=== PATIENT | male | born 1945 | race Caucasian/White ===

== ENCOUNTER → 2021-02-07 08:26 | Outpatient (CLI) | payer MEDICARE, OTHER, SELFPAY ==
--- NOTE | 2021-02-07 09:05 | RAD_ITS ---
STUDY: X-RAY - RIGHT HAND REASON FOR EXAM: Male, 75 years old. OSTEOARTHRITIS, STIFFNESS TECHNIQUE: 3 view(s) of the hand. COMPARISON: None. FINDINGS: Normal radiocarpal articulation. Normal distal radioulnar joint. Normal visualized carpal bones. Normal carpal articulations Normal carpometacarpal articulation of the thumb. Normal second through fifth carpometacarpal joints. Normal metacarpi. Normal metacarpophalangeal joint of the thumb. Normal interphalangeal joint of the thumb. Normal proximal and distal phalanges of the thumb. Normal metacarpophalangeal joints of the second through fifth fingers. Normal proximal and distal interphalangeal joints of the second through fifth fingers. Normal phalanges of the second through fifth fingers. The soft tissue structures are unremarkable. RAD/Hand Min 3 Views IMPRESSION: Normal x-ray examination of the hand. Electronically Signed: Jerardo Colón MD at 15:36 EST Tel , Service support ,
--- NOTE | 2021-02-07 09:10 | RAD_ITS ---
STUDY: X-RAY - LEFT HAND REASON FOR EXAM: Male, 75 years old. OSTEOARTHRITIS, STIFFNESS TECHNIQUE: 3 view(s) of the hand. COMPARISON: None. FINDINGS: Normal radiocarpal articulation. Normal distal radioulnar joint. Old ununited fracture of the tip of the ulnar styloid. Normal visualized carpal bones. Normal carpal articulations Normal carpometacarpal articulation of the thumb. Normal second through fifth carpometacarpal joints. Normal metacarpi. Normal metacarpophalangeal joint of the thumb. Normal interphalangeal joint of the thumb. Normal proximal and distal phalanges of the thumb. Normal metacarpophalangeal joints of the second through fifth fingers. There is diffuse articular joint space narrowing of the proximal and distal interphalangeal joints of the second through fifth fingers, but without erosive changes or periarticular soft tissue swelling. Normal phalanges of the second through fifth fingers. The soft tissue structures are unremarkable. RAD/Hand Min 3 Views IMPRESSION: No acute fracture or dislocation. Within normal limits for age. Electronically Signed: Leo Nraanjo MD at 23:23 EST , Service support ,
[2021-02-07 10:00] LABS: Erythrocyte Sedimentation Rate 8 mm/hr (0-20)
[2021-02-07 10:02] LABS: Absolute Lymphocyte Count 1.59 X10^3/uL (0.83-4.51); Absolute Neutrophil Count 2.7 X10^3/uL (2.0-7.7); Basophil# 0.03 X10^3/uL; Basophil% 0.6 % (0-1); Eosinophil# 0.05 X10^3/uL; Eosinophils% 1.1 % (0-5); Hematocrit 41.3 % (40-54); Hemoglobin 13.8 g/dL (13.0-16.5); Lymphocyte # 1.59 X10^3/ul (4.0); Lymphocyte % 33.5 % (19-41); Mean Corp Hgb Conc 33.4 g/dL (32-36); Mean Corpuscular Hgb 30.7 pg (27.0-32.0); Mean Corpuscular Volume 91.8 fL (80-94); Mean Platelet Vol. 9.4 fl (6.2-12.0); Monocyte# 0.38 X10^3/uL; NRBC Flagged by Analyzer 0 % (0-5); Neutrophil # 2.69 X10^3/uL (2.7-7.7); Neutrophil % 56.6 % (47-70); Platelet Count 227 K/mm3 (150-450); RBC Distribution Width CV 13.2 % (11.6-14.6); RBC Distribution Width SD 45.1 fl (35.1-43.9); White Blood Count 4.8 K/mm3 (4.4-11.0)
[2021-02-07 10:03] LABS: AST(SGOT) 17 U/L (15-37); Alanine Aminotransfer ALT/SGPT 12 U/L (16-61); Albumin, Serum 3.5 g/dL (3.2-5.0); Alkaline Phosphatase 73 U/L (45-117); Anion Gap 4 (5-15); BUN 17 mg/dL (7-18); BUN/Creat Ratio 19.5 RATIO (10-20); CRP < 2.90 mg/L (0.0-3.0); Calcium,Total 8.6 mg/dL (8.5-10.1); Chloride 108 mmol/L (98-107); Creatinine, Serum 0.87 mg/dL (0.70-1.30); EST Glomerular Filtration Rate 90 mL/min (>60); Est Glom Filt Rate - Afr Amer 109 mL/min (>60); Globulin 3.5 g/dL (2.2-4.2); Glucose 90 mg/dL (74-106); Rheumatoid Factor < 10.0 IU/mL (<15); Sodium Level 141 mmol/L (136-145)
[2021-02-07 10:34] LABS: Hepatitis B Surface Antibody Non-Reactive; Hepatitis B Surface Antigen Non-Reactive (Nonreactive); Hepatitis C Antibody Non-Reactive (Nonreactive)
[2021-02-08 15:10] LABS: ANTINUCLEAR ANTIBODIES DIRECT Negative (Negative)
[2021-02-09 10:05] LABS: CCP IgG Antibodies 16 units (0-19)
== END ==
PROVIDERS: PCP Family Medicine; Referring Provider Internal Medicine Rheumatology; Visit Provider Internal Medicine Rheumatology
DX: M19.041 Primary osteoarthritis, right hand (principal); I10 Essential (primary) hypertension; E78.5 Hyperlipidemia, unspecified; K21.9 Gastro-esophageal reflux disease without esophagitis; N40.0 Benign prostatic hyperplasia without lower urinary tract symptoms; G43.909 Migraine, unspecified, not intractable, without status migrainosus
CPT/HCPCS: 36415; 73130; 80053; 85025; 85652; 86038; 86140; 86200; 86431; 86706; 86803; 87340

== ENCOUNTER 2021-07-15 20:42 | Emergency (ER) | payer MEDICARE, OTHER, SELFPAY ==
[2021-07-15 20:44] VITALS: BP 188/102; PULSE 91; RESP 14; TEMP 35.7; O2SAT 97; BMI 30.7
[2021-07-15 21:08] VITALS: BP 139/86; PULSE 77; RESP 15; O2SAT 97
--- NOTE | 2021-07-15 22:19 | RAD_ITS ---
INDICATION: pain EXAMINATION/TECHNIQUE: X-RAY - RIGHT XR Knee Complete 4 Views or More 4 VIEWS COMPARISON: None. FINDINGS: SOFT TISSUES: There is a small knee joint effusion. Multiple osseous fragments surrounding the knee joint most likely extra-articular. Linear calcifications posterior knee region suggesting peripheral vascular disease. BONES/JOINTS: Total knee arthroplasty hardware shows normal alignment. No perihardware loosening or displacement.. No fracture. No focal osseous lesion.. RAD/Knee 4 or More Views IMPRESSION: Small knee joint effusion. Total knee arthroplasty without evidence of complication. Multiple osseous fragments project around the extra-articular joint space. Peripheral atherosclerosis. Electronically Signed: Larry Paredes DO at 22:41 EDT Tel , Service support ,
--- NOTE | 2021-07-15 22:39 | EX.ED.DYSGE1 ---
HPI History of Present Illness Chief Complaint: Lower Extremity Injury Informant: patient Onset/Context/Timing Onset: Today Context: Gradual Onset Timing: Waxes and wanes Current Severity: Mild Maximum Severity: Severe Narrative Narrative: Patient present secondary to right knee pain. Patient states he got this morning and felt fine, went got the paper. Short time later when he tried to bend his knee he had severe pain across the anterior medial knee. He states once his knee gets into either a straight or bent position he has no pain but any movement of the knee causes pain. He denies known injury. He has had bilateral knee replacements. PFSH PFS Medical History High cholesterol Non-smoker Home Medications prednisone 40 mg PO DAILY #8 tab 07/15/21 [Rx Last Taken Unknown] Allergy/AdvReac Type Severity Reaction Status Date / Time No Known Allergies Allergy Verified 07/15/21 20:44 Surgical History History of bilateral knee replacement History of hernia repair History of tonsillectomy and adenoidectomy Social History Smoking Status: Never smoker ROS ROS ED Constitutional Constitutional ED: Denies chills or fever(s) Eyes Eyes: Denies change in vision ENT ENT ED: Denies sore throat Cardiovascular Cardiovascular: Denies chest pain Respiratory/Chest Respiratory/Chest: Denies cough or dyspnea Gastrointestinal Gastrointestinal: Denies abdominal pain, diarrhea, nausea or vomiting Genitourinary Genitourinary ED: Denies dysuria Musculoskeletal Musculoskeletal: Reports arthralgias; Denies back pain Integumentary Denies rash Neurologic Neurologic: Denies headache(s), paresthesias or weakness Allergic/Immunologic Allergic/Immunologic ED: Denies urticaria EXAM Physical Exam Const Vital Signs: 07/15/21 20:44 07/15/21 21:08 Temperature 96.2 F L Temperature Source Temporal Pulse Rate 91 77 Respiratory Rate 14 15 Blood Pressure 188/102 H 139/86 H Blood Pressure Mean 130 103 Pulse Ox 97 97 Oxygen Delivery Method Room Air Room Air Positive well nourished and well developed General Appearance ED: well developed HEENT Reports normocephalic and head/scalp atraumatic Eyes PERRL and EOMs intact bilaterally Neck supple Chest Wall inspection of chest normal and palpation of chest normal Resp normal respiratory effort and clear to auscultation bilaterally Cardio regular rate and regular rhythm GI normal to inspection, nondistended, normoactive bowel sounds Palpation: soft Extremity normal to inspection Extremity Narrative: Mild edema noted to the right knee. No erythema or warmth. Mild tenderness along the medial joint line. No joint instability. No calf tenderness. Strong distal pulses. Neuro oriented x3 Sensorium / Orientation: alert Psych mental status grossly normal Skin no rashes or lesions noted MDM MDM MDM Narrative Medical decision making narrative: Right knee x-rays are obtained. Patient declines anything for pain. Radiography Diagnostic Testing: Radiology Impression Knee X-Ray 07/15/21 22:19 IMPRESSION: Small knee joint effusion. Total knee arthroplasty without evidence of complication. Multiple osseous fragments project around the extra-articular joint space. Peripheral atherosclerosis. Electronically Signed: Larry Paredes DO at 22:41 EDT Tel , Service support , Treatment and Re-Evaluation Comments:: Right knee x-ray per my interpretation reveals hardware to be intact. Chronic osteoarthritic changes noted but no acute findings. Test results discussed with patient and at bedside. I will treated with a burst of steroids to help calm inflammation in any sign of tendinitis. Layo wrap will be applied to the knee. Discharge Plan Triage Chief Complaint: Lower Extremity Injury ED Provider: Sonia Lopez Dx/Rx/DC Orders Clinical Impression: Strain of right knee Instructions: ED Knee Sprain Prescriptions: New prednisone 20 mg tablet 40 mg PO DAILY Qty: 8 RF: 0 Primary Care Provider: Kamron Pate Referrals: Kamron Pate MD [Primary Care Provider] - 1 Week if not improving Disposition Disposition: Home, Self Care
[2021-07-15] MEDS: predniSONE 20 MG Tablet 40 MG PO (23:07)
== END 2021-07-15 23:10 | disposition home or self-care (01) ==
PROVIDERS: Emergency Provider Emergency Medicine; PCP Family Medicine
DX: S86.911A Strain of unspecified muscle(s) and tendon(s) at lower leg level, right leg, initial encounter (principal); X58.XXXA Exposure to other specified factors, initial encounter; Y93.9 Activity, unspecified; Y92.89 Other specified places as the place of occurrence of the external cause; Y99.8 Other external cause status; E78.00 Pure hypercholesterolemia, unspecified; Z79.52 Long term (current) use of systemic steroids; Z96.653 Presence of artificial knee joint, bilateral; M25.469 Effusion, unspecified knee
CPT/HCPCS: 73564; 99283

== ENCOUNTER → 2025-07-06 | Outpatient (CLI) | payer MEDICARE, OTHER, SELFPAY ==
[2025-07-06 16:01] LABS: PSA,Total - Annual Screen 1.23 ng/mL (0.02-4.00)
--- OUTSIDE RECORDS SUMMARY | 2025-07-06 18:59 | XMS RPT_ITS | CCD ---
Author Organization [facility] Care Team Providers Care Edm Operator Name Role Phone Trent Mckeon Primary Care Provider Rio BENAVIDES, Kmaron Primary Care Provider Rio BENAVIDES, Kamron Primary Care Provider Trent Mckeon Primary Care Provider KAMRON PATE Attending Unavailable KAMRON PATE Primary Care Unavailable KAMRON PATE Attending Unavailable RIO KAMRON Primary Care Unavailable KAMRON PATE Attending Unavailable RIO, KAMRON Primary Care Unavailable Kamron Pate MD Primary Care Provider Manny Dudley MD Unavailable Manny Dudley MD Unavailable Mona Mata PT Unavailable TRENT MCKEON Primary Care Unavailable DANIEL PATEL Referring Unavailable RIO, KAMRON B Primary Care Unavailable PROVIDER, UNKNOWN Admitting Unavailable PROVIDER, UNKNOWN Attending Unavailable TRENT MCKEON Primary Care Unavailable NAEL REID Referring Unavailable RIO KAMRON B Primary Care Unavailable DANIEL PATEL Referring Unavailable RIO, KAMRON B Primary Care Unavailable KEM ALDRIDGE Attending Unavailable RIO, KAMRON B Primary Care Unavailable ALAYNA BOJORQUEZ Referring Unavailable RIO, KAMRON B Primary Care Unavailable MANNY DUDLEY Attending Unavailable RIO, KAMRON B Primary Care Unavailable MANNY DUDLEY Attending Unavailable TRENT MCKEON Primary Care Unavailable ALMA SANCHEZ Attending Unavailable TRENT MCKEON Primary Care Unavailable MANNY DUDLEY Attending Unavailable MANNY DUDLEY Referring Unavailable RIO, KAMRON B Primary Care Unavailable MANNY DUDLEY Referring Unavailable KAMRON PATE Primary Care Unavailable ALAYNA BOJORQUEZ Referring Unavailable NAEL REID Attending Unavailable KAMRON PATE Primary Care Unavailable KAMRON PATE Primary Care Unavailable NAEL REID Referring Unavailable KAMRON PATE Primary Care Unavailable NAEL REID Referring Unavailable KEM ALDRIDGE Attending Unavailable KAMRON PATE Primary Care Unavailable NAEL REID Referring Unavailable KEM ALDRIDGE Attending Unavailable KAMRON PATE Primary Care Unavailable NAEL REID Referring Unavailable NAEL REID Referring Unavailable RIO KAMRON B Primary Care Unavailable Allergies Allergy Classification Reported Allergen(s) Allergy Type Date of Onset Reaction(s) Facility (20 sources) celecoxib; Translations: [CELECOXIB] Drug Allergy 07-05-2011 Diarrhea [facility] (8 sources) celecoxib Drug Allergy 07-05-2011 Diarrhea [facility] Medications Current Medications Medication Drug Class(es) Dates Sig (Normalized) Sig (Original) acetaminophen 500 mg oral tablet (20 sources) Start: 02-02-2025 take 2 tablets by mouth every eight hours as needed acetaminophen (TYLENOL) 500 mg tablet Take 2 tablets by mouth every 8 hours as needed for pain. 90 tablet 02/02/2025 Active amoxicillin 500 mg oral capsule (2 sources) Penicillin-class Antibacterial Start: 06-16-2025 take 4 capsules by mouth every hour amoxicillin (AMOXIL) 500 mg capsule Take 4 capsules by mouth one hour prior to dental cleaning/procedure 4 capsule 3 06/16/2025 Active Start: 10-19-2024 End: 10-19-2024 take 4 tablets by mouth once, then take 4 tablets by mouth every hour Amoxicillin 500 mg tablet Take 4 tablets by mouth one time only for 1 dose. Take 4 capsules by mouth one hour prior to dental cleaning/procedure 4 tablet 3 10/19/2024 10/19/2024 Active amoxicillin 875 mg / clavulanate 125 mg oral tablet (1 source) Penicillin-class Antibacterial Start: 10-07-2024 End: 10-14-2024 take 1 tablet by mouth twice daily amoxicillin-clavulanate (Augmentin) 875-125 MG tablet Indications: Acute bacterial sinusitis Take 1 tablet by mouth 2 times daily for 7 days. 14 tablet 10/07/2024 10/14/2024 Active ascorbic acid 500 mg oral tablet (20 sources) Vitamin C Start: 02-03-2025 End: 02-17-2025 ascorbic acid, vitamin C, (VITAMIN C) 500 mg tablet Take 1 tablet by mouth two times a day with meals for 28 doses. Patient should start on February 03, 2025. 28 tablet 02/03/2025 Active aspirin 81 mg delayed release oral tablet (20 sources) Platelet Aggregation Inhibitor, Nonsteroidal Anti-inflammatory Drug Start: 02-03-2025 End: 03-03-2025 aspirin, enteric coated (ASPIRIN, ENTERIC COATED) 81 mg EC tablet Take 1 tablet by mouth two times a day for 28 days. Patient should start on February 03, 2025. 56 tablet 02/03/2025 Active benoxinate hydrochloride 4 mg/ml / fluorescein sodium 3 mg/ml ophthalmic solution (2 sources) Diagnostic Dye Start: 08-14-2024 End: 08-14-2024 fluorescein-benoxinate 0.3-0.4 % 1 Drop (FLURESS) Start: 08-14-2024 End: 08-14-2024 1 Drop, BOTH EYES, DIRECT ED, Starting on Sat08/14/24 at 0900, Until Sat08/14/24 at 2058, Administer for applanation tonometry. In the event of a Fluress shortage, administer Planada-Fluor 1 drop into both eyes as directed for applanation tonometry ciprofloxacin 2 mg/ml / hydrocortisone 10 mg/ml otic suspension (1 source) Corticosteroid, Quinolone Antimicrobial Start: 08-24-2024 End: 08-31-2024 ciprofloxacin-hydrocortisone (Cipro HC Otic) otic suspension Indications: Otorrhea of both ears Administer 3 drops into each ear 2 times daily for 7 days. 10 mL 08/24/2024 08/31/2024 Active docusate sodium 100 mg oral capsule (16 sources) Start: 02-03-2025 End: 03-05-2025 take 1 capsule by mouth every twelve hours as needed docusate sodium (COLACE) 100 mg capsule Take 1 capsule by mouth two times a day as needed for constipation. Patient should start on February 03, 2025. 60 capsule 02/03/2025 03/05/2025 Active hydrocortisone 10 mg/ml / neomycin 3.5 mg/ml / polymyxin b 52704 unt/ml otic solution (1 source) Aminoglycoside Antibacterial, Polymyxin-class Antibacterial, Corticosteroid Start: 10-07-2024 End: 10-14-2024 ssdczcdp-mrtftgyte-zordblkpl is one (Cortisporin) otic solution Administer 2 drops into affected ear(s) 4 times daily for 7 days. 10 mL 10/07/2024 10/14/2024 Active ibuprofen 200 mg oral tablet (17 sources) Nonsteroidal Anti-inflammatory Drug take 4 tablets by mouth every eight hours as needed ibuprofen 200 mg tablet Take 800 mg by mouth every 8 hours as needed. Active take 1 tablet by kristy every six hours as needed ibuprofen 200 MG tablet Take 200 mg by mouth every 6 hours as needed. Active Comment on above: Take 800 mg by mouth every 8 hours as needed. mupirocin 0.02 mg/mg topical ointment (1 source) RNA Synthetase Inhibitor Antibacterial Start: 01-19-20 End: 02-05-20 mupirocin (BACTROBAN) 2 % ointment Apply 0.5 inch with cotton swab (Q-tip) to each nostril in the morning and evening for 5 days prior to and including day of surgery. 22 g 01/19/2025 02/04/2025 Active oxyCODONE hydrochloride 5 mg oral tablet (6 sources) Opioid Agonist Start: 02-03-20 End: 02-10-20 take 1 tablet by mouth every six hours as needed oxyCODONE IR (ROXICODONE) 5 mg immediate release tablet Indications: S/P revision of total knee, right Take 1-2 tablets by mouth every 6 hours as needed for pain for up to 7 days. 50 tablet 02/02/2025 02/09/2025 Active pantoprazole 40 mg delayed release oral tablet (20 sources) Proton Pump Inhibitor Start: 02-03-20 End: 03-04-20 take 1 tablet by mouth once daily in the morning pantoprazole DR (PROTONIX) 40 mg tablet Take 1 tablet by mouth every morning. 30 tablet 02/02/2025 Active phenylephrine hydrochloride 25 mg/ml ophthalmic solution (2 sources) alpha-1 Adrenergic Agonist Start: 08-14-20 End: 08-14-20 PHENYLephrine 2.5 % 1 Drop (AK-DILATE, VADIM-SYNEPHRINE) Start: 08-14-2024 End: 08-14-2024 1 Drop, BOTH EYES, DIRECT ED, Starting on Sat08/14/24 at 0900, Until Sat08/14/24 at 2058, Administer for dilation PROTECT FROM LIGHT polyethylene glycol 3350 08441 mg powder for oral solution (7 sources) Osmotic Laxative Start: 02-02-2025 End: 02-12-2025 polyethylene glycol 3350 (MIRALAX) 17 gram/dose powder Take 17 g by mouth once daily as needed for constipation for up to 10 days. Dissolve dose in 4 - 8 ounces of liquid and take as directed. 170 g 02/02/2025 02/12/2025 Active tropicamide 10 mg/ml ophthalmic solution (2 sources) Anticholinergic Start: 08-14-2024 End: 08-14-2024 tropicamide 1 % 1 Drop (MYDRIACYL) Start: 08-14-2024 End: 08-14-2024 1 Drop, BOTH EYES, DIRECT ED, Starting on Sat08/14/24 at 0900, Until Sat08/14/24 at 2058, Administer for dilation Completed/Discontinued Medications Medication Drug Class(es) Dates Sig (Normalized) Sig (Original) acetaminophen 325 mg / dichloralphenazone 100 mg / isometheptene 65 mg oral capsule (10 sources) End: 01-19-20 take 1 capsule by mouth every six hours as needed isometheptene-acetamin ophen-dichloralphenazo ne (MIDRIN) 325-65-100 mg ORAL per capsule Take 1 capsule by mouth four times daily as needed. 01/19/2025 Discontinued Comment on above: Take 1 capsule by mo ut four times daily as needed. augmented betamethasone 0.5 mg/ml topical cream (1 source) Corticosteroid Start: 04-19-20 End: 01-09-20 23 betamethasone, augmented, (Diprolene AF) 0.05 % cream hydroCHLOROthiazide 12.5 mg oral tablet (4 sources) Thiazide Diuretic End: 02-10-20 24 take 1 tablet by mouth once daily hydrochlorothiazide 12.5 mg ORAL tablet Take 12.5 mg by mouth once daily. 02/10/2024 Discontinued (Discontinued by Patient) Comment on above: Take 12.5 mg by mout h once daily. omeprazole 20 mg delayed release oral capsule (12 sources) Proton Pump Inhibitor Start: 10-29-20 End: 02-18-20 25 omeprazole (PriLOSEC) [address] capsule Comment on above: Take 20 mg by mouth once daily. rosuvastatin calcium 10 mg oral tablet (13 sources) HMG-CoA Reductase Inhibitor Start: 11-02-20 End: 01-19-20 rosuvastatin (Crestor) 10 MG tablet TAKE 1 TABLET DAILY 90 tablet 3 11/02/2022 03/30/2024 Discontinued (Med list cleanup) Comment on above: Take 10 mg by mouth once daily. sodium fluoride 0.011 mg/mg toothpaste (1 source) Start: 12-02-19 End: 01-09-20 Sodium Fluoride 5000 PPM 1.1 % cream BRUSH WITH TOOTHPASTE TWICE A DAY -- SPIT BUT DO NOT RINSE AFTERWARDS 0 12/02/2022 01/09/2023 Discontinued (Med list cleanup) Problems Active Problems Problem Classification Problem Date Documented Date Episodic/Chronic Aortic; peripheral; and visceral artery aneurysms (20 sources) Dilatation of aorta; Translations: [Aortic ectasia, unspecified site] Onset: 01-20-2025 01-20-2025 Chronic Bacterial infection; unspecified site (2 sources) Other specified bacterial agents as the cause of diseases classified elsewhere; Translations: [Other specified bacterial agents as the cause of diseases classified elsewhere] Onset: 10-07-2024 Episodic Blindness and vision defects (6 sources) Bilateral myopia of eyes; Translations: [Myopia, bilateral] 02-10-2024 Episodic Cataract (2 sources) Bilateral pseudophakia; Translations: [Presence of intraocular lens] 02-10-2024 Chronic Disorders of lipid metabolism (20 sources) Hypercholesterolemia; Translations: [Pure hypercholesterolemia, unspecified] Onset: 12-22-2015 09-13-2022 Chronic Esophageal disorders (11 sources) Gastroesophageal reflux disease without esophagitis; Translations: [Gastro-esophageal reflux disease without esophagitis] Onset: 12-22-2015 09-13-2022 Chronic Headache; including migraine (20 sources) Migraine aura without headache ; Translations: [Migraine with aura, not intractable, without status migrainosus] Onset: 12-26-2018 09-13-2022 Chronic Heart valve disorders (2 sources) Heart murmur; Translations: [Cardiac murmur, unspecified] Onset: 01-19-2025 01-19-2025 Episodic Hyperplasia of prostate (8 sources) Benign prostatic hyperplasia; Translations: [Benign prostatic hyperplasia without lower urinary tract symptoms] Onset: 12-22-2015 09-13-2022 Chronic Joint disorders and dislocations; trauma-related (3 sources) Chondromalacia of right patella; Translations: [Chondromalacia patellae, right knee] Onset: 02-02-2025 Chronic Joint disorders and dislocations; trauma-related (1 source) Chondromalacia of left patella; Translations: [Chondromalacia patellae, left knee] 01-08-2025 Chronic Osteoarthritis (20 sources) Osteoarthritis of knee; Translations: [Osteoarthritis of knee, unspecified] Onset: 07-09-2013 07-09-2013 Chronic Other aftercare (2 sources) Patient encounter status; Translations: [Aftercare following joint replacement surgery] Chronic Other and ill-defined heart disease (20 sources) Diastolic dysfunction; Translations: [Other ill-defined heart diseases] Onset: 01-20-2025 01-20-2025 Chronic Other connective tissue disease (20 sources) History of total knee arthroplasty; Translations: [Presence of unspecified artificial knee joint] Onset: 07-06-2011 07-06-2011 Chronic Other connective tissue disease (20 sources) History of revision of left total knee arthroplasty; Translations: [Presence of left artificial knee joint] Onset: 02-04-2025 02-04-2025 Chronic Other connective tissue disease (2 sources) Presence of right artificial knee joint; Translations: [S/P revision of total knee, right] Onset: 02-02-2025 Chronic Other connective tissue disease (1 source) Presence of left artificial knee joint; Translations: [Status post revision of total knee replacement, left] Onset: 02-24-2025 Chronic Other ear and sense organ disorders (2 sources) Otorrhea, bilateral; Translations: [Otorrhea, bilateral] Onset: 08-24-2024 Episodic Other ear and sense organ disorders (1 source) Otorrhea of bilateral ears; Translations: [Otorrhea, bilateral] 08-24-2024 Episodic Other eye disorders (2 sources) Meibomian gland dysfunction of bilateral eyes; Translations: [Meibomian gland dysfunction right eye, upper and lower eyelids] 02-10-2024 Episodic Other nervous system disorders (1 source) Other chronic pain; Translations: [Chronic pain of both knees] Onset: 06-22-2011 Chronic Other non-traumatic joint disorders (5 sources) Pain in left knee; Translations: [Pain in joint, lower leg] Onset: 06-22-2011 12-14-2024 Episodic Other upper respiratory infections (3 sources) Acute sinusitis, unspecified; Translations: [Acute bacterial sinusitis] Onset: 10-07-2024 Episodic Veda-; endo-; and myocarditis; cardiomyopathy (except that caused by tuberculosis or sexually transmitted disease) (20 sources) Heart valve disorder; Translations: [Endocarditis, valve unspecified] Onset: 01-19-2025 01-20-2025 Chronic Residual codes; unclassified (2 sources) Immunization not carried out because of patient refusal; Translations: [Immunization not carried out because of patient refusal] Onset: 08-24-2024 Episodic Residual codes; unclassified (3 sources) Pain; Translations: [Pain, unspecified] 10-14-2024 Episodic Residual codes; unclassified (1 source) Influenza vaccination declined; Translations: [Immunization not carried out because of patient refusal] 08-24-2024 Episodic Unclassified (1 source) History of revision of left total knee arthroplasty 02-19-2025 Unclassified (1 source) Left knee pain, unspecified chronicity 02-21-2025 Past or Other Problems Problem Classification Problem Date Documented Date Episodic/Chronic Abdominal hernia (8 sources) Hernia of anterior abdominal wall; Translations: [Ventral hernia without obstruction or gangrene] Onset: 06-19-2018 09-13-2022 Episodic Other and unspecified benign neoplasm (8 sources) History of polyp of colon; Translations: [Personal history of colonic polyps] Onset: 01-13-2018 09-13-2022 Episodic Other circulatory disease (10 sources) Labile hypertension due to being in a clinical environment; Translations: [Elevated blood-pressure reading, without diagnosis of hypertension] Onset: 06-19-2018 09-13-2022 Episodic Other circulatory disease (2 sources) Elevated blood-pressure reading, without diagnosis of hypertension; Translations: [Elevated blood-pressure reading, without diagnosis of hypertension] Onset: 09-13-2022 Episodic Other non-traumatic joint disorders (20 sources) Pain in unspecified knee; Translations: [Pain in joint, lower leg] Onset: 06-22-2011 06-22-2011 Episodic Other non-traumatic joint disorders (2 sources) Pain in right knee; Translations: [Pain in joint, lower leg] Onset: 06-22-2011 01-07-2023 Episodic Other nutritional; endocrine; and metabolic disorders (2 sources) Obesity; Translations: [Other obesity due to excess calories] Onset: 01-08-2022 Resolved: 01-09-2023 01-09-2023 Chronic Other nutritional; endocrine; and metabolic disorders (6 sources) Obesity caused by energy imbalance; Translations: [Other obesity due to excess calories] Onset: 01-08-2022 Resolved: 01-09-2023 01-09-2023 Chronic Other screening for suspected conditions (not mental disorders or infectious disease) (5 sources) Blood chemistry abnormal; Translations: [Abnormal finding of blood chemistry, unspecified] Onset: 03-30-2024 03-30-2024 Episodic Residual codes; unclassified (1 source) Pain, unspecified; Translations: [Pain] Onset: 12-11-2024 Episodic Spondylosis; intervertebral disc disorders; other back problems (20 sources) Neck pain; Translations: [Cervicalgia] Onset: 07-04-2012 07-04-2012 Episodic Unclassified (2 sources) Preprocedural examination done 01-19-2025 Results Test Name Value Interpretation Reference Range Facility [facility] 03-22-2025 CNTHERAPY OT/PT/Speech Visit (PTWS) -------- TERESA ISAACS ([id number]) 1945 M Date Time Provider Department 03/22/25 11:45 AM XIOMARA YAO Date Time Provider Department Center 03/22/2025 11:45 AM [id number], MARIAH PTSAL [place] Reason for Visit: Physical Therapy [503] PT Discharge [752] Primary Visit Diagnosis:Status post revision of total knee replacement, 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 - ascorbic acid, vitamin C, (VITAMIN C) 500 mg tablet Take 1 tablet by mouth two times a day with meals for 28 doses. Patient should start on February 03, 2025. - aspirin, enteric coated (ASPIRIN, ENTERIC COATED) 81 mg EC tablet Take 1 tablet by mouth two times a day for 28 days. Patient should start on February 03, 2025. - pantoprazole DR (PROTONIX) 40 mg tablet Take 1 tablet by mouth every morning. Normal [facility] CNOVon 03-19-2025 CNOV Office Visit (ORNA ) -------- TERESA ISAACS ([id number]) 1945 M Date Time Provider Department 03/19/25 9:00 AM MANNY DUDLEY During your visit today, we recorded the following information about you: Manny Dudley MD 04/16/2025 7:[address] DUDLEY- POST-OP KNEE ====== Post-Op F/U Office Visit ====== Teresa Isaacs presents today for a 6-1/2 weeks status post revision Left TKA.(Patellar resurfacing) post-operative recovery was uneventful. Patient's rating of condition: improving Comments: Patient reports that his preoperative pain has improved. Does the Pt. still experience pain? PAIN EVALUATION 03/19/2025 0900 Pain Level: 0 Pain Location: Knee-Left Duration Amount of Time: 6 Duration Units: Weeks Frequency: Intermittent Functional difficulties: Stair climbing Physical Therapy: Yes Pain Medication: Non-narcotic Ambulating without assistance. Medications and Allergies reviewed and verified. ====== EXAM: ====== GEN: AANDO x3, NAD SKIN:Appropriate postop appearance LeftKnee: ROM: Flexion/Extension:0 degrees to 120 degrees Pain with ROM:No Mal-alignment: No Effusion: None Tender to palpation of the patellofemoral joint line(s). Stability:Anterior/Poste rior- Yes, stable and Varus/Valgus- Yes, stable Quad strength: normal HIP: range of motion no loss ROM NV: intact and Bailee's negative ====== IMAGING: ====== Xrays: No x-rays today ==== IMPRESSION/PLAN: ==== 79 year old male s/p revision Left TKA No complaints or limitations. At normal post-operative stage of recovery. Plan: 1. Continue range of motion/strengthening exercises and weightbearing as tolerated 2. Continue total knee precautions including use of antibiotics for dental procedures 3. Follow-up for repeat clinical evaluation Manny Dudley MD Electronic Signature Allergies As of Date: 03/19/2025 Noted Allergy Reaction CELEBREX (CELECOXIB) 07/05/2011 6 - Diarrhea Date Reviewed: 03/19/2025 Reviewed by: Rani Wasserman MA - Fully Assessed Reason for Visit: Knee Pain [132] Post Op [174] Knee Replacement [363] Primary Visit Diagnosis:Aftercare following left knee joint replacement surgery [Z47.1, Z96.652] Prescriptions as of 04/16/2025 - acetaminophen (TYLENOL) 500 mg tablet Take 2 tablets by mouth every 8 hours as needed for pain. - ascorbic acid, vitamin C, (VITAMIN C) 500 mg tablet Take 1 tablet by mouth two times a day with meals for 28 doses. Patient should start on February 03, 2025. - aspirin, enteric coated (ASPIRIN, ENTERIC COATED) 81 mg EC tablet Take 1 tablet by mouth two times a day for 28 days. Patient should start on February 03, 2025. - pantoprazole DR (PROTONIX) 40 mg tablet Take 1 tablet by mouth every morning. 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] 02/04/2025 Status post revision of total knee replacement,*02/24/2025 Encounter Status:Closed by MANNY DUDLEY on 04/16/25 [facility] CNTHERAPYon 03-18-2025 CNTHERAPY OT/PT/Speech Visit (PTWS) -------- TERESA ISAACS ([id number]) 1945 M Date Time Provider Department 03/18/25 9:30 AM XIOMARA YAO Date Time Provider Department Center 03/18/2025 9:30 AM [id number] MORFIN Reason for Visit: Physical Therapy [503] Primary Visit Diagnosis:Status post revision of total knee replacement, 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 - ascorbic acid, vitamin C, (VITAMIN C) 500 mg tablet Take 1 tablet by mouth two times a day with meals for 28 doses. Patient should start on February 03, 2025. - aspirin, enteric coated (ASPIRIN, ENTERIC COATED) 81 mg EC tablet Take 1 tablet by mouth two times a day for 28 days. Patient should start on February 03, 2025. - pantoprazole DR (PROTONIX) 40 mg tablet Take 1 tablet by mouth every morning. 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 - ascorbic acid, vitamin C, (VITAMIN C) 500 mg tablet Take 1 tablet by mouth two times a day with meals for 28 doses. Patient should start on February 03, 2025. - aspirin, enteric coated (ASPIRIN, ENTERIC COATED) 81 mg EC tablet Take 1 tablet by mouth two times a day for 28 days. Patient should start on February 03, 2025. - pantoprazole DR (PROTONIX) 40 mg tablet Take 1 tablet by mouth every morning. 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 - ascorbic acid, vitamin C, (VITAMIN C) 500 mg tablet Take 1 tablet by mouth two times a day with meals for 28 doses. Patient should start on February 03, 2025. - aspirin, enteric coated (ASPIRIN, ENTERIC COATED) 81 mg EC tablet Take 1 tablet by mouth two times a day for 28 days. Patient should start on February 03, 2025. - pantoprazole DR (PROTONIX) 40 mg tablet Take 1 tablet by mouth every morning. 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 - ascorbic acid, vitamin C, (VITAMIN C) 500 mg tablet Take 1 tablet by mouth two times a day with meals for 28 doses. Patient should start on February 03, 2025. - aspirin, enteric coated (ASPIRIN, ENTERIC COATED) 81 mg EC tablet Take 1 tablet by mouth two times a day for 28 days. Patient should start on February 03, 2025. - docusate sodium (COLACE) 100 mg capsule Take 1 capsule by mouth two times a day as needed for constipation. Patient should start on February 03, 2025. - pantoprazole DR (PROTONIX) 40 mg tablet Take 1 tablet by mouth every morning. 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 - ascorbic acid, vitamin C, (VITAMIN C) 500 mg tablet Take 1 tablet by mouth two times a day with meals for 28 doses. Patient should start on February 03, 2025. - aspirin, enteric coated (ASPIRIN, ENTERIC COATED) 81 mg EC tablet Take 1 tablet by mouth two times a day for 28 days. Patient should start on February 03, 2025. - docusate sodium (COLACE) 100 mg capsule Take 1 capsule by mouth two times a day as needed for constipation. Patient should start on February 03, 2025. - pantoprazole DR (PROTONIX) 40 mg tablet Take 1 tablet by mouth every morning. Normal [facility] [id number] 02-24-2025 [id number] HNO ID: [id number] Author: KEM ALDRIDGE PT Service: ? Author Type: Physical Therapist Type: [id number] Filed: 02/24/2025 12:39 Note Text: [facility] Rehabilitation and Sports Therapy Physical Therapy Plan of Care Certification Patient Name: Teresa Isaacs : 1945 [facility] #: [id number] Date: 02/24/2025 To: Nael Reid PA-C From Therapist: Kem Aldridge PT RE: Patient Certification/ Recertification Your review, approval and electronic signature are required in order to comply with Payor: MEDICARE / Plan: MEDICARE A AND B / Product Type: Medicare / regulations. The identified Physical Therapy PLAN OF CARE for the patient is as follows: Z96.652 Status post revision of total knee replacement, left (primary encounter diagnosis) PLAN OF CARE: Assessment: Teresa Isaasc presents with diagnosis of s/p left total knee arthroplasty revision that interferes with stair negotiation, physical activities, walking in the community, squatting (Uneven surface navigation.) . The patient presents with impairments in ADL's, flexibility, joint mobility, overall function, range of motion, soft tissue healing, strength, and tissue tenderness. PROMIS? (Patient-Reported Outcomes Measurement Information System) scores were reviewed and identified as within normal limits. Prognosis for therapy is Good due to: current objective clinical presentation, acuteness of condition, good support system/ coping skills . The patient will benefit from skilled therapy services to meet the goals established for this plan of care as noted below. Goals for Episode of Care: established 02/24/25 [place] in home exercise program. Patient will increase active ROM of L Knee to 0-120 degrees to allow pt to to improve gait mechanics / gait pattern . Increased strength of L Quad AND HS on HHD Testing to equal to RLE for improved able to navigate stairs and uneven surfaces. Increase gross left lower extremity strength to 5/5 MMT for improvements in ADLs/IADLs. Reciprocal stair negotiation with better left lower extremity control during descend. Patient will be able to complete left lower extremity 6-in eccentric step down with good control and no pain. Patient will be able to squat to parallel or slightly above without issue. Patient Goals: Improve Function; Back to PLOF. Time Frame for Goals and Treatment : 04/21/25 Planned Interventions, Frequency, and Duration: Current Frequency: 2x/week Duration: 4 weeks Total Number of Visits Planned: 8 Planned Treatment Interventions: Therapeutic exercise (72642), Neuromuscular re-education (54428), Manual therapy (11169), Therapeutic activities (69934), Self-assisted management (25519), Gait Training (75974), Patient/Family/Caregiver Education PLAN FOR NEXT VISIT: Knee A/AA/PROM; EMERY on bike with revolutions or 1/2 moons. Patient demonstrates good understanding of plan of care and treatment. The above goals and plan of care were discussed and agreed upon by patient/family. For further details regarding this patient refer to the Physical Therapy electronically documented visit dated 02/24/2025. Provider Attestation I have reviewed the treatment plan for Teresa Kelli Isaacs, [facility]# [id number] for the period of 02/24/25 -- 04/02/25, established on 02/24/2025. Signature certifies the need for therapy services. 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 - ascorbic acid, vitamin C, (VITAMIN C) 500 mg tablet Take 1 tablet by mouth two times a day with meals for 28 doses. Patient should start on February 03, 2025. - aspirin, enteric coated (ASPIRIN, ENTERIC COATED) 81 mg EC tablet Take 1 tablet by mouth two times a day for 28 days. Patient should start on February 03, 2025. - docusate sodium (COLACE) 100 mg capsule Take 1 capsule by mouth two times a day as needed for constipation. Patient should start on February 03, 2025. - pantoprazole DR (PROTONIX) 40 mg tablet Take 1 tablet by mouth every morning. Sales Recruiting Coordinator: Addendum Therapy (PT/OT/Speech/Resp) ID: [id number] 02/24/2025 11:29 AM Author: KEM ALDRIDGE Signed by KEM ALDRIDGE PT on 02/24/2025 at 11:29 AM * * * This document replaces document [id number] * * * Document text: Program_ID:[id number] Access Code: [email or web address] URL: [email or web address] Date: 02-24-2025 Prepared By: Kem Aldridge Program Notes Exercises - Supine Heel Slide with Strap - 2 x daily - 7 x weekly - 2-3 sets - 10 reps - Knee Flexion Step - 2 x daily - 7 x weekly - 2 sets - 10 reps - Seated Knee Flexion AAROM - 2 x daily - 7 x weekly - 2 sets - 10 reps - Standing Knee Flexion - 2 x daily - 7 x weekly - 2 sets - 10 reps - Long Arc Quad on Table - 2 x daily - 7 x weekly - 2 sets - 10 reps - Active Straight Leg Raise with Quad Set - 2 x daily - 7 x weekly - 2-3 sets - 10-12 reps - Long Sitting 4 Way Patellar [place] - 1 x daily - 7 x weekly - 2 sets - 10 reps Normal [facility] THERAPY NTon 02-24-2025 THERAPY NT HNO ID: [id number] Author: KEM ALDRIDGE PT Service: ? Author Type: Physical Therapist Type: Therapy (PT/OT/Speech/Resp) Filed: 02/24/2025 11:29 Note Text: Program_ID:[id number] Access Code: [email or web address] URL: [email or web address] Date: 02-24-2025 Prepared By: Kem Aldridge Program Notes Exercises - Supine Heel Slide with Strap - 2 x daily - 7 x weekly - 2-3 sets - 10 reps - Knee Flexion Step - 2 x daily - 7 x weekly - 2 sets - 10 reps - Seated Knee Flexion AAROM - 2 x daily - 7 x weekly - 2 sets - 10 reps - Standing Knee Flexion - 2 x daily - 7 x weekly - 2 sets - 10 reps - Long Arc Quad on Table - 2 x daily - 7 x weekly - 2 sets - 10 reps - Active Straight Leg Raise with Quad Set - 2 x daily - 7 x weekly - 2-3 sets - 10-12 reps - Long Sitting 4 Way Patellar [place] - 1 x daily - 7 x weekly - 2 sets - 10 reps Normal [facility] XR Knee AP and Lateral and M erchantson 02-21-2025 IMPRESSION: Stable T KA Sox Analyst: HENNY Transcribe Date/Time: Feb 21 2025 8:17A Dictated by : DUARTE CEDENO MD This examination was interpreted and the report reviewed and electronically signed by: DUARTE CEDENO MD on Feb 21 2025 8:19AM [facility] * * *Final Report* * * DATE OF EXAM: Feb 19 2025 10:47AM LADY 5208 - XR KNEE 3V AP/LAT/MERCHANT LT / PROCEDURE REASON: M25.562-Left knee pain, unspecified chronicity * * * * Physician Interpretation * * * * PROCEDURE: Left knee INDICATION: Left knee pain, unspecified chronicity .F/U POST OP TECHNIQUE: XR KNEE 3V AP/LAT/MERCHANT LT COMPARISON: 02/02/2025 FINDINGS: The total knee arthroplasty remains in satisfactory position. No periprosthetic lucency or fracture. Small joint effusion. [facility] Provider, Daniel Salgadosheri marcelino [place] - 02/21/2025 * * *Final Report* * * DATE OF EXAM: Feb 19 2025 10:47AM LADY 5208 - XR KNEE 3V AP/LAT/MERCHANT LT / PROCEDURE REASON: M25.562-Left knee pain, unspecified chronicity * * * * Physician Interpretation * * * * PROCEDURE: Left knee INDICATION: Left knee pain, unspecified chronicity .F/U POST OP TECHNIQUE: XR KNEE 3V AP/LAT/MERCHANT LT COMPARISON: 02/02/2025 FINDINGS: The total knee arthroplasty remains in satisfactory position. No periprosthetic lucency or fracture. Small joint effusion. IMPRESSION IMPRESSION: Stable TKA Sox Analyst: HENNY Transcribe Date/Time: Feb 21 2025 8:17A Dictated by : DUARTE CEDENO MD This examination was interpreted and the report reviewed and electronically signed by: DUARTE CEDENO MD on Feb 21 2025 8:19AM EST [facility] XR Knee AP and Lateral and M erchantsOrdered By: Ccf Provider on 02-21-2025 [facility] CNOVon 02-19-2025 CNOV Office Visit (JASMYN ) -------- TERESA ISAACS ([id number]) 1945 M Date Time Provider Department 02/19/25 11:00 AM NAEL REID During your visit today, we recorded the following information about you: Nael Reid PA-C 02/19/2025 12:38 PM Signed Post-op Office Visit Teresa Isaacs 79 year old February 19, 2025 11:14 AM Surgery Date: 02/02/2025 History: Teresa Isaacs is now 2 weeks out from left total knee arthroplasty revision in the form of resurfacing of patella. Post-operative course has been without complication. No readmissions. The patient was discharged same day to home with home health care. Subjective: Patient reports no knee pain. Overall is doing well. He is not using an ambulatory aid He is not taking any opioid pain medication Patients rates his condition as improving. Reports compliance with DVT ppx. Participating in home PT. Objective: Left knee: Ambulates without assistive device Incision well-approximated, no drainage, well-healing. Suture tails trimmed today. Knee ROM 0 - 95 degrees Distally DP/PT palpable Distally SILT S/S/SP/DP/T intact at baseline Distally DF/PF motor intact at baseline Negative bailee/calf tenderness Xrays: Well-positioned total knee replacement in appropriate alignment with no evidence of loosening Assessment and Plan: 79 year old male 2 weeks status post left total knee arthroplasty revision in the form of resurfacing of patella - continue ice, rest, and use of non-narcotic analgesia as needed - reviewed antibiotic prophylactic protocols - discussed home exercises and therapy - continue ASA DVT prophylaxis for 4 weeks total - WBAT on operative extremity - discussed driving requirement: 4 weeks post-op, off narcotic pain medication, adequate brake time - follow up in 4 weeks for repeat clinical evaluation with Dr. Dudley Normal post-operative course discussed with patient. Patient reassured and supported. All questions answered. Rell Reid PA-C Orthopaedic Surgery Allergies As of Date: 02/19/2025 Noted Allergy Reaction CELEBREX (CELECOXIB) 07/05/2011 6 - Diarrhea Date Reviewed: 02/19/2025 Reviewed by: Rani Wasserman MA - Fully Assessed Reason for Visit: Knee Pain [132] Post Op [174] Primary Visit Diagnosis:Status post revision of total replacement of left knee [Z96.652] Order(s):CONSULT TO PHYSICAL THERAPY [9032] Order #: [id number]: 1 FUTURE Prescriptions as of 02/19/2025 - acetaminophen (TYLENOL) 500 mg tablet Take 2 tablets by mouth every 8 hours as needed for pain. - ascorbic acid, vitamin C, (VITAMIN C) 500 mg tablet Take 1 tablet by mouth two times a day with meals for 28 doses. Patient should start on February 03, 2025. - aspirin, enteric coated (ASPIRIN, ENTERIC COATED) 81 mg EC tablet Take 1 tablet by mouth two times a day for 28 days. Patient should start on February 03, 2025. - docusate sodium (COLACE) 100 mg capsule Take 1 capsule by mouth two times a day as needed for constipation. Patient should start on February 03, 2025. - pantoprazole DR (PROTONIX) 40 mg tablet Take 1 tablet by mouth every morning. Problem List As Of Date 02/19/2025 Noted Resolved Knee pain [M25.569] 06/22/2011 S/P total knee replacement using cement [Z96.65*07/06/2011 Neck pain [M54.2] 07/04/2012 Arthritis of knee, degenerative [M17.9] 07/09/2013 Mixed hyperlipidemia [E78.2] 01/19/2025 VHD (valvular heart disease) [I38] 01/19/2025 Migraine headaches [G43.909] 01/19/2025 Grade I diastolic dysfunction [I51.89] 01/20/2025 Dilatation of aorta (HCC) [I77.819] 01/20/2025 Osteoarthritis of patellofemoral joints of both*02/02/2025 S/P revision of total knee, left [Z96.652] 02/04/2025 Encounter Status:Closed by NAEL REID on 02/19/25 Normal [facility] XR KNEE 3V AP/LAT/MERCHANT L Ton 02-19-2025 XR KNEE 3V AP/LAT/MERCHANT LT * * *Final Report* * * DATE OF EXAM: Feb 19 2025 10:47AM LADY 5208 - XR KNEE 3V AP/LAT/MERCHANT LT / PROCEDURE REASON: M25.562-Left knee pain, unspecified chronicity * * * * Physician Interpretation * * * * PROCEDURE: Left knee INDICATION: Left knee pain, unspecified chronicity .F/U POST OP TECHNIQUE: XR KNEE 3V AP/LAT/MERCHANT LT COMPARISON: 02/02/2025 FINDINGS: The total knee arthroplasty remains in satisfactory position. No periprosthetic lucency or fracture. Small joint effusion. IMPRESSION: Stable TKA Sox Analyst: HENNY Transcribe Date/Time: Feb 21 2025 8:17A Dictated by : DUARTE CEDENO MD This examination was interpreted and the report reviewed and electronically signed by: DUARTE CEDENO MD on Feb 21 2025 8:19AM EST [id number] Normal [facility] XR Knee AP and Lateral and M erchantson 02-19-2025 Radiology Study observation (narrative) [facility] 102on 02-18-2025 102 HNO ID: [id number] Author: HAYLEE CORBIN HDA Service: ? Author Type: ? Type: 102 Filed: 02/18/2025 07:51 Note Text: Code Status: Full Code Normal [facility] CNPNon 02-09-2025 CNPN Telephone (HCSIND) -------- TERESA ISAACS ([id number]) 1945 M Date Time Provider Department 02/09/25 ELI CUNHA HCSIND During your visit today, we recorded the following information about you: Eli Cunha PTA 02/09/2025 2:00 PM Signed Removed surgical bandage today. No concerns. Picture uploaded to chart for your review. Also scheduled OP PT for patient. Can you please enter orders for this? Thanks Daniel Patel PA-C 02/09/2025 2:18 PM Signed PT and OT have been ordered. CAMRYN Ta Robert S, PA-C 02/09/2025 2:18 PM Signed Addended by: DANIEL PATEL on: 02/09/2025 02:18 PM Modules accepted: Orders Allergies As of Date: 02/09/2025 Noted Allergy Reaction CELEBREX (CELECOXIB) 07/05/2011 6 - Diarrhea Date Reviewed: 02/09/2025 Reviewed by: Eli Cunha PTA - Fully Assessed Reason for Visit: Home Care [1633] Cmt: Bandage removal Primary Visit Diagnosis:Status post total right knee replacement [Z96.651] Order(s):CONSULT TO PHYSICAL THERAPY [9032] Order #: [id number]: 1 FUTURE CONSULT TO CHILD WATCH ATTENDANT [19991210] Order #: [id number]: 1 FUTURE Prescriptions as of 02/09/2025 - acetaminophen (TYLENOL) 500 mg tablet Take 2 tablets by mouth every 8 hours as needed for pain. - ascorbic acid, vitamin C, (VITAMIN C) 500 mg tablet Take 1 tablet by mouth two times a day with meals for 28 doses. Patient should start on February 03, 2025. - aspirin, enteric coated (ASPIRIN, ENTERIC COATED) 81 mg EC tablet Take 1 tablet by mouth two times a day for 28 days. Patient should start on February 03, 2025. - docusate sodium (COLACE) 100 mg capsule Take 1 capsule by mouth two times a day as needed for constipation. Patient should start on February 03, 2025. - polyethylene glycol 3350 (MIRALAX) 17 gram/dose powder Take 17 g by mouth once daily as needed for constipation for up to 10 days. Dissolve dose in 4 - 8 ounces of liquid and take as directed. - oxyCODONE IR (ROXICODONE) 5 mg immediate release tablet Take 1-2 tablets by mouth every 6 hours as needed for pain for up to 7 days. - pantoprazole DR (PROTONIX) 40 mg tablet Take 1 tablet by mouth every morning. Problem List As Of Date 02/09/2025 Noted Resolved Knee pain [M25.569] 06/22/2011 S/P total knee replacement using cement [Z96.65*07/06/2011 Neck pain [M54.2] 07/04/2012 Arthritis of knee, degenerative [M17.9] 07/09/2013 Mixed hyperlipidemia [E78.2] 01/19/2025 VHD (valvular heart disease) [I38] 01/19/2025 Migraine headaches [G43.909] 01/19/2025 Grade I diastolic dysfunction [I51.89] 01/20/2025 Dilatation of aorta (HCC) [I77.819] 01/20/2025 Osteoarthritis of patellofemoral joints of both*02/02/2025 S/P revision of total knee, left [Z96.652] 02/04/2025 Encounter Status:Closed by ELI CUNHA on 02/09/25 Normal [facility] OPERATIVE NOon 02-04-2025 OPERATIVE NO HNO ID: [id number] Author: MANNY DUDLEY MD Service: Orthopaedic Surgery Author Type: Physician Type: Operative Report Filed: 02/04/2025 19:35 Note Text: [facility] - Operative Report TERESA ISAACS : 1945 AGE: 79. SEX: M PATIENT TYPE: I HOSP SVC: Surgical LOCATION: [facility] ATTENDING PHYSICIAN: MANNY DUDLEY CSN NUMBER: [id number] DATE OF SURGERY/PROCEDURE: 02/02/2025 INCISION/PROCEDURE START TIME: 11:03. INCISION CLOSE/PROCEDURE END TIME: 12:33. PREOPERATIVE DIAGNOSIS: Patellofemoral arthritis, left knee. POSTOPERATIVE DIAGNOSIS: Patellofemoral arthritis, left knee. SURGEON: Manny Dudley M.D. DRILL PRESS OPERATOR: LUKASZ Cobos, web production assistant. No qualified resident was available for the procedure. The PA was utilized for soft tissue retraction and holding the limb in the proper alignment for appropriate arthroplasty of the patella. SURGERY/PROCEDURE: Patellar arthroplasty, left knee. ANESTHESIA: General, peripheral. LOG ID: [id number] INTRAOPERATIVE FINDINGS: 1. Full-thickness osteoarticular wear with marginal osteophytes and several loose articular bodies. 2. Femoral and tibial components were acceptably secured with cement and there was minimal of any wear on the tibial polyethylene surface. Therefore, it was not resurfaced. COMPLICATIONS: Tip of the bone-holding tenaculum broke free while retracting the patella, size of the tenaculum of the fragment was approximately 2 to 3 mm. The knee was inspected copiously and irrigated. The surrounding surgical field was inspected. No evidence of the tenaculum tip could be identified. X-rays taken intraoperatively showed no loose foreign bodies rather and this was confirmed by the radiologist reading. CLOSURE: Primary. CLINICAL HISTORY: This is a 79-year-old gentleman, who underwent elective total knee arthroplasty approximately 16 years ago. There was no patellar resurfacing performed at that time. He did very well until recently when he began having anterior knee pain. The pain was worse with ascending/descending steps with a sensation of patellar instability. On x-ray, he was known shown to have severe degenerative changes of the patellofemoral joint with osteophyte formation and several loose bodies and therefore, it was recommended that the patient undergo a patellar resurfacing and if the tibial insert was noted to have some significant wear, exchange would be performed at that time. DESCRIPTION OF PROCEDURE: The patient was taken to the operating room. A sign-in procedure was performed. Once again, the risks, goals, complications of procedure including anesthetic complications, infection, DVT, persistent knee pain, and knee stiffness were all explained. The patient understood and agreed to the procedure. After the patient had undergone a general anesthetic, the left leg was prepped and draped in the usual sterile fashion and then a time-out was performed confirming the leg had been marked appropriately preop, the anand was visible in the surgical field. The patient's antibiotics had been infused within 1 hour of surgical incision. After completion of the time-out, the leg was held in an elevated position and exsanguinated. The tourniquet was then inflated. The previous anterior midline incision was then reutilized. Care was taken to elevate thick flaps with appropriate amount of subcutaneous tissue. These were mobilized until the previously performed arthrotomy could be identified. The arthrotomy incision was reopened over top of the permanent sutures that were used to close the arthrotomy. Upon entering, there was minimal inflammatory fluid. The patella was subluxed laterally after a lateral synovectomy was performed to enhance mobilization and the patella was inverted. This is the time that the tip of the bone holding clamp had broken free. Then inspection was made, it could not be identified in the operative field. Once the patella had been inverted, an oscillating saw was used to perform a freehand cut of the patellar articular surface after measuring for the appropriate depth. The flat cut was then verified to be of equal thickness throughout the patella and the patella was measured for a size 40 patellar insert. The guide for the Davis and Nephew asymmetrical patellar button was placed onto the cut surface and the post holes were drilled. A trial was placed. The cut bone of the patella was also inspected and no evidence of the tenaculum tip could be identified within the bone. At that point, x-ray in AP and lateral planes were obtained. No evidence of the metallic foreign body was seen intra-articular. This was confirmed by the radiologist read. The patellar of the tibial insert was then inspected showing no evidence of wear. The patient had excellent stability to varus-valgus stress in full extension, mid flexion, and deep flexion. Thus, it was decided (more content not included)... [facility] CNCOon 02-03-2025 CNCO Letter Text [facility] ANES POSTPROC EVALon 025 ANES POSTPROC EVAL HNO ID: [id number] Author: LESLIE HAYES MD Service: ? Author Type: Anesthesiologist Type: Anesthesia Postprocedure Evaluation Filed: 02/02/2025 13:30 Note Text: POST ANESTHESIA EVALUATION NOTE : 1945 Procedure Summary Date: 02/02/25 Room / Location: [facility] [place] Anesthesia Start: 1033 Anesthesia Stop: 1243 Procedure: REVISION JOINT TOTAL KNEE ONE COMPONENT (Left: Knee) Diagnosis: Chondromalacia of right patella Left knee pain, unspecified chronicity (Chondromalacia of right patella [M22.41]) (Left knee pain, unspecified chronicity [M25.562]) Surgeons: Manny Dudley MD Responsible Provider: Leslie Hayes MD Anesthesia Type: general ASA Status: 2 Anesthesia Type: general Airway Type: ETT Last Vitals Vitals Value Taken Time BP 117/67 02/02/25 1318 Temp 36.9 ?C (98.4 ?F) 02/02/25 1242 Pulse 73 02/02/25 1328 Resp 20 02/02/25 1328 SpO2 95 % 02/02/25 1328 Vitals shown include unfiled device data. Post Anesthesia Patient Status Patient Evaluation: bedside. Anticipated Disposition: inpatient floor planned admission. Neurological Status: sleepy but arousable. Pulmonary Status: breathing comfortably on supplemental oxygen Airway Control: returned to baseline unsupported. Cardiovascular Status: stable. Pain Management: clinically adequate Postoperative Hydration: acceptable. Intraoperative Events: no significant anesthesia events Post Operative Nausea/Vomiting Status: no significant post operative nausea or vomiting Recommendation: continue current plan of care and pain control. Anesthesia Observations No Documentation SIGNATURE: Leslie Hayes MD PATIENT NAME: Teresa Isaacs DATE: February 02, 2025 TIME: 1:30 PM CSN: [id number] [facility] ANES PRE-OPon 02-02-2025 ANES PRE-OP HNO ID: [id number] Author: LESLIE HAYES MD Service: ? Author Type: Anesthesiologist Type: Anesthesia Preprocedure Evaluation Filed: 02/02/2025 10:19 Note Text: ANESTHESIOLOGY DAY OF SURGERY NOTE : 1945 Procedure Information Date/Time: 02/02/25 1014 Procedure: REVISION JOINT TOTAL KNEE ONE COMPONENT (Left: Knee) Location: [facility] OR04 / [place] Surgeons: Manny Dudley MD Estimated body mass index is 28.1 kg/m? as calculated from the following: Height as of this encounter: 195.6 cm (6' 5). Weight as of this encounter: 107.5 kg (237 lb). Most recent hematocrit and potassium results: Hematocrit 39.2 01/19/2025 Potassium 4.0 01/19/2025 Relevant Problems CARDIO (+) Dilatation of aorta (HCC) (+) Migraine headaches NEURO-PSYCH (+) Migraine headaches I - PHYSICAL EVALUATION AIRWAY Patient intubated: No. Tracheostomy tube not present Mallampati: II. TM distance: >3 FB. Neck ROM: full ROM without neurological symptoms. Mouth opening: adequate. Short neck: no. Thick neck: no DENTAL Dental findings: teeth intact. Additional exam findings: yes. CARDIOVASCULAR Rhythm: regular Rate: normal PULMONARY Breath sounds clear to auscultation. II - ANESTHESIA PLAN ASA Score: 2 Anesthetic Plan: general Airway type: ETT The patient is not a current smoker. NPO Status: adequate Beta Veda Monitoring Plan Monitoring plan: standard ASA. Post Procedure Analgesic Plan Postoperative analgesic plan: multimodal analgesia. Informed Consent Anesthetic risks, benefits, alternatives, personnel and consent discussed: yes. Patient / Responsible Constitution Party agrees to proceed: yes Patient / Surrogate agrees to blood products: Yes DNR status not reviewed with patient and/or family prior to surgery. Significant changes in the patient condition since the History and Physical, not otherwise documented in primary service progress note: no. Potential Anesthesia issues that may suggest increased risk of complications or contraindication to planned procedure: none. Vitals Value Taken Time BP 107/73 02/02/25 1015 Pulse 63 02/02/25 1017 Resp 12 02/02/25 1017 Temp 36.1 ?C (97 ?F) 02/02/25 0905 SpO2 94 % 02/02/25 1017 Vitals shown include unfiled device data. Facility-Administered Medications as of 02/02/2025 Medication Dose Route Frequency lidocaine (PF) 10 mg/mL (1 %) 1-2 mg injection (XYLOCAINE) 0.1-0.2 mL INTRADERMAL PRN lactated ringers iv infusion 5-30 mL/hr INTRAVENOUS CONTINUOUS NaCl 0.9% iv flush bag 20 mL INTRAVENOUS PRN ceFAZolin iv piggyback 2 g in D5W (iso-osmotic) 100 mL (ANCEF) 2 g INTRAVENOUS Pre-Op Once ropivacaine 2.46 mg/mL-EPINEPHrine 0.005 mg/mL-cloNIDine 0.0008 mg/mL-ketorolac 0.3 mg/mL 50 mL injection (R.E.C.K.) 50 mL periarticular ONCE [COMPLETED] midazolam (PF) 2 mg injection (VERSED) 2 mg INTRAVENOUS Pre-Op Once [COMPLETED] oxyCODONE ER 10 mg tab(s) (OxyCONTIN) 10 mg ORAL Pre-Op Once scopolamine (delivers 1 mg over 3 days) 1 Patch (TRANSDERM-SCOP) 1 Patch TRANSDERMAL ONCE Outpatient Medications as of 02/02/2025 Medication Sig ibuprofen 200 mg tablet Take 800 mg by mouth every 8 hours as needed. I have interviewed and examined the patient. I have reviewed the medical record and/or the pre-anesthesia evaluation, pertinent labs, and test results. This contains updated information obtained within 48 hours of Surgery/Procedure. SIGNATURE: Leslie Hayes MD PATIENT NAME: Teresa Isaacs DATE: February 02, 2025 TIME: 10:19 AM CSN: [id number] [facility] BRIEF OP NOTon 02-02-2025 BRIEF OP NOT HNO ID: [id number] Author: MANNY DUDLEY MD Service: Orthopaedic Surgery Author Type: Physician Type: Brief Op Note Filed: 02/04/2025 11:05 Note Text: TOTAL KNEE ARTHROPLASTY BRIEF OPERATIVE / PROCEDURE NOTE LOG ID: [id number] Surgery/Procedure Date: 02/02/2025 Incision/Procedure Start Time: 11:03 AM Incision Close/Procedure End Time: 12:33 PM Surgeon(s)/Proceduralist (s) and Liquor Bridge Operator(s): Surgeons and Role: * Manny Dudley MD - Primary Physician Liquor Bridge Operator: Daniel Patel PA-C; Brandi Holder PA-C Procedure(s): Resurfacing arthroplasty patella Anesthesia: General Peripheral Block Type: Saphenous/Adductor Approach: Median parapatellar Findings: Full-thickness osteoarticular wear patella with marginal osteophytes and osteoarticular loose body Estimated Blood Loss: Less than 50 mls Specimens: Bone cuttings Complications: Tip of the tenaculum broke free while retracting the patella. Size of the tenaculum approximately 2 to 3 mm. Inspection of the knee joint did not identify the fragment. X-rays were taken showing no metallic foreign bodies. This was confirmed by the radiologist. Closure Technique: Primary Total Joint Arthroplasty (TJA) Surgical Risk Procedure: Not on file Date assessed: Not on file No data to display Implant: * No implants in log * Bearing Surface: Fixed Fixation: Cemented SSI Risk Factors: Previous surgery Constraint: Posterior Stabilized Other: None Pre-Op/Pre-Procedure Diagnosis: Chondromalacia of right patella [M22.41] Left knee pain, unspecified chronicity [M25.562] Post-Op/Post-Procedure Diagnosis: Chondromalacia of right patella [M22.41] Left knee pain, unspecified chronicity [M25.562] Weight Bearing Status: Weight Bearing As Tolerated Patient was accompanied to the next level of care by a licensed practitioner from the surgical team pending completion of this brief op note (or operative note) SIGNATURE: Manny Dudley MD PATIENT NAME: Teresa Isaacs DATE: February 02, 2025 TIME: 12:14 PM [facility] 02-02-2025 [facility] HNO ID: [id number] Author: MANNY DUDLEY MD Service: Orthopaedic Surgery Author Type: Physician Liquor Bridge Operator Type: Discharge Summary Filed: 02/04/2025 11:04 Note Text: -------- Attestation signed by Manny Dudley MD at 02/04/2025 11:04 AM Agree with above -------- DISCHARGE SUMMARY PATIENT NAME: Teresa Isaacs ADMISSION DATE: 02/02/2025 DISCHARGE DATE: 02/02/2025 PATIENT DISCHARGE SUMMARY C O N F I D E N T I A L I N F O R M A T I O N The following is a brief overview of your hospitalization. Some of the information contained on this summary may be confidential. This information should be kept in your records and should be shared with your regular doctor. These instructions explain what you or your account executive healthcare need to do to continue your care at home or at another healthcare facility Please go over these instructions with your nurse and account executive healthcare. If you are not sure about something, please ask. -------- Highest Readmission Risk Score: 8 The 30 day readmissions risk score is derived from an internally validated risk model which evaluates patient level characteristics, utilization history, medication orders and lab results up until the day of discharge. Patients with a score of 39 or above are considered highest risk for readmission. Specific patient level drivers will be listed at the bottom of the summary. The 30 day readmissions risk score is derived from an internally validated risk model which evaluates patient level characteristics, utilization history, medication orders and lab results up until the day of discharge. Patients with a score of 40 or above are considered highest risk for readmission. Where I Will be Going after Discharge: Home with Home Health My Condition at Discharge: Stable PRINCIPAL DIAGNOSIS: (Reason after study for this admission): Procedure(s): REVISION JOINT TOTAL KNEE ONE COMPONENT OTHER DIAGNOSES: Patient Active Hospital Problem List: No active hospital problems. OPERATIONS PERFORMED: Procedure(s): REVISION JOINT TOTAL KNEE ONE COMPONENT My Doctors and Medical Team: My Main Hospital Doctor: Manny Min MD PHYSICAL EXAM: See daily progress note Vitals: BP 109/67 Pulse 75 Temp 36.9 ?C (98.4 ?F) Resp 20 Ht 195.6 cm (6' 5) Wt 107.5 kg (237 lb) SpO2 92% BMI 28.10 kg/m? SUMMARY OF WHAT HAPPENED WHILE PATIENT WAS IN THE HOSPITAL: The patient was followed by Dr. Dudley in clinic for left knee pain secondary to patellar articular wear and unresurfaced patella. It was determined the patient would benefit from left total knee arthroplasty revision in the form of resurfacing of patella. The patient was determined to be a candidate for same day discharge. The procedure, its risks, benefits, and potential complications were discussed in detail prior to surgery. The patient conveyed understanding of all topics and consented to surgery. The patient underwent an elective left total knee arthroplasty revision in the form of resurfacing of patella on 02/02/[address] Dudley. The patient tolerated the procedure well and was returned to the Post Anesthesia Care Unit in stable condition. Vital signs per PACU protocol. VTE risk assessment performed. O2 therapy monitored by Respiratory Therapy to include incentive spirometry, ADL, wound and support per physician order set postop protocol. PT and OT to evaluate and treat. IV antibiotics and pain medication were given. The patient progressed with physical therapy. Vital signs were monitored and remained stable. The patient progressed with physical therapy towards goal of safety and independence. Patient was determined safe for discharge to home with home health care on 02/02/2025. TREATMENT / WOUND CARE: If you have any concerns about your wound, please contact the office. Keep wound and incision area clean and dry. You may remove your dressing on POD #7-10 (7 to 10 days after surgery). If it remains drainage-free, you may leave the dressing off, keeping the wound open to air. If there is any drainage please contact the office You may not submerge the wound under standing water for 6 weeks time after surgery (i.e. no baths, no hot tubs, no swimming pools). Do not rub the wound, but rather pat dry. If you have non-absorbable sutures in place, these will be taken out on your 1st follow-up appointment. Observe the wound for signs of infection, including increased redness, swelling, or persistent drainage around the incision site. It is normal for your wound to be warmer immediately after surgery (even up to 4-6 weeks after surgery). If you begin to experience fevers, chills, night sweats, or flu-li (more content not included)... Normal [facility] 02-02-2025 [facility] Telephone (HCSIND) -------- TERESA ISAACS ([id number]) 1945 M Date Time Provider Department 02/02/25 MARIE PARK HCSIND During your visit today, we recorded the following information about you: Marie Park PSS 02/02/2025 2:30 PM Signed Attempt Date/Time: 02/02/2025 2:25 PM Messages: patient's and Sheron Isaacs (Spouse) . HUONG Guzmán Susan 02/03/2025 8:44 AM Signed Date/Time: 02/03/2025 8:42 AM Spoke with Sheron @ phone #: [phone] - Preferred # for contact: [phone] or [phone] Have you received help from a home care company in the last 60 days? no Are you agreeable to [facility] services? yes What address will we be seeing you at? [address] [facility] [address] Do you have any upcoming appointments or things we need to schedule around? no Do you have a teachable CG or can you manage your care independently? yes Who? Sheron Have you received the flu shot? no If so, when and where? no Allergies As of Date: 02/02/2025 Noted Allergy Reaction CELEBREX (CELECOXIB) 07/05/2011 6 - Diarrhea Date Reviewed: 02/02/2025 Reviewed by: Anna Lima RN - Fully Assessed Reason for Visit: Home Care [4073] Cmt: CONFIRMATION CALL Prescriptions as of 02/03/2025 - acetaminophen (TYLENOL) 500 mg tablet Take 2 tablets by mouth every 8 hours as needed for pain. - ascorbic acid, vitamin C, (VITAMIN C) 500 mg tablet Take 1 tablet by mouth two times a day with meals for 28 doses. Patient should start on February 03, 2025. - aspirin, enteric coated (ASPIRIN, ENTERIC COATED) 81 mg EC tablet Take 1 tablet by mouth two times a day for 28 days. Patient should start on February 03, 2025. - docusate sodium (COLACE) 100 mg capsule Take 1 capsule by mouth two times a day as needed for constipation. Patient should start on February 03, 2025. - polyethylene glycol 3350 (MIRALAX) 17 gram/dose powder Take 17 g by mouth once daily as needed for constipation for up to 10 days. Dissolve dose in 4 - 8 ounces of liquid and take as directed. - oxyCODONE IR (ROXICODONE) 5 mg immediate release tablet Take 1-2 tablets by mouth every 6 hours as needed for pain for up to 7 days. - pantoprazole DR (PROTONIX) 40 mg tablet Take 1 tablet by mouth every morning. Problem List As Of Date 02/02/2025 Noted Resolved Knee pain [M25.569] 06/22/2011 S/P total knee replacement using cement [Z96.65*07/06/2011 Neck pain [M54.2] 07/04/2012 Arthritis of knee, degenerative [M17.9] 07/09/2013 Mixed hyperlipidemia [E78.2] 01/19/2025 VHD (valvular heart disease) [I38] 01/19/2025 Migraine headaches [G43.909] 01/19/2025 Grade I diastolic dysfunction [I51.89] 01/20/2025 Dilatation of aorta (HCC) [I77.819] 01/20/2025 Osteoarthritis of patellofemoral joints of both*02/02/2025 Encounter Status:Closed by MARIE PARK on 02/02/25 Normal [facility] Hematocrit Auto (Bld) [Volum e fraction]on 02-02-2025 Hematocrit (Bld) [Volume fraction] 39.4 % Normal 39.0-51.0 [facility] Comment on above: Order Comment: Speci men Type: BLOOD SPECIMENOrdering Facility: [facility] Address: [address] [place] [address] Performed By: #### 4 544-3, 718-7 ####[facility]ATORYCLIA [id number] [place] [address] [place] Hgb Bld-mCncon 02-02-2025 Hemoglobin (Bld) [Mass/Vol] 13.1 g/dL Normal 13.0-17.0 [facility] Comment on above: Order Comment: Speci men Type: BLOOD SPECIMENOrdering Facility: [facility] Address: [address] [place] [address] Performed By: #### 4 544-3, 718-7 ####[facility]ORATORYCLIA [id number] [place] [address] [place] NURSING PROGon 02-02-2025 NURSING PROG HNO ID: [id number] Author: JESSICA AVILA, RN Service: Nursing Author Type: Registered Nurse Type: Nursing Progress Note Filed: 02/02/2025 10:38 Note Text: Dr. Hayes at bedside for Left Adductor nerve block. Jessica RN at bedside, pt monitored throughout, BP 125/84 Pulse 66 Temp 36.1 ?C (97 ?F) (Temporal Artery) Resp 18 Ht 195.6 cm (6' 5) Wt 107.5 kg (237 lb) SpO2 96% BMI 28.10 kg/m? .Pt tolerated procedure without difficulty. Normal [facility] Pathology biopsy report Boni (Tiss)on 02-02-2025 AP DISCLAIMER Normal [facility] Comment on above: Order Comment: Speci men Type: TISSUE SPECIMENOrdering Facility: [facility] Address: [address] [place] [address] Result Comment: Anthony boyd Developed Test (LDT) Disclaimer: Performance characteristics of immunohistochemical, immunofluorescent, and chromogenic in-situ hybridization tests have been determined by the performing laboratory within [facility]'s Daniel Rudd Pathology and Laboratory Medicine Department ([facility], [facility], [facility], [facility], [facility], [facility], or [facility]) in a manner consistent with CLIA requirements. One or more of these tests may not have been cleared or approved by the FDA. [facility] is regulated under CLIA as qualified to perform high-complexity testing. These tests are used for clinical purposes. These should not be regarded as investigational or for research. Positive and negative controls stain appropriately. Performed By: #### 6 6121-5 ####[facility]ITALIA [id number] [facility] [place] [address] [facility] LAB[facility]IA [id number] [address] [address] [facility] CASE REPORT Normal [facility] Comment on above: Order Comment: Adelaida hoffman Type: TISSUE SPECIMENOrdering Facility: [facility] Address: [address] [place] [address] Result Comment: Surg [facility] Pathology Report Case: [id number] Authorizing Provider: Manny Dudley MD Collected: 02/02/2025 11:45 AM Ordering Location: [facility] Surgery Received: 02/02/2025 01:27 PM Pathologist: Eber Wilcox MD Specimen: Knee, Left, Arthroplasty, left knee cuttings and osteophyte Performed By: #### 6 6121-5 ####[facility]ITALIA [id number] [facility] [place] [address] [facility] LABCLIA [id number] [address] [address] [facility] [place] CLINICAL HISTORY Normal [facility] Comment on above: Order Comment: Adelaida hoffman Type: TISSUE SPECIMENOrdering Facility: [facility] Address: [address] [place] [address] Result Comment: Pre- op diagnosis: Chondromalacia of right patella [M22.41] Left knee pain, unspecified chronicity [M25.562] Performed By: #### 6 6121-5 ####[facility]ITAL[facility] [id number] [place] [address] [facility] LABCLIA [id number] [address] [address] [facility] FINAL DIAGNOSIS Normal [facility] Comment on above: Order Comment: Adelaida hoffman Type: TISSUE SPECIMENOrdering Facility: [facility] Address: [address] [place] [address] Result Comment: Oumou. L eft knee, arthroplasty: - Degenerative joint disease. 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 at 1014 EDT Performed By: #### 6 6121-5 ####[facility] LABORATORYCLIA [id number] [facility] [place] [address] [facility] LABCLIA [id number] [address] [address] [facility] FINAL PERFORMING LAB Normal [facility] Comment on above: Order Comment: Adelaida hoffman Type: TISSUE SPECIMENOrdering Facility: [facility] Address: [address] [place] [address] Result Comment: Diag nostic interpretation performed at: [facility], [address] [facility] [address] CLIA# [id number] Plant Cytologist: Anand Jorge MD Performed By: #### 6 6121-5 ####[facility] LABORATORYCLIA [id number] [facility] [place] [address] [facility] LABCLIA [id number] [address] [address] [facility] GROSS DESCRIPTION [facility] Comment on above: Order Comment: Adelaida hoffman Type: TISSUE SPECIMENOrdering Facility: [facility] Address: [address] [place] [address] Result Comment: Waqar noriega, Left, Arthroplasty Received in formalin designated left knee cuttings and osteophyte are multiple segments of bone and soft tissue which aggregate to 7.4 x 7.1 x 1.3 cm. The soft tissue is grossly unremarkable. One segment of bone grossly resembles the tibial plateau which demonstrates eburnation and cartilage roughening on the articular surface. Other fragments of bone grossly resembles the femoral condyles which demonstrates osteophyte formation. Fisher Seal sections are submitted as follows: A1 soft tissue, A2 tibial plateau, A3 femoral condyles, (A2-A3 submitted after formic decalcification). Gross examination performed at [facility], [facility] [address] February 03, 2025 10:46 AM Performed By: #### 6 6121-5 ####[facility] LABORATORYCLIA [id number] [facility] [place] [address] [facility] LABCLIA [id number] [facility] [id number] [place] [address] THERAPY NTon 02-02-2025 THERAPY NT HNO ID: [id number] Author: JORGE AMARO OT/Moi Service: ? Author Type: Occupational Therapist Type: Therapy (PT/OT/Speech/Resp) Filed: 02/02/2025 16:29 Note Text: -------- Summary: OT Evaluation -------- Occupational Therapy Evaluation Summary SERVICE DATE: 02/02/2025 SERVICE TIME: 1546 to 1618 ROOM: [facility] (P07) OT 6 Clicks Score: 20 Total Joint Replacement Discharge Readiness: Cleared from Occupational Therapy DISCHARGE RECOMMENDATIONS Home OT Anticipated Discharge Needs: Physical Assist at Home, Supervision at Home Physical Assist at Home for: Cleaning, Laundry, Meals, Self Care, Shopping, Transportation, Safety Supervision at Home due to: Decreased safety awareness Recommended Discharge Equipment: No equipment needs anticipated ASSESSMENT Response to Therapy Interventions: Good Participation in Activities, On-Track to Achieve Discharge Goals OT reviewed total knee handout and use of DME, patient requires intermittent re-instruction and cueing to maintain precautions and safety awareness during ADLs and mobility, pt and spouse report no questions/concerns for d/c home, pain well-controlled PRECAUTIONS Fall Risk, Lines/Tubes/Drains, Total Knee Replacement, Weight Bearing Restrictions, Bed/Chair Alarm Left Lower Extremity Weight Bearing Status: WBAT CURRENT HOSPITAL COURSE S/p resurfacing arthroplasty patella 02/02/25 Relevant Past Medical History: L ankle fracture, ear drum perforation, HLD, bilateral TKR HOME LIVING Patient Lives With: Spouse Assistance Available: 24-Hour Entry To Home: Stairs, Other: See Comment Number Of Stairs Into Home: 2 Number Of Stairs To Bed/Bath: 0 - first floor set up Tub/Shower Type: Walk-in shower with shower chair + grab bars + HHSH Laundry: In basement and in bedroom, spouse to complete Equipment Owned: Cane, Crutch(es), Walker- Standard, Walker- Wheeled, Rollator, Grab Bars- Shower, Grab Bars- Toilet, Commode- Raised, Shower Chair PRIOR FUNCTIONAL LEVEL Within Functional Limits Ind with amb without device, ADL/IADL, +drives and denies falls. sleeps on flat bed Baseline Cognition: Oriented to place, Oriented to self, Oriented to time, Oriented to situation SUBJECTIVE Patient pleasant and agreeable to this session COGNITION Responsiveness: Alert, Awake Follows Commands: 2-step Commands, With Repetition THERAPY DIAGNOSIS Reduced mobility-other, Decreased activities of daily living (ADL) TREATMENT INTERVENTIONS Evaluation, Self Intermediate Management (70367) Timed Code Treatment (minutes): 17 Skilled Treatment Time (minutes): 32 TRAINING AND EDUCATION PROVIDED Activity Adaptation/Compensatory Strategies, Adaptive Equipment/DME, Benefits of In-Hospital Mobility, Cognitive Skills, Command Following, Discharge Planning, Expected Functional Level, Grooming Tasks, Functional Mobility Involving ADLs, Lower Extremity Bathing, Lower Extremity Dressing, Insight into Deficits, Memory/Attention, Positioning, Pain Management, Precautions/Restrictions , Safety/Judgment, Role of Occupational Therapy, Sitting Balance to Improve [place] with ADLs/Self-Care, Standing Balance to Improve [place] with ADLs/Self-Care, Toileting , Transfer - Sit to Stand, Transfer - Toilet/Commode, Upper Extremity Dressing THERAPEUTIC SKILLS USED Activity Dosing, Cues for Sequencing/Proper Technique for Activity, Cuing Verbal, Cuing Tactile, Cuing Visual, Facilitation of Joint Range of Motion, Movement Facilitation, Muscle Activation Facilitation, Family Training, Physical Assist, Teach-Back for Education, Task Analysis Learning, Therapeutic Use of Self FUNCTIONAL STATUS Activities of Daily Living Assist Level Additional Information Feeding Independent Grooming Contact Guard Assistance, Additional Information if standing at the sink/counter Bathing Upper Body Stand By Assistance Bathing Lower Body Minimal Assistance Dressing Upper Body Stand By Assistance Dressing Lower Body Minimal Assistance Toileting Contact Guard Assistance Mobility Assist Level Additional Information Bed Mobility Supine To Sit: Additional Information Pt sitting EOB upon OT arrival Sit To Supine: Additional Information Pt sitting EOB upon OT departure Sit to Stand Contact Guard Assistance, Additional Information From EOB to FWW level, cueing for positioning of surgical leg and pushing off of stable surfaces Stand to Sit Contact Guard Assistance, Additional Information cueing for slow controlled descent Bed to Chair Toilet/Commode Additional Information educated on commode transfers with use of elevated seat and grab bars, reports no questions/concerns for d/c home Shower Functional Mobility GOALS Patient will demonstrate progress with self-care, cognitive and/or coping needs identif (more content not included)... [facility] THERAPY NT HNO ID: [id number] Author: NAY ZHANG PT Service: Physical Therapy Author Type: Physical Therapist Type: Therapy (PT/OT/Speech/Resp) Filed: 02/02/2025 16:10 Note Text: -------- Summary: PT evaluation -------- Physical Therapy Evaluation Summary SERVICE DATE: 02/02/2025 SERVICE TIME: 1445 to 1539 ROOM: [facility] (P07) PT 6 Clicks Score: 20 Total Joint Replacement Discharge Readiness: Cleared from Physical Therapy DISCHARGE RECOMMENDATIONS Home PT Recommended Discharge Disposition Comments: Home PT for safety assessment and to increase ROM/strength to operative leg/knee and progress safe functional mobility in the patient's home. Anticipated Discharge Needs: Physical Assist at Home, Supervision at Home Physical Assist at Home for: Cleaning, Laundry, Meals, Shopping, Transportation Supervision at Home due to: Other: See Comment (for optimal safety) Recommended Discharge Equipment: No equipment needs anticipated ASSESSMENT Response to Therapy Interventions: Good Participation in Activities, Improved Tolerance for Activity, On-Track to Achieve Discharge Goals, Pain, Requires Additional Time to Complete Activities, Requires Encouragement to Complete Activities, Slow Progression with Functional Activities/Skills Patient presents s/p TKA with expected limits of operative leg pain, decreased ROM/strength and impaired functional mobility. Patient AANDO x 3 and demonstrates good follow through of cues/education and is receptive to education. Patient ind with functional mobility at baseline. Currently at PT eval, demonstrates safety with functional mobility with WB recommendation with assistive device on stairs/level surfaces and demonstrates safety. Patient demonstrates adequate tolerance with functional mobiltiy to emulate home needs. Patient would benefit from skilled PT in acute setting to continue to progress ROM/strength and functional mobility to support patient goal of safe home going. Patient has met goals for home going and POC frequency will be set as needed if discharge is delayed. No noted pain/pain behaviors, assume active nerve block. Reinforced throughout balancing activity and rest and rationale. PRECAUTIONS Fall Risk, Lines/Tubes/Drains, Total Knee Replacement, Weight Bearing Restrictions, Bed/Chair Alarm Left Lower Extremity Weight Bearing Status: WBAT CURRENT HOSPITAL COURSE 3/4 Procedure(s): Resurfacing arthroplasty patella Relevant Past Medical History: HLD, ankle fracture left/foreign body, TKA each side HOME LIVING Patient Lives With: Spouse Assistance Available: 24-Hour Entry To Home: Stairs, Other: See Comment Number Of Stairs Into Home: 2 Number Of Stairs To Bed/Bath: 0 - first floor set up Equipment Owned: Cane, Crutch(es), Walker- Standard, Walker- Wheeled, Rollator PRIOR FUNCTIONAL LEVEL Within Functional Limits Ind with amb without device, ADL/IADL, +drives and denies falls. SUBJECTIVE patient agreeable to PT and cleared by RN. THERAPY DIAGNOSIS Difficulty walking-musculoskeletal TREATMENT INTERVENTIONS Evaluation, Therapeutic Activity (91029), Gait Training (98936) Timed Code Treatment (minutes): 38 Skilled Treatment Time (minutes): 54 $ Evaluation-Low (52665) Billed Units: 1 unit Therapeutic Activity (03455) Treatment Minutes: 15 $ Therapeutic Activity (19815) Billed Units: 1 unit Gait Training (89640) Treatment Minutes: 23 $ Gait Training (79580) Billed Units: 2 units Range of Motion: WFL Except, ROM Limitation Comments ROM Limitation Comments: left knee AROM with functional mobility 5 - 90 deg Strength: WFL Except, Strength Limitation Comments Strength Limitation Comments: left LE grossly at least 3-/5 per clinical judgement based on weight bearing Quality of Movement: Bradykinetic TRAINING AND EDUCATION PROVIDED Anatomy and Impact on Deficits, Assistive Device Use, Bed Mobility, Benefits of In-Hospital Mobility, Discharge Planning, Disease Specific Education, Equipment, Exercise Program, Expected Functional Level, Falls Prevention, Gait Pattern, Reduction of Deviations, Handout Issued, Home Set-up/Modifications, Modalities, Patient Exercise/Therapy Program Support Needs, Positioning, Precautions/Restrictions , Pre-gait Activities, Role of Physical Therapy, Standing Balance, Stair Navigation, Transfers, Treatment Protocol, Edema Management, Energy Conservation, Pain Neuroscience THERAPEUTIC SKILLS USED Activity Dosing, Assessment of Tolerance Including Vitals Response to Activity, Cues for Sequencing/Proper Technique for Activity, Cuing Verbal, Management of Critical Lines, Tubes and/or Drains, Movement Facilitation, Muscle Activation Facilitation, Physical Assist, Postural Alignment Correction, Teach-Back for Education, Cuing Tactile, Cuing Visual, Task (more content not included)... [facility] XR KNEE 2V AP/LAT LTon 02-02 XR KNEE 2V AP/LAT LT * * *Final Report* * * DATE OF EXAM: Feb 02 2025 1:08PM MDX 5206 - XR KNEE 2V AP/LAT LT / PROCEDURE REASON: Post Operative Assessment * * * * Physician Interpretation * * * * PROCEDURE: Left knee INDICATION: Post Operative Assessment.TOTAL LEFT KNEE REPLACEMENT TECHNIQUE: XR KNEE 2V AP/LAT LT COMPARISON: 12/11/2024 FINDINGS: Postop total knee arthroplasty revision, now including patellar resurfacing. Associated soft tissue changes. No fracture. 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 GREENE TECHNIQUE: AP lateral intraoperative views of the left knee COMPARISON: 12/11/2024 RESULT: Left knee prosthesis appears in satisfactory position. No no opaque foreign body is seen. IMPRESSION: No opaque foreign body is seen. Sox Analyst: [facility] Transcribe Date/Time: Feb 02 2025 11:53A Dictated by : EBER MARTI MD This examination was interpreted and the report reviewed and electronically signed by: EBER MARTI MD on Feb 02 2025 12:02PM EST [id number] [facility] CBC W Auto Differential pane l (Bld)on 01-19-2025 Basophils (Bld) [#/Vol] [facility] Basophils/100 WBC (Bld) 0.2 % [facility] Differential cell count method Nom (Bld) Auto [facility] Eosinophils (Bld) [#/Vol] 0.05 10*3/uL [facility] Eosinophils/100 WBC (Bld) 1.2 % [facility] Erythrocyte distribution width (RBC) [Ratio] 13.5 % 11.5 - 15.0 % [facility] Hematocrit (Bld) [Volume fraction] 39.2 % 39.0 - 51.0 % [facility] Hemoglobin (Bld) [Mass/Vol] 13.2 g/dL 13.0 - 17.0 g/dL [facility] Immature granulocytes (Bld) [#/Vol] [facility] Immature granulocytes/100 WBC (Bld) 0.2 % [facility] Interpretation and review of laboratory results Abnormal [facility] Lymphocytes (Bld) [#/Vol] 1.38 10*3/uL [facility] Lymphocytes/100 WBC (Bld) 34.1 % [facility] MCH (RBC) [Entitic mass] 29.9 pg 26.0 - 34.0 pg [facility] MCHC (RBC) [Mass/Vol] 33.7 g/dL 30.5 - 36.0 g/dL [facility] MCV (RBC) [Entitic vol] 88.7 fL 80.0 - 100.0 fL [facility] Monocytes (Bld) [#/Vol] 0.35 10*3/uL [facility] Monocytes/100 WBC (Bld) 8.6 % [facility] Neutrophils (Bld) [#/Vol] 2.25 10*3/uL [facility] Neutrophils/100 WBC (Bld) 55.7 % [facility] Nucleated RBC (Bld) [#/Vol] [facility] Nucleated RBC/100 WBC (Bld) [Ratio] 0 % /100 WBC [facility] Platelet mean volume (Bld) [Entitic vol] 8.5 fL Low 9.0 - 12.7 fL [facility] Platelets (Bld) [#/Vol] 205 10*3/uL [facility] RBC (Bld) [#/Vol] 4.42 10*6/uL 4.20 - 6.0 0 m/uL [facility] WBC (Bld) [#/Vol] 4.05 10*3/uL [facility] Basophils (Bld) [#/Vol] 10*3/uL Normal <0.11 [facility] Comment on above: Order Comment: Speci men Type: BLOOD SPECIMENOrdering Facility: [facility] Address: [address] [place] [address] Performed By: #### 5 7021-8 ####[facility] [id number] [address] [place] Basophils/100 WBC (Bld) 0.2 % Normal [facility] Comment on above: Order Comment: Speci men Type: BLOOD SPECIMENOrdering Facility: [facility] Address: [address] [place], [place] [id number] Performed By: #### 5 7021-8 ####[facility]ITALNCLIA [id number] [place] [address] [place] Differential cell count method Nom (Bld) Auto Normal [facility] Comment on above: Order Comment: Speci men Type: BLOOD SPECIMENOrdering Facility: [facility] Address: [address] [place] [address] Performed By: #### 5 7021-8 ####[facility] [id number] [place] [address] [place] Eosinophils (Bld) [#/Vol] 0.05 10*3/uL Normal <0.46 [facility] Comment on above: Order Comment: Speci men Type: BLOOD SPECIMENOrdering Facility: [facility] Address: [address] [place] [address] Performed By: #### 5 7021-8 ####[facility] [id number] [place] [address] [place] Eosinophils/100 WBC (Bld) 1.2 % Normal [facility] Comment on above: Order Comment: Speci men Type: BLOOD SPECIMENOrdering Facility: [facility] Address: [address] [place] [address] Performed By: #### 5 7021-8 ####[facility] [id number] [place] [address] [place] Erythrocyte distribution width (RBC) [Ratio] 13.5 % Normal 11.5-15.0 [facility] Comment on above: Order Comment: Speci men Type: BLOOD SPECIMENOrdering Facility: [facility] Address: [address] [place] [address] Performed By: #### 5 7021-8 ####[facility]ITALNCLIA [id number] [place] [address] [place] Hematocrit (Bld) [Volume fraction] 39.2 % Normal 39.0-51.0 [facility] Comment on above: Order Comment: Speci men Type: BLOOD SPECIMENOrdering Facility: [facility] Address: [address] [place] [address] Performed By: #### 5 7021-8 ####[facility]ITALNCST[facility] [id number] [place] [address] [place] Hemoglobin (Bld) [Mass/Vol] 13.2 g/dL Normal 13.0-17.0 [facility] Comment on above: Order Comment: Speci men Type: BLOOD SPECIMENOrdering Facility: [facility] Address: [address] [place] [address] Performed By: #### 5 7021-8 ####[facility] [id number] [place] [address] [place] Immature granulocytes (Bld) [#/Vol] 10*3/uL Normal <0.10 [facility] Comment on above: Order Comment: Speci men Type: BLOOD SPECIMENOrdering Facility: [facility] Address: [address] [place] [address] Performed By: #### 5 7021-8 ####[facility] [id number] [place] [address] [place] Immature granulocytes/100 WBC (Bld) 0.2 % Normal [facility] Comment on above: Order Comment: Speci men Type: BLOOD SPECIMENOrdering Facility: [facility] Address: [address] [place], [place] [address] Performed By: #### 5 7021-8 ####[facility] [id number] [place] [address] [place] Lymphocytes (Bld) [#/Vol] 1.38 10*3/uL Normal 1.00-4.00 [facility] Comment on above: Order Comment: Speci men Type: BLOOD SPECIMENOrdering Facility: [facility] Address: [address] [place] [address] Performed By: #### 5 7021-8 ####[facility]PITALCARTER [id number] [address] [place] Lymphocytes/100 WBC (Bld) 34.1 % Normal [facility] Comment on above: Order Comment: Speci men Type: BLOOD SPECIMENOrdering Facility: [facility] Address: [address] [place] [address] Performed By: #### 5 7021-8 ####[facility] [id number] [place] [address] [place] MCH (RBC) [Entitic mass] 29.9 pg Normal 26.0-34.0 [facility] Comment on above: Order Comment: Speci men Type: BLOOD SPECIMENOrdering Facility: [facility] Address: [address] [place] [address] Performed By: #### 5 7021-8 ####[facility] [id number] [place] [address] [place] MCHC (RBC) [Mass/Vol] 33.7 g/dL Normal 30.5-36.0 [facility] Comment on above: Order Comment: Speci men Type: BLOOD SPECIMENOrdering Facility: [facility] Address: [address] [place] [address] Performed By: #### 5 7021-8 ####[facility]ITALNCLIA [id number] [place] [address] [place] MCV (RBC) [Entitic vol] 88.7 fL Normal 80.0-100.0 [facility] Comment on above: Order Comment: Speci men Type: BLOOD SPECIMENOrdering Facility: [facility] Address: [address] [place] [address] Performed By: #### 5 7021-8 ####[facility] CENTERWNCLIA [id number] [place] [address] [place] Monocytes (Bld) [#/Vol] 0.35 10*3/uL Normal <0.87 [facility] Comment on above: Order Comment: Speci men Type: BLOOD SPECIMENOrdering Facility: [facility] Address: [address] [place] [address] Performed By: #### 5 7021-8 ####[facility] [id number] [place] [address] [place] Monocytes/100 WBC (Bld) 8.6 % Normal [facility] Comment on above: Order Comment: Speci men Type: BLOOD SPECIMENOrdering Facility: [facility] Address: [address] [place] [address] Performed By: #### 5 7021-8 ####[facility] [id number] [place] [address] [place] Neutrophils (Bld) [#/Vol] 2.25 10*3/uL Normal 1.45-7.50 [facility] Comment on above: Order Comment: Speci men Type: BLOOD SPECIMENOrdering Facility: [facility] Address: [address] [place] [address] Performed By: #### 5 7021-8 ####[facility] [id number] [place] [address] [place] Neutrophils/100 WBC (Bld) 55.7 % Normal [facility] Comment on above: Order Comment: Speci men Type: BLOOD SPECIMENOrdering Facility: [facility] Address: [address] [place] [address] Performed By: #### 5 7021-8 ####[facility] [id number] [place] [address] [place] Nucleated RBC (Bld) [#/Vol] 10*3/uL Normal <0.01 [facility] Comment on above: Order Comment: Speci men Type: BLOOD SPECIMENOrdering Facility: [facility] Address: [address] [place] [address] Performed By: #### 5 7021-8 ####[facility] [id number] [place] [address] [place] Nucleated RBC/100 WBC (Bld) [Ratio] 0.0 /100 WBC Normal [facility] Comment on above: Order Comment: Speci men Type: BLOOD SPECIMENOrdering Facility: [facility] Address: [address] [place] [address] Performed By: #### 5 7021-8 ####[facility] [id number] [place] [address] [place] Platelet mean volume (Bld) [Entitic vol] 8.5 fL Low 9.0-12.7 [facility] Comment on above: Order Comment: Speci men Type: BLOOD SPECIMENOrdering Facility: [facility] Address: [address] [place] [address] Performed By: #### 5 7021-8 ####[facility] [id number] [place] [address] [place] Platelets (Bld) [#/Vol] 205 10*3/uL Normal 150-400 [facility] Comment on above: Order Comment: Speci men Type: BLOOD SPECIMENOrdering Facility: [facility] Address: [address] [place] [address] Performed By: #### 5 7021-8 ####[facility] [id number] [place] [address] [place] RBC (Bld) [#/Vol] 4.42 10*6/uL Normal 4.20-6.00 [facility] Comment on above: Order Comment: Speci men Type: BLOOD SPECIMENOrdering Facility: [facility] Address: [address] [place], [place] [address] Performed By: #### 5 7021-8 ####[facility]ITALNCLIA [id number] [address] [place] WBC (Bld) [#/Vol] 4.05 10*3/uL Normal 3.70-11.00 [facility] Comment on above: Order Comment: Speci men Type: BLOOD SPECIMENOrdering Facility: [facility] Address: [address] [place] [address] Performed By: #### 5 7021-8 ####[facility]ITALNCLIA [id number] [address] OF [facility] Comprehensive metabolic 2000 panelOrdered By: Courtney Ochoa on 01-19-2025 Albumin [Mass/Vol] 4.1 g/dL 3.9 - 4.9 g/dL [facility] ALP [Catalytic activity/Vol] 72 U/L 38 - 113 U/L [facility] ALT [Catalytic activity/Vol] 5 U/L Low 10 - 54 U/L [facility] Anion gap [Moles/Vol] 7 mmol/L Low 8 - 15 mmol/L [facility] AST [Catalytic activity/Vol] 17 U/L 14 - 40 U/L [facility] Bilirubin [Mass/Vol] 0.7 mg/dL 0.2 - 1 .3 mg/dL [facility] Calcium [Mass/Vol] 9.4 mg/dL 8.5 - 10. 2 mg/dL [facility] Chloride [Moles/Vol] 105 mmol/L 98 - 10 7 mmol/L [facility] CO2 [Moles/Vol] 27 mmol/L 22 - 30 mmol/L [facility] Creatinine [Mass/Vol] 0.94 mg/dL 0.73 - 1.22 mg/dL [facility] GFR/1.73 sq M.predicted among non-blacks MDRD (S/P/Bld) [Vol rate/Area] 82 mL/min/{1.73_m2} - PINF [facility] Comment on above: Estimated Glomerular Filtration Rate (eGFR) is calculated using the 2020 CKD-EPI creatinine equation. This equation utilizes serum creatinine, sex, and age as parameters. The creatinine assay has traceable calibration to isotope dilution-mass spectrometry. Refer to KDIGO guidelines for clinical interpretation. In patients with unstable renal function, e.g. those with acute kidney injury, the eGFR may not accurately reflect actual GFR. Glucose [Mass/Vol] 96 mg/dL 74 - 99 mg/dL [facility] Comment on above: The [place] Diabete s Association (ADA) provides guidance for cutoff values for fasting glucose and random glucose. The ADA defines fasting as no caloric intake for at least 8 hours. Fasting plasma glucose results between 100 to 125 mg/dL indicate increased risk for diabetes (prediabetes). Fasting plasma glucose results greater than or equal to 126 mg/dL meet the criteria for diagnosis of diabetes. In the absence of unequivocal hyperglycemia, results should be confirmed by repeat testing. In a patient with classic symptoms of hyperglycemia or hyperglycemic crisis, random plasma glucose results greater than or equal to 200 mg/dL meet the criteria for diagnosis of diabetes. Reference: Standards of Medical Care in Diabetes 2016, [place] Diabetes Association. Diabetes Care. 2016.39(Suppl 1). Interpretation and review of laboratory results Abnormal [facility] Potassium [Moles/Vol] 4 mmol/L 3.7 - 5.1 mmol/L [facility] Protein [Mass/Vol] 7 g/dL 6.3 - 8.0 g/dL [facility] Sodium [Moles/Vol] 139 mmol/L 136 - 144 mmol/L [facility] Urea nitrogen [Mass/Vol] 21 mg/dL 9 - 24 mg/dL [facility] Comprehensive metabolic 2000 panelon 01-19-2025 Albumin [Mass/Vol] 4.1 g/dL Normal 3.9-4.9 [facility] Comment on above: Order Comment: Speci men Type: BLOOD SPECIMENOrdering Facility: [facility] Address: [facility] [place] [id number] Performed By: #### 2 4323-8 ####[facility] [id number] [place] [address] [place] ALP [Catalytic activity/Vol] 72 U/L Normal 38-113 [facility] Comment on above: Order Comment: Speci men Type: BLOOD SPECIMENOrdering Facility: [facility] Address: [address] [place] [address] Performed By: #### 2 4323-8 ####[facility] LILLIENCLIA [id number] [place] [address] [place] ALT [Catalytic activity/Vol] 5 U/L Low 10-54 [facility] Comment on above: Order Comment: Speci men Type: BLOOD SPECIMENOrdering Facility: [facility] Address: [address] [place] [address] Performed By: #### 2 4323-8 ####[facility]ENTERWNCLIA [id number] [place] [address] [place] Anion gap [Moles/Vol] 7 mmol/L Low 8-15 [facility] Comment on above: Order Comment: Speci men Type: BLOOD SPECIMENOrdering Facility: [facility] Address: [address] [place] [address] Performed By: #### 2 4323-8 ####[facility]ITALNCLIA [id number] [place] [address] [place] AST [Catalytic activity/Vol] 17 U/L Normal 14-40 [facility] Comment on above: Order Comment: Speci men Type: BLOOD SPECIMENOrdering Facility: [facility] Address: [address] [place] [address] Performed By: #### 2 4323-8 ####[facility] CENTERWNCLIA [id number] [place] [address] [place] [place] Bilirubin [Mass/Vol] 0.7 mg/dL Normal 0.2-1.3 [facility] Comment on above: Order Comment: Speci men Type: BLOOD SPECIMENOrdering Facility: [facility] Address: [address] [place] [address] Performed By: #### 2 4323-8 ####[facility] MILLTOWNCLIA [id number] [place] [address] [place] Calcium [Mass/Vol] 9.4 mg/dL Normal 8.5-10.2 [facility] Comment on above: Order Comment: Speci men Type: BLOOD SPECIMENOrdering Facility: [facility] Address: [address] [place] [address] Performed By: #### 2 4323-8 ####[facility] MILLTOWNCLIA [id number] [place] [address] [place] Chloride [Moles/Vol] 105 mmol/L Normal 98-107 [facility] Comment on above: Order Comment: Speci men Type: BLOOD SPECIMENOrdering Facility: [facility] Address: [address] [place] [address] Performed By: #### 2 4323-8 ####CENTERVILLELIA [id number] [place] [address] [place] CO2 [Moles/Vol] 27 mmol/L Normal 22-30 [facility] Comment on above: Order Comment: Speci men Type: BLOOD SPECIMENOrdering Facility: [facility] Address: [address] [place] [address] Performed By: #### 2 4323-8 ####[facility]ITALNCLIA [id number] [place] [address] [place] Creatinine [Mass/Vol] 0.94 mg/dL Normal 0.73-1.22 [facility] Comment on above: Order Comment: Speci men Type: BLOOD SPECIMENOrdering Facility: [facility] Address: [address] [place] [address] Performed By: #### 2 4323-8 ####[facility]ITALNCLIA [id number] [place] [address] [place] Creatinine and Glomerular filtration rate.predicted panel (S/P/Bld) 82 mL/min/1.73m??? Normal >=60 [facility] Comment on above: Order Comment: Adelaida hoffman Type: BLOOD SPECIMENOrdering Facility: [facility] Address: [address] [place] [address] Result Comment: Rhonda mated Glomerular Filtration Rate (eGFR) is calculated using the 2020 CKD-EPI creatinine equation. This equation utilizes serum creatinine, sex, and age as parameters. The creatinine assay has traceable calibration to isotope dilution-mass spectrometry. Refer to KDIGO guidelines for clinical interpretation. In patients with unstable renal function, e.g. those with acute kidney injury, the eGFR may not accurately reflect actual GFR. Performed By: #### 2 4323-8 ####[facility] [id number] [place] [address] [place] Glucose [Mass/Vol] 96 mg/dL Normal 74-99 [facility] Comment on above: Order Comment: Adelaida hoffman Type: BLOOD SPECIMENOrdering Facility: [facility] Address: [address] [place] [address] Result Comment: The [place] Diabetes Association (ADA) provides guidance for cutoff values for fasting glucose and random glucose. The ADA defines fasting as no caloric intake for at least 8 hours. Fasting plasma glucose results between 100 to 125 mg/dL indicate increased risk for diabetes (prediabetes). Fasting plasma glucose results greater than or equal to 126 mg/dL meet the criteria for diagnosis of diabetes. In the absence of unequivocal hyperglycemia, results should be confirmed by repeat testing. In a patient with classic symptoms of hyperglycemia or hyperglycemic crisis, random plasma glucose results greater than or equal to 200 mg/dL meet the criteria for diagnosis of diabetes. Reference: Standards of Medical Care in Diabetes 2016, [place] Diabetes Association. Diabetes Care. 2016.39(Suppl 1). Performed By: #### 2 4323-8 ####[facility] [id number] [place] [address] [place] Potassium [Moles/Vol] 4.0 mmol/L Normal 3.7-5.1 [facility] Comment on above: Order Comment: Speci men Type: BLOOD SPECIMENOrdering Facility: [facility] Address: [address] [place] [address] Performed By: #### 2 4323-8 ####[facility] LILLIENCLIOumou [id number] [place] [address] [place] Protein [Mass/Vol] 7.0 g/dL Normal 6.3-8.0 [facility] Comment on above: Order Comment: Speci men Type: BLOOD SPECIMENOrdering Facility: [facility] Address: [address] [place] [address] Performed By: #### 2 4323-8 ####[facility] ILSAMorenoNCLIA [id number] [place] [address] [place] Sodium [Moles/Vol] 139 mmol/L Normal 136-144 [facility] Comment on above: Order Comment: Speci men Type: BLOOD SPECIMENOrdering Facility: [facility] Address: [address] [place] [address] Performed By: #### 2 4323-8 ####[facility] LISAMorenoNCLIA [id number] [place] [address] [place] Urea nitrogen [Mass/Vol] 21 mg/dL Normal 9-24 [facility] Comment on above: Order Comment: Speci men Type: BLOOD SPECIMENOrdering Facility: [facility] Address: [address] [place] [address] Performed By: #### 2 4323-8 ####[facility]ENTERWNCLIA [id number] [place] [address] [place] [id number] 01-19-2025 ECG01 Ventricular Rate : 7 3 BPM Atrial Rate : 73 BPM P-R Interval : 170 ms QRS Duration : 106 ms Q-T Interval : 414 ms QTC Calculation(Bazett) : 456 ms Calculated P [place] : 95 degrees Calculated R [place] : -28 degrees Calculated T [place] : -40 degrees SINUS RHYTHM WITH PREMATURE VENTRICULAR COMPLEXES NONSPECIFIC ST AND T WAVE ABNORMALITY ABNORMAL ECG Confirmed by MD CESPEDES QARAB ([id number]) on 01/22/2025 3:28:48 PM NAME : TERESA ISAACS PID : [id number] : 1945 Gender : Male Race : ORD : Procedure Date : Jan 19 2025 11:28:48 Edit Date : Jan 22 2025 15:28:49 Diagnosis: SINUS RHYTHM WITH PREMATURE VENTRICULAR COMPLEXES NONSPECIFIC ST AND T WAVE ABNORMALITY ABNORMAL ECG Confirmed by MD CESPEDES QARAB ([id number]) on 01/22/2025 3:28:48 PM Test Reason : Location : 636 : TADC Overread By : MD CESPEDES QARAB Edited By : MD CESPEDES QARAB Referred By : ALAYNA BOJORQUEZ Acquired by : Larry neves [facility] ECHOon 01-19-2025 Echocardiography Echocardiography Rep ort: Transthoracic Echo [facility] Date of service: 01/19/2025 2:30:22 PM SUPERVISOR Ordering physician: ALAYNA BOJORQUEZ Indication: Cardiac Murmur Technologist: Tanisha Andrews [facility] Interpreting physician: Sherly Bettencourt MD PATIENT: Name: MR. TERESA ISAACS : 1945 Age: 79 years Gender: M Primary rhythm: sinus. Height: 195.60 cm BSA: 2.42 m Weight: 107.50 kg BMI: 28.1 kg/m Heart rate 68 bpm Color Doppler was utilized to interrogate the cardiac valves assessed and spectral Doppler was utilized to determine the flow velocities and pressure gradients reported in this exam. Myocardial strain analysis was performed in this exam to aid in the assessment of cardiac function. MEASUREMENTS: Value Indexed Normal Max aortic dimension 3.8 cm Ao < 3.8 Left atrial volume 87 ml (Dalal's) 36 ml/m Jim <= 34 LV ID (diastole) 5.5 cm (2D) 2.27 cm/m LV ID (systole) 3.7 cm (2D) 1.54 cm/m IVS, leaflet tips 1.1 cm (2D) Posterior wall thickness 0.9 cm (2D) Left ventricular mass 216 g (2D) 89 g/m Global peak long strain -16.4 % LV stroke volume 56 ml (2D 4-ch.) LV end diastolic volume 115 ml (2D 4-ch.) 47.7 ml/m 34<=EDVi<75 LV end systolic volume 59 ml (2D 4-ch.) 24.6 ml/m Ejection Fraction 49 % (2D 4-ch.) EF > 52 FINDINGS: LEFT VENTRICLE The left ventricle is mildly dilated. Left ventricular systolic function is mildly decreased globally. Global LV myocardial strain is normal. Grade I left ventricular diastolic dysfunction. Mitral annular lateral E/e': 4.8. Mitral annular septal E/e': 7.8. Wall Motion: The entire anterior wall, entire lateral wall, entire septum, entire apex, and entire inferior wall are mildly hypokinetic. RIGHT VENTRICLE The right ventricle is normal in size. Right ventricular systolic function is normal. RV systolic tissue Doppler velocity is 9.0 cm/s. Tricuspid annular displacement is 1.8 cm. Estimated right ventricular systolic pressure is 17 mmHg consistent with normal pulmonary artery pressures. Estimated right atrial pressure is 3 mmHg based on IVC assessment. LEFT ATRIUM The left atrial cavity is mildly dilated. Pulmonary Veins: The pulmonary venous pattern showed normal systolic flow. RIGHT ATRIUM The right atrial cavity is mildly dilated. Inferior Vena Cava: The inferior vena cava appears normal measuring 1.1 cm. The vessel decreases greater than 50 percent with inspiration. MITRAL VALVE There is mild mitral annular calcification observed posterior. There is mild (1+) mitral valve regurgitation. There is mild thickening. There is mild calcification. The pressure half time is 67 msec. The peak mitral E/A ratio is 0.71. The average mitral E/e' ratio is 6.3. The mitral flow deceleration time is 230 msec. TRICUSPID VALVE The tricuspid valve leaflets are structurally normal. There is trace tricuspid valve regurgitation. The hepatic venous pattern showed normal systolic flow. AORTIC VALVE There is no aortic valve stenosis. There is mild (1+) aortic valve regurgitation. Tricuspid aortic valve. There is mild thickening. There is mild calcification. The peak gradient is 8 mmHg (peak velocity = 144.0 cm/s). PULMONIC VALVE The pulmonic valve cusps are structurally normal. There is no pulmonic stenosis. There is trace pulmonic valve regurgitation. AORTA The visualized aorta is borderline dilated. Measurements - Mid ascending aorta 3.8 cm. PULMONARY ARTERIES The pulmonary arteries are normal. INTERATRIAL SEPTUM There is no evidence of intracardiac shunting as detected by Doppler. INTERVENTRICULAR SEPTUM There is no flow through the interventricular septum as detected by Doppler. PERICARDIUM There is no pericardial effusion. There is an epicardial fat pad. CONCLUSIONS: - Exam indication: Cardiac Murmur - The left ventricle is mildly dilated. Left ventricular systolic function is mildly decreased. EF = 49 5% (2D 4-ch.). Grade I left ventricular diastolic dysfunction. - The right ventricle is normal in size. Right ventricular systolic function is normal. - The visualized aorta is borderline dilated with a maximal dimension of 3.8 cm. - Mild (1+) mitral valve regurgitation. - Mild (1+) aortic valve regurgitation. - The patient has not had a prior CC echocardiographic exam for comparison. * * * Final * * * CC [employer] : [id number] ID Normal [facility] HISTORY PHYSICALon HISTORY PHYSICAL HNO ID: [id number] Author: ALAYNA BOJORQUEZ APRN.YARDING ENGINEER Service: ? Author Type: Nurse Practitioner Type: H&P Filed: 01/20/2025 12:23 Note Text: [facility] HISTORY AND PHYSICAL EXAMINATION SERVICE DATE: 01/19/2025 SERVICE TIME: 12:22 PM PRIMARY CARE PHYSICIAN: Kamron Pate MD Assessment Patient has the following medical conditions which may affect veda-operative course: S/P total knee replacement using cement Assessment: right 2007, left 2008 Mixed hyperlipidemia Assessment: c/w statin VHD (valvular heart disease) Assessment: murmur on exa, echo ordered, no known VHD UPdate pre-op echo 1+ MVR, AVR, EF 49%, grade I diastolic dysfunction with borderline dilated aorta max dimension 3.8cm Migraine headaches Assessment: otc analgesics as needed Grade I diastolic dysfunction Assessment: per updated echo Dilatation of aorta (HCC) Assessment: borderline 3.8cm Patrick Activity Status Index: METS: Climb a flight of stairs or walk up a hill (5.50 METs) DASI Score: 5.5 Patient denies any chest pain or undue shortness of breath with the above physical activity. Clinical Frailty Scale: 2. Well STOP-Bang Score: Patient over 50 years old Male patient Denies snoring loudly Denies feeling tired, fatigued, or sleepy during the daytime Has not been observed to stop breathing or choking/gasping during sleep Denies having high blood pressure BMI less than or equal to 35 kg/m2 Does not have a large neck STOP-Bang Score: 2 [id number] Score: Age: >=75 Sex: male CHF history: No Hypertension history: No Stroke/TIA/thromboemboli sm history: No Vascular disease history: No Diabetes history: No [id number] Score: 2 ARISCAT Score: Age: 51-80 Preoperative SpO2: >=96% Respiratory infection in the last month: No Preoperative anemia: No Surgical incision: peripheral Duration of surgery: 2-3 hrs Emergency procedure: No ARISCAT Score: 19 ANESTHESIA FINDINGS: Intubation History: No history of difficult intubation Significant Anesthesia Considerations: none Airway History: No history of difficult airway I - PHYSICAL EVALUATION AIRWAY Patient intubated: No. Tracheostomy tube not present Mallampati: III. TM distance: >3 FB. Neck ROM: full ROM without neurological symptoms. Mouth opening: adequate. Short neck: no. Thick neck: no Ortega present: no Lip Bite Test: I Microretrognathia/Micron agthia/Recessed Chin: No DENTAL Dental findings: teeth intact. Additional comments: +crowns/back. II - ANESTHESIA PLAN Anesthetic Plan: other Beta Veda Monitoring Plan Post Procedure Analgesic Plan Prepared for Surgery: optimally prepared for surgery, pending [see comment]. Labs, EKG-reviewed, okay to proceed-JL echo (scheduled for this afternoon 01/19/2025) CONSULTS: Patient does not require consults for optimization at this time Planned Anesthetic: other anesthesia choice The Following Tests/Procedures Have Been Initiated: Orders Placed This Encounter >CBC + AUTO DIFF Standing Status: Future Number of Occurrences: 1 Expected Date: 01/19/2025 Expiration Date: 04/20/2025 >CMP Standing Status: Future Number of Occurrences: 1 Expected Date: 01/19/2025 Expiration Date: 04/20/2025 mupirocin (BACTROBAN) 2 % ointment Sig: Apply 0.5 inch with cotton swab (Q-tip) to each nostril in the morning and evening for 5 days prior to and including day of surgery. Dispense: 22 g Refill: 0 ECG COMPLETE Standing Status: Future Number of Occurrences: 1 Expiration Date: 01/19/2026 ECHO Standing Status: Future Number of Occurrences: 1 Expected Date: 01/19/2025 Expiration Date: 01/19/2026 Disease / Condition:: Murmur - initial evaluation when reasonable suspicion of valvular or structural heart disease REASON FOR VISIT: Teresa Isaacs is a 79 year old male who is scheduled for Procedure(s): REVISION JOINT TOTAL KNEE ONE COMPONENT (Left) at the request of Dr. Manny Dudley for consultation. My final recommendation will be communicated back to the requesting physician by way of shared medical record or letter. Subjective The patient has the following: COVID-19 Immunization Status Current Care Gaps Covid-19 Vaccine ( season) Overdue since 08/02/2024 11/29/2021 Imm Admin: COVID-19 original vaccine, age 12+ yr, monovalent (PFIZER-BIONTECH - PURPLE TOP) 02/23/2021 Imm Admin: COVID-19 original vaccine, age 12+ yr, monovalent (PFIZER-BIONTECH - PURPLE TOP) 02/02/2021 Imm Admin: COVID-19 original vaccine, age 12+ yr, monovalent (PFIZER-BIONTECH - PURPLE TOP) Only the first 3 history entries have been loaded, but more history exists. CHIEF COMPLAINT: Pre-op exam HPI: Teresa Isaacs is a 79 year old seen for PAC due to scheduled above surgery because of OA left knee. 12/11/2024, Dr. Manny Dudley Mr. Isaacs is here for follow-up of his bilateral k (more content not included)... Normal [facility] XR Pelvis and Hip - right AP and Lateral frogon 12-13-2024 IMPRESSION: Degenera tive changes Sox Analyst: PSCB Transcribe Date/Time: Dec 13 2024 9:40A Dictated by : DUARTE CEDENO MD This examination was interpreted and the report reviewed and electronically signed by: DUARTE CEDENO MD on Dec 13 2024 9:41AM [facility] * * *Final Report* * * DATE OF EXAM: Dec 11 2024 3:57PM LADY 5352 - XR HIP 3V PELV+ AP/LAT RT / PROCEDURE REASON: [id number] * * * * Physician Interpretation * * * * PROCEDURE: Pelvis and right hip INDICATION: Pain .sharp lateral right hip pain 1 week ago, no injury TECHNIQUE: XR HIP 3V PELV+ AP/LAT RT COMPARISON: None FINDINGS: Mesh clips most consistent with prior right herniorrhaphy. Mild bilateral hip osteoarthrosis. Sacroiliac joints and symphysis pubis are maintained. Degenerative change in the lower lumbar spine. No fracture or dislocation. [facility] Provider, [facility] - 12/13/2024 * * *Final Report* * * DATE OF EXAM: Dec 11 2024 3:57PM LADY 5352 - XR HIP 3V PELV+ AP/LAT RT / PROCEDURE REASON: [id number] * * * * Physician Interpretation * * * * PROCEDURE: Pelvis and right hip INDICATION: Pain .sharp lateral right hip pain 1 week ago, no injury TECHNIQUE: XR HIP 3V PELV+ AP/LAT RT COMPARISON: None FINDINGS: Mesh clips most consistent with prior right herniorrhaphy. Mild bilateral hip osteoarthrosis. Sacroiliac joints and symphysis pubis are maintained. Degenerative change in the lower lumbar spine. No fracture or dislocation. IMPRESSION IMPRESSION: Degenerative changes Sox Analyst: HENNY Transcribe Date/Time: Dec 13 2024 9:40A Dictated by : DUARTE CEDENO MD This examination was interpreted and the report reviewed and electronically signed by: DUARTE CEDENO MD on Dec 13 2024 9:41AM EST [facility] XR Pelvis and Hip - right AP and Lateral frogOrdered By: [facility] Provider on 12-13-2024 [facility] CNOVon 12-11-2024 CNOV Office Visit (ORMDNA ) -------- TERESA ISAACS ([id number]) 1945 M Date Time Provider Department 12/11/24 3:00 PM MANNY DUDLEY During your visit today, we recorded the following information about you: Manny Dudley MD 01/08/2025 6:19 PM Signed REASON FOR VISIT / CHIEF COMPLAINT CHIEF COMPLAINT: Teresa Isaacs is a 79 year old male who presents today for follow up office visit. Patient presents with: Left Knee - Established Patient, Follow Up, Knee Pain, Knee Replacement Right Knee - Established Patient, Follow Up, Knee Pain, Knee Replacement HISTORY OF PRESENT ILLNESS (HPI) PAIN EVALUATION 12/09/2024 0151 12/11/2024 1442 Pain Level: 4 -- Pain Location: Knee-Left -- bilateral knee, left worse than right Description: Burning Burning;Aching Duration Amount of Time: -- -- pain started around Aug 2024 Frequency: Intermittent Intermittent Intervention/Comfort measure: -- Imagery;Medication ibuprofen Mr. Isaacs is here for follow-up of his bilateral knee arthroplasties. He underwent a total right knee arthroplasty in 2007 and a total left knee arthroplasty in 2008. He had been doing relatively well until he began noticing some increased pain in the left knee that he describes as burning and aching in nature. Right knee has occasional aching but he has noted the left knee is worse with ascending/descending steps getting up from a seated position and walking. Conservative measures to date have failed to provide relief of these new issues. He denies any recent trauma. He denies any fevers chills or systemic signs of illness. In addition to his left knee pain he is complaining of some right hip pain that is worse with ambulation. Any new injury, since being seen last: No Is there any overall improvement in your condition? No Does anything make it worse?: Yes, as noted above Does anything make it better?: No REVIEW OF SYMPTOMS: Integumentary: Any recent skin changes or rashes? No Neurologic: Any numbness or tingling in the LOCAL AREA? No Endocrine: Any diagnosis of diabetes? No Hematologic: Any recent bleeding episodes? No ALLERGIES ALLERGIES Allergen Reactions Celebrex [Celecoxib] Diarrhea PAST MEDICAL HISTORY No past medical history on file. PAST SURGICAL HISTORY Procedure Laterality Date ARTHRP KNE CONDYLEANDPLATU MEDIALANDLAT COMPARTMENTS rt-01/2008, lt-01/2009 Knee replacement, total bilateral REMV CATARACT EXTRACAP,INSERT LENS Bilateral 04/2023 Dr. Bee ( [facility] ) PHYSICAL EXAMINATION Vitals: There were no vitals taken for this visit. Body Habitus:no acute distress and alert and oriented Orientation: Normal: Oriented to person, place and time Psych: normal Sensation: sensation to light touch is grossly normal bilaterally Skin: Color, texture, turgor normal. No rashes or lesions Swelling: no swelling noted Stance: normal cervical posture, shoulder alignment, and no joint deformities or swelling noted Ortho Exam Left knee with well-healed surgical incision Mild effusion Positive crepitance at the patellofemoral joint Mild laxity to valgus stress Left leg neurovascularly intact Right hip exam shows no decreased range of motion to internal/external rotation No reproducible groin pain Right leg neurovascularly intact Imaging : XR HIP GENERAL 3V PELV/AP/LAT RIGHT Narrative: * * *Final Report* * * DATE OF EXAM: Dec 11 2024 3:57PM LADY 5352 - XR HIP 3V PELV+ AP/LAT RT / PROCEDURE REASON: [id number] * * * * Physician Interpretation * * * * PROCEDURE: Pelvis and right hip INDICATION: Pain .sharp lateral right hip pain 1 week ago, no injury TECHNIQUE: XR HIP 3V PELV+ AP/LAT RT COMPARISON: None FINDINGS: Mesh clips most consistent with prior right herniorrhaphy. Mild bilateral hip osteoarthrosis. Sacroiliac joints and symphysis pubis are maintained. Degenerative change in the lower lumbar spine. No fracture or dislocation. Impression: IMPRESSION: Degenerative changes Sox Analyst: HENNY Transcribe Date/Time: Dec 13 2024 9:40A Dictated by : DUARTE CEDENO MD This examination was interpreted and the report reviewed and electronically signed by: DUARTE CEDENO MD on Dec 13 2024 9:41AM EST XR KNEE POST OP 3V AP/LAT/MERCHANT BILATERAL Narrative: * * *Final Report* * * DATE OF EXAM: Dec 11 2024 2:30PM LADY 5635 - XR KNEE 3V AP/LAT/PARK TOSHIA / PROCEDURE REASON: multiple diagnoses * * * * Physician Interpretation * * * * PROCEDURE: Bilateral knees INDICATION: Chronic pain of both knees .Pt states that every now an then he has a burning pain through his left knee, and states that with his right knee after he makes multiple trips up and down stairs he starts to feel the pain throughout his right knee TECHNIQUE: XR KNEE 3V AP/LAT/PARK TOSHIA COMPARISON: 01/07/2023 FINDINGS: (more content not included)... Normal [facility] XR HIP 3V PELV+ AP/LAT RTon 12-11-2024 XR HIP 3V PELV+ AP/LAT RT * * *Final Report* * * DATE OF EXAM: Dec 11 2024 3:57PM LADY 5352 - XR HIP 3V PELV+ AP/LAT RT / PROCEDURE REASON: [id number] * * * * Physician Interpretation * * * * PROCEDURE: Pelvis and right hip INDICATION: Pain .sharp lateral right hip pain 1 week ago, no injury TECHNIQUE: XR HIP 3V PELV+ AP/LAT RT COMPARISON: None FINDINGS: Mesh clips most consistent with prior right herniorrhaphy. Mild bilateral hip osteoarthrosis. Sacroiliac joints and symphysis pubis are maintained. Degenerative change in the lower lumbar spine. No fracture or dislocation. IMPRESSION: Degenerative changes Sox Analyst: HENNY Transcribe Date/Time: Dec 13 2024 9:40A Dictated by : DUARTE CEDENO MD This examination was interpreted and the report reviewed and electronically signed by: DUARTE CEDENO MD on Dec 13 2024 9:41AM EST [id number] [facility] XR KNEE 3V AP/LAT/PARK BILon 12-11-2024 XR KNEE 3V AP/LAT/PARK TOSHIA * * *Final Report* * * DATE OF EXAM: Dec 11 2024 2:30PM LADY 5635 - XR KNEE 3V AP/LAT/PARK TOSHIA / PROCEDURE REASON: multiple diagnoses * * * * Physician Interpretation * * * * PROCEDURE: Bilateral knees INDICATION: Chronic pain of both knees .Pt states that every now an then he has a burning pain through his left knee, and states that with his right knee after he makes multiple trips up and down stairs he starts to feel the pain throughout his right knee TECHNIQUE: XR KNEE 3V AP/LAT/PARK TOSHIA COMPARISON: 01/07/2023 FINDINGS: Bilateral total knee arthroplasties without patellar resurfacing remain in satisfactory position. No periprosthetic lucency or fracture. No joint effusion. Probable joint bodies, particularly on the right, not significantly changed IMPRESSION: Stable bilateral arthroplasties Sox Analyst: HENNY Transcribe Date/Time: Dec 13 2024 9:16A Dictated by : DUARTE CEDENO MD This examination was interpreted and the report reviewed and electronically signed by: DUARTE CEDENO MD on Dec 13 2024 9:17AM EST [id number] [facility] Center XR Pelvis and Hip - right AP and Lateral frogon 12-11-2024 Radiology Study observation (narrative) [facility] 36on 10-07-2024 36 S: Patient spoke wit h CAC nurse regarding multiple sx B: Onset of symptoms/concern 08/25/2024 A: Patient c/o new onset of sore throat 04/10, yellow phlegm, runny nose, left ear draining clear liquid. Home test is neg for COVID. Denies ear pain. Denies fatigue or loss of appetite. DANK: 08/25/2024 NOV: 04/02/2025 R: Nurse scheduled appointment for 10/07/2024 1040 with Graciela Pate MD. Insurance verified. Patient instructed to arerive 156 mins early with med list, photo ID, copay and insurance card. Patient understands home care advice. No further needs at this time. Patient instructed to call back with new or worsening symptoms. Reason for Disposition Patient wants to be seen Answer Assessment - Initial Assessment Questions 1. LOCATION: Which ear is involved? Left 2. COLOR: What is the color of the discharge? clear 3. CONSISTENCY: How runny is the discharge? Could it be water? water 4. ONSET: When did you first notice the discharge? 08/24/2024 5. PAIN: Is there any earache? How bad is it? (Scale 0-10; none, mild, moderate or severe) 0/10 6. OBJECTS: Have you put anything in your ear? (e.g., Q-tip, other object) no 7. OTHER SYMPTOMS: Do you have any other symptoms? (e.g., headache, fever, dizziness, vomiting, runny nose) Runny nose yellow 8. : Is there any chance you are ? When was your last menstrual period? N/A Protocols used: Ear - [id number] Normal [facility] Office Visiton 10-07-2024 Follow-up visit [id number] Dinesh Isaacs charito Pereira 1945 M Date Provider Department Center 10/07/2024 [id number] PATE [facility] Family History Problem Relation Age of Onset Cancer Mother Comments: intestinal ; at 32 Cancer Father Cancer Maternal Grandmother No Known Problems Son No Known Problems Paternal Grandmother No Known Problems Sister No Known Problems Maternal Grandfather No Known Problems Sister No Known Problems Son Heart disease Brother Comments: valvular heart disease Other Brother Comments: from drowning No Known Problems Son Cancer Sister No Known Problems Paternal Grandfather Heart disease Sister Heart disease Father No Known Problems Daughter Family Status - Relation Status Age at Mother Father Maternal Grandmother Son Alive Paternal Grandmother Sister Alive Maternal Grandfather Sister Alive Son Alive Brother Son Sister Alive Paternal Grandfather Daughter Alive Brother Alive Level of Service:62986 SC OFFICE/OUTPATIENT ESTABLISHED LOW [facility] 20 MIN Reason for Visit and Comments: Ear Problem [196] - Est pt here today with complaints of Left Ear Otorrhea. Pt denies any of the following: Dizziness, Otalgia, Nausea/vomiting, fever/chills. Pt does admit to having Tinnitus many, many years. Pt normally wears hearing aids but since Sept with the ear drainage he only uses sparingly. Pt states right ear itches. Pt denies any ear/head trauma Sore Throat [82] - Sore throat x 6 days. Pt also experiencing a productive cough with yellow sputum. Pt states that he is experiencing sinus symptoms. Pt denies any frontal or maxillary sinus pain/pressure. Pt denies any Ear Pressure as well. Normal [facility] Progress Noteon 10-07-2024 Progress Note [facility] [address] [facility] [address] [address] [address] [facility] [facility] [address] Visit type: Established Patient Reason for Visit: Ear Problem (Est pt here today with complaints of Left Ear Otorrhea. Pt denies any of the following: Dizziness, Otalgia, Nausea/vomiting, fever/chills. Pt does admit to having Tinnitus many, many years. Pt normally wears hearing aids but since Sept with the ear drainage he only uses sparingly. Pt states right ear itches. Pt denies any ear/head trauma ) and Sore Throat (Sore throat x 6 days. Pt also experiencing a productive cough with yellow sputum. Pt states that he is experiencing sinus symptoms. Pt denies any frontal or maxillary sinus pain/pressure. Pt denies any Ear Pressure as well. ) Assessment and Plan 1. Acute bacterial sinusitis (Primary) Not controlled -add ear drops as well -call in 5 days if not improved - amoxicillin-clavulanate (Augmentin) 875-125 MG tablet; Take 1 tablet by mouth 2 times daily for 7 days. Dispense: 14 tablet; Refill: [address] for 5 days. Home covid testing yesterday. Coughing up yellow sputum. Sinus congestion. No NVFC. Energy is fine. Ear drainage. Left ear. This did get better from last OV here, 08/24/24. Clear liquid. Not as bad. No GI symptoms. Appetite is good. Occasional ibuprofen. Remote L ear perforation and repair Review of Systems As above Allergies Allergen Reactions Celecoxib Diarrhea Outpatient Medications Prior to Visit Medication Sig Dispense Refill ibuprofen 200 MG tablet Take 200 mg by mouth every 6 hours as needed. No facility-administered medications prior to visit. Past Medical History: Diagnosis Date Arthritis BPH without urinary obstruction Dizziness GERD (gastroesophageal reflux disease) Hypercholesterolemia Hyperlipidemia Hypertension Low back pain Migraine Neck pain Numbness Osteoarthritis Palpitations Social History Socioeconomic History Marital status: Tobacco Use Smoking status: Never Passive exposure: Never Smokeless tobacco: Never Vaping Use Vaping status: Never Used Substance and Sexual Activity Alcohol use: Not Currently Drug use: No Social Drivers of Health Financial Resource Strain: Low Risk (03/30/2024) Overall Financial Resource Strain (CARDIA) Difficulty of Paying Living Expenses: Not hard at all Food Insecurity: No Food Insecurity (03/30/2024) Hunger Vital Sign Worried About Running Out of Food in the Last Year: Never true Ran Out of Food in the Last Year: Never true Transportation Needs: No Transportation Needs (03/30/2024) PRAPARE - Transportation Lack of Transportation (Medical): No Lack of Transportation (Non-Medical): No Physical Activity: Sufficiently Active (03/30/2024) Exercise Vital Sign Days of Exercise per Week: 5 days Minutes of Exercise per Session: 50 min Stress: No Stress Concern Present (03/30/2024) [place] [place] [employer] - Occupational Stress Questionnaire Feeling of Stress : Not at all Social Connections: Moderately Isolated (03/30/2024) Social Connection and Isolation Panel [NHANES] Frequency of Communication with Friends and Family: Once a week Frequency of Social Gatherings with Friends and Family: Twice a week Attends Sikh Services: Never Active Member of Clubs or Organizations: No Attends Club or Organization Meetings: Never Marital Status: Intimate Partner Violence: Not At Risk (03/30/2024) Humiliation, Afraid, Rape, and Kick questionnaire Fear of Current or Ex-Partner: No Emotionally Abused: No Physically Abused: No Sexually Abused: No Housing Stability: Low Risk (03/30/2024) Housing Stability Vital Sign Unable to Pay for Housing in the Last Year: No Number of Places Lived in the Last Year: 1 Unstable Housing in the Last Year: No Past Surgical History: Procedure Laterality Date ANKLE ARTHROSCOPY (HISTORICAL) 12 03 2014 LT COLONOSCOPY 03 30 2011 benign appearing colon nodules; see report HERNIA REPAIR 07 21 2012 inguinal hernia JOINT REPLACEMENT TOSHIA TKA TONSILLECTOMY AND ADENOIDECTOMY (HISTORICAL) Past Surgical History: Procedure Laterality Date ANKLE ARTHROSCOPY (HISTORICAL) 12 03 2014 LT COLONOSCOPY 03 30 2011 benign appearing colon nodules; see report HERNIA REPAIR 07 21 2012 inguinal hernia JOINT REPLACEMENT TOSHIA TKA TONSILLECTOMY AND ADENOIDECTOMY (HISTORICAL) Family History Problem Relation Name Age of Onset Cancer Mother intestinal ; at 32 Cancer Father Cancer Maternal Grandmother No Known Problems Son No Known Problems Paternal Grandmother No Known Problems Sister No Known Problems Maternal Grandfather No Known Problems Sister No Known Problems Son Heart disease Brother valvular heart disease Other ([id number]) Brother from drowning No Known Problems Son Cancer Sister No Known Problems Paternal Grandfather Heart disease Sister Heart disease (more content not included)... Normal [facility] 36on 08-24-2024 36 S: Patient spoke wit h [facility] nurse regarding ear problem B: Onset of symptoms/concern 2 weeks A: Patient reports he has had a clear liquid coming out of his ears, causing a reduction in hearing. Also reports the left side of nares will occasionally bleed. Denies fevers, ear pain. R: Insurance verified, appointment scheduled with Dr Pate Advised to arrive 15 minutes early, bring photo ID, list of medications and insurance card. Covid screen negative. No further needs at this time. Patient instructed to call back with new or worsening symptoms. Reason for Disposition Clear drainage (not from a head injury) and persists > 24 hours Protocols used: Ear - [id number] Normal [facility] Office Visiton 08-24-2024 Follow-up visit [id number] Dinesh Isaacs 1945 M Date Provider Department Center 08/24/2024 [id number] BECERRA [facility] Family History Problem Relation Age of Onset Cancer Mother Comments: intestinal ; at 32 Cancer Father Cancer Maternal Grandmother No Known Problems Son No Known Problems Paternal Grandmother No Known Problems Sister No Known Problems Maternal Grandfather No Known Problems Sister No Known Problems Son Heart disease Brother Comments: valvular heart disease Other Brother Comments: from drowning No Known Problems Son Cancer Sister No Known Problems Paternal Grandfather Heart disease Sister Heart disease Father No Known Problems Daughter Family Status - Relation Status Age at Mother Father Maternal Grandmother Son Alive Paternal Grandmother Sister Alive Maternal Grandfather Sister Alive Son Alive Brother Son Sister Alive Paternal Grandfather Daughter Alive Brother Alive Level of Service:[id number] SC OFFICE/OUTPATIENT ESTABLISHED LOW [facility] 20 MIN Reason for Visit and Comments: Ear Drainage [[id number]] - Pt states for the past 2 weeks has been experiencing bilateral clear ear drainage, feeling plugged, itching, hearing loss, and 2 nose bleeds. Denies ear pain, headache, runny nose or fever. Normal [facility] Progress Noteon 08-24-2024 Progress Note During rooming, heather ent was asked if they would like a flu shot. He declined. Normal [facility] Progress Note [facility] [place] [address] [facility] [address] Visit type: Established Patient Reason for Visit: Ear Drainage (Pt states for the past 2 weeks has been experiencing bilateral clear ear drainage, feeling plugged, itching, hearing loss, and 2 nose bleeds. Denies ear pain, headache, runny nose or fever. ) Assessment and Plan Otorrhea of both ears Mild -trial topical abx/steroid -let us know if not effective after course. - ciprofloxacin-hydrocorti sone (Cipro HC Otic) otic suspension; Administer 3 drops into each ear 2 times daily for 7 days. Dispense: 10 mL; Refill: 0 Subjective HPI Ear drainage for 2 weeks. Watery. Flaky residue. No pain. Hearing ok. Itches. Mild runny nose and left nares bleeds at times but this is not unusual for him. No TAFOYA, NVFC, ST, cough. Feels fine. Wears hearing aids but has not for 2 wks since this started. Review of Systems Allergies Allergen Reactions Celecoxib Diarrhea Outpatient Medications Prior to Visit Medication Sig Dispense Refill ibuprofen 200 MG tablet Take 200 mg by mouth every 6 hours as needed. No facility-administered medications prior to visit. Past Medical History: Diagnosis Date Arthritis BPH without urinary obstruction Dizziness GERD (gastroesophageal reflux disease) Hypercholesterolemia Hyperlipidemia Hypertension Low back pain Migraine Neck pain Numbness Osteoarthritis Palpitations Social History Socioeconomic History Marital status: Tobacco Use Smoking status: Never Passive exposure: Never Smokeless tobacco: Never Vaping Use Vaping status: Never Used Substance and Sexual Activity Alcohol use: Not Currently Drug use: No Social Determinants of Health Financial Resource Strain: Low Risk (03/30/2024) Overall Financial Resource Strain (CARDIA) Difficulty of Paying Living Expenses: Not hard at all Food Insecurity: No Food Insecurity (03/30/2024) Hunger Vital Sign Worried About Running Out of Food in the Last Year: Never true Ran Out of Food in the Last Year: Never true Transportation Needs: No Transportation Needs (03/30/2024) PRAPARE - Transportation Lack of Transportation (Medical): No Lack of Transportation (Non-Medical): No Physical Activity: Sufficiently Active (03/30/2024) Exercise Vital Sign Days of Exercise per Week: 5 days Minutes of Exercise per Session: 50 min Stress: No Stress Concern Present (03/30/2024) [place] [employer] - Occupational Stress Questionnaire Feeling of Stress : Not at all Social Connections: Moderately Isolated (03/30/2024) Social Connection and Isolation Panel [NHANES] Frequency of Communication with Friends and Family: Once a week Frequency of Social Gatherings with Friends and Family: Twice a week Attends Sikh Services: Never Active Member of Clubs or Organizations: No Attends Club or Organization Meetings: Never Marital Status: Intimate Partner Violence: Not At Risk (03/30/2024) Humiliation, Afraid, Rape, and Kick questionnaire Fear of Current or Ex-Partner: No Emotionally Abused: No Physically Abused: No Sexually Abused: No Housing Stability: Low Risk (03/30/2024) Housing Stability Vital Sign Unable to Pay for Housing in the Last Year: No Number of Places Lived in the Last Year: 1 Unstable Housing in the Last Year: No Past Surgical History: Procedure Laterality Date ANKLE ARTHROSCOPY (HISTORICAL) 12 03 2014 LT COLONOSCOPY 03 30 2011 benign appearing colon nodules; see report HERNIA REPAIR 07 21 2012 inguinal hernia JOINT REPLACEMENT TOSHIA TKA TONSILLECTOMY AND ADENOIDECTOMY (HISTORICAL) Past Surgical History: Procedure Laterality Date ANKLE ARTHROSCOPY (HISTORICAL) 12 03 2014 LT COLONOSCOPY 03 30 2011 benign appearing colon nodules; see report HERNIA REPAIR 07 21 2012 inguinal hernia JOINT REPLACEMENT TOSHIA TKA TONSILLECTOMY AND ADENOIDECTOMY (HISTORICAL) Family History Problem Relation Name Age of Onset Cancer Mother intestinal ; at 32 Cancer Father Cancer Maternal Grandmother No Known Problems Son No Known Problems Paternal Grandmother No Known Problems Sister No Known Problems Maternal Grandfather No Known Problems Sister No Known Problems Son Heart disease Brother valvular heart disease Other ([id number]) Brother from drowning No Known Problems Son Cancer Sister No Known Problems Paternal Grandfather Heart disease Sister Heart disease Father No Known Problems Daughter Objective BP 124/83 (BP Location: Left arm) Pulse 96 Temp 36.7 ?C (98.1 ?F) Ht 6' 5 (1.956 m) Wt 234 lb (106 kg) SpO2 99% BMI 27.75 kg/m? Patient Weight 08/24/24 234 lb (106 kg) 03/30/24 240 lb (109 kg) 01/09/23 233 lb (106 kg) Physical Exam Nursing note reviewed. Constitutional: General: He is not in acute distress. Appearance: Normal appearance. He is not ill-appearing. HENT: (more content not included)... Normal [facility] Office Visiton 03-30-2024 Follow-up visit [id number] Dinesh Isaacs 1945 Date Provider Department Center 03/30/2024 KAMRON CULVER [facility] Family History Problem Relation Age of Onset Cancer Mother Comments: intestinal ; at 32 Cancer Father Cancer Maternal Grandmother No Known Problems Son No Known Problems Paternal Grandmother No Known Problems Sister No Known Problems Maternal Grandfather No Known Problems Sister No Known Problems Son Heart disease Brother Comments: valvular heart disease Other Brother Comments: from drowning No Known Problems Son Cancer Sister No Known Problems Paternal Grandfather Heart disease Sister Heart disease Father No Known Problems Daughter Family Status - Relation Status Age at Mother Father Maternal Grandmother Son Alive Paternal Grandmother Sister Alive Maternal Grandfather Sister Alive Son Alive Brother Son Sister Alive Paternal Grandfather Daughter Alive Brother Alive Level of Service:65083 SC PERIODIC PREVENTIVE MED EST PATIENT 65YRS& OLDER Reason for Visit and Comments: Medicare Annual Wellness Visit Subsequent [677] - Pt denies any concerns. [facility] PATINSon 03-30-2024 PATINS Personalized Preventative Plan for Teresa Isaacs - 03/30/2024 Medicare offers a range of preventative health benefits. Some of the tests and screenings are paid in full while others may be subject to a deductible, co-insurance, and / or copay. Some of these benefits include a comprehensive review of your medical history including lifestyle, illnesses that may run in your family, and various assessments and screenings as appropriate. After reviewing your medical record and screening and assessments performed today, your provider may have ordered immunizations, labs, imaging, and / or referrals for you. A list of these orders (if applicable) as well as your Preventative Care list are included within your After Visit Summary for your review. Other Preventative Recommendations: A preventive eye exam by an source water protection specialist is recommended every 1-2 years to screen for glaucoma, cataracts, macular degeneration, and other eye disorders. A preventive dental visit is recommended every 6 months. Try to get at least 150 minutes of exercise per week or 10,000 steps per day on a pedometer. You need 1200-1500mg of calcium and 0876-2566 international units of vitamin D per day. It is possible to meet your calcium requirement with diet alone, but a vitamin D supplement is usually necessary to meet this goal. When exposed to the sun, use a sunscreen that protects against both UVA and UVB radiation with an SPF of 30 or greater. Reapply every 2-3 hours or after sweating, drying off with a towel, or swimming. Always wear a seat belt when traveling in a car. Always wear a helmet when riding a bicycle or a motorcycle [facility] Progress Noteon 03-30-2024 Progress Note [facility] [address] [facility] [address] [address] [address] [facility] [address] [facility] [address] Dept: [phone] Dept 1. Routine general medical examination at health care facility Doing well. -Encouraged healthy lifestyle, exercise and diet. To obtain and maintain health weight. 2. Hypercholesterolemia He stopped statin Given >75 reasonable to stay off for primary prevention 3. White coat syndrome without hypertension Controlled well today 4. Gastroesophageal reflux disease without esophagitis Doing well off PPI 5. Migraine aura without headache Controlled/stable overall. Chief Complaint Patient presents with Medicare Annual Wellness Visit Subsequent Pt denies any concerns. HPI AWV. HLD. Was on Crestor. He stopped on his own. Was not having issues with it other than wanting to stop meds. No hx ov CAD/CVA/PVD. White coat HTN without essential HTN. BP at home 120-130's/80's at home 3-4 times a week. Was on BP meds in past and stopped. HCTZ was what he was on in the past. Mild GERD. He was able to stop PPI and has handled being off. Diet and exercise are good. 3 migraines with aura a year. Midrin not available. He is not sure if tried triptans. No hx TIA/CVA. Exedrin migraine works. Due for colonoscopy 2020. Due 2025 if he choses. I have reviewed and reconciled the medication list with the patient today. Current Outpatient Medications Medication Sig Dispense Refill ibuprofen 200 MG tablet Take 200 mg by mouth every 6 hours as needed. No current facility-administered medications for this visit. Also reviewed during this visit: Allergies Meds Problems The following health maintenance schedule was reviewed with the patient and provided in printed form in the after visit summary: Health Maintenance Topic Date Due RSV Immunization aged 60 or older (1 - 1-dose 60+ series) Never done Zoster Vaccines (2 of 3) 02/19/2017 COVID-19 Vaccine (4 - 2022- season) 2023 DTaP/Tdap/Td Vaccines (1 - Tdap) 03/30/2025 (Originally 1964) Influenza Vaccine (Season Ended) 2024 Depression Screening 03/30/2025 Medicare Annual Wellness (AWV) 04/29/2025 Lipid Panel 01/09/2028 Pneumococcal Vaccine: 65+ Years Completed Hepatitis C Screening Completed RSV Immunization under 20 Months Aged Out HIB Vaccines Aged Out IPV Vaccines Aged Out Hepatitis A Vaccines Aged Out Meningococcal Vaccine Aged Out Rotavirus Vaccines Aged Out HPV Vaccines Aged Out Hepatitis B Vaccines Discontinued List of current healthcare providers: Patient Care Team: Kamron Pate MD as PCP - General Orders Placed This Encounter Procedures Comprehensive metabolic panel Standing Status: Future Number of Occurrences: 1 Standing Expiration Date: 03/30/2025 CBC Standing Status: Future Number of Occurrences: 1 Standing Expiration Date: 03/30/2025 Lipid panel Standing Status: Future Number of Occurrences: 1 Standing Expiration Date: 03/30/2025 Hemoglobin A1c Standing Status: Future Number of Occurrences: 1 Standing Expiration Date: 03/30/2025 TSH Standing Status: Future Number of Occurrences: 1 Standing Expiration Date: 03/30/2025 Review of Systems Constitutional: Negative for appetite change, fatigue and unexpected weight change. Eyes: Negative for pain and visual disturbance. Respiratory: Negative for apnea, cough, chest tightness and shortness of breath. Cardiovascular: Negative for chest pain, palpitations and leg swelling. Gastrointestinal: Negative for abdominal distention, abdominal pain, anal bleeding, blood in stool, constipation, diarrhea, nausea, rectal pain and vomiting. Genitourinary: Negative for dysuria, frequency and hematuria. Musculoskeletal: Negative for arthralgias, back pain and gait problem. Skin: Negative for rash. Neurological: Negative for dizziness and headaches. Hematological: Negative for adenopathy. Does not bruise/bleed easily. Psychiatric/Behavioral: Negative for dysphoric mood and sleep disturbance. The patient is not nervous/anxious. Physical Exam Vitals and nursing note reviewed. Constitutional: General: He is not in acute distress. Appearance: Normal appearance. He is not ill-appearing, toxic-appearing or diaphoretic. HENT: Head: Normocephalic and atraumatic. Right Ear: Tympanic membrane normal. Left Ear: Tympanic membrane normal. Mouth/Throat: Mouth: Mucous membranes are moist. Pharynx: Oropharynx is clear. No oropharyngeal exudate or posterior oropharyngeal erythema. Eyes: General: No scleral icterus. Extraocular Movements: Extraocular movements intact. Conjunctiva/sclera: Conjunctivae normal. Pupils: Pupils are equal, round, and reactive to light. Cardiovascular: Rate and Rhythm: Normal rate and regular rhythm. Heart sounds: No murmur heard. Pulmonary: Effort: Pulmonary effort is normal. Breath sounds: Normal breath sounds. (more content not included)... Normal [facility] XR Knee - bilateral 3 Viewso n 01-09-2023 IMPRESSION: Postsurg ical changes without interval complication. Degenerative changes, as described. Sox Analyst: HENNY Transcribe Date/Time: Jan 09 2023 2:07P Dictated by : CARIN NOLAND MD This examination was interpreted and the report reviewed and electronically signed by: CARIN NOLAND MD on Jan 09 2023 2:09PM EST [facility] * * *Final Report* * * DATE OF EXAM: Jan 07 2023 2:12PM LADY [id number] - XR KNEE 3V AP/LAT/PARK TOSHIA / PROCEDURE REASON: multiple diagnoses * * * * Physician Interpretation * * * * History: Bilateral knee pain FINDINGS: AP, merchant, and lateral views of both knees are compared to the prior study of 05/20/2020. The patient has had prior bilateral knee arthroplasty placement, hardware intact and alignment satisfactory. No evidence of hardware loosening or acute bony process is seen. Images of the right knee demonstrate narrowing of the femoral patellar joint space with lateral osteophyte formation. Small bone densities seen in the suprapatellar and infrapatellar regions, likely tendinous. Calcific body seen posterior to the knee joint, possibly loose bodies. No significant joint effusion is seen. Vascular calcifications are noted. Images of the left knee demonstrate femoral patellar joint space narrowing with lateral tilt/subluxation of the patella relative to the femur, and osteophyte formation. There is patellar osteophyte formation. No significant joint effusion is seen. [facility] Provider, Christina Andi [facility] - 01/09/2023 * * *Final Report* * * DATE OF EXAM: Jan 07 2023 2:12PM LADY 5635 - XR KNEE 3V AP/LAT/PARK TOSHIA / PROCEDURE REASON: multiple diagnoses * * * * Physician Interpretation * * * * History: Bilateral knee pain FINDINGS: AP, merchant, and lateral views of both knees are compared to the prior study of 05/20/2020. The patient has had prior bilateral knee arthroplasty placement, hardware intact and alignment satisfactory. No evidence of hardware loosening or acute bony process is seen. Images of the right knee demonstrate narrowing of the femoral patellar joint space with lateral osteophyte formation. Small bone densities seen in the suprapatellar and infrapatellar regions, likely tendinous. Calcific body seen posterior to the knee joint, possibly loose bodies. No significant joint effusion is seen. Vascular calcifications are noted. Images of the left knee demonstrate femoral patellar joint space narrowing with lateral tilt/subluxation of the patella relative to the femur, and osteophyte formation. There is patellar osteophyte formation. No significant joint effusion is seen. IMPRESSION IMPRESSION: Postsurgical changes without interval complication. Degenerative changes, as described. Sox Analyst: HENNY Transcribe Date/Time: Jan 09 2023 2:07P Dictated by : CARIN NOLAND MD This examination was interpreted and the report reviewed and electronically signed by: CARIN NOLAND MD on Jan 09 2023 2:09PM EST [facility] XR Knee - bilateral 3 ViewsO rdered By: [facility] Provider on 01-09-2023 [facility] XR Knee - bilateral 3 Viewso n 01-07-2023 Radiology Study observation (narrative) [facility] Emergency Department Summary on 07-16-2021 Emergency Department Summary [facility] Medical Records Department [address] [place] [id number] Emergency Department Summary 07/15/21 MR#: [id number] Acct: [id number] Name: TERESA ISAACS Rep #: [id number] : 1945 75 From: Sonia Lopez MD PCP: Dr. Kamron Pate MD Status:DEP ER Location: ED HPI History of Present Illness Chief Complaint: Lower Extremity Injury Informant: patient Onset/Context/Timing Onset: Today Context: Gradual Onset Timing: Waxes and wanes Current Severity: Mild Maximum Severity: Severe Narrative Narrative: Patient present secondary to right knee pain. Patient states he got this morning and felt fine, went got the paper. Short time later when he tried to bend his knee he had severe pain across the anterior medial knee. He states once his knee gets into either a straight or bent position he has no pain but any movement of the knee causes pain. He denies known injury. He has had bilateral knee replacements. [facility] Medical History High cholesterol Non-smoker Home Medications prednisone 40 mg PO DAILY #8 tab 07/15/21 [Rx Last Taken Unknown] Allergy/AdvReac Type Severity Reaction Status Date / Time No Known Allergies Allergy Verified 07/15/21 20:44 Surgical History History of bilateral knee replacement History of hernia repair History of tonsillectomy and adenoidectomy Social History Smoking Status: Never smoker ROS ROS ED Constitutional Constitutional ED: Denies chills or fever(s) Eyes Eyes: Denies change in vision ENT ENT ED: Denies sore throat Cardiovascular Cardiovascular: Denies chest pain Respiratory/Chest Respiratory/Chest: Denies cough or dyspnea Gastrointestinal Gastrointestinal: Denies abdominal pain, diarrhea, nausea or vomiting Genitourinary Genitourinary ED: Denies dysuria Musculoskeletal Musculoskeletal: Reports arthralgias; Denies back pain Integumentary Denies rash Neurologic Neurologic: Denies headache(s), paresthesias or weakness Allergic/Immunologic Allergic/Immunologic ED: Denies urticaria EXAM Physical Exam Const Vital Signs: 07/15/21 20:44 07/15/21 21:08 Temperature 96.2 F L Temperature Source Temporal Pulse Rate 91 77 Respiratory Rate 14 15 Blood Pressure 188/102 H 139/86 H Blood Pressure Mean 130 103 Pulse Ox 97 97 Oxygen Delivery Method Room Air Room Air Positive well nourished and well developed General Appearance ED: well developed HEENT Reports normocephalic and head/scalp atraumatic Eyes PERRL and EOMs intact bilaterally Neck supple Chest Wall inspection of chest normal and palpation of chest normal Resp normal respiratory effort and clear to auscultation bilaterally Cardio regular rate and regular rhythm GI normal to inspection, nondistended, normoactive bowel sounds Palpation: soft Extremity normal to inspection Extremity Narrative: Mild edema noted to the right knee. No erythema or warmth. Mild tenderness along the medial joint line. No joint instability. No calf tenderness. Strong distal pulses. Neuro oriented x3 Sensorium / Orientation: alert Psych mental status grossly normal Skin no rashes or lesions noted MDM MDM MDM Narrative Medical decision making narrative: Right knee x-rays are obtained. Patient declines anything for pain. Radiography Diagnostic Testing: Radiology Impression Knee X-Ray 07/15/21 22:19 IMPRESSION: Small knee joint effusion. Total knee arthroplasty without evidence of complication. Multiple osseous fragments project around the extra-articular joint space. Peripheral atherosclerosis. Electronically Signed: Larry Paredes DO at 22:41 EDT Tel , Service support , Treatment and Re-Evaluation Comments:: Right knee x-ray per my interpretation reveals hardware to be intact. Chronic osteoarthritic changes noted but no acute findings. Test results discussed with patient and at bedside. I will treated with a burst of steroids to help calm inflammation in any sign of tendinitis. Layo wrap will be applied to the knee. Discharge Plan Triage Chief Complaint: Lower Extremity Injury ED Provider: Sonia Lopez Dx/Rx/DC Orders Clinical Impression: Strain of right knee Instructions: ED Knee Sprain Prescriptions: New prednisone 20 mg tablet 40 mg PO DAILY Qty: 8 RF: 0 Primary Care Provider: Kamron Pate Referrals: Kamron Pate MD [Primary Care Provider] - 1 Week if not improving Disposition Disposition: Home, Self Care What to do if you have Problems For any increased pain, shortness of breath, bleeding, nausea or vomiting, chest pain, or any une (more content not included)... Normal [facility] Knee 4 or More Viewson 07-16 Knee 4 or More Views [facility] Imaging Services [address] [place] [address] Knee 4 or More Views MR#: [id number] Acct: [id number] Name: TERESA ISAACS Rep #: [id number] : 1945 M 75 From: Larry Paredes DO PCP: Dr. Kamron Pate MD Status: PRE ER Study: Knee 4 or More Views Date of Exam: 07/15/21 Exam# [id number] Ordering Dr: Sonia Lopez MD INDICATION: pain EXAMINATION/TECHNIQUE: X-RAY - RIGHT XR Knee Complete 4 Views or More 4 VIEWS COMPARISON: None. FINDINGS: SOFT TISSUES: There is a small knee joint effusion. Multiple osseous fragments surrounding the knee joint most likely extra-articular. Linear calcifications posterior knee region suggesting peripheral vascular disease. BONES/JOINTS: Total knee arthroplasty hardware shows normal alignment. No perihardware loosening or displacement.. No fracture. No focal osseous lesion.. RAD/Knee 4 or More Views IMPRESSION: Small knee joint effusion. Total knee arthroplasty without evidence of complication. Multiple osseous fragments project around the extra-articular joint space. Peripheral atherosclerosis. Electronically Signed: Larry Paredes DO at 22:41 EDT Tel , Service support , CC: Dr. Sonia Lopez MD; Dr. Kamron Pate MD Sox Analyst: Signed Normal [facility] CCP IgG Antibodieson 021 CCP IgG Ab. 16 units Normal 0-19 [facility] Comment on above: Result Comment: Nega tive <20 Weak positive 20 - 39 Moderate positive 40 - 59 Strong positive >59 Performed at: [address] [id number] Ehs Manager: Deepak Ponce MD, Phone: [phone] Performed By: #### L 101.9900, L501.6710, L3890.6100, L500.4050, L3890.6200, L3890.6300, L505.7010, L3100.5475, L100.0100, L4600.0100 #### [facility] [address] [place], [address] ANTINUCLEAR ANTIBODIES DIREC Ton 02-08-2021 ASHLEY,DIRECT Negative Normal Negative [facility] Comment on above: Result Comment: Perf ormed at: [facility] [id number] Ehs Manager: Hima Dolan PhD, Phone: [phone] Performed By: #### L 101.9900, L501.6710, L3890.6100, L500.4050, L3890.6200, L3890.6300, L505.7010, L3100.5475, L100.0100, L4600.0100 #### [facility] [address] [place], [place], [id number] (150) CBC W/Diff, Automatedon 03-0 -2020 Absolute Lymph 1.59 X10 3/uL Normal 0.83-4.51 [facility] Comment on above: Performed By: #### L 101.9900, L501.6710, L3890.6100, L500.4050, L3890.6200, L3890.6300, L505.7010, L3100.5475, L100.0100, L4600.0100 #### [facility] [address] [place], [place], [id number] (316) Absolute Neut 2.7 X10 3/uL Normal 2.0-7.7 [facility] Comment on above: Performed By: #### L 101.9900, L501.6710, L3890.6100, L500.4050, L3890.6200, L3890.6300, L505.7010, L3100.5475, L100.0100, L4600.0100 #### [facility] [address] [place], [place], [phone] (978) Basophils/100 WBC (Bld) 0.6 % Normal 0-1 [facility] Comment on above: Performed By: #### L 101.9900, L501.6710, L3890.6100, L500.4050, L3890.6200, L3890.6300, L505.7010, L3100.5475, L100.0100, L4600.0100 #### [facility] [address] [place], [place], [phone] (736) Eosinophils/100 WBC (Bld) 1.1 % Normal 0-5 [facility] Comment on above: Performed By: #### L 101.9900, L501.6710, L3890.6100, L500.4050, L3890.6200, L3890.6300, L505.7010, L3100.5475, L100.0100, L4600.0100 #### [facility] [address] [place], [address] (143) Erythrocyte distribution width (RBC) [Ratio] 13.2 % Normal 11.6-14.6 [facility] Comment on above: Performed By: #### L 101.9900, L501.6710, L3890.6100, L500.4050, L3890.6200, L3890.6300, L505.7010, L3100.5475, L100.0100, L4600.0100 #### [facility] [address] [place], [address] Hematocrit (Bld) [Volume fraction] 41.3 % Normal 40-54 [facility] Comment on above: Performed By: #### L 101.9900, L501.6710, L3890.6100, L500.4050, L3890.6200, L3890.6300, L505.7010, L3100.5475, L100.0100, L4600.0100 #### [facility] [address] [place], [address] Hemoglobin (Bld) [Mass/Vol] 13.8 g/dL Normal 13.0-16.5 [facility] Comment on above: Performed By: #### L 101.9900, L501.6710, L3890.6100, L500.4050, L3890.6200, L3890.6300, L505.7010, L3100.5475, L100.0100, L4600.0100 #### [facility] [address] [place], [address] (636) IG% 0.200 Normal 0.0-0.9 [facility] Comment on above: Result Comment: IG% - Immature Granulocytes (promyelocytes, myelocytes and metamyelocytes) > 1% indicates that a LEFT SHIFT is Present. Performed By: #### L 101.9900, L501.6710, L3890.6100, L500.4050, L3890.6200, L3890.6300, L505.7010, L3100.5475, L100.0100, L4600.0100 #### [facility] [address] [facility] [place], [address] Lymphocytes/100 WBC (Bld) 33.5 % Normal 19-41 [facility] Comment on above: Performed By: #### L 101.9900, L501.6710, L3890.6100, L500.4050, L3890.6200, L3890.6300, L505.7010, L3100.5475, L100.0100, L4600.0100 #### [facility] [address] [facility] [place], [address] MCH (RBC) [Entitic mass] 30.7 pg Normal 27.0-32.0 [facility] Comment on above: Performed By: #### L 101.9900, L501.6710, L3890.6100, L500.4050, L3890.6200, L3890.6300, L505.7010, L3100.5475, L100.0100, L4600.0100 #### [facility] [address] [facility] [place], [address] MCHC (RBC) [Mass/Vol] 33.4 g/dL Normal 32-36 [facility] Comment on above: Performed By: #### L 101.9900, L501.6710, L3890.6100, L500.4050, L3890.6200, L3890.6300, L505.7010, L3100.5475, L100.0100, L4600.0100 #### [facility] [address] [place], [address] MCV (RBC) [Entitic vol] 91.8 fL Normal 80-94 [facility] Comment on above: Performed By: #### L 101.9900, L501.6710, L3890.6100, L500.4050, L3890.6200, L3890.6300, L505.7010, L3100.5475, L100.0100, L4600.0100 #### [facility] [address] [place], [address] Monocytes/100 WBC (Bld) 8.0 % Normal 0-10 [facility] Comment on above: Performed By: #### L 101.9900, L501.6710, L3890.6100, L500.4050, L3890.6200, L3890.6300, L505.7010, L3100.5475, L100.0100, L4600.0100 #### [facility] [address] [place], [address] Neutrophils/100 WBC (Bld) 56.6 % Normal 47-70 [facility] Comment on above: Performed By: #### L 101.9900, L501.6710, L3890.6100, L500.4050, L3890.6200, L3890.6300, L505.7010, L3100.5475, L100.0100, L4600.0100 #### [facility] [address] [place], [address] Nucleated RBC (Bld) [#/Vol] 0 10*3/uL Normal 0-5 [facility] Comment on above: Performed By: #### L 101.9900, L501.6710, L3890.6100, L500.4050, L3890.6200, L3890.6300, L505.7010, L3100.5475, L100.0100, L4600.0100 #### [facility] [address] [place], [address] Platelet mean volume (Bld) [Entitic vol] 9.4 fL Normal 6.2-12.0 [facility] Comment on above: Performed By: #### L 101.9900, L501.6710, L3890.6100, L500.4050, L3890.6200, L3890.6300, L505.7010, L3100.5475, L100.0100, L4600.0100 #### [facility] [address] [place], [address] Platelets (Bld) [#/Vol] 227 10*3/uL Normal 150-450 [facility] Comment on above: Performed By: #### L 101.9900, L501.6710, L3890.6100, L500.4050, L3890.6200, L3890.6300, L505.7010, L3100.5475, L100.0100, L4600.0100 #### [facility] [address] [place], [address] RBC (Bld) [#/Vol] 4.50 10*6/uL Low 4.6-6.2 [facility] Comment on above: Performed By: #### L 101.9900, L501.6710, L3890.6100, L500.4050, L3890.6200, L3890.6300, L505.7010, L3100.5475, L100.0100, L4600.0100 #### [facility] [address] [place], [address] RDW SD 45.1 fl High 35.1-43.9 [facility] Comment on above: Performed By: #### L 101.9900, L501.6710, L3890.6100, L500.4050, L3890.6200, L3890.6300, L505.7010, L3100.5475, L100.0100, L4600.0100 #### [facility] [address] [place], [address] WBC (Bld) [#/Vol] 4.8 10*3/uL Normal 4.4-11.0 [facility] Comment on above: Performed By: #### L 101.9900, L501.6710, L3890.6100, L500.4050, L3890.6200, L3890.6300, L505.7010, L3100.5475, L100.0100, L4600.0100 #### [facility] [address] [place], [address] CRPon 02-07-2021 C-REACTIVE PROT < 2.90 Normal 0.0-3.0 [facility] Comment on above: Result Comment: C-Re active Protein (CRP) provides useful information for the diagnosis, therapy and monitoring of inflammatory processes and associated diseases. For the evaluation of Relative Risk for Cardiovascular Disease, a High Sensitivity CRP (HSCRP) should be ordered. Performed By: #### L 101.9900, L501.6710, L3890.6100, L500.4050, L3890.6200, L3890.6300, L505.7010, L3100.5475, L100.0100, L4600.0100 #### [facility] [address] [place], [address] Comprehensive Metabolic Prof ilon 02-07-2021 Albumin [Mass/Vol] 3.5 g/dL Normal 3.2-5.0 [facility] Comment on above: Performed By: #### L 101.9900, L501.6710, L3890.6100, L500.4050, L3890.6200, L3890.6300, L505.7010, L3100.5475, L100.0100, L4600.0100 #### [facility] [address] [place], [address] Albumin/Globulin [Mass ratio] 1.0 {ratio} Normal 0.9-2.4 [facility] Comment on above: Performed By: #### L 101.9900, L501.6710, L3890.6100, L500.4050, L3890.6200, L3890.6300, L505.7010, L3100.5475, L100.0100, L4600.0100 #### [facility] [address] [place], [address] ALK P 73 U/L Normal 45-117 [facility] Comment on above: Performed By: #### L 101.9900, L501.6710, L3890.6100, L500.4050, L3890.6200, L3890.6300, L505.7010, L3100.5475, L100.0100, L4600.0100 #### [facility] [address] [place], [address] ALT [Catalytic activity/Vol] 12 U/L Low 16-61 [facility] Comment on above: Performed By: #### L 101.9900, L501.6710, L3890.6100, L500.4050, L3890.6200, L3890.6300, L505.7010, L3100.5475, L100.0100, L4600.0100 #### [facility] [address] [place], [address] AST [Catalytic activity/Vol] 17 U/L Normal 15-37 [facility] Comment on above: Performed By: #### L 101.9900, L501.6710, L3890.6100, L500.4050, L3890.6200, L3890.6300, L505.7010, L3100.5475, L100.0100, L4600.0100 #### [facility] [address] [place], [address] Bilirubin [Mass/Vol] 0.60 mg/dL Normal 0.20-1.00 [facility] Comment on above: Result Comment: For patients on eltrombopag therapy, use of Dimension [place] TBIL is not recommended. Performed By: #### L 101.9900, L501.6710, L3890.6100, L500.4050, L3890.6200, L3890.6300, L505.7010, L3100.5475, L100.0100, L4600.0100 #### [facility] [address] [place], [address] BUN/CRE 19.5 RATIO Normal 10-20 [facility] Comment on above: Performed By: #### L 101.9900, L501.6710, L3890.6100, L500.4050, L3890.6200, L3890.6300, L505.7010, L3100.5475, L100.0100, L4600.0100 #### [facility] [address] [place], [place], [phone] (012) CA,Total 8.6 mg/dL Normal 8.5-10.1 [facility] Comment on above: Performed By: #### L 101.9900, L501.6710, L3890.6100, L500.4050, L3890.6200, L3890.6300, L505.7010, L3100.5475, L100.0100, L4600.0100 #### [facility] [address] [place], [address] Chloride [Moles/Vol] 108 mmol/L High 98-107 [facility] Comment on above: Performed By: #### L 101.9900, L501.6710, L3890.6100, L500.4050, L3890.6200, L3890.6300, L505.7010, L3100.5475, L100.0100, L4600.0100 #### [facility] [address] [place], [place], [id number] CO2 [Moles/Vol] 29.0 mmol/L Normal 21.0-32.0 [facility] Comment on above: Performed By: #### L 101.9900, L501.6710, L3890.6100, L500.4050, L3890.6200, L3890.6300, L505.7010, L3100.5475, L100.0100, L4600.0100 #### [facility] [address] [place], [address] Creatinine [Mass/Vol] 0.87 mg/dL Normal 0.70-1.30 [facility] Comment on above: Result Comment: The validity of the calculated GFR GFRAA in patients over 70 years has not been determined. Clinical correlation is essential. Performed By: #### L 101.9900, L501.6710, L3890.6100, L500.4050, L3890.6200, L3890.6300, L505.7010, L3100.5475, L100.0100, L4600.0100 #### [facility] [address] [place], [place], [id number] EST GFR - AA 109 mL/min Normal >60 [facility] Comment on above: Result Comment: Afri can Malaysian GFR Calc Performed By: #### L 101.9900, L501.6710, L3890.6100, L500.4050, L3890.6200, L3890.6300, L505.7010, L3100.5475, L100.0100, L4600.0100 #### [facility] [address] [place], [place], [id number] GAP 4 Low 5-15 [facility] Comment on above: Performed By: #### L 101.9900, L501.6710, L3890.6100, L500.4050, L3890.6200, L3890.6300, L505.7010, L3100.5475, L100.0100, L4600.0100 #### [facility] [address] [place], [address] GFR/1.73 sq M.predicted among non-blacks MDRD (S/P/Bld) [Vol rate/Area] 90 mL/min/{1.73_m2} Normal >60 [facility] Comment on above: Result Comment: Non- GFR Calc Performed By: #### L 101.9900, L501.6710, L3890.6100, L500.4050, L3890.6200, L3890.6300, L505.7010, L3100.5475, L100.0100, L4600.0100 #### [facility] [address] [place], [address] Globulin (S) [Mass/Vol] 3.5 g/dL Normal 2.2-4.2 [facility] Comment on above: Performed By: #### L 101.9900, L501.6710, L3890.6100, L500.4050, L3890.6200, L3890.6300, L505.7010, L3100.5475, L100.0100, L4600.0100 #### [facility] [address] [place], [address] Glucose [Mass/Vol] 90 mg/dL Normal 74-106 [facility] Comment on above: Result Comment: Chet ybarra note revised GLUCOSE reference range effective 2018. Performed By: #### L 101.9900, L501.6710, L3890.6100, L500.4050, L3890.6200, L3890.6300, L505.7010, L3100.5475, L100.0100, L4600.0100 #### [facility] [address] [place], [address] Potassium [Moles/Vol] 4.0 mmol/L Normal 3.5-5.1 [facility] Comment on above: Performed By: #### L 101.9900, L501.6710, L3890.6100, L500.4050, L3890.6200, L3890.6300, L505.7010, L3100.5475, L100.0100, L4600.0100 #### [facility] [address] [place], [address] Sodium [Moles/Vol] 141 mmol/L Normal 136-145 [facility] Comment on above: Performed By: #### L 101.9900, L501.6710, L3890.6100, L500.4050, L3890.6200, L3890.6300, L505.7010, L3100.5475, L100.0100, L4600.0100 #### [facility] [address] [place], [address] T PROT 7.0 g/dL Normal 6.4-8.2 [facility] Comment on above: Performed By: #### L 101.9900, L501.6710, L3890.6100, L500.4050, L3890.6200, L3890.6300, L505.7010, L3100.5475, L100.0100, L4600.0100 #### [facility] [address] [place], [address] Urea nitrogen [Mass/Vol] 17 mg/dL Normal 7-18 [facility] Comment on above: Performed By: #### L 101.9900, L501.6710, L3890.6100, L500.4050, L3890.6200, L3890.6300, L505.7010, L3100.5475, L100.0100, L4600.0100 #### [facility] [address] [place], [place], [id number] Erythrocyte Sed Rateon 02-07 SED RATE 8 mm/hr Normal 0-20 [facility] Comment on above: Performed By: #### L 101.9900, L501.6710, L3890.6100, L500.4050, L3890.6200, L3890.6300, L505.7010, L3100.5475, L100.0100, L4600.0100 #### [facility] [address] [place], [address] Hand Min 3 Viewson 1 Hand Min 3 Views [facility] Imaging Services [address] [address] Hand Min 3 Views MR#: [id number] Acct: [id number] Name: TERESA ISAACS Rep #: [id number] : 1945 M 75 From: Leo mccoy MD PCP: Dr. Kamron Pate MD Status: REG CLI Study: Hand Min 3 Views Date of Exam: 02/07/21 Exam# [id number] Ordering Dr: Stephenie Palumbo MD STUDY: X-RAY - LEFT HAND REASON FOR EXAM: Male, 75 years old. OSTEOARTHRITIS, STIFFNESS TECHNIQUE: 3 view(s) of the hand. COMPARISON: None. FINDINGS: Normal radiocarpal articulation. Normal distal radioulnar joint. Old ununited fracture of the tip of the ulnar styloid. Normal visualized carpal bones. Normal carpal articulations Normal carpometacarpal articulation of the thumb. Normal second through fifth carpometacarpal joints. Normal metacarpi. Normal metacarpophalangeal joint of the thumb. Normal interphalangeal joint of the thumb. Normal proximal and distal phalanges of the thumb. Normal metacarpophalangeal joints of the second through fifth fingers. There is diffuse articular joint space narrowing of the proximal and distal interphalangeal joints of the second through fifth fingers, but without erosive changes or periarticular soft tissue swelling. Normal phalanges of the second through fifth fingers. The soft tissue structures are unremarkable. RAD/Hand Min 3 Views IMPRESSION: No acute fracture or dislocation. Within normal limits for age. Electronically Signed: Leo Naranjo MD at 23:23 EST , Service support , CC: Dr. Stephenie Palumbo MD; Dr. Kamron Pate MD Sox Analyst: Signed Normal [facility] Hand Min 3 Views [facility] Imaging Services [address] [place] [address] Hand Min 3 Views MR#: [id number] Acct: [id number] Name: TERESA ISAACS Rep #: [id number] : 1945 M 75 From: Jerardo Colón MD PCP: Dr. Kamron Pate MD Status: REG CLI Study: Hand Min 3 Views Date of Exam: 02/07/21 Exam# [id number] Ordering Dr: Stephenie Palumbo MD STUDY: X-RAY - RIGHT HAND REASON FOR EXAM: Male, 75 years old. OSTEOARTHRITIS, STIFFNESS TECHNIQUE: 3 view(s) of the hand. COMPARISON: None. FINDINGS: Normal radiocarpal articulation. Normal distal radioulnar joint. Normal visualized carpal bones. Normal carpal articulations Normal carpometacarpal articulation of the thumb. Normal second through fifth carpometacarpal joints. Normal metacarpi. Normal metacarpophalangeal joint of the thumb. Normal interphalangeal joint of the thumb. Normal proximal and distal phalanges of the thumb. Normal metacarpophalangeal joints of the second through fifth fingers. Normal proximal and distal interphalangeal joints of the second through fifth fingers. Normal phalanges of the second through fifth fingers. The soft tissue structures are unremarkable. RAD/Hand Min 3 Views IMPRESSION: Normal x-ray examination of the hand. Electronically Signed: Jerardo Colón MD at 15:36 EST Tel , Service support , CC: Dr. Stephenie Palumbo MD; Dr. Kamron Pate MD Sox Analyst: Signed Normal [facility] Hepatitis B Surface Antibody on 02-07-2021 HEP B Surf Ab Non-Reactive Normal [facility] Comment on above: Result Comment: Non Reactive: Inconsistent with immunity less than <10 mIU/mL Reactive: Consistent with immunity greater than or equal to 10 mIU/mL Performed By: #### L 101.9900, L501.6710, L3890.6100, L500.4050, L3890.6200, L3890.6300, L505.7010, L3100.5475, L100.0100, L4600.0100 #### [facility] [address] [place], [address] Hepatitis B Surface Antigeno n 02-07-2021 HEP B Surf Ag Non-Reactive Normal Nonreactive [facility] Comment on above: Performed By: #### L 101.9900, L501.6710, L3890.6100, L500.4050, L3890.6200, L3890.6300, L505.7010, L3100.5475, L100.0100, L4600.0100 #### [facility] [address] [place], [place], [id number] Hepatitis C Antibodyon 02-07 Hepatitis C Ab Non-Reactive Normal Nonreactive [facility] Comment on above: Result Comment: Non Reactive: < 0.8 Equivocal: >/= 0.8 to < 1.0 Reactive: >/= 1.0 The CDC recommends that a reactive/equivocal HCV antibody result be followed up by the HCV Nucleic Acid Amplification test ([id number]) Performed By: #### L 101.9900, L501.6710, L3890.6100, L500.4050, L3890.6200, L3890.6300, L505.7010, L3100.5475, L100.0100, L4600.0100 #### [facility] [address] [place], [address] Rheumatoid Factoron 03-09-20 21 RHEUMATOID FAC < 10.0 Normal <15 [facility] Comment on above: Performed By: #### L 101.9900, L501.6710, L3890.6100, L500.4050, L3890.6200, L3890.6300, L505.7010, L3100.5475, L100.0100, L4600.0100 #### [facility] [address] [place], [place], [id number] Vital Signs Date Time Vital Sign Value Performing Clinician Facility 02-23-2025 10:58-0400 Diastolic blood pressure 82 mm[Hg] Glo Piotr PT Work Phone: [facility] 02-23-2025 10:58-0400 Heart rate 82 /min Glo Piotr PT Work Phone: [facility] 02-23-2025 10:58-0400 SaO2% (BldA) [Mass fraction] 99 % Glo Piotr PT Work Phone: [facility] 02-23-2025 10:58-0400 Systolic blood pressure 130 mm[Hg] Glo Piotr PT Work Phone: [facility] 02-23-2025 10:16-0400 Body temperature 98.29 [degF] Glo Piotr PT Work Phone: [facility] 02-23-2025 10:16-0400 Respiratory rate 14 /min Glo Piotr PT Work Phone: [facility] 02-18-2025 10:06-0400 Body temperature 97.5 [degF] Eli Sasha [employer] Work Phone: [facility] 02-18-2025 10:06-0400 Diastolic blood pressure 78 mm[Hg] Eli Sasha [employer] Work Phone: [facility] 02-18-2025 10:06-0400 Heart rate 99 /min Eli Sasha [employer] Work Phone: [facility] 02-18-2025 10:06-0400 Respiratory rate 18 /min Eli Sasha [employer] Work Phone: [facility] 02-18-2025 10:06-0400 SaO2% (BldA) [Mass fraction] 97 % Eli Sasha [employer] Work Phone: [facility] 02-18-2025 10:06-0400 Systolic blood pressure 118 mm[Hg] Eli Sasha [employer] Work Phone: [facility] 02-15-2025 11:11-0400 Diastolic blood pressure 78 mm[Hg] Eli Sasha [employer] Work Phone: [facility] 02-15-2025 11:11-0400 Heart rate 74 /min Eli Sasha [employer] Work Phone: [facility] 02-15-2025 11:11-0400 SaO2% (BldA) [Mass fraction] 99 % Eli Sasha [employer] Work Phone: [facility] 02-15-2025 11:11-0400 Systolic blood pressure 122 mm[Hg] Eli Sasha [employer] Work Phone: [facility] 02-15-2025 10:25-0400 Body temperature 98.2 [degF] Eli Sasha [employer] Work Phone: [facility] 02-15-2025 10:25-0400 Respiratory rate 18 /min Eli Sasha [employer] Work Phone: [facility] 02-11-2025 11:00-0400 Diastolic blood pressure 70 mm[Hg] Eli Sasha [employer] Work Phone: [facility] 02-11-2025 11:00-0400 Heart rate 96 /min Eli Sasha [employer] Work Phone: [facility] 02-11-2025 11:00-0400 SaO2% (BldA) [Mass fraction] 96 % Eli Sasha [employer] Work Phone: [facility] 02-11-2025 11:00-0400 Systolic blood pressure 118 mm[Hg] Eli Sasha [employer] Work Phone: [facility] 02-11-2025 10:03-0400 Body temperature 98.71 [degF] Eli Sasha [employer] Work Phone: [facility] 02-11-2025 10:03-0400 Respiratory rate 18 /min Eli Sasha [employer] Work Phone: [facility] 02-09-2025 10:56-0400 Diastolic blood pressure 78 mm[Hg] Eli Sasha [employer] Work Phone: [facility] 02-09-2025 10:56-0400 Heart rate 76 /min Eli Sasha [employer] Work Phone: [facility] 02-09-2025 10:56-0400 SaO2% (BldA) [Mass fraction] 99 % Eli Sasha [employer] Work Phone: [facility] 02-09-2025 10:56-0400 Systolic blood pressure 118 mm[Hg] Eli Sasha [employer] Work Phone: [facility] 02-09-2025 10:01-0400 Body temperature 97.59 [degF] Eli Sasha [employer] Work Phone: [facility] 02-09-2025 10:01-0400 Respiratory rate 18 /min Eli Sasha [employer] Work Phone: [facility] 02-06-2025 09:09-0500 Diastolic blood pressure 70 mm[Hg] Prinston Hampton [employer] Work Phone: [facility] 02-06-2025 09:09-0500 Heart rate 71 /min Prinston Hampton [employer] Work Phone: [facility] 02-06-2025 09:09-0500 Respiratory rate 18 /min Prinston Hampton [employer] Work Phone: [facility] 02-06-2025 09:09-0500 SaO2% (BldA) [Mass fraction] 99 % Prinston Hampton [employer] Work Phone: [facility] 02-06-2025 09:09-0500 Systolic blood pressure 116 mm[Hg] Ashish Hampton [employer] Work Phone: [facility] 02-06-2025 08:39-0500 Body temperature 97.59 [degF] Ashish Hampton [employer] Work Phone: [facility] 02-04-2025 12:46-0500 Diastolic blood pressure 76 mm[Hg] Cynthia Manriquez PT Work Phone: [facility] Comment on above: after ambulation 02-04-2025 12:46-0500 Heart rate 85 /min Cynthia Manriquez PT Work Phone: [facility] 02-04-2025 12:46-0500 SaO2% (BldA) [Mass fraction] 98 % Cynthia Manriquez PT Work Phone: [facility] 02-04-2025 12:46-0500 Systolic blood pressure 126 mm[Hg] Cynthia Manriquez PT Work Phone: [facility] Comment on above: after ambulation 02-04-2025 12:19-0500 Body temperature 96.69 [degF] Cynthia Manriquez PT Work Phone: [facility] 02-04-2025 12:19-0500 Respiratory rate 16 /min Cynthia Manriquez PT Work Phone: [facility] 01-19-2025 09:19-0500 Body height 195.6 cm Pac 1 Work Phone: [facility] 01-19-2025 09:19-0500 Body mass index (BMI) [Ratio] 28.1 kg/m2 Pac 1 Work Phone: [facility] 01-19-2025 09:19-0500 Body temperature 97.39 [degF] Pac 1 Work Phone: [facility] 01-19-2025 09:19-0500 Body weight 107.5 kg Pac 1 Work Phone: [facility] 01-19-2025 09:19-0500 Diastolic blood pressure 66 mm[Hg] Pacc 1 Work Phone: [facility] 01-19-2025 09:19-0500 Heart rate 95 /min Pacc 1 Work Phone: [facility] 01-19-2025 09:19-0500 Respiratory rate 14 /min Pacc 1 Work Phone: [facility] 01-19-2025 09:19-0500 SaO2% (BldA) [Mass fraction] 96 % Pacc 1 Work Phone: [facility] 01-19-2025 09:19-0500 Systolic blood pressure 136 mm[Hg] Pacc 1 Work Phone: [facility] 10-07-2024 10:35-0500 Body height 195.6 cm Kamron Pate MD Work Phone: [facility] 10-07-2024 10:35-0500 Body mass index (BMI) [Ratio] 27.87 kg/m2 Kamron Pate MD Work Phone: [facility] 10-07-2024 10:35-0500 Body temperature 98.4 [degF] Kamron Pate MD Work Phone: [facility] 10-07-2024 10:35-0500 Body weight 106.59 kg Kamron Pate MD Work Phone: [facility] 10-07-2024 10:35-0500 Diastolic blood pressure 88 mm[Hg] Kamron Pate MD Work Phone: [facility] 10-07-2024 10:35-0500 Heart rate 57 /min Kamron Pate MD Work Phone: [facility] 10-07-2024 10:35-0500 Respiratory rate 18 /min Kamron Pate MD Work Phone: [facility] 10-07-2024 10:35-0500 SaO2% (BldA) [Mass fraction] 97 % Kamron Pate MD Work Phone: [facility] 10-07-2024 10:35-0500 Systolic blood pressure 137 mm[Hg] Kamron Pate MD Work Phone: [facility] 08-24-2024 15:13-0400 Diastolic blood pressure 83 mm[Hg] Kamron Pate MD Work Phone: [facility] 08-24-2024 15:13-0400 Systolic blood pressure 124 mm[Hg] Kamron Pate MD Work Phone: [facility] 08-24-2024 15:11-0400 Body height 195.6 cm Kamron Pate MD Work Phone: [facility] 08-24-2024 15:11-0400 Body mass index (BMI) [Ratio] 27.75 kg/m2 Kamron Pate MD Work Phone: [facility] 08-24-2024 15:11-0400 Body temperature 98.1 [degF] Kamron Pate MD Work Phone: [facility] 08-24-2024 15:11-0400 Body weight 106.14 kg Kamron Pate MD Work Phone: [facility] 08-24-2024 15:11-0400 Heart rate 96 /min Kamron Pate MD Work Phone: [facility] 08-24-2024 15:11-0400 SaO2% (BldA) [Mass fraction] 99 % Kamron Pate MD Work Phone: [facility] 03-30-2024 09:31-0400 Body height 195.6 cm Kamron Pate MD Work Phone: [facility] 03-30-2024 09:31-0400 Body mass index (BMI) [Ratio] 28.46 kg/m2 Kamron Pate MD Work Phone: [facility] 03-30-2024 09:31-0400 Body weight 108.86 kg Kamron Pate MD Work Phone: [facility] 03-30-2024 09:31-0400 Diastolic blood pressure 76 mm[Hg] Kamron Pate MD Work Phone: [facility] 03-30-2024 09:31-0400 Heart rate 73 /min Kamron Pate MD Work Phone: [facility] 03-30-2024 09:31-0400 SaO2% (BldA) [Mass fraction] 97 % Kamron Pate MD Work Phone: [facility] 03-30-2024 09:31-0400 Systolic blood pressure 127 mm[Hg] Kamron Pate MD Work Phone: [facility] 01-09-2023 07:35-0500 Body height 195.6 cm Kamron Pate MD Work Phone: [facility] 01-09-2023 07:35-0500 Body mass index (BMI) [Ratio] 27.63 kg/m2 Kamron Pate MD Work Phone: [facility] 01-09-2023 07:35-0500 Body weight 105.69 kg Kamron Pate MD Work Phone: [facility] 01-09-2023 07:35-0500 Diastolic blood pressure 91 mm[Hg] Kamron Pate MD Work Phone: [facility] 01-09-2023 07:35-0500 Heart rate 71 /min Kamron Pate MD Work Phone: [facility] 01-09-2023 07:35-0500 SaO2% (BldA) [Mass fraction] 99 % Kamron Pate MD Work Phone: [facility] 01-09-2023 07:35-0500 Systolic blood pressure 155 mm[Hg] Kamron Pate MD Work Phone: [facility] Encounters Encounter Date Encounter Type Care Provider Facility Start: 06-23-2025 End: 06-23-2025 ambulatory KAMRON PATE Facility:[facility] Start: 06-16-2025 End: 06-16-2025 Refill Manny Dudley MD Work Phone: Orthopaedics Comment on above: Refill Request Start: 03-22-2025 End: 03-22-2025 ambulatory Xiomara Kashuba [employer] Work Phone: [facility] Comment on above: Status post revision of total knee replacement, left (Primary Dx) Start: 03-19-2025 End: 03-19-2025 Patient encounter procedure Manny Dudley MD Work Phone: Orthopaedics Comment on above: Aftercare following left knee joint replacement surgery (Primary Dx) Start: 03-19-2025 End: 03-19-2025 ambulatory KAMRON PATE Facility:[facility] Start: 03-18-2025 End: 03-18-2025 ambulatory Xiomara Kashuba [employer] Work Phone: [facility] Comment on above: Status post revision of total knee replacement, left (Primary Dx) Start: 03-15-2025 End: 03-15-2025 ambulatory Xiomara Kashuba [employer] Work Phone: [facility] Comment on above: Status post revision of total knee replacement, left (Primary Dx) Start: 03-08-2025 End: 03-08-2025 ambulatory Xiomara Kashuba [employer] Work Phone: [facility] Comment on above: Status post revision of total knee replacement, left (Primary Dx) Start: 03-03-2025 End: 03-03-2025 ambulatory [facility] Comment on above: Status post revision of total knee replacement, left (Primary Dx) Start: 02-26-2025 End: 02-26-2025 ambulatory Kem Willie PT Work Phone: [facility] Comment on above: Status post revision of total knee replacement, left (Primary Dx) Start: 02-24-2025 End: 02-24-2025 ambulatory Kem Willie PT Work Phone: [facility] Comment on above: Status post revision of total knee replacement, left (Primary Dx); Status post revision of total replacement of left knee Start: 02-23-2025 End: 02-23-2025 Home visit Glo Saldaña PT Work Phone: [facility] Comment on above: PT AGENCY DC W VISIT Start: 02-19-2025 End: 02-19-2025 Patient encounter procedure Nael Reid PA-C Work Phone: Orthopaedics Comment on above: Status post revision of total replacement of left knee (Primary Dx) Start: 02-19-2025 End: 02-19-2025 ambulatory KAMRON PATE Facility:[facility] Start: 02-19-2025 End: 02-19-2025 Subsequent hospital visit by physician [facility] Work Phone: Radiology Comment on above: Left knee pain, unsp ecified chronicity [M25.562] Start: 02-18-2025 End: 02-18-2025 Home visit Eli Sasha [employer] Work Phone: [facility] Comment on above: [employer] ROUTINE Start: 02-15-2025 End: 02-15-2025 Home visit Eli Sasha [employer] Work Phone: [facility] Comment on above: [employer]INE Start: 02-11-2025 End: 02-11-2025 Home visit Eli Sasha [employer] Work Phone: [facility] Comment on above: [employer]INE Start: 02-10-2025 End: 02-24-2025 Orders Only Nael Reid PA-C Work Phone: Orthopaedics Comment on above: Left knee pain, unsp ecified chronicity (Primary Dx) Start: 02-09-2025 End: 02-09-2025 Telephone encounter Eli Sasha [employer] Work Phone: [facility] Comment on above: Home Care (Bandage r emoval) Start: 02-09-2025 End: 02-09-2025 Home visit Eli Sasha [employer] Work Phone: [facility] Comment on above: [employer] ROUTINE Start: 02-06-2025 End: 02-06-2025 Home visit Ashish Hampton [employer] Work Phone: [facility] Comment on above: [employer]OUTINE Start: 02-05-2025 End: 02-05-2025 Home visit Danielle Lackey RN Work Phone: [facility] Comment on above: CARE COORDINATION Start: 02-04-2025 End: 02-04-2025 Home visit Cynthia Manriquez PT Work Phone: [facility] Comment on above: PT SOC Start: 02-02-2025 End: 02-02-2025 Telephone encounter Marie Park PSS [facility] Comment on above: Home Care (CONFIRMAT ION CALL) Start: 02-02-2025 End: 02-02-2025 Evaluation and management of inpatient UNKNOWN PROVIDER Facility:[facility] Start: 01-19-2025 End: 01-19-2025 ambulatory [facility] Facility:[facility] Start: 01-19-2025 Encounter for other preprocedural examination NAEL REID [facility] Start: 01-19-2025 End: 01-19-2025 Admission to establishment [facility] Work Phone: Pre Anesthesia Start: 01-19-2025 End: 01-19-2025 [facility] Facility:[facility] Start: 01-19-2025 End: 01-19-2025 Anesthesia consultation [facility] 1 Work Phone: Pre Anesthesia Comment on above: Pre-operative examin ation (Primary Dx); Status post total bilateral knee replacement using cement; Mixed hyperlipidemia; Murmur; Migraine headaches Start: 01-19-2025 End: 01-19-2025 Preprocedural examination done Pac [facility] 1 Work Phone: [facility] Start: 12-14-2024 End: 12-14-2024 Orders Only Manny Dudley MD Work Phone: Orthopaedics Comment on above: Chondromalacia of ri ght patella (Primary Dx); Left knee pain, unspecified chronicity Start: 12-11-2024 End: 12-11-2024 Office outpatient visit 25 minutes Manny Dudley MD Work Phone: Orthopaedics Comment on above: Chondromalacia of le ft patella (Primary Dx); Pain; Primary osteoarthritis of right hip Start: 12-11-2024 End: 12-11-2024 ambulatory [facility] Facility:[facility] Start: 12-11-2024 End: 12-11-2024 Subsequent hospital visit by physician Radio Arora Hawkins Edwardo Work Phone: Radiology Comment on above: Chronic pain of both knees [M25.561, M25.562, G89.29] Start: 10-19-2024 End: 10-19-2024 Refill Manny Dudley MD Work Phone: Orthopaedics Comment on above: Refill Request Start: 10-14-2024 End: 10-14-2024 Orders Only Manny Dudley MD Work Phone: Appointment Center Comment on above: Pain (Primary Dx) Start: 10-07-2024 End: 10-07-2024 Patient encounter procedure Yamileth Travis RN [facility] Clinical Communication Start: 10-07-2024 End: 10-07-2024 Office outpatient visit 15 minutes Kamron Pate MD Work Phone: [facility] Comment on above: Acute bacterial sinu sitis (Primary Dx) Start: 10-07-2024 End: 10-07-2024 ambulatory Yamileth Travis RN [facility] Start: 08-24-2024 End: 08-24-2024 Office outpatient visit 15 minutes Kamron Pate MD Work Phone: [facility] Comment on above: Otorrhea of both ear s (Primary Dx); Influenza vaccination declined by patient Start: 08-24-2024 End: 08-24-2024 ambulatory [facility]hn[facility] Start: 08-24-2024 End: 08-24-2024 Patient encounter procedure Mehnaz Carlos RN [facility] Start: 08-14-2024 End: 08-14-2024 ambulatory TRENT A LINDA Facility:[facility] Start: 08-14-2024 End: 08-14-2024 Patient encounter procedure Alma Sanchez OD Work Phone: Ophthalmology Comment on above: Pseudophakia of both eyes (Primary Dx); Myopia, bilateral; Regular astigmatism of both eyes; Presbyopia; Meibomian gland dysfunction (MGD) of upper and lower lids of both eyes Start: 03-30-2024 End: 03-30-2024 Assay of hemosiderin, quant Kamron Pate MD Work Phone: [facility] Work Phone: Start: 03-30-2024 End: 03-30-2024 Periodic preventive med est patient 65yrs& older Kamron Pate MD Work Phone: [facility] Comment on above: Routine general medi nanette examination at [facility] (Primary Dx); Hypercholesterolemia; White coat syndrome without hypertension; Gastroesophageal reflux disease without esophagitis; Migraine with aura and without status migrainosus, not intractable; Abnormal finding of blood chemistry, unspecified Start: 03-30-2024 End: 03-30-2024 ambulatory [facility] Start: 03-30-2024 End: 03-30-2024 Encounter for general adult medical examination without abnormal findings [facility] Start: 02-10-2024 End: 02-10-2024 Patient encounter procedure Alma Sanchez OD Work Phone: Ophthalmology Comment on above: Myopia, bilateral (P rimary Dx); Regular astigmatism of both eyes; Presbyopia; Pseudophakia of both eyes; Meibomian gland dysfunction (MGD) of upper and lower lids of both eyes Start: 01-09-2023 End: 01-09-2023 Assay of hemosiderin, quant Kamron Pate MD Work Phone: [facility] Start: 01-09-2023 End: 01-09-2023 Patient encounter procedure Kamron Pate MD Work Phone: [facility] Comment on above: Routine general medi nanette examination at health care facility (Primary Dx); Hypercholesterolemia; White coat syndrome without hypertension; Screening for malignant neoplasm of prostate; Abnormal finding of blood chemistry, unspecified Start: 01-07-2023 End: 01-07-2023 Patient encounter procedure Manny Dudley MD Work Phone: Orthopaedics Comment on above: Chondromalacia of ri ght patella (Primary Dx); Aftercare following right knee joint replacement surgery Start: 01-07-2023 End: 01-07-2023 Subsequent hospital visit by physician Radio [facility] Octavio Brooke Work Phone: Radiology Comment on above: Pain in both knees, unspecified chronicity [M25.561, M25.562] Start: 12-19-2022 Telephone encounter Benny arias MD Work Phone: [facility] Comment on above: Colonoscopy Procedures Date Procedure Procedure Detail Performing Clinician Start: 03-30-2024 Adult depression scr eening assessment Kamron Pate MD Work Phone: Start: 03-30-2024 Lipid 1996 panel - S royal or Plasma Mehnaz Carlos RN Start: 01-09-2023 Adult depression scr eening assessment Benny Bardales MD Work Phone: Start: 01-09-2023 Lipid 1996 panel - S royal or Plasma Benny Bardales MD Work Phone: Start: 01-07-2023 Radiologic examinati on knee 3 views Nael Reid PA-C Work Phone: Start: 01-08-2022 Lipid 1996 panel - S royal or Plasma Kamron Pate MD Work Phone: Plan of Treatment Date Care Activity Detail Author Start: 03-30-2029 Lipid panel Lipid Panel [facility] Start: 01-19-2028 Diabetes Screening Diabetes Screening [facility] Start: 01-09-2028 Lipid panel Lipid Panel [facility] Start: 03-30-2027 Diabetes Screening Diabetes Screening [facility] Start: 01-08-2027 Lipid panel Lipid Panel [facility] Start: 01-09-2026 Diabetes Screening Diabetes Screening [facility] Start: 08-16-2025 End: 08-16-2025 Patient encounter procedure 08/16/2025 8:00 AM EDT Office Visit [facility] [address] [place] [address] Alma Sanchez, OD [address] [place] [address] complete eye exam Ophthalmology Comment on above: complete eye exam Start: 08-02-2025 Influenza vaccination [facility] Start: 06-23-2025 End: 06-23-2025 Patient encounter procedure 06/23/2025 9:45 AM EDT Office Visit Orthopaedics [address] [id number] Manny Dudley MD [address] [id number] Lt patella resurfacing/tibial insert exchange 02/02/25 Orthopaedics Comment on above: Lt patella resurfacing/tibial insert exc hange 02/02/25 Start: 05-31-2025 Influenza vaccination Influenza Vaccine (#1) [facility] Comment on above: Postponed from 08/02/2024 (Patient Refus ed) Start: 04-29-2025 Medicare Annual Wellness (AWV) Medicare Annual Wellness (AWV) [facility] Start: 04-02-2025 End: 04-02-2025 Patient encounter procedure [facility] Start: 03-31-2025 End: 03-31-2025 ambulatory 03/31/2025 9:15 AM EDT OT/PT/Speech Visit [facility] [address] [facility] [place] [address] Kem Aldridge, PT [address] [place], [place] [id number] Z96.651 (ICD-10-CM) - Status post total Left knee replacement [facility] Comment on above: Z96.651 (ICD-10-CM) - Status post total Left knee replacement Start: 03-30-2025 Depression Screening Depression Screening [facility] Start: 03-30-2025 DTaP/Tdap/Td Vaccines (1 - Tdap) DTaP/Tdap/Td Vaccines (1 - Tdap) [facility] Comment on above: Postponed from 1964 (Insurance / F inancial) Start: 03-29-2025 End: 03-29-2025 ambulatory 03/29/2025 9:30 AM EDT OT/PT/Speech Visit [facility] [address] [place] [address] Xiomara Yao, [employer] [address] [place] [address] Z96.651 (ICD-10-CM) - Status post total Left knee replacement [facility] Comment on above: Z96.651 (ICD-10-CM) - Status post total Left knee replacement Start: 03-24-2025 End: 03-24-2025 ambulatory 03/24/2025 9:15 AM EDT OT/PT/Speech Visit [facility] [address] [facility] [place] [address] Kem Aldridge, PT [address] [place] [address] Z96.651 (ICD-10-CM) - Status post total Left knee replacement [facility] Comment on above: Z96.651 (ICD-10-CM) - Status post total Left knee replacement Start: 03-22-2025 End: 03-22-2025 ambulatory 03/22/2025 11:45 AM EDT OT/PT/Speech Visit [facility] [address] [place] [address] Xiomara Yao, [employer] [address] [place] [address] Z96.651 (ICD-10-CM) - Status post total Left knee replacement [facility] Comment on above: Z96.651 (ICD-10-CM) - Status post total Left knee replacement Start: 03-19-2025 End: 03-19-2025 Patient encounter procedure 03/19/2025 9:00 AM EDT Office Visit Orthopaedics [address] [address] Manny Dudley MD [address] [address] 2nd post op Lt patella resurfacing/tibial insert exchange 02/02/25 Orthopaedics Comment on above: 2nd post op Lt patella resurfacing/tibia l insert exchange 02/02/25 Start: 03-18-2025 End: 03-18-2025 ambulatory 03/18/2025 9:30 AM EDT OT/PT/Speech Visit [facility] [address] [place] [address] Xiomara Yao, [employer] TE[employer]ER [address] [place] [address] Z96.651 (ICD-10-CM) - Status post total Left knee replacement [facility] Comment on above: Z96.651 (ICD-10-CM) - Status post total Left knee replacement Start: 03-15-2025 End: 03-15-2025 ambulatory 03/15/2025 11:45 AM EDT OT/PT/Speech Visit [facility] [address] [place] [address] Xiomara Yao, [employer] [address] [place] [address] Z96.651 (ICD-10-CM) - Status post total Left knee replacement [facility] Comment on above: Z96.651 (ICD-10-CM) - Status post total Left knee replacement Start: 03-08-2025 End: 03-08-2025 ambulatory 03/08/2025 8:45 AM EDT OT/PT/Speech Visit [facility] [address] [place] [address] Xiomara Yao, [employer]ER [address] [place] [address] Z96.651 (ICD-10-CM) - Status post total Left knee replacement [facility] Comment on above: Z96.651 (ICD-10-CM) - Status post total Left knee replacement Start: 03-03-2025 End: 03-03-2025 ambulatory 03/03/2025 10:45 AM EDT OT/PT/Speech Visit [facility] [address] [place] [address] Kem Aldridge, PT [address] [place] [address] Z96.651 (ICD-10-CM) - Status post total Left knee replacement [facility] Comment on above: Z96.651 (ICD-10-CM) - Status post total Left knee replacement Start: 02-26-2025 End: 02-26-2025 ambulatory 02/26/2025 1:45 PM EDT OT/PT/Speech Visit [facility] [address] [place] [address] Kem Aldridge, PT [address] [place] [address] Z96.651 (ICD-10-CM) - Status post total Left knee replacement [facility] Comment on above: Z96.651 (ICD-10-CM) - Status post total Left knee replacement Start: 02-24-2025 End: 02-24-2025 ambulatory 02/24/2025 10:45 AM EDT OT/PT/Speech Visit [facility] [address] [place] [address] Kem Aldridge, PT [address] [place] [address] LT THR [facility] DC 02/23 [facility] Comment on above: LT THR [facility] DC 02/23 Start: 02-19-2025 End: 02-19-2025 Patient encounter procedure Orthopaedics Comment on above: 1st post op Lt patella resurfacing/tibia l insert exchange 02/02/25 left knee L knee Start: 02-02-2025 End: 02-02-2025 Admission to same day surgery center 02/02/2025 10:14 AM EST - 02/02/2025 12:41 PM EST Surgery [facility] [address] [place] [address] Manny Dudley MD [address] [address] REVISION JOINT TOTAL KNEE ONE COMPONENT [facility] Comment on above: REVISION JOINT TOTAL KNEE ONE COMPONENT Start: 02-02-2025 End: 02-02-2025 Revj total knee arthrp w/wo algrft 1 component ME OR Start: 02-02-2025 Subsequent hospital visit by physician [facility] Comment on above: Chondromalacia of right patella [M22.41] , Left knee pain, unspecified chronicity [M25.562] Start: 01-19-2025 End: 01-19-2026 Echocardiography ECHO Cardiology Routine Pre-operative examination Expected: 01/19/2025, Expires: 01/19/2026 [facility] Comment on above: Expected: 01/19/2025, Expires: Start: 01-19-2025 End: 01-19-2025 Anesthesia consultation 01/19/2025 9:20 AM EST PAT Pre Anesthesia [address] [place] [address] 1, [facility] [place] [address] [place] [address] 02/02 REVISION JOINT TOTAL KNEE ONE COMPONENT [5636] - Knee - Left Pre Anesthesia Comment on above: 02/02 REVISION JOINT TOTAL KNEE ONE COMPON ENT [5636] - Knee - Left Start: 12-11-2024 End: 12-11-2024 Patient encounter procedure Radiology Comment on above: bilateral knee xr bilat knee follow up Start: 12-02-2024 Advance Directive Discussion Advance Directive Discussion [facility] Start: 08-02-2024 Covid-19 Vaccine () Covid-19 Vaccine () [facility] Start: 08-02-2024 Covid-19 Vaccine () Covid-19 Vaccine () [facility] Start: 08-02-2024 Influenza vaccination [facility] Start: 03-30-2024 End: 03-30-2025 CBC panel - Blood by Automated count CBC Lab Routine Hypercholesterolemia White coat syndrome without hypertension Expected: 03/30/2024 (Approximate), Expires: 03/30/2025 [facility] Comment on above: Expected: 03/30/2024 (Approximate), Expi res: 03/30/2025 Start: 03-30-2024 End: 03-30-2025 Comprehensive metabolic 1998 panel - Serum or Plasma Comprehensive metabolic panel Lab Routine Hypercholesterolemia White coat syndrome without hypertension Expected: 03/30/2024 (Approximate), Expires: 03/30/2025 [facility] Work Phone: Comment on above: Expected: 03/30/2024 (Approximate), Expi res: 03/30/2025 Start: 03-30-2024 End: 03-30-2025 Hemoglobin A1c measurement Hemoglobin A1c Lab Routine Hypercholesterolemia White coat syndrome without hypertension Abnormal finding of blood chemistry, unspecified Expected: 03/30/2024 (Approximate), Expires: 03/30/2025 [facility] Comment on above: Expected: 03/30/2024 (Approximate), Expi res: 03/30/2025 Start: 03-30-2024 End: 03-30-2025 Lipid 1996 panel - Serum or Plasma Lipid panel Lab Routine Hypercholesterolemia White coat syndrome without hypertension Expected: 03/30/2024 (Approximate), Expires: 03/30/2025 [facility] Comment on above: Expected: 03/30/2024 (Approximate), Expi res: 03/30/2025 Start: 03-30-2024 End: 03-30-2025 Thyrotropin [Units/volume] in Serum or Plasma TSH Lab Routine Hypercholesterolemia White coat syndrome without hypertension Expected: 03/30/2024 (Approximate), Expires: 03/30/2025 [facility] Comment on above: Expected: 03/30/2024 (Approximate), Expi res: 03/30/2025 Start: 02-08-2024 Medicare Annual Wellness (AWV) Medicare Annual Wellness (AWV) [facility] Start: 01-23-2024 DIABETES SCREEN DIABETES SCREEN [facility] Start: 01-10-2024 End: 01-10-2024 Patient encounter procedure 01/10/2024 Office Visit Family Medicine Kamron Pate MD [facility] [place] [address] [facility] Start: 01-09-2024 Depression Screening Depression Screening [facility] Start: 01-09-2024 Diabetes mellitus screening Diabetes Screening [facility] Start: 01-09-2024 DTaP/Tdap/Td Vaccines (1 - Tdap) DTaP/Tdap/Td Vaccines (1 - Tdap) [facility] Comment on above: Postponed from 1964 (Insurance / F inancial) Start: 01-09-2024 Zoster Vaccines (2 of 3) Zoster Vaccines (2 of 3) [facility] Comment on above: Postponed from 02/19/2017 (Insurance / F inancial) Start: 12-02-2023 Advance Directive Discussion Advance Directive Discussion [facility] Start: 12-02-2023 Depression Assessment Depression Assessment [facility] Start: 08-02-2023 Covid-19 Vaccine () Covid-19 Vaccine () [facility] Start: 08-02-2023 Influenza vaccination Influenza Vaccine (#1) [facility] Start: 01-09-2023 End: 01-09-2024 CBC panel - Blood by Automated count CBC Lab Routine Hypercholesterolemia Expected: 01/09/2023 (Approximate), Expires: 01/09/2024 [facility] Comment on above: Expected: 01/09/2023 (Approximate), Expi res: 01/09/2024 Start: 01-09-2023 End: 01-09-2024 Comprehensive metabolic 1998 panel - Serum or Plasma Comprehensive metabolic panel Lab Routine Hypercholesterolemia Expected: 01/09/2023 (Approximate), Expires: 01/09/2024 [facility] Work Phone: Comment on above: Expected: 01/09/2023 (Approximate), Expi res: 01/09/2024 Start: 01-09-2023 End: 01-09-2024 Hemoglobin A1c/Hemoglobin.total in Blood Hemoglobin A1c Lab Routine Hypercholesterolemia Abnormal finding of blood chemistry, unspecified Expected: 01/09/2023 (Approximate), Expires: 01/09/2024 [facility] Comment on above: Expected: 01/09/2023 (Approximate), Expi res: 01/09/2024 Start: 01-09-2023 End: 01-09-2024 Lipid 1996 panel - Serum or Plasma Lipid panel Lab Routine Hypercholesterolemia Expected: 01/09/2023 (Approximate), Expires: 01/09/2024 [facility] Comment on above: Expected: 01/09/2023 (Approximate), Expi res: 01/09/2024 Start: 01-09-2023 End: 01-09-2024 PSA screening PSA Screening Lab Routine Screening for malignant neoplasm of prostate Expected: 01/09/2023 (Approximate), Expires: 01/09/2024 [facility] Comment on above: Expected: 01/09/2023 (Approximate), Expi res: 01/09/2024 Start: 12-02-2022 ADVANCE DIRECTIVE DISCUSSION ADVANCE DIRECTIVE DISCUSSION [facility] Start: 12-02-2022 DEPRESSION ASSESSMENT DEPRESSION ASSESSMENT [facility] Start: 01-24-2022 COVID-19 VACCINE (4 - Booster for Pfizer series) COVID-19 VACCINE (4 - Booster for Pfizer series) [facility] Start: 2020 RSV Immunization for Adults (1 - 1-dose 75+ series) RSV Immunization for Adults (1 - 1-dose 75+ series) [facility] Start: 2020 RSV Vaccine (1 - 1-dose 75+ series) RSV Vaccine (1 - 1-dose 75+ series) [facility] Start: 02-19-2017 Shingrix Vaccine (2 of 3) Shingrix Vaccine (2 of 3) [facility] Start: 02-19-2017 Zoster Vaccines (2 of 3) Zoster Vaccines (2 of 3) [facility] Start: 2010 PNEUMOCOCCAL: 65+ (1 - PCV) PNEUMOCOCCAL: 65+ (1 - PCV) [facility] Start: 07-02-2010 Medicare Annual Wellness Visit Medicare Annual Wellness Visit [facility] Start: 2005 RSV Immunization aged 60 or older (1 - 1-dose 60+ series) RSV Immunization aged 60 or older (1 - 1-dose 60+ series) [facility] Start: 2005 RSV Vaccine (1 - 1-dose 60+ series) RSV Vaccine (1 - 1-dose 60+ series) [facility] Start: 1995 SHINGRIX VACCINE (1 of 2) SHINGRIX VACCINE (1 of 2) [facility] Start: 1964 Urine microalbumin profile [facility] Start: 1963 Anxiety Screening Anxiety Screening [facility] Start: 1963 Depression Screening Depression Screening [facility] Start: 1963 HEPATITIS C SCREENING HEPATITIS C SCREENING [facility] End: 01-19-2026 ECG COMPLETE ECG COMPLETE ECG Routine Pre-operative examination 1 Occurrences starting 01/19/2025 until 01/19/2026 [facility] Work Phone: Comment on above: 1 Occurrences starting 01/19/2025 until 01/19/2026 Revj total knee arth rp w/wo algrft 1 component REVISION JOINT TOTAL KNEE ONE COMPONENT Chondromalacia of right patella Left knee pain, unspecified chronicity ME OR XR Knee - bilateral 3 Views XR KNEE POST OP 3V AP/LAT/MERCHANT BILATERAL Radiology Routine Chronic pain of both knees 12/11/2024 2:30 PM EST [facility] Work Phone: End: 11-13-2025 XR Knee - bilateral 4 Views XR KNEE GENERAL 4V AP BOTH/PA BOTH/LAT/MERC BILATERAL Radiology Routine Pain 1 Occurrences starting 10/14/2024 until 11/13/2025 [facility] Work Phone: Comment on above: 1 Occurrences starting 10/14/2024 until 11/13/2025 XR Knee AP and Later al and Merchants XR KNEE POST OP 3V AP/LAT/MERCHANT LEFT Radiology Routine Left knee pain, unspecified chronicity 02/19/2025 10:47 AM EDT [facility] Work Phone: XR Pelvis and Hip - right AP and Lateral frog XR HIP GENERAL 3V PELV/AP/LAT RIGHT Radiology Routine Pain 12/11/2024 3:57 PM EST [facility] Work Phone: [facility] Immunizations Immunization Date Immunization Notes Care Provider [facility] 11-10-2022 Influenza, High-dose Seasonal, Quadrivalent, Preservative Free Kamron Pate MD Work Phone: [facility] 11-10-2022 influenza virus vacc ine, unspecified formulation Alma Sanchez OD Work Phone: [facility] 11-29-2021 Pfizer SARS-CoV-2 Vaccination Kamron Pate MD Work Phone: [facility] 02-23-2021 COVID-19 original vaccine, age 12+ yr, monovalent (PFIZER-BIONTECH - PURPLE TOP) Manny Dudley MD Work Phone: [facility] Work Phone: 02-02-2021 COVID-19 original vaccine, age 12+ yr, monovalent (PFIZER-BIONTECH - PURPLE TOP) Manny Dudley MD Work Phone: [facility] Work Phone: 10-24-2020 Influenza, Seasonal, Quadrivalent, Adjuvanted Kamron Pate MD Work Phone: [facility] 12-25-2016 zoster vaccine, live Kamron Pate MD Work Phone: [facility] 12-22-2015 influenza, high dose seasonal, preservative-free Kamron Pate MD Work Phone: [facility] 12-22-2015 influenza, injectabl e, quadrivalent, contains preservative Kamron Pate MD Work Phone: [facility] 12-22-2015 influenza, seasonal, injectable Kamron Pate MD Work Phone: [facility] 12-15-2014 influenza, high dose seasonal, preservative-free Kamron Pate MD Work Phone: [facility] 12-15-2014 influenza, injectabl e, quadrivalent, contains preservative Kamron Pate MD Work Phone: [facility] 12-15-2014 influenza, seasonal, injectable Kamron Pate MD Work Phone: [facility] 12-15-2014 pneumococcal conjuga te vaccine, 13 valent Kamron Pate MD Work Phone: [facility] Work Phone: 12-09-2012 pneumococcal polysaccharide vaccine, 23 valent Kamron Pate MD Work Phone: [facility] 09-27-2009 novel influenza-H1N1 -09, preservative-free, injectable Kamron Pate MD Work Phone: [facility] Payers Date Payer Category Payer Department of [facility] e ( and others) FOR LIFE [id number] 2022-Present [address] [place] [address] Supplement [id number] 2022 For Life--Medicare Supplement FOR LIFE [id number] 2010 Government (not [facility] care or Medicaid) FOR LIFE [id number] 2010 Unknown FOR LIFE [id number] 2010-Present [phone] [address] [place] [address] Indemnity [id number] 2010 [employer] ( and others) [id number] 2010 Medicare [id number] 2010 Medicare [id number] Social History Date Type Detail Facility Start: 01-07-2023 End: 01-09-2023 Tobacco smoking status NHIS Never smoked tobacco [facility] Start: 01-07-2023 End: 01-09-2023 Tobacco use and exposure Smokeless tobacco non-user [facility] Start: 01-07-2023 End: 08-14-2024 Alcohol intake Not Asked [facility] Start: 1945 Sex Assigned At Not on file S [facility] Start: 11-20-2022 End: 03-19-2025 Alcohol intake Ex-drinker (finding) [facility] Start: 01-09-2023 History SDOH Alcohol Frequency 1 [facility] Start: 01-09-2023 History SDOH Alcohol Std Drinks 0 [facility] Start: 01-09-2023 History SDOH Physica l Activity DPW 6 [facility] Start: 01-09-2023 History SDOH Financial 5 [facility] Start: 01-09-2023 History SDOH Transpo rt Med 2 [facility] Start: 01-07-2023 End: 02-10-2024 History of Social function [facility] Start: 01-07-2023 End: 02-10-2024 Tobacco use panel [facility] National Score (1-10 0), lower number is lower risk 35 [facility] Has the [email or web address] s, oil, or water company threatened to shut off services in your home in past 12Mo No [facility] Are you now , , , , never or living with a partner? [facility] How often to you hav e a drink containing alcohol? Monthly or less [facility] How many standard drinks containing alcohol do you have on a typical day? 1 or 2 [facility] How often do you hav e 6 or more drinks on 1 occasion? Never [facility] Do you feel stress - tense, restless, nervous, or anxious, or unable to sleep at night because your mind is troubled all the time - these days [OSQ] Not at all [facility] (I/We) worried sindy er (my/our) food would run out before (I/we) got money to buy more. Never true [facility] Start: 07-02-2022 Sex Male (finding) [facility] NEGATED: Highlighted rowStart: ISMAF History of tobacco use Passive smoker [facility] Medical Equipment Procedure Code Equipment Code Equipment Origin al Text Equipment Identifier Dates Cement Simplex B one High Viscosity - [id number] Start: 02-02-2025 Component Genesi s Ii 41mm Uhmwpe 10mm Patellar Resurfacing Oval - [id number] Start: 02-02-2025 Functional Status Date Assessment Result Facility 05-18-2015 Are you deaf, or do you have serious difficulty hearing No 05/18/2015 1:59 PM Jane Bose [facility] No [facility] 05-18-2015 Are you blind, or do you have serious difficulty seeing, even when wearing glasses No 05/18/2015 1:59 PM Jane Bose [facility] No [facility] 05-18-2015 Do you have serious difficulty walking or climbing stairs No 05/18/2015 1:59 PM Jane Bose [facility] No [facility] 05-18-2015 Do you have difficul ty dressing or bathing No 05/18/2015 1:59 PM Jane Bose [facility] No [facility] 05-18-2015 Because of a physica l, mental, or emotional condition, do you have difficulty doing errands alone such as visiting a physician's office or shopping No 05/18/2015 1:59 PM EDT [facility] [place] [facility] No [facility] Mental Status Date Assessment Result Facility 05-18-2015 Because of a physica l, mental, or emotional condition, do you have serious difficulty concentrating, remembering, or making decisions No 05/18/2015 1:59 PM EDT [facility] [place] [facility] No [facility] Clinical Notes 12-19-2022 to 06-16-2025 Telephone Encounter - Shahrzad Varma RN - 06/16/2025 11:43 AM EDTTelephone Encounter - Shahrzad Varma RN - 06/16/2025 11:43 AM EDTCKem richards PT - 03/22/2025 2:04 PM EDTPatient Instructions Note Date & Type Note Facility 06-16-2025 Telephone encounter Note TX pended [facility] 06-16-2025 Miscellaneous Notes TX pended Patient has a few dental appointments coming up and needs a prescription sent to his phar many on file ([facility] in [place]). documented in this encounter [facility] 06-16-2025 Telephone encounter Note Patient has a few dental appointments coming up and needs a prescription sent to his phar many on file ([facility] in [place]). [facility] 03-22-2025 Note HNO ID: [id number] Author: KEM ALDRIDGE PT Service: ? Author Type: Physical Therapist Type: Progress Notes Filed: 03/22/2025 14:07 Note Text: 03/22/2025 [facility] PHYSICAL THERAPY DISCONTINUANCE OF CARE Plan of Care Period: Start of Care Date: 02/24/25 Last Visit Date: 03/22/2025 Therapy Program: The following is a summary of the interventions provided for this episode of care; Therapeutic exercise, Neuromuscular re-education, and Gait training Assessment: Based on most recent visit, patient was progressing faster than expected toward functional goals based on home exercise program compliance, documented subjective information on progress, and appointment compliance. Unable to formally assess goal achievement, as patient has not returned to therapy or scheduled additional follow-up appointments. Reason for Discontinuation of Care: Patient would like his visit completed with Xiomara Yao PTA to be his last visit. States he is doing very well and will continue completing exercises indep. Kem Aldridge PT [facility] 03-22-2025 History of Present illness Narrative 03/22/2025 [facility] REHABILITATION AND SPORTS THERAPY PHYSICAL THERAPY DISCONTINUANCE OF CARE Plan of Care Period: Start of Care Date: 02/24/25 Last Visit Date: 03/22/2025 Therapy Program: The following is a summary of the interventions provided for this episode of care; Therapeutic exercise, Neuromuscular re-education, and Gait training Assessment: Based on most recent visit, patient was progressing faster than expected toward functional goals based on home exercise program compliance, documented subjective information on progress, and appointment compliance. Unable to formally assess goal achievement, as patient has not returned to therapy or scheduled additional follow-up appointments. Reason for Discontinuation of Care: Patient would like his visit completed with Xiomara Yao PTA to be his last visit. States he is doing very well and will continue completing exercises indep. Kem Aldridge PT Episode Visit Count: 7 Therapist That Will Accept/Oversee The Plan Of Care: Kem Aldridge PT Start of Care Date: 02/24/25 Onset Date: (Fall 2023.) Plan of Care Certification Date: 02/24/25 Next Certification Due Date: 04/02/25 Patient Identified by Name and Date of : Yes REHABILITATION AND SPORTS THERAPY PHYSICAL THERAPY TREATMENT NOTE ASSESSMENT: Teresa Isaacs tolerated the session with no issues. He demonstrated improvements in overall tolerance to strengthening of L knee. The patient will continue to benefit from ongoing skilled physical therapy to progress toward set goals. PLAN FOR NEXT VISIT: D/C SUBJECTIVE: Pt reports that he had a follow-up with Dr. Dudley and says that everything is looking good. Pt is able to complete stairs reciprocally without any pain. Pt would like this to be his last visit. Pain: Pain Pain Level: 0 Pain Location: Knee - Left Post Treatment Pain Post Treatment Pain Level: 0 Post Treatment Pain Location: Knee - Left OBJECTIVE MEASURES WITH LEVEL OF FUNCTION: LE Strength L Hip Flexion (L2): 5/5 L Knee Extension (L3): 5/5 L Knee Flexion: 5/5 TREATMENT: Therapeutic Exercise: 1: Upright stationary bike x 5 minutes, seat #12 2: Step downs on 6 inch step 2x10 LLE 3: Leg press double leg 30# , 3x10 4: L HS curl 40# 3x10 5: 3 way hip machine 30# 2x10 each direction B Skilled Intervention: Patient was educated in proper exercise technique and purpose for exercises. Skilled judgment was used in selection of appropriate interventions. Correct performance of therapeutic exercises was facilitated with verbal and visual cuing. Billing Therapeutic Exercise Treatment Minutes: 40 Skilled Treatment Time Minutes (timed and untimed codes): 40 Total Session Time (minutes): 40 Session Start Time : 1145 Session Stop Time : 1225 SHIV Bender PT documented in this encounter [facility] 03-22-2025 Note HNO ID: [id number] Author: KEM ALDRIDGE PT Service: ? Author Type: Rn Recruitment Type: Progress Notes Filed: 03/22/2025 14:07 Note Text: Episode Visit Count: 7 Therapist That Will Accept/Oversee The Plan Of Care: Kem Aldridge PT Start of Care Date: 02/24/25 Onset Date: (Fall 2023.) Plan of Care Certification Date: 02/24/25 Next Certification Due Date: 04/02/25 Patient Identified by Name and Date of : Yes REHABILITATION AND SPORTS THERAPY PHYSICAL THERAPY TREATMENT NOTE ASSESSMENT: Teresa Pereira Shital tolerated the session with no issues. He demonstrated improvements in overall tolerance to strengthening of L knee. The patient will continue to benefit from ongoing skilled physical therapy to progress toward set goals. PLAN FOR NEXT VISIT: D/C SUBJECTIVE: Pt reports that he had a follow-up with Dr. Dudley and says that everything is looking good. Pt is able to complete stairs reciprocally without any pain. Pt would like this to be his last visit. Pain: Pain Pain Level: 0 Pain Location: Knee - Left Post Treatment Pain Post Treatment Pain Level: 0 Post Treatment Pain Location: Knee - Left OBJECTIVE MEASURES WITH LEVEL OF FUNCTION: LE Strength L Hip Flexion (L2): 5/5 L Knee Extension (L3): 5/5 L Knee Flexion: 5/5 TREATMENT: Therapeutic Exercise: 1: Upright stationary bike x 5 minutes, seat #12 2: Step downs on 6 inch step 2x10 LLE 3: Leg press double leg 30# , 3x10 4: L HS curl 40# 3x10 5: 3 way hip machine 30# 2x10 each direction B Skilled Intervention: Patient was educated in proper exercise technique and purpose for exercises. Skilled judgment was used in selection of appropriate interventions. Correct performance of therapeutic exercises was facilitated with verbal and visual cuing. Billing Therapeutic Exercise Treatment Minutes: 40 Skilled Treatment Time Minutes (timed and untimed codes): 40 Total Session Time (minutes): 40 Session Start Time : 1145 Session Stop Time : 1225 Xiomara Yao, SHIV Aldridge, PT [facility] 03-19-2025 Note HNO ID: [id number] Author: MANNY DUDLEY MD Service: ? Author Type: Physician Type: Progress Notes Filed: 04/16/2025 07:48 Note Text: DR. DUDLEY- POST-OP KNEE Post-Op F/U Office Visit Teresa Isaacs presents today for a 6-1/2 weeks status post revision Left TKA.(Patellar resurfacing) post-operative recovery was uneventful. Patient's rating of condition: improving Comments: Patient reports that his preoperative pain has improved. Does the Pt. still experience pain? PAIN EVALUATION 03/19/2025 0900 Pain Level: 0 Pain Location: Knee-Left Duration Amount of Time: 6 Duration Units: Weeks Frequency: Intermittent Functional difficulties: Stair climbing Physical Therapy: Yes Pain Medication: Non-narcotic Ambulating without assistance. Medications and Allergies reviewed and verified. EXAM: GEN: AANDO x3, NAD SKIN:Appropriate postop appearance LeftKnee: ROM: Flexion/Extension:0 degrees to 120 degrees Pain with ROM:No Mal-alignment: No Effusion: None Tender to palpation of the patellofemoral joint line(s). Stability:Anterior/Posterior- Yes, stable and Varus/Valgus- Yes, stable Quad strength: normal HIP: range of motion no loss ROM NV: intact and Bailee's negative IMAGING: Xrays: No x-rays today IMPRESSION/PLAN: 79 year old male s/p revision Left TKA No complaints or limitations. At normal post-operative stage of recovery. Plan: 1. Continue range of motion/strengthening exercises and weightbearing as tolerated 2. Continue total knee precautions including use of antibiotics for dental procedures 3. Follow-up for repeat clinical evaluation Manny Dudley MD Electronic Signature [facility] 03-19-2025 History of Present illness Narrative DR. DUDLEY- POST-OP KNEE Post-Op F/U Office Visit Teresa Isaacs presents today for a 6-1/2 weeks status post revision Left TKA.(Patellar resurfacing) post-operative recovery was uneventful. Patient's rating of condition: improving Comments: Patient reports that his preoperative pain has improved. Does the Pt. still experience pain? PAIN EVALUATION 03/19/2025 0900 Pain Level: 0 Pain Location: Knee-Left Duration Amount of Time: 6 Duration Units: Weeks Frequency: Intermittent Functional difficulties: Stair climbing Physical Therapy: Yes Pain Medication: Non-narcotic Ambulating without assistance. Medications and Allergies reviewed and verified. EXAM: GEN: A&O x3, NAD SKIN:Appropriate postop appearance LeftKnee: ROM: Flexion/Extension:0 degrees to 120 degrees Pain with ROM:No Mal-alignment: No Effusion: None Tender to palpation of the patellofemoral joint line(s). Stability:Anterior/Posterior- Yes, stable and Varus/Valgus- Yes, stable Quad strength: normal HIP: range of motion no loss ROM NV: intact and Bailee's negative IMAGING: Xrays: No x-rays today IMPRESSION/PLAN: 79 year old male s/p revision Left TKA No complaints or limitations. At normal post-operative stage of recovery. Plan: 1. Continue range of motion/strengthening exercises and weightbearing as tolerated 2. Continue total knee precautions including use of antibiotics for dental procedures 3. Follow-up for repeat clinical evaluation Manny Dudley MD Electronic Signature documented in this encounter [facility] 03-18-2025 Note HNO ID: [id number] Author: KEM ALDRIDGE PT Service: ? Author Type: Physical Therapist Type: Progress Notes Filed: 03/18/2025 11:27 Note Text: Episode Visit Count: 6 Therapist That Will Accept/Oversee The Plan Of Care: Kem Aldridge PT Start of Care Date: 02/24/25 Onset Date: (Fall 2023.) Plan of Care Certification Date: 02/24/25 Next Certification Due Date: 04/02/25 Patient Identified by Name and Date of : Yes REHABILITATION AND SPORTS THERAPY PHYSICAL THERAPY TREATMENT NOTE ASSESSMENT: Teresa Isaacs tolerated the session with fatigue and expected muscle soreness. He demonstrated improvements in tolerance to exercise with unstable surface. The patient will continue to benefit from ongoing skilled physical therapy to progress toward set goals. PLAN FOR NEXT VISIT: Continue with quad and glute strenghtening. LLE stability. SUBJECTIVE: Pt reports that his knee is feeling better today compared to last visit. Pt reports that he is having less pain with going down the stairs now. Pt to see Dr. Dudley tomorrow. Pain: Pain Pain Level: 0 Pain Location: Knee - Left OBJECTIVE MEASURES WITH LEVEL OF FUNCTION: LE AROM L Knee Extension: 1 Degrees L Knee Flexion: 122 Degrees (AROM) TREATMENT: Therapeutic Exercise: 1: Upright stationary bike x 5 minutes, seat #12 2: Heel slides x 10 3: Quad sets x 10 4: 3 way hip machine 30# 2x10 each direction B 5: Leg press double leg 30# , 3x10 Skilled Intervention: Patient was educated in proper exercise technique and purpose for exercises. Skilled judgment was used in selection of appropriate interventions. Correct performance of therapeutic exercises was facilitated with verbal and visual cuing. Neuromuscular Re-Education: 1: L SLS 3x30 seconds with occasional tap on // bars 2: Lateral step up and over dome side of BOSU x10 B 3: Forward step ups on BOSU x10 LLE Skilled Intervention: Skilled judgment used to assess appropriate program for balance and coordination activity. Billing Therapeutic Exercise Treatment Minutes: 35 Neuromuscular Re-Education Treatment Minutes: 9 Skilled Treatment Time Minutes (timed and untimed codes): 44 Total Session Time (minutes): 44 Session Start Time : 927 Session Stop Time : 101 Xiomara Yao, [employer] Kem Aldridge, PT, DPT. [facility] 03-18-2025 History of Present illness Narrative Episode Visit Count: 6 Therapist That Will Accept/Oversee The Plan Of Care: Kem Aldridge PT Start of Care Date: 02/24/25 Onset Date: (Fall 2023.) Plan of Care Certification Date: 02/24/25 Next Certification Due Date: 04/02/25 Patient Identified by Name and Date of : Yes REHABILITATION AND SPORTS THERAPY PHYSICAL THERAPY TREATMENT NOTE ASSESSMENT: Teresa Isaacs tolerated the session with fatigue and expected muscle soreness. He demonstrated improvements in tolerance to exercise with unstable surface. The patient will continue to benefit from ongoing skilled physical therapy to progress toward set goals. PLAN FOR NEXT VISIT: Continue with quad and glute strenghtening. LLE stability. SUBJECTIVE: Pt reports that his knee is feeling better today compared to last visit. Pt reports that he is having less pain with going down the stairs now. Pt to see Dr. Dudley tomorrow. Pain: Pain Pain Level: 0 Pain Location: Knee - Left OBJECTIVE MEASURES WITH LEVEL OF FUNCTION: LE AROM L Knee Extension: 1 Degrees L Knee Flexion: 122 Degrees (AROM) TREATMENT: Therapeutic Exercise: 1: Upright stationary bike x 5 minutes, seat #12 2: Heel slides x 10 3: Quad sets x 10 4: 3 way hip machine 30# 2x10 each direction B 5: Leg press double leg 30# , 3x10 Skilled Intervention: Patient was educated in proper exercise technique and purpose for exercises. Skilled judgment was used in selection of appropriate interventions. Correct performance of therapeutic exercises was facilitated with verbal and visual cuing. Neuromuscular Re-Education: 1: L SLS 3x30 seconds with occasional tap on // bars 2: Lateral step up and over dome side of BOSU x10 B 3: Forward step ups on BOSU x10 LLE Skilled Intervention: Skilled judgment used to assess appropriate program for balance and coordination activity. Billing Therapeutic Exercise Treatment Minutes: 35 Neuromuscular Re-Education Treatment Minutes: 9 Skilled Treatment Time Minutes (timed and untimed codes): 44 Total Session Time (minutes): 44 Session Start Time : 927 Session Stop Time : 1011 SHIV Bender PT, DPT. documented in this encounter [facility] 03-15-2025 Note HNO ID: [id number] Author: KEM ALDRIDGE PT Service: ? Author Type: Physical Therapist Type: Progress Notes Filed: 03/15/2025 13:51 Note Text: Episode Visit Count: 5 Therapist That Will Accept/Oversee The Plan Of Care: Kem Aldridge PT Start of Care Date: 02/24/25 Onset Date: (Fall 2023.) Plan of Care Certification Date: 02/24/25 Next Certification Due Date: 04/02/25 Patient Identified by Name and Date of : Yes REHABILITATION AND SPORTS THERAPY PHYSICAL THERAPY TREATMENT NOTE ASSESSMENT: Teresa Isaacs tolerated the session with fatigue and expected muscle soreness. He demonstrated difficulty with squats due to increased R knee pain, L knee was not bothersome. The patient will continue to benefit from ongoing skilled physical therapy to progress toward set goals. PLAN FOR NEXT VISIT: ROM measurements for ppost-op with . SUBJECTIVE: Pt reports that his knee is bothering him in inferior lateral patella with descending stairs.Going up the stairs and normal walking is no problem. Pt states that he used a riding and push mower yesterday and his knee felt fine. Laying a sheet on the knee is getting better, not as sensitive. Pain: Pain Pain Level: 0 Pain Location: Knee - Left OBJECTIVE MEASURES WITH LEVEL OF FUNCTION: Improved form with squats after cueing given. TREATMENT: Therapeutic Exercise: 1: SciFit seated stepper x 5 minutes, seat #18. (1:1 throughout. Pt provided update on condition.) 2: Step ups on 10 inch step 3x10 LLE 3: Step downs on 6 inch step x 10 (irritating front of knee, stopped at 10 reps, may have been irritated form doing flights of stairs at start of session) 4: 3 way hip machine 30# 2x10 each direction B 5: Squats at // bars 2x10 (visual and verbal cueing for correct technique) Skilled Intervention: Patient was educated in proper exercise technique and purpose for exercises. Skilled judgment was used in selection of appropriate interventions. Correct performance of therapeutic exercises was facilitated with verbal and visual cuing. Gait Trainin: Pt ascended 10 stairs x 2 with use of 1 handrail. Pt demonstrated increased B foot ER due to step depth not being enough and pt compensating for that which in turn casued increased discomfort in lateral aspect of knee. Skilled Intervention: Reviewed and educated patient on additions/changes for home program as noted above with an (*). Billing Therapeutic Exercise Treatment Minutes: 36 Gait Training Treatment Minutes: 10 Skilled Treatment Time Minutes (timed and untimed codes): 46 Total Session Time (minutes): 46 Session Start Time : 1141 Session Stop Time : 1227 SHIV Bender PT, DPT. [facility] 03-15-2025 History of Present illness Narrative Episode Visit Count: 5 Therapist That Will Accept/Oversee The Plan Of Care: Kem Aldridge PT Start of Care Date: 02/24/25 Onset Date: (Fall 2023.) Plan of Care Certification Date: 02/24/25 Next Certification Due Date: 04/02/25 Patient Identified by Name and Date of : Yes REHABILITATION AND SPORTS THERAPY PHYSICAL THERAPY TREATMENT NOTE ASSESSMENT: Teresa Isaacs tolerated the session with fatigue and expected muscle soreness. He demonstrated difficulty with squats due to increased R knee pain, L knee was not bothersome. The patient will continue to benefit from ongoing skilled physical therapy to progress toward set goals. PLAN FOR NEXT VISIT: ROM measurements for ppost-op with . SUBJECTIVE: Pt reports that his knee is bothering him in inferior lateral patella with descending stairs.Going up the stairs and normal walking is no problem. Pt states that he used a riding and push mower yesterday and his knee felt fine. Laying a sheet on the knee is getting better, not as sensitive. Pain: Pain Pain Level: 0 Pain Location: Knee - Left OBJECTIVE MEASURES WITH LEVEL OF FUNCTION: Improved form with squats after cueing given. TREATMENT: Therapeutic Exercise: 1: SciFit seated stepper x 5 minutes, seat #18. (1:1 throughout. Pt provided update on condition.) 2: Step ups on 10 inch step 3x10 LLE 3: Step downs on 6 inch step x 10 (irritating front of knee, stopped at 10 reps, may have been irritated form doing flights of stairs at start of session) 4: 3 way hip machine 30# 2x10 each direction B 5: Squats at // bars 2x10 (visual and verbal cueing for correct technique) Skilled Intervention: Patient was educated in proper exercise technique and purpose for exercises. Skilled judgment was used in selection of appropriate interventions. Correct performance of therapeutic exercises was facilitated with verbal and visual cuing. Gait Trainin: Pt ascended 10 stairs x 2 with use of 1 handrail. Pt demonstrated increased B foot ER due to step depth not being enough and pt compensating for that which in turn casued increased discomfort in lateral aspect of knee. Skilled Intervention: Reviewed and educated patient on additions/changes for home program as noted above with an (*). Billing Therapeutic Exercise Treatment Minutes: 36 Gait Training Treatment Minutes: 10 Skilled Treatment Time Minutes (timed and untimed codes): 46 Total Session Time (minutes): 46 Session Start Time : 1141 Session Stop Time : 1227 SHIV Bender PT, DPT. documented in this encounter [facility] 03-08-2025 Note HNO ID: [id number] Author: KEM ALDRIDGE PT Service: ? Author Type: Physical Therapist Type: Progress Notes Filed: 03/08/2025 14:18 Note Text: Episode Visit Count: 4 Therapist That Will Accept/Oversee The Plan Of Care: Kem Aldridge PT Start of Care Date: 02/24/25 Onset Date: (Fall 2023.) Plan of Care Certification Date: 02/24/25 Next Certification Due Date: 04/02/25 Patient Identified by Name and Date of : Yes REHABILITATION AND SPORTS THERAPY PHYSICAL THERAPY TREATMENT NOTE ASSESSMENT: Teresa Isaacs tolerated the session with fatigue and expected muscle soreness. He demonstrated improvements in tolerance to standing exercise. The patient will continue to benefit from ongoing skilled physical therapy to progress toward set goals. PLAN FOR NEXT VISIT: Continue with quad and glute strenghtening. LEL stability. SUBJECTIVE: Pt reports that his knee is feeling good today. Exercise are going well. Pain: Pain Pain Level: 0 Pain Location: Knee - Left Post Treatment Pain Post Treatment Pain Level: 0 Post Treatment Pain Location: Knee - Left OBJECTIVE MEASURES WITH LEVEL OF FUNCTION: Pt challenged with GTB exercises. TREATMENT: Therapeutic Exercise: 1: SciFit seated stepper x 5 minutes, seat #18. (1:1 throughout. Pt provided update on condition.) 2: Step ups on 10 inch step 3x10 LLE 3: Step downs on 6 inch step 4: Lateral step ups on 10 inch step 3x10 LLE 5: STS from table x 10, then 2x10 with 7# med ball 6: *Standing hip abduction with GTB 2x10 B 7: *Standing hip extension with GTB 2x10 LLE Skilled Intervention: Patient was educated in proper exercise technique and purpose for exercises. Reviewed and educated patient on additions/changes for home exercise program as above (*). Skilled judgment was used in selection of appropriate interventions. Correct performance of therapeutic exercises was facilitated with verbal and visual cuing. Billing Therapeutic Exercise Treatment Minutes: 39 Skilled Treatment Time Minutes (timed and untimed codes): 39 Total Session Time (minutes): 39 Session Start Time : 846 Session Stop Time : 925 Xiomara Yao, SHIV Aldridge, PT, DPT. [facility] 03-08-2025 History of Present illness Narrative Episode Visit Count: 4 Therapist That Will Accept/Oversee The Plan Of Care: Kem Aldridge PT Start of Care Date: 02/24/25 Onset Date: (Fall 2023.) Plan of Care Certification Date: 02/24/25 Next Certification Due Date: 04/02/25 Patient Identified by Name and Date of : Yes REHABILITATION AND SPORTS THERAPY PHYSICAL THERAPY TREATMENT NOTE ASSESSMENT: Teresa Isaacs tolerated the session with fatigue and expected muscle soreness. He demonstrated improvements in tolerance to standing exercise. The patient will continue to benefit from ongoing skilled physical therapy to progress toward set goals. PLAN FOR NEXT VISIT: Continue with quad and glute strenghtening. LEL stability. SUBJECTIVE: Pt reports that his knee is feeling good today. Exercise are going well. Pain: Pain Pain Level: 0 Pain Location: Knee - Left Post Treatment Pain Post Treatment Pain Level: 0 Post Treatment Pain Location: Knee - Left OBJECTIVE MEASURES WITH LEVEL OF FUNCTION: Pt challenged with GTB exercises. TREATMENT: Therapeutic Exercise: 1: SciFit seated stepper x 5 minutes, seat #18. (1:1 throughout. Pt provided update on condition.) 2: Step ups on 10 inch step 3x10 LLE 3: Step downs on 6 inch step 4: Lateral step ups on 10 inch step 3x10 LLE 5: STS from table x 10, then 2x10 with 7# med ball 6: *Standing hip abduction with GTB 2x10 B 7: *Standing hip extension with GTB 2x10 LLE Skilled Intervention: Patient was educated in proper exercise technique and purpose for exercises. Reviewed and educated patient on additions/changes for home exercise program as above (*). Skilled judgment was used in selection of appropriate interventions. Correct performance of therapeutic exercises was facilitated with verbal and visual cuing. Billing Therapeutic Exercise Treatment Minutes: 39 Skilled Treatment Time Minutes (timed and untimed codes): 39 Total Session Time (minutes): 39 Session Start Time : 846 Session Stop Time : 925 SHIV Bender PT, DPT. documented in this encounter [facility] 03-03-2025 Note HNO ID: [id number] Author: KEM ALDRIDGE PT Service: ? Author Type: Physical Therapist Type: Progress Notes Filed: 03/03/2025 11:26 Note Text: Episode Visit Count: 3 Therapist That Will Accept/Oversee The Plan Of Care: Kem Aldridge PT Start of Care Date: 02/24/25 Onset Date: (Fall 2023.) Plan of Care Certification Date: 02/24/25 Next Certification Due Date: 04/02/25 Patient Identified by Name and Date of : Yes REHABILITATION AND SPORTS THERAPY PHYSICAL THERAPY TREATMENT NOTE ASSESSMENT: Teresa Isaacs tolerated the session with no issues. He demonstrated improvements in L Knee Flexion AAROM and AROM. The patient will continue to benefit from ongoing skilled physical therapy to progress toward set goals and to continue with post-operative protocol. PLAN FOR NEXT VISIT: Discontinue TRX due to L/involved knee having more ROM than R, not benefitting patient. Knee Ext/Flexion ROM and Quad + Glute Strength. SUBJECTIVE: [place] good after last session. No symptoms coming in today. L Knee feels better each day. Pain: Pain Pain Level: 0 Pain Location: Knee - Left Description: Stiffness Post Treatment Pain Post Treatment Pain Level: 0 Post Treatment Pain Location: Knee - Left OBJECTIVE MEASURES WITH LEVEL OF FUNCTION: LE AROM L Knee Flexion: 124 Degrees (AAROM with Strap; AROM 118.) TREATMENT: Therapeutic Exercise: 1: Stationary Upright Bike: 5 Min, used for knee motion. Seat Height 14. Resist 2.5. Full revs. 2: L Knee Flexion on Step (10-inch): 3x10, 5-sec hold. 3: TRX Squats: 2x8. 4: L 10inch FWD [place]: 2x10. 5: L Heel Slides: x15 AAROM, x15 AROM. Skilled Intervention: Patient was educated in proper exercise technique and purpose for exercises. Skilled judgment was used in selection of appropriate interventions. Correct performance of therapeutic exercises was facilitated with verbal cuing. Billing Therapeutic Exercise Treatment Minutes: 40 Skilled Treatment Time Minutes (timed and untimed codes): 40 Total Session Time (minutes): 40 Session Start Time : 1045 Session Stop Time : 1125 Kem Aldridge PT [facility] 03-03-2025 History of Present illness Narrative Episode Visit Count: 3 Therapist That Will Accept/Oversee The Plan Of Care: Kem Aldridge PT Start of Care Date: 02/24/25 Onset Date: (Fall 2023.) Plan of Care Certification Date: 02/24/25 Next Certification Due Date: 04/02/25 Patient Identified by Name and Date of : Yes REHABILITATION AND SPORTS THERAPY PHYSICAL THERAPY TREATMENT NOTE ASSESSMENT: Teresa Isaacs tolerated the session with no issues. He demonstrated improvements in L Knee Flexion AAROM and AROM. The patient will continue to benefit from ongoing skilled physical therapy to progress toward set goals and to continue with post-operative protocol. PLAN FOR NEXT VISIT: Discontinue TRX due to L/involved knee having more ROM than R, not benefitting patient. Knee Ext/Flexion ROM and Quad + Glute Strength. SUBJECTIVE: [place] good after last session. No symptoms coming in today. L Knee feels better each day. Pain: Pain Pain Level: 0 Pain Location: Knee - Left Description: Stiffness Post Treatment Pain Post Treatment Pain Level: 0 Post Treatment Pain Location: Knee - Left OBJECTIVE MEASURES WITH LEVEL OF FUNCTION: LE AROM L Knee Flexion: 124 Degrees (AAROM with Strap; AROM 118.) TREATMENT: Therapeutic Exercise: 1: Stationary Upright Bike: 5 Min, used for knee motion. Seat Height 14. Resist 2.5. Full revs. 2: L Knee Flexion on Step (10-inch): 3x10, 5-sec hold. 3: TRX Squats: 2x8. 4: L 10inch FWD Monet: 2x10. 5: L Heel Slides: x15 AAROM, x15 AROM. Skilled Intervention: Patient was educated in proper exercise technique and purpose for exercises. Skilled judgment was used in selection of appropriate interventions. Correct performance of therapeutic exercises was facilitated with verbal cuing. Billing Therapeutic Exercise Treatment Minutes: 40 Skilled Treatment Time Minutes (timed and untimed codes): 40 Total Session Time (minutes): 40 Session Start Time : 1045 Session Stop Time : 1125 Kem Aldridge PT documented in this encounter [facility] 02-26-2025 Note HNO ID: [id number] Author: KEM ALDRIDGE PT Service: ? Author Type: Physical Therapist Type: Progress Notes Filed: 03/03/2025 09:13 Note Text: Episode Visit Count: 2 Therapist That Will Accept/Oversee The Plan Of Care: Kem Aldridge PT Start of Care Date: 02/24/25 Onset Date: (Fall 2023.) Plan of Care Certification Date: 02/24/25 Next Certification Due Date: 04/02/25 Patient Identified by Name and Date of : Yes REHABILITATION AND SPORTS THERAPY PHYSICAL THERAPY TREATMENT NOTE ASSESSMENT: Teresa Isaacs tolerated the session with expected muscle soreness. He demonstrated improvements in L Knee AAROM flexion. The patient will continue to benefit from ongoing skilled physical therapy to progress toward set goals and to continue with post-operative protocol. PLAN FOR NEXT VISIT: Progress as tolerated motion. TRX squats. SUBJECTIVE: Doing good overall. Had no issues with HEP. Questions about why he is supposed to do patella glides at home. Pain: Pain Pain Level: 0 Pain Location: Knee - Left Description: Dull Post Treatment Pain Post Treatment Pain Level: No Change Post Treatment Pain Location: Knee - Left OBJECTIVE MEASURES WITH LEVEL OF FUNCTION: LE AROM L Knee Flexion: 120 Degrees (AAROM w/ strap) TREATMENT: Therapeutic Exercise: 1: Seated L PROM, Knee Flex/Ext: 3x10. 2: Supine L Knee Flex Stretch over PT arm: 5x30. 3: L Heel Slides: 2x15 AAROM, 1-sec hold at end. 4: L LLLD Knee Ext Stretch: 3 Min, 3#. 5: Supine L Quad Set: 2x10, 5-sec. (Ankle propped) 6: Longsit L Quad Set: 2x10, 5-sec. (No prop) 9: *Discussed home desensitization program; provided handout for completion. Skilled Intervention: Patient was educated in proper exercise technique and purpose for exercises. Reviewed and educated patient on additions/changes for home exercise program as above (*). Skilled judgment was used in selection of appropriate interventions. Provided written instruction for home exercise program to facilitate proper performance and compliance. Correct performance of therapeutic exercises was facilitated with verbal and tactile cuing. Billing Therapeutic Exercise Treatment Minutes: 43 Skilled Treatment Time Minutes (timed and untimed codes): 43 Total Session Time (minutes): 43 Session Start Time : 1345 Session Stop Time : 1428 Kem Aldridge PT [facility] 02-26-2025 History of Present illness Narrative Episode Visit Count: 2 Therapist That Will Accept/Oversee The Plan Of Care: Kem Aldridge PT Start of Care Date: 02/24/25 Onset Date: (Fall 2023.) Plan of Care Certification Date: 02/24/25 Next Certification Due Date: 04/02/25 Patient Identified by Name and Date of : Yes REHABILITATION AND SPORTS THERAPY PHYSICAL THERAPY TREATMENT NOTE ASSESSMENT: Teresa Isaacs tolerated the session with expected muscle soreness. He demonstrated improvements in L Knee AAROM flexion. The patient will continue to benefit from ongoing skilled physical therapy to progress toward set goals and to continue with post-operative protocol. PLAN FOR NEXT VISIT: Progress as tolerated motion. TRX squats. SUBJECTIVE: Doing good overall. Had no issues with HEP. Questions about why he is supposed to do patella glides at home. Pain: Pain Pain Level: 0 Pain Location: Knee - Left Description: Dull Post Treatment Pain Post Treatment Pain Level: No Change Post Treatment Pain Location: Knee - Left OBJECTIVE MEASURES WITH LEVEL OF FUNCTION: LE AROM L Knee Flexion: 120 Degrees (AAROM w/ strap) TREATMENT: Therapeutic Exercise: 1: Seated L PROM, Knee Flex/Ext: 3x10. 2: Supine L Knee Flex Stretch over PT arm: 5x30. 3: L Heel Slides: 2x15 AAROM, 1-sec hold at end. 4: L LLLD Knee Ext Stretch: 3 Min, 3#. 5: Supine L Quad Set: 2x10, 5-sec. (Ankle propped) 6: Longsit L Quad Set: 2x10, 5-sec. (No prop) 9: *Discussed home desensitization program; provided handout for completion. Skilled Intervention: Patient was educated in proper exercise technique and purpose for exercises. Reviewed and educated patient on additions/changes for home exercise program as above (*). Skilled judgment was used in selection of appropriate interventions. Provided written instruction for home exercise program to facilitate proper performance and compliance. Correct performance of therapeutic exercises was facilitated with verbal and tactile cuing. Billing Therapeutic Exercise Treatment Minutes: 43 Skilled Treatment Time Minutes (timed and untimed codes): 43 Total Session Time (minutes): 43 Session Start Time : 1345 Session Stop Time : 1428 Kem Aldridge PT documented in this encounter [facility] 02-24-2025 History of Present illness Narrative Program_ID:[id number] Access Code: [email or web address] URL: [email or web address] Date: 02-24-2025 Prepared By: Kem Aldridge Program Notes Exercises - Supine Heel Slide with Strap - 2 x daily - 7 x weekly - 2-3 sets - 10 reps - Knee Flexion Step - 2 x daily - 7 x weekly - 2 sets - 10 reps - Seated Knee Flexion AAROM - 2 x daily - 7 x weekly - 2 sets - 10 reps - Standing Knee Flexion - 2 x daily - 7 x weekly - 2 sets - 10 reps - Long Arc Quad on Table - 2 x daily - 7 x weekly - 2 sets - 10 reps - Active Straight Leg Raise with Quad Set - 2 x daily - 7 x weekly - 2-3 sets - 10-12 reps - Long Sitting 4 Way Patellar [place] - 1 x daily - 7 x weekly - 2 sets - 10 reps Images from the original note were not included. Episode Visit Count: 1 Therapist That Will Accept/Oversee The Plan Of Care: Kem Aldridge PT Start of Care Date: 02/24/25 Onset Date: (Fall 2023.) Plan of Care Certification Date: 02/24/25 Next Certification Due Date: 04/02/25 Patient Identified by Name and Date of : Yes REHABILITATION AND SPORTS THERAPY PHYSICAL THERAPY EVALUATION PLAN OF CARE: Assessment: Teresa Isaacs presents with diagnosis of s/p left total knee arthroplasty revision that interferes with stair negotiation, physical activities, walking in the community, squatting (Uneven surface navigation.) . The patient presents with impairments in ADL's, flexibility, joint mobility, overall function, range of motion, soft tissue healing, strength, and tissue tenderness. PROMIS (Patient-Reported Outcomes Measurement Information System) scores were reviewed and identified as within normal limits. Prognosis for therapy is Good due to: current objective clinical presentation, acuteness of condition, good support system/ coping skills . The patient will benefit from skilled therapy services to meet the goals established for this plan of care as noted below. Goals for Episode of Care: established 02/24/25 [place] in home exercise program. Patient will increase active ROM of L Knee to 0-120 degrees to allow pt to to improve gait mechanics / gait pattern . Increased strength of L Quad & HS on HHD Testing to equal to RLE for improved able to navigate stairs and uneven surfaces. Increase gross left lower extremity strength to 5/5 MMT for improvements in ADLs/IADLs. Reciprocal stair negotiation with better left lower extremity control during descend. Patient will be able to complete left lower extremity 6-in eccentric step down with good control and no pain. Patient will be able to squat to parallel or slightly above without issue. Patient Goals: Improve Function; Back to PLOF. Time Frame for Goals and Treatment : 04/21/25 Planned Interventions, Frequency, and Duration: Current Frequency: 2x/week Duration: 4 weeks Total Number of Visits Planned: 8 Planned Treatment Interventions: Therapeutic exercise (40581), Neuromuscular re-education (78634), Manual therapy (56644), Therapeutic activities (25840), Self-assisted management (95309), Gait Training (14758), Patient/Family/Caregiver Education PLAN FOR NEXT VISIT: Knee A/AA/PROM; EMERY on bike with revolutions or 1/2 moons. Patient demonstrates good understanding of plan of care and treatment. The above goals and plan of care were discussed and agreed upon by patient/family. SUBJECTIVE: 22 days post-op left total knee arthroplasty revision in the form of resurfacing of patella. Pain started in fall 2023, felt burning in the R Knee with stairs and during red/sleeping. D/C from HHPT yesterday. Every morning since surgery he has felt better/improvement. Stiffness once in a while patricia. with walking and stairs. Does get some irritation with cloth touching the incision. Not on pain meds currently, tylenol PRN. Used FWW for a couple days, used cane for a week or so. Now ambulating without issue. Patient Goals: Improve Function; Back to PLOF. Functional Limitations: stair negotiation, physical activities, walking in the community, squatting (Uneven surface navigation.) Prior Level of Function: Independent without limitations Relevant History Past Relevant Surgical Conditions: Total Knee Replacement-Right, Total Knee Replacement-Left, Comments Relevant Surgical Conditions Comments: R in 2007; Left in 2008. Employment: Retired Intake Information: Prescription present Previous Treatment: Ice Falls Interview: No positive findings with falls interview Pain: Pain Pain Level: 0 Pain Location: Knee - Left Description: Aching PROMIS Scales 02/24/2025 12/09/2024 Higher is Better Phys Func - T Score 49 (within normal limits) Phys Func - Percentile 46 Self-Eff Symptom - T Score 69 (High) Self-Eff Symptom - Percentile 97 Mobility - T Score 55 (within normal limits) Mobility - Percentile 69 Proxy-reported T-scores: mean of general population = 50. 5 points is clinically meaningfully difference Percentiles provide an indication of how the patient's score ranks in relation to the general population. Higher percentile rankings indicate better function/quality of life. 50th percentile is the average of the general population and indicates half of respondents had a worse score. OBJECTIVE MEASURES WITH LEVEL OF FUNCTION: Knee Observations L Knee Presents with: Incision, Swelling L Swelling: Diffuse, moderate, appropriate post-op appearance. L Incision: Incisions demo appropriate healing, clean, no-drainage, redness or warmth. No other clinical signs of infection. R Circumference mid patella (inches): 17.5 inches L Circumference mid patella (inches): 18.25 inches L Knee Palpation Tenderness: Quadriceps LE AROM R Knee Extension: 1 Degrees R Knee Flexion: 115 Degrees L Knee Extension: -1 Degrees L Knee Flexion: 111 Degrees LE PROM L Knee Extension: 0 Degrees L Knee Flexion: 115 Degrees (AAROM) LE Flexibility Flexibility: Hamstring Flexibility R Hamstring Flexibility: Fair L Hamstring Flexibility: Fair LE Joint Mobility L Patellar Mobility: WNL LE Strength R LE Strength: Grossly 5/5 L LE Strength: L SLR: 20 Reps, light lag from 10 on. L Hip Flexion (L2): 4+/5 L Hip ABduction: 4+/5 L Knee Extension (L3): 4+/5 L Knee Flexion: 4+/5 Lower Extremity Dynamometer Testing : Yes Dynamometer Strength Right Quadriceps Strength (lbs): 28.2 Left Quadriceps Strength (lbs): 24.4 Quad Strength Limb Symmetry Index (%): 86.52 Right Hamstring Strength (lbs): 29.4 Left Hamstring Strength (lbs): 26.4 Hamstring Strength Limb Symmetry Index(%): 89.80 Functional Strength Functional Strength: Step down Step down: Decreased eccentric control with 4-inch heel tap on LLE. Gait Weight Bearing Status: FWB Gait: Independent Gait Device: None Gait Observation: Non-Remarkable. Stairs: Reciprocal without use of rails. Slight stability deficit with left during descend. Education: Education Learning Preferences: Demonstration, Explanation, Performance Barriers: None Learning/educational needs: Procedure / Surgery, Health promotion, Safety, Home exercise program, Plan of Care, Gait Training Education Provided: Yes, see treatment interventions for education provided Education Provided To: Patient Education Mode/Type: Demonstration, Explanation/Discussion, Performance Response to Education/Teach Back: States/Identifies TREATMENT: PT Treatment Interventions: Therapeutic Exercise, Manual Therapy, Self-Intermediate Management Evaluation Therapeutic Exercise: 1: *L Heel Slides: 1x10 AAROM, 1-sec hold at end. 2: *L Knee Flexion on Step: x10, 5-sec hold. 3: *Seated L Knee Flexion AAROM with R OP: x10, 15-sec. 4: *L LAQ: 1x10. 5: *Standing L HS Curl: x10. 6: *HL L SLR: x2x10. 7: *Longsit L 4-way patellar glides: x10 each.. 8: Discussed proper healing timelines; discussed also the importance of regaining quad function, knee extension and flexion ROM. 9: Discussed exam findings; spent time educating on and discussed in detail proper execution of HEP & parameters. Skilled Intervention: Patient was educated in proper exercise technique and purpose for exercises. Reviewed and educated patient on additions/changes for home exercise program as above (*). Skilled judgment was used in selection of appropriate interventions. Provided written instruction for home exercise program to facilitate proper performance and compliance. Correct performance of therapeutic exercises was facilitated with verbal and tactile cuing. Patient education as noted. Billing * Evaluation Low Complexity: 1 Unit Therapeutic Exercise Treatment Minutes: 24 Skilled Treatment Time Minutes (timed and untimed codes): 46 Total Session Time (minutes): 46 Session Start Time : 1045 Session Stop Time : 1131 Kem Aldridge PT documented in this encounter [facility] 02-24-2025 Note HNO ID: [id number] Author: KEM ALDRIDGE PT Service: ? Author Type: Physical Therapist Type: Progress Notes Filed: 03/03/2025 09:13 Note Text: Episode Visit Count: 1 Therapist That Will Accept/Oversee The Plan Of Care: Kem Aldridge PT Start of Care Date: 02/24/25 Onset Date: (Fall 2023.) Plan of Care Certification Date: 02/24/25 Next Certification Due Date: 04/02/25 Patient Identified by Name and Date of : Yes REHABILITATION AND SPORTS THERAPY PHYSICAL THERAPY EVALUATION PLAN OF CARE: Assessment: Teresa Isaacs presents with diagnosis of s/p left total knee arthroplasty revision that interferes with stair negotiation, physical activities, walking in the community, squatting (Uneven surface navigation.) . The patient presents with impairments in ADL's, flexibility, joint mobility, overall function, range of motion, soft tissue healing, strength, and tissue tenderness. PROMIS? (Patient-Reported Outcomes Measurement Information System) scores were reviewed and identified as within normal limits. Prognosis for therapy is Good due to: current objective clinical presentation, acuteness of condition, good support system/ coping skills . The patient will benefit from skilled therapy services to meet the goals established for this plan of care as noted below. Goals for Episode of Care: established 02/24/25 [place] in home exercise program. Patient will increase active ROM of L Knee to 0-120 degrees to allow pt to to improve gait mechanics / gait pattern . Increased strength of L Quad AND HS on HHD Testing to equal to RLE for improved able to navigate stairs and uneven surfaces. Increase gross left lower extremity strength to 5/5 MMT for improvements in ADLs/IADLs. Reciprocal stair negotiation with better left lower extremity control during descend. Patient will be able to complete left lower extremity 6-in eccentric step down with good control and no pain. Patient will be able to squat to parallel or slightly above without issue. Patient Goals: Improve Function; Back to PLOF. Time Frame for Goals and Treatment : 04/21/25 Planned Interventions, Frequency, and Duration: Current Frequency: 2x/week Duration: 4 weeks Total Number of Visits Planned: 8 Planned Treatment Interventions: Therapeutic exercise (84696), Neuromuscular re-education (63063), Manual therapy (02000), Therapeutic activities (42272), Self-assisted management (64322), Gait Training (77331), Patient/Family/Caregiver Education PLAN FOR NEXT VISIT: Knee A/AA/PROM; EMERY on bike with revolutions or 1/2 moons. Patient demonstrates good understanding of plan of care and treatment. The above goals and plan of care were discussed and agreed upon by patient/family. SUBJECTIVE: 22 days post-op left total knee arthroplasty revision in the form of resurfacing of patella. Pain started in fall 2023, felt burning in the R Knee with stairs and during red/sleeping. D/C from HHPT yesterday. Every morning since surgery he has felt better/improvement. Stiffness once in a while patricia. with walking and stairs. Does get some irritation with cloth touching the incision. Not on pain meds currently, tylenol PRN. Used FWW for a couple days, used cane for a week or so. Now ambulating without issue. Patient Goals: Improve Function; Back to PLOF. Functional Limitations: stair negotiation, physical activities, walking in the community, squatting (Uneven surface navigation.) Prior Level of Function: Independent without limitations Relevant History Past Relevant Surgical Conditions: Total Knee Replacement-Right, Total Knee Replacement-Left, Comments Relevant Surgical Conditions Comments: R in 2007; Left in 2008. Employment: Retired Intake Information: Prescription present Previous Treatment: Ice Falls Interview: No positive findings with falls interview Pain: Pain Pain Level: 0 Pain Location: Knee - Left Description: Aching PROMIS Scales 02/26/2025 02/24/2025 12/09/2024 Higher is Better Phys Func - T Score 48 (within normal limits) 49 (within normal limits) Phys Func - Percentile 42 46 Self-Eff Symptom - T Score 69 (High) Self-Eff Symptom - Percentile 97 Mobility - T Score 55 (within normal limits) Mobility - Percentile 69 Proxy-reported T-scores: mean of general population = 50. 5 points is clinically meaningfully difference Percentiles provide an indication of how the patient's score ranks in relation to the general population. Higher percentile rankings indicate better function/quality of life. 50th percentile is the average of the general population and indicates half of respondents had a worse score. OBJECTIVE MEASURES WITH LEVEL OF FUNCTION: Knee Observations L Knee Presents with: Incision, Swelling L Swelling: Diffuse, moderate, appropriate post-op appearance. L Incision: Incisions demo appropriate healing, clean, no-drainage, redness or warmth. No other clinical signs of inf (more content not included)... [facility] 02-23-2025 Miscellaneous Notes SITUATION: spouse present during today's visit. patient reports the following since the last homecare visit: medications/allergies--no changes, no fall. patient reports compliance with HEP. BACKGROUND: Diagnoses (reason for Home Care): resurfacing arthroplasty rt patella /; same day discharge Weight Bearing/Precaution Changes: no changes ASSESSMENT: Focus of visit: PT discharge plans and instructions, education on fall risks and prevention, instruct on HEP. L knee AROM: 0-118 degrees TU.6 seconds, no AD. Physical therapy discharged: goals achieved. Functional performance at discharge - bed mobility independent, transfers independent, ambulation independent and stairs independent. Plan of care, goals, and discharge reviewed and agreed upon with patient and/or caregiver. RECOMMENDATION: Patient discharged from home health services. Instructions to include:home exercise program as directed, follow the recommended ambulation program, begin outpatient therapy on 02/24/25 and follow up with provider as scheduled See intervention summary for intervention/education details. documented in this encounter [facility] 02-23-2025 Patient's home Note SITUATION: spouse present during today's visit. patient reports the following since the last homecare visit: medications/allergies--no changes, no fall. patient reports compliance with HEP. BACKGROUND: Diagnoses (reason for Home Care): resurfacing arthroplasty rt patella 02/02; same day discharge Weight Bearing/Precaution Changes: no changes ASSESSMENT: Focus of visit: PT discharge plans and instructions, education on fall risks and prevention, instruct on HEP. L knee AROM: 0-118 degrees TU.6 seconds, no AD. Physical therapy discharged: goals achieved. Functional performance at discharge - bed mobility independent, transfers independent, ambulation independent and stairs independent. Plan of care, goals, and discharge reviewed and agreed upon with patient and/or caregiver. RECOMMENDATION: Patient discharged from home health services. Instructions to include:home exercise program as directed, follow the recommended ambulation program, begin outpatient therapy on 02/24/25 and follow up with provider as scheduled See intervention summary for intervention/education details. [facility] Work Phone: 02-19-2025 Note HNO ID: [id number] Author: NAEL REID PA-C Service: ? Author Type: Physician Liquor Bridge Operator Type: Progress Notes Filed: 02/19/2025 12:38 Note Text: Post-op Office Visit Teresa Isaacs 79 year old February 19, 2025 11:14 AM Surgery Date: 02/02/2025 History: Teresa Isaacs is now 2 weeks out from left total knee arthroplasty revision in the form of resurfacing of patella. Post-operative course has been without complication. No readmissions. The patient was discharged same day to home with home health care. Subjective: Patient reports no knee pain. Overall is doing well. He is not using an ambulatory aid He is not taking any opioid pain medication Patients rates his condition as improving. Reports compliance with DVT ppx. Participating in home PT. Objective: Left knee: Ambulates without assistive device Incision well-approximated, no drainage, well-healing. Suture tails trimmed today. Knee ROM 0 - 95 degrees Distally DP/PT palpable Distally SILT S/S/SP/DP/T intact at baseline Distally DF/PF motor intact at baseline Negative bailee/calf tenderness Xrays: Well-positioned total knee replacement in appropriate alignment with no evidence of loosening Assessment and Plan: 79 year old male 2 weeks status post left total knee arthroplasty revision in the form of resurfacing of patella - continue ice, rest, and use of non-narcotic analgesia as needed - reviewed antibiotic prophylactic protocols - discussed home exercises and therapy - continue ASA DVT prophylaxis for 4 weeks total - WBAT on operative extremity - discussed driving requirement: 4 weeks post-op, off narcotic pain medication, adequate brake time - follow up in 4 weeks for repeat clinical evaluation with Dr. Dudley Normal post-operative course discussed with patient. Patient reassured and supported. All questions answered. Rell Reid PA-C Orthopaedic Surgery [facility] 02-19-2025 History of Present illness Narrative Post-op Office Visit Teresa Isaacs 79 year old February 19, 2025 11:14 AM Surgery Date: 02/02/2025 History: Teresa Isaacs is now 2 weeks out from left total knee arthroplasty revision in the form of resurfacing of patella. Post-operative course has been without complication. No readmissions. The patient was discharged same day to home with home health care. Subjective: Patient reports no knee pain. Overall is doing well. He is not using an ambulatory aid He is not taking any opioid pain medication Patients rates his condition as improving. Reports compliance with DVT ppx. Participating in home PT. Objective: Left knee: Ambulates without assistive device Incision well-approximated, no drainage, well-healing. Suture tails trimmed today. Knee ROM 0 - 95 degrees Distally DP/PT palpable Distally SILT S/S/SP/DP/T intact at baseline Distally DF/PF motor intact at baseline Negative bailee/calf tenderness Xrays: Well-positioned total knee replacement in appropriate alignment with no evidence of loosening Assessment and Plan: 79 year old male 2 weeks status post left total knee arthroplasty revision in the form of resurfacing of patella - continue ice, rest, and use of non-narcotic analgesia as needed - reviewed antibiotic prophylactic protocols - discussed home exercises and therapy - continue ASA DVT prophylaxis for 4 weeks total - WBAT on operative extremity - discussed driving requirement: 4 weeks post-op, off narcotic pain medication, adequate brake time - follow up in 4 weeks for repeat clinical evaluation with Dr. Dudley Normal post-operative course discussed with patient. Patient reassured and supported. All questions answered. Rell Reid PA-C Orthopaedic Surgery documented in this encounter [facility] 02-19-2025 History of Present illness Narrative Radiology Service Progress Note PATIENT NAME: Teresa Isaacs DATE OF SERVICE: February 19, 2025 TIME: 10:48 AM PATIENT IDENTITY VERIFICATION COMPLETED USING TWO (2) IDENTIFIERS: Name and Date of confirmed by patient verbally. FALL SCREENING: Has the patient had 2 falls in the last year or 1 fall with injury or currently using an Ambulatory Assistive Device (Walker, Cane, Wheelchair, Crutches, etc.)? No PATIENT GENDER DATA: Assigned male at PATIENT RELEVANT IMPLANT DATA REVIEWED: Not Applicable PATIENT PRESENTS WITH AN IMPLANTABLE OR ATTACHED RN CASE MGR: No RADIOLOGY DEPARTMENT: General X-ray: Exam(s) Completed: Lower Extremity X-Ray(s): Knee, AP / Lat / Merchant Left and Wt. Bearing PERIPHERAL IV DATA: Not applicable SIGNED BY: RT Rafael(Charito) February 19, 2025 10:48 AM documented in this encounter [facility] 02-19-2025 Note HNO ID: [id number] Author: CHASITY KING RT(R) Service: Radiology Author Type: Technologist Type: Progress Notes Filed: 02/19/2025 10:48 Note Text: Radiology Service Progress Note PATIENT NAME: Teresa Isaacs DATE OF SERVICE: February 19, 2025 TIME: 10:48 AM PATIENT IDENTITY VERIFICATION COMPLETED USING TWO (2) IDENTIFIERS: Name and Date of confirmed by patient verbally. FALL SCREENING: Has the patient had 2 falls in the last year or 1 fall with injury or currently using an Ambulatory Assistive Device (Walker, Cane, Wheelchair, Crutches, etc.)? No PATIENT GENDER DATA: Assigned male at PATIENT RELEVANT IMPLANT DATA REVIEWED: Not Applicable PATIENT PRESENTS WITH AN IMPLANTABLE OR ATTACHED RN CASE MGR: No RADIOLOGY DEPARTMENT: General X-ray: Exam(s) Completed: Lower Extremity X-Ray(s): Knee, AP / Lat / Merchant Left and Wt. Bearing PERIPHERAL IV DATA: Not applicable SIGNED BY: RT Rafael(R) February 19, 2025 10:48 AM [facility] 02-18-2025 Miscellaneous Notes SITUATION: only patient present during today's visit. patient reports the following since the last homecare visit: medications/allergies--no changes, no fall. patient reports he is pleased wi healing process. ANxious to see Dr and ask if he can drive. Also going to ask if he needs to go to OP PT. BACKGROUND: Diagnoses (reason for Home Care): LTKR revision Weight Bearing/Precaution Changes: no changes ASSESSMENT: Focus of visit patient has good understanding and compliance w/ HEP. Ind w/ household ambulation but conts to require cane for stairs to exit home and community distances. Issued NOMNC Plan of care, goals, and visit frequency reviewed and agreed upon with patient and/or caregiver. Current Discharge Plan: outpatient rehab Anticipate discharge by 02/23/25 RECOMMENDATION: Next visit to focus on PT to see for DC See intervention summary for intervention/education details. documented in this encounter [facility] 02-18-2025 Patient's home Note SITUATION: only patient present during today's visit. patient reports the following since the last homecare visit: medications/allergies--no changes, no fall. patient reports he is pleased wi healing process. ANxious to see Dr and ask if he can drive. Also going to ask if he needs to go to OP PT. BACKGROUND: Diagnoses (reason for Home Care): LTKR revision Weight Bearing/Precaution Changes: no changes ASSESSMENT: Focus of visit patient has good understanding and compliance w/ HEP. Ind w/ household ambulation but conts to require cane for stairs to exit home and community distances. Issued NOMNC Plan of care, goals, and visit frequency reviewed and agreed upon with patient and/or caregiver. Current Discharge Plan: outpatient rehab Anticipate discharge by 02/23/25 RECOMMENDATION: Next visit to focus on PT to see for DC See intervention summary for intervention/education details. [facility] Work Phone: 02-15-2025 Miscellaneous Notes SITUATION: spouse present during today's visit. patient and caregiver reports the following since the last homecare visit: medications/allergies--no changes, no fall. patient reports he is very pleased with progress and hoping Dr will release him to drive . BACKGROUND: Diagnoses (reason for Home Care): L TKR revision Weight Bearing/Precaution Changes: no changes ASSESSMENT: Focus of visit progressed to toshia standing strength and rom exercises for HEP. Able to perform step up strength exercises on 5in step, attempted on 7in step but patient reported slight strain in knee. No strain or pain w/ 5in step AAROM 0-115 Plan of care, goals, and visit frequency reviewed and agreed upon with patient and/or caregiver. Current Discharge Plan: outpatient rehab Anticipate discharge by 02/23/25 RECOMMENDATION: Next visit to focus on NOMNC See intervention summary for intervention/education details. documented in this encounter [facility] 02-15-2025 Patient's home Note SITUATION: spouse present during today's visit. patient and caregiver reports the following since the last homecare visit: medications/allergies--no changes, no fall. patient reports he is very pleased with progress and hoping Dr will release him to drive . BACKGROUND: Diagnoses (reason for Home Care): L TKR revision Weight Bearing/Precaution Changes: no changes ASSESSMENT: Focus of visit progressed to toshia standing strength and rom exercises for HEP. Able to perform step up strength exercises on 5in step, attempted on 7in step but patient reported slight strain in knee. No strain or pain w/ 5in step AAROM 0-115 Plan of care, goals, and visit frequency reviewed and agreed upon with patient and/or caregiver. Current Discharge Plan: outpatient rehab Anticipate discharge by 02/23/25 RECOMMENDATION: Next visit to focus on NOMNC See intervention summary for intervention/education details. [facility] Work Phone: 02-11-2025 Miscellaneous Notes SITUATION: spouse present during today's visit. patient reports the following since the last homecare visit: medications/allergies--no changes, no fall. patient reports he feels better every day. Please with how knee is feeling. BACKGROUND: Diagnoses (reason for Home Care): L TKR revision Weight Bearing/Precaution Changes: no changes ASSESSMENT: Focus of visit gait training w/ cane outdoors, level surfaces, stair training. progressed standing exercises for HEP. AAROM 0-100 Plan of care, goals, and visit frequency reviewed and agreed upon with patient and/or caregiver. Current Discharge Plan: outpatient rehab Anticipate discharge by 02/21/25 RECOMMENDATION: Next visit to focus on add squats for funstuonal strengthneing See intervention summary for intervention/education details. documented in this encounter [facility] 02-11-2025 Patient's home Note SITUATION: spouse present during today's visit. patient reports the following since the last homecare visit: medications/allergies--no changes, no fall. patient reports he feels better every day. Please with how knee is feeling. BACKGROUND: Diagnoses (reason for Home Care): L TKR revision Weight Bearing/Precaution Changes: no changes ASSESSMENT: Focus of visit gait training w/ cane outdoors, level surfaces, stair training. progressed standing exercises for HEP. AAROM 0-100 Plan of care, goals, and visit frequency reviewed and agreed upon with patient and/or caregiver. Current Discharge Plan: outpatient rehab Anticipate discharge by 02/21/25 RECOMMENDATION: Next visit to focus on add squats for funstuonal strengthneing See intervention summary for intervention/education details. [facility] Work Phone: 02-09-2025 Note Addended by: DANIEL PATEL on: 02/09/2025 02:18 PM Modules accepted: Orders [facility] 02-09-2025 Miscellaneous Notes Addended by: DANIEL PATEL on: 02/09/2025 02:18 PM Modules accepted: Orders PT and OT have been ordered. Daniel Patel PA-C Removed surgical bandage today. No concerns. Picture uploaded to chart for your review. Also scheduled OP PT for patient. Can you please enter orders for this? Thanks documented in this encounter [facility] 02-09-2025 Telephone encounter Note PT and OT have been ordered. Daniel Patel PA-C [facility] 02-09-2025 Telephone encounter Note Removed surgical bandage today. No concerns. Picture uploaded to chart for your review. Also scheduled OP PT for patient. Can you please enter orders for this? Thanks [facility] Work Phone: 02-09-2025 Miscellaneous Notes SITUATION: spouse present during today's visit. patient reports the following since the last homecare visit: medications/allergies--no changes, no fall. patient reports he is feeling much better. . BACKGROUND: Diagnoses (reason for Home Care): LTKR revision Weight Bearing/Precaution Changes: no changes ASSESSMENT: Focus of visit bandage removal. With patients consent, paicture obtained and uploaded to chart. Performd and progressed ROM and strength exercises for HEP AAROM 5-95. Patient carried walker to door upon my arrival. Insrtructed aptient and in proper use of cane. Raised cane to proper height. left message for Ashley to [facility] OP PT Plan of care, goals, and visit frequency reviewed and agreed upon with patient and/or caregiver. Current Discharge Plan: outpatient rehab Anticipate discharge by 02/23/25 RECOMMENDATION: Next visit to focus on add standing hip abd and flxion, stair training See intervention summary for intervention/education details. documented in this encounter [facility] 02-09-2025 Patient's home Note SITUATION: spouse present during today's visit. patient reports the following since the last homecare visit: medications/allergies--no changes, no fall. patient reports he is feeling much better. . BACKGROUND: Diagnoses (reason for Home Care): LTKR revision Weight Bearing/Precaution Changes: no changes ASSESSMENT: Focus of visit bandage removal. With patients consent, paicture obtained and uploaded to chart. Performd and progressed ROM and strength exercises for HEP AAROM 5-95. Patient carried walker to door upon my arrival. Insrtructed aptient and in proper use of cane. Raised cane to proper height. left message for Ashley to [facility] OP PT Plan of care, goals, and visit frequency reviewed and agreed upon with patient and/or caregiver. Current Discharge Plan: outpatient rehab Anticipate discharge by 02/23/25 RECOMMENDATION: Next visit to focus on add standing hip abd and flxion, stair training See intervention summary for intervention/education details. [facility] Work Phone: 02-06-2025 Miscellaneous Notes SITUATION: spouse present during today's visit. patient reports the following since the last homecare visit: medications/allergies--no changes, no fall. patient reports he is feeling well, getting by with ,limited pain meds, agreeable to PT. BACKGROUND: Diagnoses (reason for Home Care): resurfacing arthroplasty rt patella 3/4; same day discharge Weight Bearing/Precaution Changes: no changes ASSESSMENT: Focus of visit HEP progressed within TKA protocol. Focus on knee ext and quad recruitment, knee flex ROm is progressing nicely. Gait training. No complaints of SOB/chest pain; patient does not appear to be in acute distress. Patient reported comfort with the visit; mild soreness in quads - [employer] TE[employer]ER recommneded ice after PT to stay ahead of the soreness/inflammation. Patient agreeable. Plan of care, goals, and visit frequency reviewed and agreed upon with patient and/or caregiver. Current Discharge Plan: outpatient rehab Anticipate discharge by 02/23 RECOMMENDATION: Next visit to focus on schedule OP PT, bandage removal 02/09-02/12 per plan See intervention summary for intervention/education details. documented in this encounter [facility] 02-06-2025 Patient's home Note SITUATION: spouse present during today's visit. patient reports the following since the last homecare visit: medications/allergies--no changes, no fall. patient reports he is feeling well, getting by with ,limited pain meds, agreeable to PT. BACKGROUND: Diagnoses (reason for Home Care): resurfacing arthroplasty rt patella 3/4; same day discharge Weight Bearing/Precaution Changes: no changes ASSESSMENT: Focus of visit HEP progressed within TKA protocol. Focus on knee ext and quad recruitment, knee flex ROm is progressing nicely. Gait training. No complaints of SOB/chest pain; patient does not appear to be in acute distress. Patient reported comfort with the visit; mild soreness in quads - [employer] TE[employer]ER recommneded ice after PT to stay ahead of the soreness/inflammation. Patient agreeable. Plan of care, goals, and visit frequency reviewed and agreed upon with patient and/or caregiver. Current Discharge Plan: outpatient rehab Anticipate discharge by 02/23 RECOMMENDATION: Next visit to focus on schedule OP PT, bandage removal 02/09-02/12 per plan See intervention summary for intervention/education details. [facility] Work Phone: 02-05-2025 Miscellaneous Notes Medication review completed. No ineffective drug therapy, significant side effects, significant drug interactions, duplicate drug therapy, or noncompliance with drug therapy noted. Danielle Lackey RN documented in this encounter [facility] 02-05-2025 Patient's home Note Medication review completed. No ineffective drug therapy, significant side effects, significant drug interactions, duplicate drug therapy, or noncompliance with drug therapy noted. Danielle Lackey RN [facility] Work Phone: 02-05-2025 detail manager Note PT start of care visit completed 02/04. Diagnoses (reason for Home Care): resurfacing arthroplasty rt patella 02/02; same day discharge Advance Directives: Patient does have advance directives. Past Medical History: TKA bilat, hx migraines, OA, BPH, DDD cervical, GERD, ventral hernia, mixed hyperlipidemia, valvular ht disease Weight Bearing or Surgical Precautions: WBAT rt leg, fall risk Pt lives in 2 story house w/ first floor setup. 2 step entry through garage w/ grab bar. Prior to surgery, pt was walking without a device and denies any recent falls. Issued and reviewed start of care booklet and obtained consent for tx. Pt verbalized understanding of all instructions including when to call clinician for guidance; signs and symptoms of infection, DVT, and PE; proper positioning of operated leg to minimize swelling and maximize knee ROM; schedulingprocess; and importance of walking every hour when awake. Med reconciliation performed and no severe med interactions noted. Pt verbalized understanding of all meds. Postop dressing intact w/ no visible drainage or signs of infection. Plan is to continue PT 1 more visit this wk followed by 2w2,1w1 for functional mobility, balance, endurance, ROM, and safety training. Postop dressing to be removed 02/09-02/12 per protocol. Pt hasfollowup appt w/ ortho on 02/19. He may benefit from outpatient PT at conclusion of homecare services depending on progress over next 2 wks; however, no appt has been scheduled yet. Please call me with any questions. CLARI Lomas [facility] Work Phone: 02-05-2025 Miscellaneous Notes PT start of care visit completed 02/04. Diagnoses (reason for Home Care): resurfacing arthroplasty rt patella 02/02; same day discharge Advance Directives: Patient does have advance directives. Past Medical History: TKA bilat, hx migraines, OA, BPH, DDD cervical, GERD, ventral hernia, mixed hyperlipidemia, valvular ht disease Weight Bearing or Surgical Precautions: WBAT rt leg, fall risk Pt lives in 2 story house w/ first floor setup. 2 step entry through garage w/ grab bar. Prior to surgery, pt was walking without a device and denies any recent falls. Issued and reviewed start of care booklet and obtained consent for tx. Pt verbalized understanding of all instructions including when to call clinician for guidance; signs and symptoms of infection, DVT, and PE; proper positioning of operated leg to minimize swelling and maximize knee ROM; schedulingprocess; and importance of walking every hour when awake. Med reconciliation performed and no severe med interactions noted. Pt verbalized understanding of all meds. Postop dressing intact w/ no visible drainage or signs of infection. Plan is to continue PT 1 more visit this wk followed by 2w2,1w1 for functional mobility, balance, endurance, ROM, and safety training. Postop dressing to be removed 02/09-02/12 per protocol. Pt hasfollowup appt w/ ortho on 02/19. He may benefit from outpatient PT at conclusion of homecare services depending on progress over next 2 wks; however, no appt has been scheduled yet. Please call me with any questions. CLARI Lomas SITUATION: spouse present during today's visit. patient reports he slept fairly well overnight. only took tylenol this morning. does not want to take oxy, and feels he is doing okay so far without it for pain control BACKGROUND: Diagnoses (reason for Home Care): resurfacing arthroplasty rt patella 3/4; same day discharge Advance Directives: Patient does have advance directives. Past Medical History: TKA bilat, hx migraines, OA, BPH, DDD cervical, GERD, ventral hernia, mixed hyperlipidemia, valvular ht disease Weight Bearing or Surgical Precautions: WBAT rt leg, fall risk ASSESSMENT: Patient evaluated by [facility] physical therapy. Reviewed and explained homecare services. Plan of care, goals, and visit frequency developed, reviewed, and agreed upon with patient and/or caregiver. Patient Goal: walk without rt leg pain Patient will benefit from continued physical therapy to address the following deficits: balance, gait, endurance, transfers, stair negotiation and bed mobility. Current Discharge Plan: outpatient rehab. Anticipate discharge by 02/27/25 RECOMMENDATION: Next visit to focus on continued posture/gt training w/ walker--progress to cane if pt can do so without limping; progression of TKA hep instr Agreeable to PT; declining NA. See intervention summary for intervention/education details. documented in this encounter [facility] 02-04-2025 Patient's home Note SITUATION: spouse present during today's visit. patient reports he slept fairly well overnight. only took tylenol this morning. does not want to take oxy, and feels he is doing okay so far without it for pain control BACKGROUND: Diagnoses (reason for Home Care): resurfacing arthroplasty rt patella 3/4; same day discharge Advance Directives: Patient does have advance directives. Past Medical History: TKA bilat, hx migraines, OA, BPH, DDD cervical, GERD, ventral hernia, mixed hyperlipidemia, valvular ht disease Weight Bearing or Surgical Precautions: WBAT rt leg, fall risk ASSESSMENT: [facility] Reviewed and explained homecare services. Plan of care, goals, and visit frequency developed, reviewed, and agreed upon with patient and/or caregiver. Patient Goal: walk without rt leg pain Patient will benefit from continued physical therapy to address the following deficits: balance, gait, endurance, transfers, stair negotiation and bed mobility. Current Discharge Plan: outpatient rehab. Anticipate discharge by 02/27/25 RECOMMENDATION: Next visit to focus on continued posture/gt training w/ walker--progress to cane if pt can do so without limping; progression of TKA hep instr Agreeable to PT; declining NA. See intervention summary for intervention/education details. [facility] 02-02-2025 Telephone encounter Note Attempt Date/Time: 02/02/2025 2:25 PM Messages: patient's and Sheron Isaacs (Spouse) . HUONG Guzmán [facility] 02-02-2025 Miscellaneous Notes Attempt Date/Time: 02/02/2025 2:25 PM Messages: patient's and Sheron Isaacs (Spouse) . HUONG Guzmán documented in this encounter [facility] 02-02-2025 Note HNO ID: [id number] Author: WELLINGTON FISHER APRN.OUTBOUND SALES SPECIALIST Service: Anesthesiology Author Type: Nurse Education Program Specialist Type: Anesthesia Procedure Notes Filed: 02/02/2025 11:06 Note Text: ANESTHESIOLOGY PROCEDURE NOTE Airway General Information Procedure Start Time/Medication Administration: 02/02/2025 10:39 AM Procedure End Time: 02/02/2025 10:42 AM Patient location during procedure: OR Timeout Performed Pre-procedure: timeout performed Consent Obtained: Yes Patient identity confirmed: arm band and patient Staffing OUTBOUND SALES SPECIALIST: Wellington Fisher APRN.OUTBOUND SALES SPECIALIST Performed by: OUTBOUND SALES SPECIALIST Indications and Patient Condition Indications for airway management: anesthesia Preoxygenated: yes anesthesia circuit Patient position: sniffing Method: asleep Difficult Mask: No Final Airway Details Final airway type: endotracheal airway Final Endotracheal Airway: ETT Cuffed: yes Successful intubation technique: video laryngoscopy Devices used: [employer] Endotracheal tube insertion site: oral Blade size: #4 ETT size (mm): 8.0 Measured from: lips Measurement (cm): 23 Placement verified by: chest auscultation and capnometry Cormack-Lehane Classification: grade I - full view of glottis Number of attempts at approach: 1 Airway not difficult SIGNATURE: Wellington Fisher APRN.CRNA PATIENT NAME: Teresa Isaacs DATE: February 02, 2025 TIME: 11:05 AM CSN: [id number] [facility] [facility] 02[facility]25 Note HNO ID: [id number] Author: LESLIE HAYES MD Service: ? Author Type: Anesthesiologist Type: Anesthesia Procedure Notes Filed: 02/02/2025 10:21 Note Text: ANESTHESIOLOGY PROCEDURE NOTE Peripheral Nerve Block General Information Procedure Start Time/Medication Administration: 02/02/2025 9:57 AM Procedure End time: 02/02/2025 9:58 AM Patient location during procedure: pre-op Timeout Performed Pre-procedure: timeout performed Consent Obtained: Yes Patient identity confirmed: arm band Reason for block: post-op pain management/at surgeon's request Staffing Anesthesiologist: Leslie Hayes MD SRNA: Sherita Murrell SRNA Performed by: anesthesiologist and SRNA Preparation Sterility Preparation: hand hygiene performed prior to procedure, sterile gloves, drapes, and procedure tray, surgical cap used, mask used, sterile drape used during line insertion, skin prep agent completely dried prior to procedure Site Prep: Chloraprep Pre-Procedure Neuro Exam Location: LLE Sensory: intact Motor: intact Procedure Details Patient Position: supine Monitoring: Pulse OX, EKG and NIBP Block Type Lower Extremity: distal femoral (adductor canal) Laterality: left Injection Technique: single-shot Ultrasound Guided: Yes Image in Chart: yes Local Infiltration: Yes Needle Needle Type: echogenic Needle Gauge: 20 G Needle Length: 100 mm Needle Localization: ultrasound Assessment Injection assessment: negative aspiration, no paresthesia on injection, incremental injection and local visualized surrounding nerve on ultrasound Medications Administered ropivacaine (PF) 5 mg/mL (0.5 %) injection (NAROPIN) - peripheral nerve block 20 mL - 02/02/2025 9:57:00 AM dexamethasone sodium phosphate injection (DECADRON) - peripheral nerve block 4 mg - 02/02/2025 9:57:00 AM SIGNATURE: Leslie Hayes MD PATIENT NAME: Teresa Isaacs DATE: February 02, 2025 TIME: 10:20 AM CSN: [id number] [facility] 01-19-2025 Instructions Alayna Bojorquez APRN.YARDING ENGINEER - 01/19/2025 9:36 AM EST Images from the original note were not included. [facility] PATIENT PREOPERATIVE INSTRUCTIONS Manny Dudley MD has scheduled you for your procedure at this surgery center: [facility]: [phone] -- [address] [place] [id number]. Please read below carefully for your personalized instructions. Dietary Restrictions: - No solid food after midnight. - You may have 12 ounces of clear liquids (water, clear juices such as apple juice or gatorade, carbonated beverages, clear tea, black coffee, jello) until 2 hours before scheduled arrival at facility. No red/purple coloring and no creamer/sugar Medications: Unless instructed differently below, stay on all of your medications until your surgery. If you start any new medications after today's visit, please contact your surgeon. Pre-Surgery Med Instructions Medication Instructions ibuprofen 200 mg tablet Stop 7 days before surgery If you start any new medications after today's visit, please contact the surgeon's office. If you are currently using a [id number] injectable or oral medication for diabetes or weight loss such as Dulaglutide (Trulicity), Exenatide (Byetta, Bydureon), Liraglutide (Victoza, Saxenda), Semaglutide (Ozempic, Wegovy, Rybelsus), or Tirzepatide (Mounjaro), the medicine should be stopped at least 7 days before surgery. These medicines can cause food to remain in your stomach for a very long time and increase the risks from surgery and anesthesia. Not stopping the medication for a long enough time may result in your surgery being rescheduled. Blood Thinning Medications: - Stop NSAIDS (Ibuprofen, Advil, Aleve, Motrin, Celebrex, Mobic, etc.) 7 days before surgery, as directed by your surgeon. - Stop Aspirin 7 days before surgery, as directed by your surgeon. - Stop ALL herbal and dietary supplements 7 days before surgery. - You may take Tylenol (Acetaminophen) or any of your pain medications that do not contain aspirin or NSAIDS as needed. Important Reminders: - Candy, mints, and tobacco products are NOT permitted the morning of surgery. - Hearing aids, dentures and glasses may be worn the morning of surgery. - NO jewelry, body piercings, makeup, hairpins or contacts are to be worn the day of surgery. If you develop symptoms such as a fever, cold, or flu, or have other changes to your health within TWO DAYS of scheduled surgery or the morning of surgery, please contact the surgery center above. Personal Belongings: -Please have photo ID and insurance cards. -If you do not have a copy of advance directives on file with us, please bring a copy with you on the day of surgery. - Leave ALL valuables and money at home or with family members. - Please bring high-quality footwear, such as sneakers, to the hospital for ambulating post-surgery. For Outpatient Procedures: - YOU MUST HAVE A RESPONSIBLE PARENT AIDE TAKE YOU HOME. A POWER PRESS TENDER OR ACCOUNT ANALYST CANNOT BE MADE A RESPONSIBLE PARENT AIDE. - We recommend that a responsible person stays with you overnight to take care of you. - You cannot stay in a hotel alone after outpatient surgery. You will not be permitted to have your surgery, if you do not have someone to take care of you. Arrival Time for Surgery: - The Surgery Center or hospital where you are having surgery will call the afternoon before surgery (or Saturday for Saturday surgery) with a scheduled arrival time. - If you have not heard by 4 pm, please contact the surgery center above. Please be aware that emergency situations arise, which may delay or change your surgical time. If this happens, we will notify you as soon as possible and regret any inconvenience. If you already have an Advance Directive, please fax a copy to [phone] or email to for it to be added to your chart. If you do not have an Advance Directive, you can find the appropriate form and more information at [email or web address]. We recommend that you complete the Advance Directive form found on the website and bring it with you the day of your surgery. It can be witnessed and scanned into your chart that day. Alayna Bojorquez APRN.CNP documented in this encounter [facility] 01-19-2025 History and physical note Images from the original note were not included. [facility] Pre[facility]est[facility] Clinic HISTORY AND PHYSICAL EXAMINATION SERVICE DATE: 01/19/2025 SERVICE TIME: 10:03 AM PRIMARY CARE PHYSICIAN: Kamron Pate MD Assessment Patient has the following medical conditions which may affect veda-operative course: S/P total knee replacement using cement Assessment: right 2007, left 2008 Mixed hyperlipidemia Assessment: c/w statin Murmur Assessment: echo ordered, no known VHD Migraine headaches Assessment: otc analgesics as needed Patrick Activity Status Index: METS: Climb a flight of stairs or walk up a hill (5.50 METs) DASI Score: 5.5 Patient denies any chest pain or undue shortness of breath with the above physical activity. Clinical Frailty Scale: 2. Well STOP-Bang Score: Patient over 50 years old Male patient Denies snoring loudly Denies feeling tired, fatigued, or sleepy during the daytime Has not been observed to stop breathing or choking/gasping during sleep Denies having high blood pressure BMI less than or equal to 35 kg/m^2 Does not have a large neck STOP-Bang Score: 2 [id number] Score: Age: >=75 Sex: male CHF history: No Hypertension history: No Stroke/TIA/thromboembolism history: No Vascular disease history: No Diabetes history: No [id number] Score: 2 ARISCAT Score: Age: 51-80 Preoperative SpO2: >=96% Respiratory infection in the last month: No Preoperative anemia: No Surgical incision: peripheral Duration of surgery: 2-3 hrs Emergency procedure: No ARISCAT Score: 19 ANESTHESIA FINDINGS: Intubation History: No history of difficult intubation Significant Anesthesia Considerations: none Airway History: No history of difficult airway I - PHYSICAL EVALUATION AIRWAY Patient intubated: No. Tracheostomy tube not present Mallampati: III. TM distance: >3 FB. Neck ROM: full ROM without neurological symptoms. Mouth opening: adequate. Short neck: no. Thick neck: no Ortega present: no Lip Bite Test: I Microretrognathia/Micronagthia/Rec essed Chin: No DENTAL Dental findings: teeth intact. Additional comments: +crowns/back. II - ANESTHESIA PLAN Anesthetic Plan: other Beta Veda Monitoring Plan Post Procedure Analgesic Plan Prepared for Surgery: optimally prepared for surgery, pending [see comment]. Labs, EKG-reviewed, okay to proceed- echo (scheduled for this afternoon 01/19/2025) CONSULTS: Patient does not require consults for optimization at this time Planned Anesthetic: other anesthesia choice The Following Tests/Procedures Have Been Initiated: Orders Placed This Encounter >CBC + AUTO DIFF Standing Status: Future Expected Date: 01/19/2025 Expiration Date: 04/20/2025 >CMP Standing Status: Future Expected Date: 01/19/2025 Expiration Date: 04/20/2025 mupirocin (BACTROBAN) 2 % ointment Sig: Apply 0.5 inch with cotton swab (Q-tip) to each nostril in the morning and evening for 5 days prior to and including day of surgery. Dispense: 22 g Refill: 0 ECG COMPLETE Standing Status: Future Number of Occurrences: 1 Expiration Date: 01/19/2026 ECHO Standing Status: Future Expected Date: 01/19/2025 Expiration Date: 01/19/2026 Disease / Condition:: Murmur - initial evaluation when reasonable suspicion of valvular or structural heart disease REASON FOR VISIT: Teresa Isaacs is a 79 year old male who is scheduled for Procedure(s): REVISION JOINT TOTAL KNEE ONE COMPONENT (Left) at the request of Dr. Manny Dudley for consultation. My final recommendation will be communicated back to the requesting physician by way of shared medical record or letter. Subjective The patient has the following: COVID-19 Immunization Status Current Care Gaps Covid-19 Vaccine () Overdue since 08/02/2024 11/29/2021 Imm Admin: COVID-19 original vaccine, age 12+ yr, monovalent (PFIZER-BIONTECH - PURPLE TOP) 02/23/2021 Imm Admin: COVID-19 original vaccine, age 12+ yr, monovalent (PFIZER-BIONTECH - PURPLE TOP) 02/02/2021 Imm Admin: COVID-19 original vaccine, age 12+ yr, monovalent (PFIZER-BIONTECH - PURPLE TOP) Only the first 3 history entries have been loaded, but more history exists. CHIEF COMPLAINT: Pre-op exam HPI: Teresa Isaacs is a 79 year old seen for PAC due to scheduled above surgery because of OA left knee. 12/11/2024, Dr. Manny Dudley Mr. Isaacs is here for follow-up of his bilateral knee arthroplasties. He underwent a total right knee arthroplasty in 2007 and a total left knee arthroplasty in 2008. He had been doing relatively well until he began noticing some increased pain in the left knee that he describes as burning and aching in nature. Right knee has occasional aching but he has noted the left knee is worse with ascending/descending steps getting up from a seated position and walking. Conservative measures to date have failed to provide relief of these new issues. He denies any recent trauma. He denies any fevers chills or systemic signs of illness. In addition to his left knee pain he is complaining of some right hip pain that is worse with ambulation. Any new injury, since being seen last: No Is there any overall improvement in your condition? No Does anything make it worse?: Yes, as noted above Does anything make it better?: No REVIEW OF SYSTEMS: General: No weight loss, malaise or fevers. Neurological: Positive for: headaches (+migraines, otc analgesics as needed). Negative for: cerebral palsy, HOME HEALTH SCHEDULER tumor, dementia, impaired sensorium, multiple sclerosis, Parkinson's disease, peripheral neuropathy, seizures, TIA and strokes. Respiratory: No history of current cough or dyspnea, or pneumonia in the past 6 weeks. No history of respiratory/pulmonary symptoms or problems. Cardiovascular: Positive for: hyperlipidemia (diet controlled) Negative for: abdominal aortic aneurysm, AICD/PPM, angina, anticoagulation therapy, arrhythmia, atrial fibrillation, CAD, chest pain, CHF, congenital heart defect, DVT/PE, hypertension, recent RI, murmur/valvular heart disease, PTCA, PVD, open heart surgery and valve surgery. GI: No history of GI symptoms or problems. No history of esophageal varices, recent ascites, or ETOH greater than 2 drinks per day. : No history of dysuria, frequency or incontinence, stones or chronic kidney disease. No difficulty urinating, nocturia > 1 time per night or hematuria. Endocrine: No history of diabetes. Has not taken steroids within the past 30 days. No history of endocrinological symptoms or problems. Hematology: No history of bleeding or clotting disorder. Patient is not taking anti-coagulation or platelet medications. No history of hematological symptoms or problems. Oncology: No history of CA metastasis, chemo within 30 days, or radiotherapy within 90 days. No history of oncological symptoms or problems. Psych: No history of psychiatric symptoms or problems. Musculoskeletal: See HPI. Positive for: joint pain (generalized). Skin: Negative for lesions, rash and itching. PAST MEDICAL HISTORY Diagnosis Date Ankle fracture, left Ear drum perforation Hyperlipidemia Other foreign body or object entering through skin, subsequent encounter left foot PAST SURGICAL HISTORY Procedure Laterality Date ARTHRP KNE CONDYLE&PLATU MEDIAL&LAT COMPARTMENTS rt-01/2008, lt-01/2009 Knee replacement, total bilateral REMV CATARACT EXTRACAP,INSERT LENS Bilateral 04/2023 Dr. Bee ( [facility] ) FAMILY HISTORY Problem Relation Age of Onset Colon Cancer Mother at age of 30 Cancer Father Breast Cancer Sister Cancer Maternal Grandmother at age 20 No Ocular Disease No Family History Social History Tobacco Use Smoking status: Never Smokeless tobacco: Never Vaping Use Vaping status: Never Used Substance Use Topics Alcohol use: Not Currently Drug use: Never Prior to Admission medications as of 01/19/25 1002 Medication Sig Last Dose Taking ibuprofen 200 mg tablet Take 800 mg by mouth every 8 hours as needed. Yes mupirocin (BACTROBAN) 2 % ointment Apply 0.5 inch with cotton swab (Q-tip) to each nostril in the morning and evening for 5 days prior to and including day of surgery. No medication comments found. ALLERGIES Allergen Reactions Celebrex [Celecoxib] Diarrhea Objective PHYSICAL EXAM: General: alert and oriented (x3) and healthy appearance. Pertinent negatives noted - not distressed. Skin: normal color, no rash or lesions. HEENT: EOM intact and pupils equal round. Pertinent negatives noted - no carotid bruit. Cardiovascular: regular rate and rhythm, normal S1 and S2, no rub, murmurs, or gallop. Pulse characterized as regular.Positive for murmur. Pertinent negatives noted - no rub and no gallop. Respiratory: normal breath sounds, no wheezes or crackles. No chest wall deformity or tenderness. Abdomen: soft. Pertinent negatives noted - not tender. Extremities: no deformity, no edema or tenderness, no joint swelling or clubbing. Neurological: normal cognition and motor skills. Gait normal. No weakness or sensory deficit. PAIN ASSESSMENT: VITALS: BP 136/66 Pulse 95 Temp (Src) 97.4 (Temporal) Resp 14 Ht 6' 5 (1.96m) Wt 237 lb (107.5kg) SpO2 96% BMI 28.10 kg/(m^2). Diagnostic tests reviewed for today's visit: Lab Value Units Date High Low HB No results within date range. HCT No results within date range. WBC No results within date range. PLT No results within date range. NA No results within date range. K No results within date range. GLUC No results within date range. BUN No results within date range. CREAT No results within date range. PTSEC No results within date range. INR No results within date range. APTT No results within date range. ALT No results within date range. AST No results within date range. TBILI No results within date range. TSH No results within date range. Lab Value Units Date High Low HCGQT No results within date range. UHCG No results within date range. HCG, BODY* No results within date range. Lab Value Units Date High Low ABORHD No results within date range. ABSCREEN No results within date range. No results found for: HBA1C No results found for this or any previous visit (from the past 8760 hours). No results found for this or any previous visit (from the past 31459 hours). Instructions Given to Patient: Instructions located in the after visit summary. Patient given verbal and written preop instructions and voices comprehension and compliance. SIGNATURE: Alayna Bojorquez APRN.CNP PATIENT NAME: Teresa Isaacs DATE: January 19, 2025 TIME: 9:27 AM PAGER/CONTACT #: [facility] 01-19-2025 History and physical note Images from the original note were not included. [facility] Pre-Anest[facility] Consultation Clinic HISTORY AND PHYSICAL EXAMINATION SERVICE DATE: 01/19/2025 SERVICE TIME: 10:03 AM PRIMARY CARE PHYSICIAN: Kamron Pate MD Assessment Patient has the following medical conditions which may affect veda-operative course: S/P total knee replacement using cement Assessment: right 2007, left 2008 Mixed hyperlipidemia Assessment: c/w statin Murmur Assessment: echo ordered, no known VHD Migraine headaches Assessment: otc analgesics as needed Patrick Activity Status Index: METS: Climb a flight of stairs or walk up a hill (5.50 METs) DASI Score: 5.5 Patient denies any chest pain or undue shortness of breath with the above physical activity. Clinical Frailty Scale: 2. Well STOP-Bang Score: Patient over 50 years old Male patient Denies snoring loudly Denies feeling tired, fatigued, or sleepy during the daytime Has not been observed to stop breathing or choking/gasping during sleep Denies having high blood pressure BMI less than or equal to 35 kg/m^2 Does not have a large neck STOP-Bang Score: 2 [id number] Score: Age: >=75 Sex: male CHF history: No Hypertension history: No Stroke/TIA/thromboembolism history: No Vascular disease history: No Diabetes history: No [id number] Score: 2 ARISCAT Score: Age: 51-80 Preoperative SpO2: >=96% Respiratory infection in the last month: No Preoperative anemia: No Surgical incision: peripheral Duration of surgery: 2-3 hrs Emergency procedure: No ARISCAT Score: 19 ANESTHESIA FINDINGS: Intubation History: No history of difficult intubation Significant Anesthesia Considerations: none Airway History: No history of difficult airway I - PHYSICAL EVALUATION AIRWAY Patient intubated: No. Tracheostomy tube not present Mallampati: III. TM distance: >3 FB. Neck ROM: full ROM without neurological symptoms. Mouth opening: adequate. Short neck: no. Thick neck: no Ortega present: no Lip Bite Test: I Microretrognathia/Micronagthia/Rec essed Chin: No DENTAL Dental findings: teeth intact. Additional comments: +crowns/back. II - ANESTHESIA PLAN Anesthetic Plan: other Beta Veda Monitoring Plan Post Procedure Analgesic Plan Prepared for Surgery: optimally prepared for surgery, pending [see comment]. Labs, EKG-reviewed, okay to proceed-LORETO echo (scheduled for this afternoon 01/19/2025) CONSULTS: Patient does not require consults for optimization at this time Planned Anesthetic: other anesthesia choice The Following Tests/Procedures Have Been Initiated: Orders Placed This Encounter >CBC + AUTO DIFF Standing Status: Future Expected Date: 01/19/2025 Expiration Date: 04/20/2025 >CMP Standing Status: Future Expected Date: 01/19/2025 Expiration Date: 04/20/2025 mupirocin (BACTROBAN) 2 % ointment Sig: Apply 0.5 inch with cotton swab (Q-tip) to each nostril in the morning and evening for 5 days prior to and including day of surgery. Dispense: 22 g Refill: 0 ECG COMPLETE Standing Status: Future Number of Occurrences: 1 Expiration Date: 01/19/2026 ECHO Standing Status: Future Expected Date: 01/19/2025 Expiration Date: 01/19/2026 Disease / Condition:: Murmur - initial evaluation when reasonable suspicion of valvular or structural heart disease REASON FOR VISIT: Teresa Isaacs is a 79 year old male who is scheduled for Procedure(s): REVISION JOINT TOTAL KNEE ONE COMPONENT (Left) at the request of Dr. Manny Dudley for consultation. My final recommendation will be communicated back to the requesting physician by way of shared medical record or letter. Subjective The patient has the following: COVID-19 Immunization Status Current Care Gaps Covid-19 Vaccine ( season) Overdue since 08/02/2024 11/29/2021 Imm Admin: COVID-19 original vaccine, age 12+ yr, monovalent (PFIZER-BIONTECH - PURPLE TOP) 02/23/2021 Imm Admin: COVID-19 original vaccine, age 12+ yr, monovalent (PFIZER-BIONTECH - PURPLE TOP) 02/02/2021 Imm Admin: COVID-19 original vaccine, age 12+ yr, monovalent (PFIZER-BIONTECH - PURPLE TOP) Only the first 3 history entries have been loaded, but more history exists. CHIEF COMPLAINT: Pre-op exam HPI: Teresa Isaacs is a 79 year old seen for PAC due to scheduled above surgery because of OA left knee. 12/11/2024, Dr. Manny Dudley Mr. Isaacs is here for follow-up of his bilateral knee arthroplasties. He underwent a total right knee arthroplasty in 2007 and a total left knee arthroplasty in 2008. He had been doing relatively well until he began noticing some increased pain in the left knee that he describes as burning and aching in nature. Right knee has occasional aching but he has noted the left knee is worse with ascending/descending steps getting up from a seated position and walking. Conservative measures to date have failed to provide relief of these new issues. He denies any recent trauma. He denies any fevers chills or systemic signs of illness. In addition to his left knee pain he is complaining of some right hip pain that is worse with ambulation. Any new injury, since being seen last: No Is there any overall improvement in your condition? No Does anything make it worse?: Yes, as noted above Does anything make it better?: No REVIEW OF SYSTEMS: General: No weight loss, malaise or fevers. Neurological: Positive for: headaches (+migraines, otc analgesics as needed). Negative for: cerebral palsy, HOME HEALTH SCHEDULER tumor, dementia, impaired sensorium, multiple sclerosis, Parkinson's disease, peripheral neuropathy, seizures, TIA and strokes. Respiratory: No history of current cough or dyspnea, or pneumonia in the past 6 weeks. No history of respiratory/pulmonary symptoms or problems. Cardiovascular: Positive for: hyperlipidemia (diet controlled) Negative for: abdominal aortic aneurysm, AICD/PPM, angina, anticoagulation therapy, arrhythmia, atrial fibrillation, CAD, chest pain, CHF, congenital heart defect, DVT/PE, hypertension, recent RI, murmur/valvular heart disease, PTCA, PVD, open heart surgery and valve surgery. GI: No history of GI symptoms or problems. No history of esophageal varices, recent ascites, or ETOH greater than 2 drinks per day. : No history of dysuria, frequency or incontinence, stones or chronic kidney disease. No difficulty urinating, nocturia > 1 time per night or hematuria. Endocrine: No history of diabetes. Has not taken steroids within the past 30 days. No history of endocrinological symptoms or problems. Hematology: No history of bleeding or clotting disorder. Patient is not taking anti-coagulation or platelet medications. No history of hematological symptoms or problems. Oncology: No history of CA metastasis, chemo within 30 days, or radiotherapy within 90 days. No history of oncological symptoms or problems. Psych: No history of psychiatric symptoms or problems. Musculoskeletal: See HPI. Positive for: joint pain (generalized). Skin: Negative for lesions, rash and itching. PAST MEDICAL HISTORY Diagnosis Date Ankle fracture, left Ear drum perforation Hyperlipidemia Other foreign body or object entering through skin, subsequent encounter left foot PAST SURGICAL HISTORY Procedure Laterality Date ARTHRP KNE CONDYLE&PLATU MEDIAL&LAT COMPARTMENTS rt-01/2008, lt-01/2009 Knee replacement, total bilateral REMV CATARACT EXTRACAP,INSERT LENS Bilateral 04/2023 Dr. Bee ( [facility] ) FAMILY HISTORY Problem Relation Age of Onset Colon Cancer Mother at age of 30 Cancer Father Breast Cancer Sister Cancer Maternal Grandmother at age 20 No Ocular Disease No Family History Social History Tobacco Use Smoking status: Never Smokeless tobacco: Never Vaping Use Vaping status: Never Used Substance Use Topics Alcohol use: Not Currently Drug use: Never Prior to Admission medications as of 01/19/25 1002 Medication Sig Last Dose Taking ibuprofen 200 mg tablet Take 800 mg by mouth every 8 hours as needed. Yes mupirocin (BACTROBAN) 2 % ointment Apply 0.5 inch with cotton swab (Q-tip) to each nostril in the morning and evening for 5 days prior to and including day of surgery. No medication comments found. ALLERGIES Allergen Reactions Celebrex [Celecoxib] Diarrhea Objective PHYSICAL EXAM: General: alert and oriented (x3) and healthy appearance. Pertinent negatives noted - not distressed. Skin: normal color, no rash or lesions. HEENT: EOM intact and pupils equal round. Pertinent negatives noted - no carotid bruit. Cardiovascular: regular rate and rhythm, normal S1 and S2, no rub, murmurs, or gallop. Pulse characterized as regular.Positive for murmur. Pertinent negatives noted - no rub and no gallop. Respiratory: normal breath sounds, no wheezes or crackles. No chest wall deformity or tenderness. Abdomen: soft. Pertinent negatives noted - not tender. Extremities: no deformity, no edema or tenderness, no joint swelling or clubbing. Neurological: normal cognition and motor skills. Gait normal. No weakness or sensory deficit. PAIN ASSESSMENT: VITALS: BP 136/66 Pulse 95 Temp (Src) 97.4 (Temporal) Resp 14 Ht 6' 5 (1.96m) Wt 237 lb (107.5kg) SpO2 96% BMI 28.10 kg/(m^2). Diagnostic tests reviewed for today's visit: Lab Value Units Date High Low HB No results within date range. HCT No results within date range. WBC No results within date range. PLT No results within date range. NA No results within date range. K No results within date range. GLUC No results within date range. BUN No results within date range. CREAT No results within date range. PTSEC No results within date range. INR No results within date range. APTT No results within date range. ALT No results within date range. AST No results within date range. TBILI No results within date range. TSH No results within date range. Lab Value Units Date High Low HCGQT No results within date range. UHCG No results within date range. HCG, BODY* No results within date range. Lab Value Units Date High Low ABORHD No results within date range. ABSCREEN No results within date range. No results found for: HBA1C No results found for this or any previous visit (from the past 8760 hours). No results found for this or any previous visit (from the past 03845 hours). Instructions Given to Patient: Instructions located in the after visit summary. Patient given verbal and written preop instructions and voices comprehension and compliance. SIGNATURE: Alayna Bojorquez APRN.CNP PATIENT NAME: Teresa Isaacs DATE: January 19, 2025 TIME: 9:27 AM PAGER/CONTACT #: documented in this encounter [facility] 12-11-2024 Note HNO ID: [id number] Author: MANNY DUDLEY MD Service: ? Author Type: Physician Type: Progress Notes Filed: 01/08/2025 18:19 Note Text: REASON FOR VISIT / CHIEF COMPLAINT CHIEF COMPLAINT: Teresa Isaacs is a 79 year old male who presents today for follow up office visit. Patient presents with: Left Knee - Established Patient, Follow Up, Knee Pain, Knee Replacement Right Knee - Established Patient, Follow Up, Knee Pain, Knee Replacement HISTORY OF PRESENT ILLNESS (HPI) PAIN EVALUATION 12/09/2024 0151 12/11/2024 1442 Pain Level: 4 -- Pain Location: Knee-Left -- bilateral knee, left worse than right Description: Burning Burning;Aching Duration Amount of Time: -- -- pain started around Aug 2024 Frequency: Intermittent Intermittent Intervention/Comfort measure: -- Imagery;Medication ibuprofen Mr. Isaacs is here for follow-up of his bilateral knee arthroplasties. He underwent a total right knee arthroplasty in 2007 and a total left knee arthroplasty in 2008. He had been doing relatively well until he began noticing some increased pain in the left knee that he describes as burning and aching in nature. Right knee has occasional aching but he has noted the left knee is worse with ascending/descending steps getting up from a seated position and walking. Conservative measures to date have failed to provide relief of these new issues. He denies any recent trauma. He denies any fevers chills or systemic signs of illness. In addition to his left knee pain he is complaining of some right hip pain that is worse with ambulation. Any new injury, since being seen last: No Is there any overall improvement in your condition? No Does anything make it worse?: Yes, as noted above Does anything make it better?: No REVIEW OF SYMPTOMS: Integumentary: Any recent skin changes or rashes? No Neurologic: Any numbness or tingling in the LOCAL AREA? No Endocrine: Any diagnosis of diabetes? No Hematologic: Any recent bleeding episodes? No ALLERGIES ALLERGIES Allergen Reactions Celebrex [Celecoxib] Diarrhea PAST MEDICAL HISTORY No past medical history on file. PAST SURGICAL HISTORY Procedure Laterality Date ARTHRP KNE CONDYLEANDPLATU MEDIALANDLAT COMPARTMENTS rt-01/2008, lt-01/2009 Knee replacement, total bilateral REMV CATARACT EXTRACAP,INSERT LENS Bilateral 04/2023 Dr. Bee ( [facility] ) PHYSICAL EXAMINATION Vitals: There were no vitals taken for this visit. Body Habitus:no acute distress and alert and oriented Orientation: Normal: Oriented to person, place and time Psych: normal Sensation: sensation to light touch is grossly normal bilaterally Skin: Color, texture, turgor normal. No rashes or lesions Swelling: no swelling noted Stance: normal cervical posture, shoulder alignment, and no joint deformities or swelling noted Ortho Exam Left knee with well-healed surgical incision Mild effusion Positive crepitance at the patellofemoral joint Mild laxity to valgus stress Left leg neurovascularly intact Right hip exam shows no decreased range of motion to internal/external rotation No reproducible groin pain Right leg neurovascularly intact Imaging : XR HIP GENERAL 3V PELV/AP/LAT RIGHT Narrative: * * *Final Report* * * DATE OF EXAM: Dec 11 2024 3:57PM L[facility] 5352 - XR HIP 3V PELV+ AP/LAT RT / PROCEDURE REASON: [id number] * * * * Physician Interpretation * * * * PROCEDURE: Pelvis and right hip INDICATION: Pain .sharp lateral right hip pain 1 week ago, no injury TECHNIQUE: XR HIP 3V PELV+ AP/LAT RT COMPARISON: None FINDINGS: Mesh clips most consistent with prior right herniorrhaphy. Mild bilateral hip osteoarthrosis. Sacroiliac joints and symphysis pubis are maintained. Degenerative change in the lower lumbar spine. No fracture or dislocation. Impression: IMPRESSION: Degenerative changes Sox Analyst: HENNY Transcribe Date/Time: Dec 13 2024 9:40A Dictated by : DUARTE CEDENO MD This examination was interpreted and the report reviewed and electronically signed by: DUARTE CEDENO MD on Dec 13 2024 9:41AM EST XR KNEE POST OP 3V AP/LAT/MERCHANT BILATERAL Narrative: * * *Final Report* * * DATE OF EXAM: Dec 11 2024 2:30PM L[facility] 5635 - XR KNEE 3V AP/LAT/PARK OTSHIA / PROCEDURE REASON: multiple diagnoses * * * * Physician Interpretation * * * * PROCEDURE: Bilateral knees INDICATION: Chronic pain of both knees .Pt states that every now an then he has a burning pain through his left knee, and states that with his right knee after he makes multiple trips up and down stairs he starts to feel the pain throughout his right knee TECHNIQUE: XR KNEE 3V AP/LAT/PARK TOSHIA COMPARISON: 01/07/2023 FINDINGS: Bilateral total knee arthroplasties without patellar resurfacing remain in satisfactory position. No periprosthetic lucency or fracture. No joint effusion. Probable joint bodies, particularl (more content not included)... [facility] 12-11-2024 History of Present illness Narrative Images from the original note were not included. REASON FOR VISIT / CHIEF COMPLAINT CHIEF COMPLAINT: Teresa Isaacs is a 79 year old male who presents today for follow up office visit. Patient presents with: Left Knee - Established Patient, Follow Up, Knee Pain, Knee Replacement Right Knee - Established Patient, Follow Up, Knee Pain, Knee Replacement HISTORY OF PRESENT ILLNESS (HPI) PAIN EVALUATION 12/09/2024 0151 12/11/2024 1442 Pain Level: 4 -- Pain Location: Knee-Left -- bilateral knee, left worse than right Description: Burning Burning;Aching Duration Amount of Time: -- -- pain started around Aug 2024 Frequency: Intermittent Intermittent Intervention/Comfort measure: -- Imagery;Medication ibuprofen Mr. Isaacs is here for follow-up of his bilateral knee arthroplasties. He underwent a total right knee arthroplasty in 2007 and a total left knee arthroplasty in 2008. He had been doing relatively well until he began noticing some increased pain in the left knee that he describes as burning and aching in nature. Right knee has occasional aching but he has noted the left knee is worse with ascending/descending steps getting up from a seated position and walking. Conservative measures to date have failed to provide relief of these new issues. He denies any recent trauma. He denies any fevers chills or systemic signs of illness. In addition to his left knee pain he is complaining of some right hip pain that is worse with ambulation. Any new injury, since being seen last: No Is there any overall improvement in your condition? No Does anything make it worse?: Yes, as noted above Does anything make it better?: No REVIEW OF SYMPTOMS: Integumentary: Any recent skin changes or rashes? No Neurologic: Any numbness or tingling in the LOCAL AREA? No Endocrine: Any diagnosis of diabetes? No Hematologic: Any recent bleeding episodes? No ALLERGIES ALLERGIES Allergen Reactions Celebrex [Celecoxib] Diarrhea PAST MEDICAL HISTORY No past medical history on file. PAST SURGICAL HISTORY Procedure Laterality Date ARTHRP KNE CONDYLE&PLATU MEDIAL&LAT COMPARTMENTS rt-01/2008, lt-01/2009 Knee replacement, total bilateral REMV CATARACT EXTRACAP,INSERT LENS Bilateral 04/2023 Dr. Bee ( [facility] ) PHYSICAL EXAMINATION Vitals: There were no vitals taken for this visit. Body Habitus:no acute distress and alert and oriented Orientation: Normal: Oriented to person, place and time Psych: normal Sensation: sensation to light touch is grossly normal bilaterally Skin: Color, texture, turgor normal. No rashes or lesions Swelling: no swelling noted Stance: normal cervical posture, shoulder alignment, and no joint deformities or swelling noted Ortho Exam Left knee with well-healed surgical incision Mild effusion Positive crepitance at the patellofemoral joint Mild laxity to valgus stress Left leg neurovascularly intact Right hip exam shows no decreased range of motion to internal/external rotation No reproducible groin pain Right leg neurovascularly intact Imaging : XR HIP GENERAL 3V PELV/AP/LAT RIGHT Narrative: * * *Final Report* * * DATE OF EXAM: Dec 11 2024 3:57PM [facility]352 - XR HIP 3V PELV+ AP/LAT RT / PROCEDURE REASON: [id number] * * * * Physician Interpretation * * * * PROCEDURE: Pelvis and right hip INDICATION: Pain .sharp lateral right hip pain 1 week ago, no injury TECHNIQUE: XR HIP 3V PELV+ AP/LAT RT COMPARISON: None FINDINGS: Mesh clips most consistent with prior right herniorrhaphy. Mild bilateral hip osteoarthrosis. Sacroiliac joints and symphysis pubis are maintained. Degenerative change in the lower lumbar spine. No fracture or dislocation. Impression: IMPRESSION: Degenerative changes Sox Analyst: HENNY Transcribe Date/Time: Dec 13 2024 9:40A Dictated by : DUARTE CEDENO MD This examination was interpreted and the report reviewed and electronically signed by: DUARTE CEDENO MD on Dec 13 2024 9:41AM EST XR KNEE POST OP 3V AP/LAT/MERCHANT BILATERAL Narrative: * * *Final Report* * * DATE OF EXAM: Dec 11 2024 2:30PM L[facility] 5635 - XR KNEE 3V AP/LAT/PARK TOSHIA / PROCEDURE REASON: multiple diagnoses * * * * Physician Interpretation * * * * PROCEDURE: Bilateral knees INDICATION: Chronic pain of both knees .Pt states that every now an then he has a burning pain through his left knee, and states that with his right knee after he makes multiple trips up and down stairs he starts to feel the pain throughout his right knee TECHNIQUE: XR KNEE 3V AP/LAT/PARK TOSHIA COMPARISON: 01/07/2023 FINDINGS: Bilateral total knee arthroplasties without patellar resurfacing remain in satisfactory position. No periprosthetic lucency or fracture. No joint effusion. 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 We have discussed the various treatment options including nonoperative treatment with NSAIDs and independent exercise program versus patellar resurfacing and if necessary revision of tibial polyethylene insert. Risk goals complications of the procedure including but not limited to anesthetic complications, infection, DVT, recurrent knee pain and stiffness were all explained he understood and would like to proceed with revision of the left knee as outlined above 2. Mild right hip osteoarthritis. Will recommend we continue with nonoperative treatment including NSAIDs as needed and activity modification Plan: 1. Schedule for resurfacing of patella and tibial polyethylene insert exchange 2. Follow-up postop Manny Dudley M.D. Department of Orthopaedic Surgery [facility] documented in this encounter [facility] 12-11-2024 History of Present illness Narrative Radiology Service Progress Note PATIENT NAME: Teresa Isaacs DATE OF SERVICE: December 11, 2024 TIME: 2:30 PM PATIENT IDENTITY VERIFICATION COMPLETED USING TWO (2) IDENTIFIERS: Name and Date of confirmed by patient verbally. FALL SCREENING: Has the patient had 2 falls in the last year or 1 fall with injury or currently using an Ambulatory Assistive Device (Walker, Cane, Wheelchair, Crutches, etc.)? No PATIENT GENDER DATA: Assigned male at PATIENT RELEVANT IMPLANT DATA REVIEWED: Not Applicable PATIENT PRESENTS WITH AN IMPLANTABLE OR ATTACHED RN CASE MGR: No RADIOLOGY DEPARTMENT: General X-ray: Exam(s) Completed: Lower Extremity X-Ray(s): Knee, AP / Lat / Merchant Bilateral and Wt. Bearing PERIPHERAL IV DATA: Not applicable SIGNED BY: Judith Felix December 11, 2024 2:30 PM Radiology Service Progress Note PATIENT NAME: Teresa Isaacs DATE OF SERVICE: December 11, 2024 TIME: 3:44 PM PATIENT IDENTITY VERIFICATION COMPLETED USING TWO (2) IDENTIFIERS: Name and Date of confirmed by patient verbally. FALL SCREENING: Has the patient had 2 falls in the last year or 1 fall with injury or currently using an Ambulatory Assistive Device (Walker, Cane, Wheelchair, Crutches, etc.)? No PATIENT GENDER DATA: Assigned male at PATIENT RELEVANT IMPLANT DATA REVIEWED: Not Applicable PATIENT PRESENTS WITH AN IMPLANTABLE OR ATTACHED RN CASE MGR: No RADIOLOGY DEPARTMENT: General X-ray: Exam(s) Completed: Pelvis X-Ray: Pelvis with Hip Right and Wt. Bearing PERIPHERAL IV DATA: Not applicable SIGNED BY: ASIYA Monzon) December 11, 2024 3:44 PM documented in this encounter [facility] 12-11-2024 Note HNO ID: [id number] Author: ANIKA HSIEH RT (R) Service: ? Author Type: Technologist Type: Progress Notes Filed: 12/11/2024 15:57 Note Text: Radiology Service Progress Note PATIENT NAME: Teresa Isaacs DATE OF SERVICE: December 11, 2024 TIME: 3:44 PM PATIENT IDENTITY VERIFICATION COMPLETED USING TWO (2) IDENTIFIERS: Name and Date of confirmed by patient verbally. FALL SCREENING: Has the patient had 2 falls in the last year or 1 fall with injury or currently using an Ambulatory Assistive Device (Walker, Cane, Wheelchair, Crutches, etc.)? No PATIENT GENDER DATA: Assigned male at PATIENT RELEVANT IMPLANT DATA REVIEWED: Not Applicable PATIENT PRESENTS WITH AN IMPLANTABLE OR ATTACHED RN CASE MGR: No RADIOLOGY DEPARTMENT: General X-ray: Exam(s) Completed: Pelvis X-Ray: Pelvis with Hip Right and Wt. Bearing PERIPHERAL IV DATA: Not applicable SIGNED BY: Anika Hsieh RT(R) December 11, 2024 3:44 PM [facility] 12-11-2024 Note HNO ID: [id number] Author: ETTA GARNICA Tech Service: Radiology Author Type: Sharepoint Engineer Type: Progress Notes Filed: 12/11/2024 14:30 Note Text: Radiology Service Progress Note PATIENT NAME: Teresa Isaacs DATE OF SERVICE: December 11, 2024 TIME: 2:30 PM PATIENT IDENTITY VERIFICATION COMPLETED USING TWO (2) IDENTIFIERS: Name and Date of confirmed by patient verbally. FALL SCREENING: Has the patient had 2 falls in the last year or 1 fall with injury or currently using an Ambulatory Assistive Device (Walker, Cane, Wheelchair, Crutches, etc.)? No PATIENT GENDER DATA: Assigned male at PATIENT RELEVANT IMPLANT DATA REVIEWED: Not Applicable PATIENT PRESENTS WITH AN IMPLANTABLE OR ATTACHED RN CASE MGR: No RADIOLOGY DEPARTMENT: General X-ray: Exam(s) Completed: Lower Extremity X-Ray(s): Knee, AP / Lat / Merchant Bilateral and Wt. Bearing PERIPHERAL IV DATA: Not applicable SIGNED BY: Judith Felix December 11, 2024 2:30 PM [facility] 10-19-2024 Telephone encounter Note Prescription Refill Information The patient has been identified by name and date of : Yes Requested Prescriptions Pending Prescriptions Disp Refills Amoxicillin 500 mg tablet 4 tablet 3 Sig: Take 4 tablets by mouth one time only for 1 dose. Take 4 capsules by mouth one hour prior to dental cleaning/procedure Yolanda Hahn [facility] October 19, 2024 9:32 AM [facility] 10-19-2024 Miscellaneous Notes Prescription Refill Information The patient has been identified by name and date of : Yes Requested Prescriptions Pending Prescriptions Disp Refills Amoxicillin 500 mg tablet 4 tablet 3 Sig: Take 4 tablets by mouth one time only for 1 dose. Take 4 capsules by mouth one hour prior to dental cleaning/procedure Yolanda Maldonado October 19, 2024 9:32 AM documented in this encounter [facility] 10-07-2024 History of Present illness Narrative Images from the original note were not included. [facility] [id number] [facility] [id number] Visit type: Established Patient Reason for Visit: Ear Problem (Est pt here today with complaints of Left Ear Otorrhea. Pt denies any of the following: Dizziness, Otalgia, Nausea/vomiting, fever/chills. Pt does admit to having Tinnitus many, many years. Pt normally wears hearing aids but since Sept with the ear drainage he only uses sparingly. Pt states right ear itches. Pt denies any ear/head trauma ) and Sore Throat (Sore throat x 6 days. Pt also experiencing a productive cough with yellow sputum. Pt states that he is experiencing sinus symptoms. Pt denies any frontal or maxillary sinus pain/pressure. Pt denies any Ear Pressure as well. ) Assessment and Plan 1. Acute bacterial sinusitis (Primary) Not controlled -add ear drops as well -call in 5 days if not improved - amoxicillin-clavulanate (Augmentin) 875-125 MG tablet; Take 1 tablet by mouth 2 times daily for 7 days. Dispense: 14 tablet; Refill: [address] for 5 days. Home covid testing yesterday. Coughing up yellow sputum. Sinus congestion. No NVFC. Energy is fine. Ear drainage. Left ear. This did get better from last OV here, 08/24/24. Clear liquid. Not as bad. No GI symptoms. Appetite is good. Occasional ibuprofen. Remote L ear perforation and repair Review of Systems As above Allergies Allergen Reactions Celecoxib Diarrhea Outpatient Medications Prior to Visit Medication Sig Dispense Refill ibuprofen 200 MG tablet Take 200 mg by mouth every 6 hours as needed. No facility-administered medications prior to visit. Past Medical History: Diagnosis Date Arthritis BPH without urinary obstruction Dizziness GERD (gastroesophageal reflux disease) Hypercholesterolemia Hyperlipidemia Hypertension Low back pain Migraine Neck pain Numbness Osteoarthritis Palpitations Social History Socioeconomic History Marital status: Tobacco Use Smoking status: Never Passive exposure: Never Smokeless tobacco: Never Vaping Use Vaping status: Never Used Substance and Sexual Activity Alcohol use: Not Currently Drug use: No Social Drivers of Health Financial Resource Strain: Low Risk (03/30/2024) Overall Financial Resource Strain (CARDIA) Difficulty of Paying Living Expenses: Not hard at all Food Insecurity: No Food Insecurity (03/30/2024) Hunger Vital Sign Worried About Running Out of Food in the Last Year: Never true Ran Out of Food in the Last Year: Never true Transportation Needs: No Transportation Needs (03/30/2024) PRAPARE - Transportation Lack of Transportation (Medical): No Lack of Transportation (Non-Medical): No Physical Activity: Sufficiently Active (03/30/2024) Exercise Vital Sign Days of Exercise per Week: 5 days Minutes of Exercise per Session: 50 min Stress: No Stress Concern Present (03/30/2024) [place] [place] [employer] - Occupational Stress Questionnaire Feeling of Stress : Not at all Social Connections: Moderately Isolated (03/30/2024) Social Connection and Isolation Panel [NHANES] Frequency of Communication with Friends and Family: Once a week Frequency of Social Gatherings with Friends and Family: Twice a week Attends Sikh Services: Never Active Member of Clubs or Organizations: No Attends Club or Organization Meetings: Never Marital Status: Intimate Partner Violence: Not At Risk (03/30/2024) Humiliation, Afraid, Rape, and Kick questionnaire Fear of Current or Ex-Partner: No Emotionally Abused: No Physically Abused: No Sexually Abused: No Housing Stability: Low Risk (03/30/2024) Housing Stability Vital Sign Unable to Pay for Housing in the Last Year: No Number of Places Lived in the Last Year: 1 Unstable Housing in the Last Year: No Past Surgical History: Procedure Laterality Date ANKLE ARTHROSCOPY (HISTORICAL) 12 03 2014 LT COLONOSCOPY 03 30 2011 benign appearing colon nodules; see report HERNIA REPAIR 07 21 2012 inguinal hernia JOINT REPLACEMENT TOSHIA TKA TONSILLECTOMY AND ADENOIDECTOMY (HISTORICAL) Past Surgical History: Procedure Laterality Date ANKLE ARTHROSCOPY (HISTORICAL) 12 03 2014 LT COLONOSCOPY 03 30 2011 benign appearing colon nodules; see report HERNIA REPAIR 07 21 2012 inguinal hernia JOINT REPLACEMENT TOSHIA TKA TONSILLECTOMY AND ADENOIDECTOMY (HISTORICAL) Family History Problem Relation Name Age of Onset Cancer Mother intestinal ; at 32 Cancer Father Cancer Maternal Grandmother No Known Problems Son No Known Problems Paternal Grandmother No Known Problems Sister No Known Problems Maternal Grandfather No Known Problems Sister No Known Problems Son Heart disease Brother valvular heart disease Other ([id number]) Brother from drowning No Known Problems Son Cancer Sister No Known Problems Paternal Grandfather Heart disease Sister Heart disease Father No Known Problems Daughter Objective BP 137/88 (BP Location: Right arm, Patient Position: Sitting, BP Cuff Size: Large adult) Pulse 57 Temp 36.9 C (98.4 F) (Oral) Resp 18 Ht 6' 5 (1.956 m) Wt 235 lb (107 kg) SpO2 97% BMI 27.87 kg/m Patient Weight 10/07/24 235 lb (107 kg) 08/24/24 234 lb (106 kg) 03/30/24 240 lb (109 kg) Physical Exam Vitals and nursing note reviewed. Constitutional: General: He is not in acute distress. Appearance: Normal appearance. He is not ill-appearing, toxic-appearing or diaphoretic. HENT: Head: Normocephalic and atraumatic. Right Ear: Tympanic membrane, ear canal and external ear normal. Left Ear: Ear canal and external ear normal. Tympanic membrane is scarred and erythematous. Ears: Comments: Left canal little moist Nose: Nose normal. Mouth/Throat: Mouth: Mucous membranes are moist. Pharynx: Oropharynx is clear. Eyes: General: Right eye: No discharge. Left eye: No discharge. Extraocular Movements: Extraocular movements intact. Conjunctiva/sclera: Conjunctivae normal. Pupils: Pupils are equal, round, and reactive to light. Cardiovascular: Rate and Rhythm: Normal rate and regular rhythm. Heart sounds: No murmur heard. Pulmonary: Effort: Pulmonary effort is normal. No respiratory distress. Breath sounds: Normal breath sounds. No wheezing. Abdominal: General: Bowel sounds are normal. There is no distension. Palpations: There is no mass. Tenderness: There is no abdominal tenderness. Musculoskeletal: Cervical back: Normal range of motion and neck supple. Skin: Findings: No rash. Neurological: Mental Status: He is alert and oriented to person, place, and time. Psychiatric: Mood and Affect: Mood normal. Behavior: Behavior normal. Thought Content: Thought content normal. Judgment: Judgment normal. Chart Clean Up: There are no discontinued medications. Kamron Pate MD 10/07/2024 11:05 AM documented in this encounter [facility] 10-07-2024 Telephone encounter Note S: Patient spoke with [facility] nurse regarding multiple sx B: Onset of symptoms/concern 08/25/2024 A: Patient c/o new onset of sore throat 5/10, yellow phlegm, runny nose, left ear draining clear liquid. Home test is neg for COVID. Denies ear pain. Denies fatigue or loss of appetite. DANK: 08/25/2024 NOV: 04/02/2025 R: Nurse scheduled appointment for 10/07/2024 1040 with Graciela Pate MD. Insurance verified. Patient instructed to arerive 156 mins early with med list, photo ID, copay and insurance card. Patient understands home care advice. No further needs at this time. Patient instructed to call back with new or worsening symptoms. Reason for Disposition Patient wants to be seen Answer Assessment - Initial Assessment Questions 1. LOCATION: Which ear is involved? Left 2. COLOR: What is the color of the discharge? clear 3. CONSISTENCY: How runny is the discharge? Could it be water? water 4. ONSET: When did you first notice the discharge? 08/24/2024 5. PAIN: Is there any earache? How bad is it? (Scale 0-10; none, mild, moderate or severe) 0/10 6. OBJECTS: Have you put anything in your ear? (e.g., Q-tip, other object) no 7. OTHER SYMPTOMS: Do you have any other symptoms? (e.g., headache, fever, dizziness, vomiting, runny nose) Runny nose yellow 8. : Is there any chance you are ? When was your last menstrual period? N/A Protocols used: Ear - [id number] [facility] 10-07-2024 Miscellaneous Notes S: Patient spoke with [facility] nurse regarding multiple sx B: Onset of symptoms/concern 08/25/2024 A: Patient c/o new onset of sore throat 5/10, yellow phlegm, runny nose, left ear draining clear liquid. Home test is neg for COVID. Denies ear pain. Denies fatigue or loss of appetite. DANK: 08/25/2024 NOV: 04/02/2025 R: Nurse scheduled appointment for 10/07/2024 1040 with Graciela Pate MD. Insurance verified. Patient instructed to arerive 156 mins early with med list, photo ID, copay and insurance card. Patient understands home care advice. No further needs at this time. Patient instructed to call back with new or worsening symptoms. Reason for Disposition Patient wants to be seen Answer Assessment - Initial Assessment Questions 1. LOCATION: Which ear is involved? Left 2. COLOR: What is the color of the discharge? clear 3. CONSISTENCY: How runny is the discharge? Could it be water? water 4. ONSET: When did you first notice the discharge? 08/24/2024 5. PAIN: Is there any earache? How bad is it? (Scale 0-10; none, mild, moderate or severe) 0/10 6. OBJECTS: Have you put anything in your ear? (e.g., Q-tip, other object) no 7. OTHER SYMPTOMS: Do you have any other symptoms? (e.g., headache, fever, dizziness, vomiting, runny nose) Runny nose yellow 8. : Is there any chance you are ? When was your last menstrual period? N/A Protocols used: Ear - [id number] documented in this encounter [facility] 08-24-2024 History of Present illness Narrative During rooming, patient was asked if they would like a flu shot. He declined. Images from the original note were not included. [facility] [id number] [place] [place] [facility] [id number] Visit type: Established Patient Reason for Visit: Ear Drainage (Pt states for the past 2 weeks has been experiencing bilateral clear ear drainage, feeling plugged, itching, hearing loss, and 2 nose bleeds. Denies ear pain, headache, runny nose or fever. ) Assessment and Plan Otorrhea of both ears Mild -trial topical abx/steroid -let us know if not effective after course. - ciprofloxacin-hydrocortisone (Cipro HC Otic) otic suspension; Administer 3 drops into each ear 2 times daily for 7 days. Dispense: 10 mL; Refill: 0 Subjective HPI Ear drainage for 2 weeks. Watery. Flaky residue. No pain. Hearing ok. Itches. Mild runny nose and left nares bleeds at times but this is not unusual for him. No TAFOYA, NVFC, ST, cough. Feels fine. Wears hearing aids but has not for 2 wks since this started. Review of Systems Allergies Allergen Reactions Celecoxib Diarrhea Outpatient Medications Prior to Visit Medication Sig Dispense Refill ibuprofen 200 MG tablet Take 200 mg by mouth every 6 hours as needed. No facility-administered medications prior to visit. Past Medical History: Diagnosis Date Arthritis BPH without urinary obstruction Dizziness GERD (gastroesophageal reflux disease) Hypercholesterolemia Hyperlipidemia Hypertension Low back pain Migraine Neck pain Numbness Osteoarthritis Palpitations Social History Socioeconomic History Marital status: Tobacco Use Smoking status: Never Passive exposure: Never Smokeless tobacco: Never Vaping Use Vaping status: Never Used Substance and Sexual Activity Alcohol use: Not Currently Drug use: No Social Determinants of Health Financial Resource Strain: Low Risk (03/30/2024) Overall Financial Resource Strain (CARDIA) Difficulty of Paying Living Expenses: Not hard at all Food Insecurity: No Food Insecurity (03/30/2024) Hunger Vital Sign Worried About Running Out of Food in the Last Year: Never true Ran Out of Food in the Last Year: Never true Transportation Needs: No Transportation Needs (03/30/2024) PRAPARE - Transportation Lack of Transportation (Medical): No Lack of Transportation (Non-Medical): No Physical Activity: Sufficiently Active (03/30/2024) Exercise Vital Sign Days of Exercise per Week: 5 days Minutes of Exercise per Session: 50 min Stress: No Stress Concern Present (03/30/2024) [place] [place] [employer] - Occupational Stress Questionnaire Feeling of Stress : Not at all Social Connections: Moderately Isolated (03/30/2024) Social Connection and Isolation Panel [NHANES] Frequency of Communication with Friends and Family: Once a week Frequency of Social Gatherings with Friends and Family: Twice a week Attends Sikh Services: Never Active Member of Clubs or Organizations: No Attends Club or Organization Meetings: Never Marital Status: Intimate Partner Violence: Not At Risk (03/30/2024) Humiliation, Afraid, Rape, and Kick questionnaire Fear of Current or Ex-Partner: No Emotionally Abused: No Physically Abused: No Sexually Abused: No Housing Stability: Low Risk (03/30/2024) Housing Stability Vital Sign Unable to Pay for Housing in the Last Year: No Number of Places Lived in the Last Year: 1 Unstable Housing in the Last Year: No Past Surgical History: Procedure Laterality Date ANKLE ARTHROSCOPY (HISTORICAL) 12 03 2014 LT COLONOSCOPY 03 30 2011 benign appearing colon nodules; see report HERNIA REPAIR 07 21 2012 inguinal hernia JOINT REPLACEMENT TOSHIA TKA TONSILLECTOMY AND ADENOIDECTOMY (HISTORICAL) Past Surgical History: Procedure Laterality Date ANKLE ARTHROSCOPY (HISTORICAL) 12 03 2014 LT COLONOSCOPY 03 30 2011 benign appearing colon nodules; see report HERNIA REPAIR 07 21 2012 inguinal hernia JOINT REPLACEMENT TOSHIA TKA TONSILLECTOMY AND ADENOIDECTOMY (HISTORICAL) Family History Problem Relation Name Age of Onset Cancer Mother intestinal ; at 32 Cancer Father Cancer Maternal Grandmother No Known Problems Son No Known Problems Paternal Grandmother No Known Problems Sister No Known Problems Maternal Grandfather No Known Problems Sister No Known Problems Son Heart disease Brother valvular heart disease Other ([id number]) Brother from drowning No Known Problems Son Cancer Sister No Known Problems Paternal Grandfather Heart disease Sister Heart disease Father No Known Problems Daughter Objective BP 124/83 (BP Location: Left arm) Pulse 96 Temp 36.7 C (98.1 F) Ht 6' 5 (1.956 m) Wt 234 lb (106 kg) SpO2 99% BMI 27.75 kg/m Patient Weight 08/24/24 234 lb (106 kg) 03/30/24 240 lb (109 kg) 01/09/23 233 lb (106 kg) Physical Exam Nursing note reviewed. Constitutional: General: He is not in acute distress. Appearance: Normal appearance. He is not ill-appearing. HENT: Right Ear: Tympanic membrane and external ear normal. No decreased hearing noted. No swelling. There is no impacted cerumen. No hemotympanum. Tympanic membrane is not injected or retracted. Left Ear: Tympanic membrane and external ear normal. No decreased hearing noted. No swelling. There is no impacted cerumen. No hemotympanum. Tympanic membrane is not injected or retracted. Ears: Comments: Canals little moist only. Pulmonary: Comments: Normal speaking effort Neurological: Mental Status: He is alert. Psychiatric: Mood and Affect: Mood normal. Behavior: Behavior normal. Thought Content: Thought content normal. Judgment: Judgment normal. Chart Clean Up: There are no discontinued medications. Kamron Pate MD 08/24/2024 3:28 PM documented in this encounter [facility] 08-24-2024 Telephone encounter Note S: Patient spoke with [facility] nurse regarding ear problem B: Onset of symptoms/concern 2 weeks A: Patient reports he has had a clear liquid coming out of his ears, causing a reduction in hearing. Also reports the left side of nares will occasionally bleed. Denies fevers, ear pain. R: Insurance verified, appointment scheduled with Dr Pate Advised to arrive 15 minutes early, bring photo ID, list of medications and insurance card. Covid screen negative. No further needs at this time. Patient instructed to call back with new or worsening symptoms. Reason for Disposition Clear drainage (not from a head injury) and persists > 24 hours Protocols used: Ear - [id number] [facility] 08-24-2024 Miscellaneous Notes S: Patient spoke with [facility] nurse regarding ear problem B: Onset of symptoms/concern 2 weeks A: Patient reports he has had a clear liquid coming out of his ears, causing a reduction in hearing. Also reports the left side of nares will occasionally bleed. Denies fevers, ear pain. R: Insurance verified, appointment scheduled with Dr Pate Advised to arrive 15 minutes early, bring photo ID, list of medications and insurance card. Covid screen negative. No further needs at this time. Patient instructed to call back with new or worsening symptoms. Reason for Disposition Clear drainage (not from a head injury) and persists > 24 hours Protocols used: Ear - [id number] documented in this encounter [facility] 08-14-2024 Note HNO ID: [id number] Author: ALMA SANCHEZ OD Service: ? Author Type: AUTO JOB ESTIMATOR Type: Progress Notes Filed: 08/14/2024 09:00 Note Text: 1. Pseudophakia of both eyes 2. Myopia, bilateral 3. Regular astigmatism of both eyes 4. Presbyopia Continue with current glasses - doing well Good posterior ocular health both eyes 5. Meibomian gland dysfunction (MGD) of upper and lower lids of both eyes Recommend warm compresses as needed Follow-up in 1 year for complete eye exam or sooner as needed Alma Sanchez, VEE August 14, 2024 8:59 AM [facility] 08-14-2024 History of Present illness Narrative 1. Pseudophakia of both eyes 2. Myopia, bilateral 3. Regular astigmatism of both eyes 4. Presbyopia Continue with current glasses - doing well Good posterior ocular health both eyes 5. Meibomian gland dysfunction (MGD) of upper and lower lids of both eyes Recommend warm compresses as needed Follow-up in 1 year for complete eye exam or sooner as needed Alma Sanchez OD August 14, 2024 8:59 AM documented in this encounter [facility] 03-30-2024 History of Present illness Narrative Images from the original note were not included. [facility] [id number] [place] [place] [id number] Dept: [phone] Dept 1. Routine general medical examination at health care facility Doing well. -Encouraged healthy lifestyle, exercise and diet. To obtain and maintain health weight. 2. Hypercholesterolemia He stopped statin Given >75 reasonable to stay off for primary prevention 3. White coat syndrome without hypertension Controlled well today 4. Gastroesophageal reflux disease without esophagitis Doing well off PPI 5. Migraine aura without headache Controlled/stable overall. Chief Complaint Patient presents with Medicare Annual Wellness Visit Subsequent Pt denies any concerns. HPI AWV. HLD. Was on Crestor. He stopped on his own. Was not having issues with it other than wanting to stop meds. No hx ov CAD/CVA/PVD. White coat HTN without essential HTN. BP at home 120-130's/80's at home 3-4 times a week. Was on BP meds in past and stopped. HCTZ was what he was on in the past. Mild GERD. He was able to stop PPI and has handled being off. Diet and exercise are good. 3 migraines with aura a year. Midrin not available. He is not sure if tried triptans. No hx TIA/CVA. Exedrin migraine works. Due for colonoscopy 2020. Due 2025 if he choses. I have reviewed and reconciled the medication list with the patient today. Current Outpatient Medications Medication Sig Dispense Refill ibuprofen 200 MG tablet Take 200 mg by mouth every 6 hours as needed. No current facility-administered medications for this visit. Also reviewed during this visit: Allergies Meds Problems The following health maintenance schedule was reviewed with the patient and provided in printed form in the after visit summary: Health Maintenance Topic Date Due RSV Immunization aged 60 or older (1 - 1-dose 60+ series) Never done Zoster Vaccines (2 of 3) 02/19/2017 COVID-19 Vaccine (4 - 2022- season) 2023 DTaP/Tdap/Td Vaccines (1 - Tdap) 03/30/2025 (Originally 1964) Influenza Vaccine (Season Ended) 2024 Depression Screening 03/30/2025 Medicare Annual Wellness (AWV) 04/29/2025 Lipid Panel 01/09/2028 Pneumococcal Vaccine: 65+ Years Completed Hepatitis C Screening Completed RSV Immunization under 20 Months Aged Out HIB Vaccines Aged Out IPV Vaccines Aged Out Hepatitis A Vaccines Aged Out Meningococcal Vaccine Aged Out Rotavirus Vaccines Aged Out HPV Vaccines Aged Out Hepatitis B Vaccines Discontinued List of current healthcare providers: Patient Care Team: Kamron Pate MD as PCP - General Orders Placed This Encounter Procedures Comprehensive metabolic panel Standing Status: Future Number of Occurrences: 1 Standing Expiration Date: 03/30/2025 CBC Standing Status: Future Number of Occurrences: 1 Standing Expiration Date: 03/30/2025 Lipid panel Standing Status: Future Number of Occurrences: 1 Standing Expiration Date: 03/30/2025 Hemoglobin A1c Standing Status: Future Number of Occurrences: 1 Standing Expiration Date: 03/30/2025 TSH Standing Status: Future Number of Occurrences: 1 Standing Expiration Date: 03/30/2025 Review of Systems Constitutional: Negative for appetite change, fatigue and unexpected weight change. Eyes: Negative for pain and visual disturbance. Respiratory: Negative for apnea, cough, chest tightness and shortness of breath. Cardiovascular: Negative for chest pain, palpitations and leg swelling. Gastrointestinal: Negative for abdominal distention, abdominal pain, anal bleeding, blood in stool, constipation, diarrhea, nausea, rectal pain and vomiting. Genitourinary: Negative for dysuria, frequency and hematuria. Musculoskeletal: Negative for arthralgias, back pain and gait problem. Skin: Negative for rash. Neurological: Negative for dizziness and headaches. Hematological: Negative for adenopathy. Does not bruise/bleed easily. Psychiatric/Behavioral: Negative for dysphoric mood and sleep disturbance. The patient is not nervous/anxious. Physical Exam Vitals and nursing note reviewed. Constitutional: General: He is not in acute distress. Appearance: Normal appearance. He is not ill-appearing, toxic-appearing or diaphoretic. HENT: Head: Normocephalic and atraumatic. Right Ear: Tympanic membrane normal. Left Ear: Tympanic membrane normal. Mouth/Throat: Mouth: Mucous membranes are moist. Pharynx: Oropharynx is clear. No oropharyngeal exudate or posterior oropharyngeal erythema. Eyes: General: No scleral icterus. Extraocular Movements: Extraocular movements intact. Conjunctiva/sclera: Conjunctivae normal. Pupils: Pupils are equal, round, and reactive to light. Cardiovascular: Rate and Rhythm: Normal rate and regular rhythm. Heart sounds: No murmur heard. Pulmonary: Effort: Pulmonary effort is normal. Breath sounds: Normal breath sounds. Abdominal: General: Abdomen is flat. Bowel sounds are normal. Palpations: Abdomen is soft. Tenderness: There is no abdominal tenderness. Musculoskeletal: Cervical back: Normal range of motion and neck supple. Right lower leg: No edema. Left lower leg: No edema. Skin: Comments: Ak looking lesions on tenriism Neurological: General: No focal deficit present. Mental Status: He is alert and oriented to person, place, and time. Psychiatric: Mood and Affect: Mood normal. Behavior: Behavior normal. Thought Content: Thought content normal. Judgment: Judgment normal. Objective : BP 127/76 (BP Location: Right arm, Patient Position: Sitting, BP Cuff Size: Adult) Pulse 73 Ht 6' 5 (1.956 m) Wt 240 lb (109 kg) SpO2 97% BMI 28.46 kg/m No results found. Subjective : Health Risk Assessment: General: General In general, how would you say your health is?: Very good In the past 7 days, have you experienced any of the following: New or Increased Pain, New or Increased Fatigue, Loneliness, Social Isolation, Stress or Anger?: No Do you get the social and emotional suppport you need?: Yes Health Habits/Nutrition: Health Habits / Nutrition On average, how many days per week do you engage in moderate to strenous exercise (like a brisk walk)?: 5 days On average, how man minutes do you engage in exercise at this level?: 50 min Have you lost any weight without trying in the past 3 months? : No Have you seen the dentist within the past year?: Yes Hearing/ Vision: Hearing / Vision Do you or your family notice any trouble with your hearing that hasn't been managed with hearing aids?: No Do you have difficulty driving, watching TV, or doing any of your daily activities because of your eyesight?: No Have you had an eye exam within the past year?: Yes No results found. Interventions: Safety: Safety Do you have a working smoke detector?: Yes Do you have any tripping hazards - loose or unsecured carpets or rugs?: No Do you have any tripping hazards - clutter in doorways, halls, or stairs?: No Do you have either shower bars, grab bars, non-slip mats or non-slip surfaces in your shower or bathtub? : Yes Do all your stairways have a railing or banister? : Yes Do you fasten your seatbelt when you are in a car?: Yes ADL: ADL In the past 7 days, did you need help from others to perform any of the following everyday activities: Eating, dressing, grooming,bathing, toileting, or walking / balance? : No In the past 7 days, did you need help from others to take care of any of the following: laundry, housekeeping, banking / finances,shopping, telephone use, food preparation, transportation, or taking medications? : No Living Will: Living Will Do you have a living will?: Yes Cognitive: Cognitive Screening: Mini-Cog Clock Drawing Test (CDT): 2 Words Recalled: 3 Total Score: 5 Total Score Interpretation: Normal Mini-Cog Fall Risk: Fall Risk One or more falls in the last year:: No Advised to use a cane or walker to get around safely:: No Feels unsteady when walking:: No Steadies self on furniture while walking at home:: No Worried about falling:: No Depression Screening: Over the past 2 weeks, how often have you been bothered by any of the following problems? Little interest or pleasure in doing things: Not at all Feeling down, depressed, or hopeless: Not at all Patient Health Questionnaire-2 Score: 0 [place] Suicide Severity Rating Scale (Screener/Recent Self-Report) 1. Wish to be (Past 1 Month): No 2. Non-Specific Active Suicidal Thoughts (Past 1 Month): No 6. Suicidal Behavior (Lifetime): No Calculated C-SSRS Risk Score (Lifetime/Recent): No Risk Indicated Interventions: Tobacco Use: Social History Tobacco Use Smoking Status Never Passive exposure: Never Smokeless Tobacco Never Alcohol Use: Audit Alcohol Screening Q1: How often do you have a drink containing alcohol?: Monthly or less Q2: How many drinks containing alcohol do you have on a typical day when you are drinking?: 1 or 2 Q3: How often do you have six or more drinks on one occasion?: Never Audit-C Score: 1 Skip to questions 9-10?: 1 documented in this encounter [facility] 03-30-2024 Instructions Kamron Pate MD - 03/30/2024 9:20 AM EDT Personalized Preventative Plan for Teresa Isaacs - 03/30/2024 Medicare offers a range of preventative health benefits. Some of the tests and screenings are paid in full while others may be subject to a deductible, co-insurance, and / or copay. Some of these benefits include a comprehensive review of your medical history including lifestyle, illnesses that may run in your family, and various assessments and screenings as appropriate. After reviewing your medical record and screening and assessments performed today, your provider may have ordered immunizations, labs, imaging, and / or referrals for you. A list of these orders (if applicable) as well as your Preventative Care list are included within your After Visit Summary for your review. Other Preventative Recommendations: A preventive eye exam by an source water protection specialist is recommended every 1-2 years to screen for glaucoma, cataracts, macular degeneration, and other eye disorders. A preventive dental visit is recommended every 6 months. Try to get at least 150 minutes of exercise per week or 10,000 steps per day on a pedometer. You need 1200-1500mg of calcium and 4005-9990 international units of vitamin D per day. It is possible to meet your calcium requirement with diet alone, but a vitamin D supplement is usually necessary to meet this goal. When exposed to the sun, use a sunscreen that protects against both UVA and UVB radiation with an SPF of 30 or greater. Reapply every 2-3 hours or after sweating, drying off with a towel, or swimming. Always wear a seat belt when traveling in a car. Always wear a helmet when riding a bicycle or a motorcycle The following attachments cannot be sent through Care Everywhere.Preventing Falls in Older Adults (Burmese)Medical Care During Advanced Illness (Burmese)Actinic Keratosis (Burmese)documented in this encounter [facility] 02-10-2024 History of Present illness Narrative 1. Myopia, bilateral 2. Regular astigmatism of both eyes 3. Presbyopia Finalized spec rx 4. Pseudophakia of both eyes Doing well - patient unable to be dilated today Had last PO exam in 05/24 5. Meibomian gland dysfunction (MGD) of upper and lower lids of both eyes Recommended warm compresses and artificial tears Follow-up in 6 months for complete eye exam Will obtain outside records from [facility] Alma Sanchez, VEE February 10, 2024 11:03 AM documented in this encounter [facility] 04-03-2023 Miscellaneous Notes Spoke to patient's . She states patient has an eye surgery and other medical issues he needs to worry about. Pt will call back when/if he changes his mind. LVM - pt due for 5 yr FU colonoscopy documented in this encounter [facility] 04-03-2023 Telephone encounter Note Spoke to patient's . She states patient has an eye surgery and other medical issues he needs to worry about. Pt will call back when/if he changes his mind. [facility] 01-17-2023 History of Present illness Narrative DR. DUDLEY- POST-OP KNEE Post-Op F/U Office Visit Teresa Isaacs presents today for a long-term follow-up status post Right TKA that was performed in 2007. Post-operative recovery was uneventful. Patient's rating of condition: changed. Comments: He reports within the last 4 weeks when attempting to rise from the chair he has a popping/'s snapping sensation. He reports that this is not painful. He has intermittent swelling. Once he is up and on his feet he is able to walk without difficulty Does the Pt. still experience pain? None Functional difficulties: Stair climbing and Arising from chair Physical Therapy: Completed course of therapy Pain Medication: None Ambulating without assistance. Medications and Allergies reviewed and verified. EXAM: GEN: A&O x3, NAD SKIN:Appropriate postop appearance Incision intact Incision well healed RightKnee: ROM: Flexion/Extension:0 degrees to 120 degrees Pain with ROM:No Mal-alignment: No Effusion: Slight Non Tender to palpation of the medial and lateral joint line(s). Stability:Anterior/Posterior- No and Varus/Valgus- No There is a snapping catching sensation with closed chain extension activities . He has a negative patellar apprehension sign Quad strength: normal HIP: range of motion no loss ROM NV: intact and Bailee's negative IMAGING: Xrays: XR KNEE POST OP 3V AP/LAT/MERCHANT BILATERAL Narrative: * * *Final Report* * * DATE OF EXAM: Jan 07 2023 2:12PM LADY [id number] - XR KNEE 3V AP/LAT/PARK TOSHIA / PROCEDURE REASON: multiple diagnoses * * * * Physician Interpretation * * * * History: Bilateral knee pain FINDINGS: AP, merchant, and lateral views of both knees are compared to the prior study of 05/20/2020. The patient has had prior bilateral knee arthroplasty placement, hardware intact and alignment satisfactory. No evidence of hardware loosening or acute bony process is seen. Images of the right knee demonstrate narrowing of the femoral patellar joint space with lateral osteophyte formation. Small bone densities seen in the suprapatellar and infrapatellar regions, likely tendinous. Calcific body seen posterior to the knee joint, possibly loose bodies. No significant joint effusion is seen. Vascular calcifications are noted. Images of the left knee demonstrate femoral patellar joint space narrowing with lateral tilt/subluxation of the patella relative to the femur, and osteophyte formation. There is patellar osteophyte formation. No significant joint effusion is seen. Impression: IMPRESSION: Postsurgical changes without interval complication. Degenerative changes, as described. Sox Analyst: HENNY Transcribe Date/Time: Jan 09 2023 2:07P Dictated by : CARIN NOLAND MD This examination was interpreted and the report reviewed and electronically signed by: CARIN NOLAND MD on Jan 09 2023 2:09PM EST IMPRESSION/PLAN: 77 year old male s/p Right TKA Knee arthroplasty components appear to be stable however he is having catching sensations that are likely related to the degenerative changes seen on the patella.There are at the inferior pole the patella superior and inferior osteophytes as well and is what appears to be calcifications.It is 1 of these that could be catching in the intercondylar notch giving him the snapping sensation. We discussed treatment options including resurfacing of the patellar articular surface and debridement of the osteophytes with possible exchange of the tibial polyethylene insert. Currently he does not wish to proceed with any surgical intervention. He would like to consider this as an option in the future especially because he is not having pain. Plan: Continue range of motion/strengthening exercises 2. Continue weightbearing as tolerated 3. Follow-up for repeat clinical evaluation if his symptoms become more severe or if he wishes to proceed with patellar revision Manny Dudley MD Electronic Signature documented in this encounter [facility] 01-09-2023 History of Present illness Narrative Images from the original note were not included. [facility] [id number] [id number] Teresa was seen today for medicare annual wellness visit subsequent. Diagnoses and all orders for this visit: Routine general medical examination at health care facility (Primary) Hypercholesterolemia Controlled -Crestor 10 mg daily - Comprehensive metabolic panel; Future - CBC; Future - Lipid panel; Future - Hemoglobin A1c; Future - Comprehensive metabolic panel - CBC - Lipid panel - Hemoglobin A1c White coat syndrome without hypertension Screening for malignant neoplasm of prostate - PSA Screening; Future - PSA Screening Abnormal finding of blood chemistry, unspecified - Hemoglobin A1c; Future - Hemoglobin A1c Chief Complaint Patient presents with Medicare Annual Wellness Visit Subsequent No concerns , fasting , no refills needed per Pt AWV. Has HLD on statin white coat htn without essential HTN. BP at home 120-130's/80's at home 3-4 times a week. Was on BP meds in past and stopped. HCTZ was what he was on in the past. Mild GERD Needs PPI QOD and could not tolerate less. Diet and exercise fair. 3 migraines with aura a year. Alethea works well. He is not sure if tried triptans. No hx TIA/CVA. Takes prn ibuprofen for aches and pains-knees. Moving helps. Dealing knee pain. Due for colonoscopy now. I have reviewed and reconciled the medication list with the patient today. Current Outpatient Medications Medication Sig Dispense Refill ibuprofen 200 MG tablet Take 200 mg by mouth every 6 hours as needed. omeprazole (PriLOSEC) [address] capsule rosuvastatin (Crestor) 10 MG tablet TAKE 1 TABLET DAILY 90 tablet 3 No current facility-administered medications for this visit. Tobacco Allergies Meds Problems Med Hx Surg Hx Fam Hx The following health maintenance schedule was reviewed with the patient and provided in printed form in the after visit summary: Health Maintenance Topic Date Due COVID-19 Vaccine (4 - Booster for Pfizer series) 01/24/2022 DTaP/Tdap/Td Vaccines (1 - Tdap) 01/09/2024 (Originally 1964) Zoster Vaccines (2 of 3) 01/09/2024 (Originally 02/19/2017) Lipid Panel 01/08/2027 Influenza Vaccine Completed Pneumococcal Vaccine: 65+ Years Completed Hepatitis C Screening Completed HIB Vaccines Aged Out IPV Vaccines Aged Out Hepatitis A Vaccines Aged Out Meningococcal Vaccine Aged Out Rotavirus Vaccines Aged Out HPV Vaccines Aged Out Hepatitis B Vaccines Discontinued List of current healthcare providers: Patient Care Team: Kamron Pate MD as PCP - General Orders Placed This Encounter Procedures Comprehensive metabolic panel Standing Status: Future Number of Occurrences: 1 Standing Expiration Date: 01/09/2024 CBC Standing Status: Future Number of Occurrences: 1 Standing Expiration Date: 01/09/2024 Lipid panel Standing Status: Future Number of Occurrences: 1 Standing Expiration Date: 01/09/2024 Hemoglobin A1c Standing Status: Future Number of Occurrences: 1 Standing Expiration Date: 01/09/2024 PSA Screening Standing Status: Future Number of Occurrences: 1 Standing Expiration Date: 01/09/2024 Subjective : Review of Systems Constitutional: Negative for appetite change, fatigue and unexpected weight change. Eyes: Negative for pain and visual disturbance. Respiratory: Negative for apnea, cough, chest tightness and shortness of breath. Cardiovascular: Negative for chest pain, palpitations and leg swelling. Gastrointestinal: Negative for abdominal distention, abdominal pain, anal bleeding, blood in stool, constipation, diarrhea, nausea, rectal pain and vomiting. Rare heartburn Genitourinary: Negative for dysuria, frequency and hematuria. Musculoskeletal: Positive for arthralgias (knees). Negative for back pain and gait problem. Skin: Negative for rash. Neurological: Negative for dizziness and headaches. Hematological: Negative for adenopathy. Does not bruise/bleed easily. Psychiatric/Behavioral: Negative for dysphoric mood and sleep disturbance. The patient is not nervous/anxious. Physical Exam Vitals and nursing note reviewed. Constitutional: General: He is not in acute distress. Appearance: Normal appearance. He is not ill-appearing, toxic-appearing or diaphoretic. HENT: Head: Normocephalic and atraumatic. Right Ear: Tympanic membrane normal. Left Ear: Tympanic membrane normal. Mouth/Throat: Mouth: Mucous membranes are moist. Pharynx: Oropharynx is clear. No oropharyngeal exudate or posterior oropharyngeal erythema. Eyes: General: No scleral icterus. Extraocular Movements: Extraocular movements intact. Conjunctiva/sclera: Conjunctivae normal. Pupils: Pupils are equal, round, and reactive to light. Cardiovascular: Rate and Rhythm: Normal rate and regular rhythm. Heart sounds: No murmur heard. Pulmonary: Effort: Pulmonary effort is normal. Breath sounds: Normal breath sounds. Abdominal: General: Abdomen is flat. Bowel sounds are normal. Palpations: Abdomen is soft. Tenderness: There is no abdominal tenderness. Musculoskeletal: Cervical back: Normal range of motion and neck supple. Right lower leg: No edema. Left lower leg: No edema. Neurological: General: No focal deficit present. Mental Status: He is alert and oriented to person, place, and time. Psychiatric: Mood and Affect: Mood normal. Behavior: Behavior normal. Thought Content: Thought content normal. Judgment: Judgment normal. Health Risk Assessment: General In general, how would you say your health is?: Very good In the past 7 days, have you experienced any of the following: New or Increased Pain, New or Increased Fatigue, Loneliness, Social Isolation, Stress or Anger?: No Do you get the social and emotional suppport you need?: Yes Interventions: Health Habits / Nutrition On average, how many days per week do you engage in moderate to strenous exercise (like a brisk walk)?: 6 days On average, how man minutes do you engage in exercise at this level?: 60 min Have you lost any weight without trying in the past 3 months? : No Have you seen the dentist within the past year?: Yes Interventions: Hearing / Vision Do you or your family notice any trouble with your hearing that hasn't been managed with hearing aids?: (!) Yes Do you have difficulty driving, watching TV, or doing any of your daily activities because of your eyesight?: No Have you had an eye exam within the past year?: Yes No results found. Interventions: Hearing concerns: Patient declines any further evaluation / treatment for hearing issues Safety Do you have a working smoke detector?: Yes Do you have any tripping hazards - loose or unsecured carpets or rugs?: No Do you have any tripping hazards - clutter in doorways, halls, or stairs?: No Do you have either shower bars, grab bars, non-slip mats or non-slip surfaces in your shower or bathtub? : Yes Do all your stairways have a railing or banister? : Yes Do you fasten your seatbelt when you are in a car?: Yes Interventions: ADL In the past 7 days, did you need help from others to perform any of the following everyday activities: Eating, dressing, grooming,bathing, toileting, or walking / balance? : No In the past 7 days, did you need help from others to take care of any of the following: laundry, housekeeping, banking / finances,shopping, telephone use, food preparation, transportation, or taking medications? : No Interventions: Living Will Do you have a living will?: Yes Interventions: Cognitive: Cognitive Screening: Mini-Cog Clock Drawing Test (CDT): 2 Words Recalled: 3 Total Score: 5 Total Score Interpretation: Normal Mini-Cog Interventions: Fall Risk: Fall Risk One or more falls in the last year:: No Advised to use a cane or walker to get around safely:: No Feels unsteady when walking:: No Steadies self on furniture while walking at home:: No Worried about falling:: No Interventions: Depression Screening: Over the past 2 weeks, how often have you been bothered by any of the following problems? Little interest or pleasure in doing things: Not at all Feeling down, depressed, or hopeless: Not at all Patient Health Questionnaire-2 Score: 0 Interventions: Tobacco Use: Social History Tobacco Use Smoking Status Never Passive exposure: Never Smokeless Tobacco Never Interventions: Alcohol Use: Audit Alcohol Screening Q1: How often do you have a drink containing alcohol?: Never Q2: How many drinks containing alcohol do you have on a typical day when you are drinking?: Patient does not drink Q3: How often do you have six or more drinks on one occasion?: Never Audit-C Score: 0 Skip to questions 9-10?: 1 Interventions: Drug Use: Interventions: Objective : BP (!) 155/91 (BP Location: Right arm, Patient Position: Sitting, BP Cuff Size: Adult) Pulse 71 Ht 6' 5 (1.956 m) Wt 233 lb (106 kg) SpO2 99% BMI 27.63 kg/m No results found. documented in this encounter [facility] 01-07-2023 History of Present illness Narrative Radiology Service Progress Note PATIENT NAME: Teresa Isaacs DATE OF SERVICE: January 07, 2023 TIME: 2:13 PM PATIENT IDENTITY VERIFICATION COMPLETED USING TWO (2) IDENTIFIERS: Name and Date of confirmed by patient verbally. FALL SCREENING: Has the patient had 2 falls in the last year or 1 fall with injury or currently using an Ambulatory Assistive Device (Walker, Cane, Wheelchair, Crutches, etc.)? No PATIENT GENDER DATA: Male PATIENT RELEVANT IMPLANT DATA REVIEWED: Not Applicable RADIOLOGY DEPARTMENT: General X-ray: Exam(s) Completed: Lower Extremity X-Ray(s): Knee, AP / Lat / Merchant Bilateral and Wt. Bearing PERIPHERAL IV DATA: Not applicable SIGNED BY: KAYLA Dozier January 07, 2023 2:13 PM documented in this encounter [facility] 12-19-2022 Telephone encounter Note LVM - pt due for 5 yr FU colonoscopy [facility] Evaluation note Diagnosis Chondromalacia of right patella- Primary Chondromalacia of patella Aftercare following right knee joint replacement surgery [facility] Diagnosis Myopia, bilateral- Primary Myopia Regular astigmatism of both eyes Regular astigmatism Presbyopia Pseudophakia of both eyes Lens replaced by other means Meibomian gland dysfunction (MGD) of upper and lower lids of both eyes [facility] Diagnosis Routine general medical examination at health care facility- Primary Routine general medical examination at a health care facility Hypercholesterolemia Pure hypercholesterolemia White coat syndrome without hypertension Gastroesophageal reflux disease without esophagitis Esophageal reflux Migraine with aura and without status migrainosus, not intractable Abnormal finding of blood chemistry, unspecified [facility] Diagnosis Pseudophakia of both eyes- Primary Lens replaced by other means Myopia, bilateral Myopia Regular astigmatism of both eyes Regular astigmatism Presbyopia Meibomian gland dysfunction (MGD) of upper and lower lids of both eyes [facility] Diagnosis Pain in both knees, unspecified chronicity [facility] Diagnosis Acute bacterial sinusitis- Primary Acute sinusitis, unspecified [facility] Diagnosis Pain- Primary Generalized pain [facility] Diagnosis Routine general medical examination at health care facility- Primary Routine general medical examination at a health care facility Hypercholesterolemia Pure hypercholesterolemia White coat syndrome without hypertension Screening for malignant neoplasm of prostate Abnormal finding of blood chemistry, unspecified [facility] Diagnosis Otorrhea of both ears- Primary Influenza vaccination declined by patient [facility] Diagnosis Chronic pain of both knees Pain Generalized pain [facility] Diagnosis Chondromalacia of right patella- Primary Chondromalacia of patella Left knee pain, unspecified chronicity [facility] Diagnosis Chondromalacia of left patella- Primary Chondromalacia of patella Pain Generalized pain Primary osteoarthritis of right hip Primary localized osteoarthrosis, pelvic region and thigh Chronic pain of both knees Pain Generalized pain Chondromalacia of right patella Chondromalacia of patella Left knee pain, unspecified chronicity [facility]* Diagnosis Pre-operative examination- Primary Preoperative examination, unspecified Status post total bilateral knee replacement using cement Mixed hyperlipidemia Murmur Undiagnosed cardiac murmurs Migraine headaches Chondromalacia of right patella Chondromalacia of patella Left knee pain, unspecified chronicity * Assessment & Plan Note - Alayna Bojorquez APRN.CNP - 01/19/2025 10:03 AM EST Associated Problem(s): Migraine headaches Assessment: otc analgesics as needed * Assessment & Plan Note - Alayna Bojorquez APRN.CNP - 01/19/2025 10:02 AM EST Associated Problem(s): Murmur Assessment: echo ordered, no known VHD * Assessment & Plan Note - Alayna Bojorquez APRN.CNP - 01/19/2025 10:01 AM EST Associated Problem(s): Mixed hyperlipidemia Assessment: c/w statin * Assessment & Plan Note - Alayna Bojorquez APRN.CNP - 01/19/2025 9:30 AM EST Associated Problem(s): S/P total knee replacement using cement Assessment: right 2007, left 2008 documented in this encounter [facility] note* Diagnosis Pre-operative examination- Primary Preoperative examination, unspecified Status post total bilateral knee replacement using cement Mixed hyperlipidemia VHD (valvular heart disease) Endocarditis, valve unspecified, unspecified cause Migraine headaches Grade I diastolic dysfunction Dilatation of aorta (HCC) Aortic ectasia, unspecified site Status post total right knee replacement- Primary [facility]* Diagnosis Pre-operative examination- Primary Preoperative examination, unspecified Status post total bilateral knee replacement using cement Mixed hyperlipidemia VHD (valvular heart disease) Endocarditis, valve unspecified, unspecified cause Migraine headaches Grade I diastolic dysfunction Dilatation of aorta (HCC) Aortic ectasia, unspecified site Status post revision of total replacement of left knee- Primary documented in this encounter [facility] note* Diagnosis Pre-operative examination- Primary Preoperative examination, unspecified Status post total bilateral knee replacement using cement Mixed hyperlipidemia VHD (valvular heart disease) Endocarditis, valve unspecified, unspecified cause Migraine headaches Grade I diastolic dysfunction Dilatation of aorta (HCC) Aortic ectasia, unspecified site Left knee pain, unspecified chronicity documented in this encounter [facility] note* Diagnosis Pre-operative examination- Primary Preoperative examination, unspecified Status post total bilateral knee replacement using cement Mixed hyperlipidemia VHD (valvular heart disease) Endocarditis, valve unspecified, unspecified cause Migraine headaches Grade I diastolic dysfunction Dilatation of aorta (HCC) Aortic ectasia, unspecified site Left knee pain, unspecified chronicity- Primary Left knee pain, unspecified chronicity documented in this encounter [facility] note* Diagnosis Pre-operative examination- Primary Preoperative examination, unspecified Status post total bilateral knee replacement using cement Mixed hyperlipidemia VHD (valvular heart disease) Endocarditis, valve unspecified, unspecified cause Migraine headaches Grade I diastolic dysfunction Dilatation of aorta (HCC) Aortic ectasia, 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, left- Primary Status post revision of total replacement of left knee documented in this encounter [facility] note* Diagnosis Pre-operative examination- Primary Preoperative examination, unspecified Status post total bilateral knee replacement using cement Mixed hyperlipidemia VHD (valvular heart disease) Endocarditis, valve unspecified, unspecified cause Migraine headaches Grade I diastolic dysfunction Dilatation of aorta Aortic ectasia, 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, left- Primary documented in this encounter [facility] note* Diagnosis Pre-operative examination- Primary Preoperative examination, unspecified Status post total bilateral knee replacement using cement Mixed hyperlipidemia VHD (valvular heart disease) Endocarditis, valve unspecified, unspecified cause Migraine headaches Grade I diastolic dysfunction Dilatation of aorta Aortic ectasia, 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, left- Primary [facility] Pre-operative examination- Primary Preoperative examination, unspecified Status post total bilateral knee replacement using cement Mixed hyperlipidemia VHD (valvular heart disease) Endocarditis, valve unspecified, unspecified cause Migraine headaches Grade I diastolic dysfunction Dilatation of aorta Aortic ectasia, 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, left- Primary [facility]* Diagnosis Pre-operative examination- Primary Preoperative examination, unspecified Status post total bilateral knee replacement using cement Mixed hyperlipidemia VHD (valvular heart disease) Endocarditis, valve unspecified, unspecified cause Migraine headaches Grade I diastolic dysfunction Dilatation of aorta Aortic ectasia, 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, left- Primary documented in this encounter [facility] note* Diagnosis Pre-operative examination- Primary Preoperative examination, unspecified Status post total bilateral knee replacement using cement Mixed hyperlipidemia VHD (valvular heart disease) Endocarditis, valve unspecified, unspecified cause Migraine headaches Grade I diastolic dysfunction Dilatation of aorta Aortic ectasia, 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, left- Primary documented in this encounter [facility] note* Diagnosis Pre-operative examination- Primary Preoperative examination, unspecified Status post total bilateral knee replacement using cement Mixed hyperlipidemia VHD (valvular heart disease) Endocarditis, valve unspecified, unspecified cause Migraine headaches Grade I diastolic dysfunction Dilatation of aorta Aortic ectasia, 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, left- Primary documented in this encounter [facility] note* Diagnosis Pre-operative examination- Primary Preoperative examination, unspecified Status post total bilateral knee replacement using cement Mixed hyperlipidemia VHD (valvular heart disease) Endocarditis, valve unspecified, unspecified cause Migraine headaches Grade I diastolic dysfunction Dilatation of aorta Aortic ectasia, unspecified site Aftercare following left knee joint replacement surgery- Primary [facility] Attachments The following attachments cannot be sent through Care Everywhere. * Colonoscopy (Burmese) documented [facility] Visit Details Visit Type -PT SOC Discipline -Physical Therapy Problems Problem Description Start Date Status Goals Interve ntions Medication Education Disciplines: Skilled Services 02/04/2025 Active 1 goal linked to scheduled/document ed intervention 1 goal intervention scheduled/document ed in this visit Sepsis Disciplines: Skilled Services 02/04/2025 Active 1 goal linked to scheduled/document ed intervention 1 goal intervention scheduled/document ed in this visit Physician Specific Parameters Disciplines: Skilled Services 02/04/2025 Active 1 goal linked to scheduled/document ed intervention 1 goal intervention scheduled/document ed in this visit Risk for Falls Disciplines: Skilled Services 02/04/2025 Active 1 goal linked to scheduled/document ed intervention 1 goal intervention scheduled/document ed in this visit Pain Disciplines: Skilled Services 02/04/2025 Active 1 goal linked to scheduled/document ed intervention 1 goal intervention scheduled/document ed in this visit Nutrition/Hydrati on Disciplines: Skilled Services 02/04/2025 Active 1 goal linked to scheduled/document ed intervention 1 goal intervention scheduled/document ed in this visit High Risk Medications Disciplines: Skilled Services 02/04/2025 Active 1 goal linked to scheduled/document ed intervention 2 goal interventions scheduled/document ed in this visit Discharge Disciplines: Skilled Services 02/04/2025 Active 1 goal linked to scheduled/document ed intervention 1 goal intervention scheduled/document ed in this visit PT Impaired muscle performance and/or ROM Disciplines: PT 02/04/2025 Active 1 goal linked to scheduled/document ed intervention 1 goal intervention scheduled/document ed in this visit PT Orthopedic Condition Disciplines: PT 02/04/2025 Active 1 goal linked to scheduled/document ed intervention 3 goal interventions scheduled/document ed in this visit PT Learning Assessment Disciplines: PT 02/04/2025 Active 1 goal linked to scheduled/document ed intervention 1 goal intervention scheduled/document ed in this visit Goals Goal Associated Problem Outcome Goal Met? Visit Notes Patient/caregiver will demonstrate ability to obtain, store, identify and administer ordered medications, keep accurate medication list in home, and adhere to medication schedule Description: Patient/caregiver will demonstrate ability to obtain, store, identify and administer ordered medications, keep accurate medication list in home, and adhere to medication schedule by 02/27/25. Medication Education No Patient/caregiver will be able to identify and report symptoms of sepsis Description: Patient/caregiver will be able to identify signs/symptoms of sepsis infection and will verbalize actions to take if suspected by 02/27/25. Sepsis No Patient to maintain parameters within physician-specified ranges throughout certification period Physician Specific Parameters No Manage Risk for falls Description: Patient/caregiver will verbalize knowledge of individualized fall prevention strategies by 02/27/25. Risk for Falls No Manage Pain Description: Patient/caregiver will verbalize knowledge and understanding of appropriate techniques to control pain, including pain medication and non-pharmacological techniques. Patient will verbalize or demonstrate an acceptable level of pain as eviden dimple by a pain score of <2/10 and improvement in ability to perform activities of daily living to be achieved by 02/27/25. Pain No Manage Nutrition/Hydration Description: Patient/caregiver will verbalize/demonstrate knowledge of prescribed diet and/or healthy nutrition to be achieved by 02/27/25. Nutrition/Hydration No Patient/caregiver will teach back high risk medication side effect and precaution education Description: STG Patient/caregiver will verbalize understanding of high risk medication side effects and precautions to be achieved by 02/20/25. LTG Patient/caregiver will continue to verbalize understanding of high risk medication side effects and precautions throughout certification period. High Risk Medications No Manage discharge planning Description: Patient/caregiver will verbalize understanding of ongoing discharge plan provided related to disease management, arrangements for outpatient and/or community services, obtaining medications, supplies, and DME, as needed throu ghout certification period. Discharge No Improved Muscle Performance and/or ROM Description: LTG: Patient and/or caregiver will verbalize/demonstrate independence with home exercise program, to improve functional mobility, to be achieved by 02/27/25. LTG: Patient will demonstrate improved right knee active range of motion to 5-100 degrees, to meet functional goals, to be achieved by 02/27/25. PT Impaired muscle performance and/or ROM No Manage Orthopedic Condition Description: Improve patient and/or caregiver understanding of post surgical and/or non-surgical orthopedic intervention management as evidenced by patient and/or caregiver able to verbalize, demonstrate, and teach back instruction, to be achieved by 02/27/25. PT Orthopedic Condition No Demonstrate understanding of education Description: Patient and/or caregiver will understand educational instruction to be achieved by 02/27/25. PT Learning Assessment No Interventions Intervention Associated Problem/Goal Status Variance Visit Notes Medication Education Description: Evaluate/instruct patient/caregiver on obtaining, storing, identifying and administering ordered medications as well as keeping accurate medication list in the home and adhereing to medication schedule Problem:Medication Education Goal:Patient/caregive r will demonstrate ability to obtain, store, identify and administer ordered medications, keep accurate medication list in home, and adhere to medication schedule Completed Patient and Caregiver instructed on importance of keeping accurate medication list in home, need to take up-to-date medication list to all medical provider appointments and adhering to medication schedule. Risk of Sepsis Description: Patient is at risk for sepsis. Monitor closely for s/s of sepsis. Problem:Sepsis Goal:Patient/caregive r will be able to identify and report symptoms of sepsis Completed SPO2 Description: Notify Dr. Dudley if pulse ox is <92% at rest. Problem:Physician Specific Parameters Goal:Patient to maintain parameters within physician-specified ranges throughout certification period Completed Instruct on individual fall risk factors and strategies to prevent falls and injuries caused by falls. Problem:Risk for Falls Goal:Manage Risk for falls Completed PT: Patient and Caregiver instructed on Eliminating Environmental Hazards: Keep pathways clear, Remove unsafe rugs, Move furniture from pathways, Keep rooms and walkways well lit and Wear supportive shoes or non-skid socks Managing Impaired Functional Mobility: Use assistive device(s): front wheeled walker Instruct on pain and instruct on strategies to control pain Problem:Pain Goal:Manage Pain Completed patient and caregiver instructed on techniques to control pain including Pharmacological measures and Non-Pharmacological measures; positioning/elevation and mobility/therapeutic exercise. Define patient s appetite/hydration status and implement strategies to improve compliance with prescribed diet and/or healthy nutrition. Problem:Nutrition/Hyd ration Goal:Manage Nutrition/Hydration Completed instructed patient and caregiver on implementing strategies to comply with healthy nutrition and adequate hydration Opioids- educated on high risk medication Problem:High Risk Medications Goal:Patient/caregive r will teach back high risk medication side effect and precaution education Completed patient and caregiver educated on taking medication(s) as prescribed by provider. Do not stop medication or alter doses without speaking with your provider. Discuss medication effectiveness or side effect concerns with your provider and home care team. Only take opioids as prescribed, do not share your medications, and take proper precautions in storing and properly disposing of opioids once no longer needed. Possible side effects of opioid medication including sedation, decreased rate of breathing, and constipation. Report over sedation to prescribing provider and practice deep breathing techniques every hour while awake. Prevent constipation by increasing water and fiber intake, increasing activity as tolerated, and use stool softener(s) as prescribed. Antiplatelet- educated on high risk medication Problem:High Risk Medications Goal:Patient/caregive r will teach back high risk medication side effect and precaution education Completed patient and caregiver educated on taking medication(s) as prescribed by provider. Do not stop medication or alter doses without speaking with your provider. Discuss medication effectiveness or side effect concerns with your provider and home care team. Discuss all medications you are taking, even [id number] medicines, with your provider and pharmacist since many drugs can interact with antiplatelet medications. If you forget to take a dose, DO NOT take a double dose. Take the missed dose as soon as possible on the same day. DO NOT take a double dose the next day to make up for the missed dose. Watch for signs of abnormal or excessive bleeding and bruising (refer to Bleeding Precautions education). Call your health care provider right away if you suspect something is wrong. Instruct on ongoing discharge plan Problem:Discharge Goal:Manage discharge planning Completed Ongoing Discharge plan: Discharge plan discussed with patient and caregiver including frequency and duration for home PT and plan for transition to: live independently at home without ongoing services/possible outpatient PT at conclusion of homecare services depending on functional progress Physical Therapy Therapeutic Exercises Problem:PT Impaired muscle performance and/or ROM Goal:Improved Muscle Performance and/or ROM Completed patient instructed on range of motion/circulation exercises including ankle pumps, quad and gluteal sets and standing closed chain rt knee ROM w/ walker support with verbal, visual and written cues for technique. patient instructed to perform home exercise program hourly Instruct on orthopedic precautions and weight bearing restrictions Description: Orthopedic precautions including right patellar resurfacing: no knee flexed over pillow at rest and no twisting. Weight bearing restrictions include: WBAT of involved extremity. Problem:PT Orthopedic Condition Goal:Manage Orthopedic Condition Completed patient and caregiver instructed on orthopedic precautions and weight bearing restrictions. Instruct on management of edema Problem:PT Orthopedic Condition Goal:Manage Orthopedic Condition Completed Instruct patient and caregiver on management of edema including elevation of rt foot above the level of the heart, ice and benefits of activity. Instruct on self-management of post surgical and/or non-surgical orthopedic intervention Problem:PT Orthopedic Condition Goal:Manage Orthopedic Condition Completed patient and caregiver instructed on staying well hydrated, eating foods with high protein, signs and symptoms of infection, signs and symptoms of DVT/PE, follow provider guidance for showering , instructed on when to call provider and instructed on when to call 911. Instruct and educate on knowledge deficits Problem:PT Learning Assessment Goal:Demonstrate understanding of education Completed patient and caregiver verbalize and/or demonstrate understanding of physical therapy education including orthopedic condition management, surgical precautions, pain management, nutrition, fall prevention strategies, home safety, integumentary and incision/wound care management, infection control precautions, functional activity and home exercise program. Education methods include: verbal cues, written instructions and visual cues. Further education required to improve knowledge and compliance with orthopedic condition management, surgical precautions, pain management, fall prevention strategies, home safety, integumentary and incision/wound care management, infection control precautions, functional activity and home exercise program. documented in this [facility] Plan of care note* Visit Details Visit Type -[employer] ROUTINE Discipline -Physical Therapy Problems Problem Description Start Date Status Goals Interve ntions Medication Education Disciplines: Skilled Services 02/04/2025 Active 1 goal linked to scheduled/document ed intervention 1 goal intervention scheduled/document ed in this visit Sepsis Disciplines: Skilled Services 02/04/2025 Active 1 goal linked to scheduled/document ed intervention 1 goal intervention scheduled/document ed in this visit Physician Specific Parameters Disciplines: Skilled Services 02/04/2025 Active 1 goal linked to scheduled/document ed intervention 1 goal intervention scheduled/document ed in this visit Risk for Falls Disciplines: Skilled Services 02/04/2025 Active 1 goal linked to scheduled/document ed intervention 1 goal intervention scheduled/document ed in this visit Pain Disciplines: Skilled Services 02/04/2025 Active 1 goal linked to scheduled/document ed intervention 1 goal intervention scheduled/document ed in this visit Discharge Disciplines: Skilled Services 02/04/2025 Active 1 goal linked to scheduled/document ed intervention 1 goal intervention scheduled/document ed in this visit PT Impaired muscle performance and/or ROM Disciplines: PT 02/04/2025 Active 1 goal linked to scheduled/document ed intervention 1 goal intervention scheduled/document ed in this visit PT Impaired mobility Disciplines: PT 02/04/2025 Active 1 goal linked to scheduled/document ed intervention 1 goal intervention scheduled/document ed in this visit PT Impaired gait Disciplines: PT 02/04/2025 Active 1 goal linked to scheduled/document ed intervention 1 goal intervention scheduled/document ed in this visit PT Orthopedic Condition Disciplines: PT 02/04/2025 Active 1 goal linked to scheduled/document ed intervention 3 goal interventions scheduled/document ed in this visit PT Learning Assessment Disciplines: PT 02/04/2025 Active 1 goal linked to scheduled/document ed intervention 1 goal intervention scheduled/document ed in this visit Goals Goal Associated Problem Outcome Goal Met? Visit Notes Patient/caregiver will demonstrate ability to obtain, store, identify and administer ordered medications, keep accurate medication list in home, and adhere to medication schedule Description: Patient/caregiver will demonstrate ability to obtain, store, identify and administer ordered medications, keep accurate medication list in home, and adhere to medication schedule by 02/27/25. Medication Education No Patient/caregiver will be able to identify and report symptoms of sepsis Description: Patient/caregiver will be able to identify signs/symptoms of sepsis infection and will verbalize actions to take if suspected by 02/27/25. Sepsis No Patient to maintain parameters within physician-specified ranges throughout certification period Physician Specific Parameters No Manage Risk for falls Description: Patient/caregiver will verbalize knowledge of individualized fall prevention strategies by 02/27/25. Risk for Falls No Manage Pain Description: Patient/caregiver will verbalize knowledge and understanding of appropriate techniques to control pain, including pain medication and non-pharmacological techniques. Patient will verbalize or demonstrate an acceptable level of pain as eviden dimple by a pain score of <2/10 and improvement in ability to perform activities of daily living to be achieved by 02/27/25. Pain No Manage discharge planning Description: Patient/caregiver will verbalize understanding of ongoing discharge plan provided related to disease management, arrangements for outpatient and/or community services, obtaining medications, supplies, and DME, as needed throu out certification period. Discharge No Improved Muscle Performance and/or ROM Description: LTG: Patient and/or caregiver will verbalize/demonstrate independence with home exercise program, to improve functional mobility, to be achieved by 02/27/25. LTG: Patient will demonstrate improved right knee active range of motion to 5-100 degrees, to meet functional goals, to be achieved by 02/27/25. PT Impaired muscle performance and/or ROM No Improved Transfers Description: STG: Patient will demonstrate safe transfers to/from bed, chair and toilet independently, to be achieved by 02/20/25. LTG: Patient will demonstrate safe transfers to/from shower/tub and car independently, to be achieved by 02/27/25. PT Impaired mobility No Improved Gait Description: LTG: Patient will demonstrate improved gait ability as evidenced by ambulation 150 feet with front wheeled walker or single pt cane independently with AD, to return to safe community ambulation, in order to get to outpatient appointments, to be achieved by 02/27/25. PT Impaired gait No Manage Orthopedic Condition Description: Improve patient and/or caregiver understanding of post surgical and/or non-surgical orthopedic intervention management as evidenced by patient and/or caregiver able to verbalize, demonstrate, and teach back instruction, to be achieved by 02/27/25. PT Orthopedic Condition No Demonstrate understanding of education Description: Patient and/or caregiver will understand educational instruction to be achieved by 02/27/25. PT Learning Assessment No Interventions Intervention Associated Problem/Goal Status Variance Visit Notes Medication Education Description: Evaluate/instruct patient/caregiver on obtaining, storing, identifying and administering ordered medications as well as keeping accurate medication list in the home and adhereing to medication schedule Problem:Medication Education Goal:Patient/caregive r will demonstrate ability to obtain, store, identify and administer ordered medications, keep accurate medication list in home, and adhere to medication schedule Completed Patient instructed on adhering to medication schedule. Risk of Sepsis Description: Patient is at risk for sepsis. Monitor closely for s/s of sepsis. Problem:Sepsis Goal:Patient/caregive r will be able to identify and report symptoms of sepsis Completed SPO2 Description: Notify Dr. Dudley if pulse ox is <92% at rest. Problem:Physician Specific Parameters Goal:Patient to maintain parameters within physician-specified ranges throughout certification period Completed Instruct on individual fall risk factors and strategies to prevent falls and injuries caused by falls. Problem:Risk for Falls Goal:Manage Risk for falls Completed PT: Patient instructed on Managing Impaired Functional Mobility: Use assistive device(s): front wheeled walker and Caregiver to provide assist with: Ambulation, Steps, Transfers, ADL/IADLs and hep s Managing Pain Instruct on pain and instruct on strategies to control pain Problem:Pain Goal:Manage Pain Completed patient instructed on techniques to control pain including Pharmacological measures and Non-Pharmacological measures; rest, positioning/elevation, mobility/therapeutic exercise and use of DME/assistive devices. Instruct on ongoing discharge plan Problem:Discharge Goal:Manage discharge planning Completed Ongoing Discharge plan: Discharge plan discussed with patient including frequency and duration for home PT and plan for transition to: outpatient therapy. Physical Therapy Therapeutic Exercises Problem:PT Impaired muscle performance and/or ROM Goal:Improved Muscle Performance and/or ROM Completed patient instructed on strengthening and range of motion exercises including ap, qs, gs, qs with heel prop x 10, hip abd x 10, AAROM SAQ x 5 seated heel slides x10 with verbal, tactile, visual and written cues for slow pace, hold times. patient instructed to perform home exercise program twice a day which included the above as tolerated. Stop if SOB/chest, dizziness, increased pain overall, and report to appropriate provider. . Physical Therapy Transfer Training Problem:PT Impaired mobility Goal:Improved Transfers Completed Transfer training and instruction to patient on safe transfers to and from bed with supervision and verbal cues for leg patient sitter as needed, UE asssit . Physical Therapy Gait Training Problem:PT Impaired gait Goal:Improved Gait Completed Gait training and instruction to patient and caregiver on safe ambulation with front wheeled walker for 60 feet x 2 with supervision and stand by assist, with verbal and visual cues for corrections of gait deviations including fair heel to toe and step through. Patient walker too low, adjusted to allow for elbow flex and trunk ext; patient reported imrpoved ability to walk after [place], no LOB. Instruct on orthopedic precautions and weight bearing restrictions Description: Orthopedic precautions including right patellar resurfacing: no knee flexed over pillow at rest and no twisting. Weight bearing restrictions include: WBAT of involved extremity. Problem:PT Orthopedic Condition Goal:Manage Orthopedic Condition Completed patient instructed on orthopedic precautions and weight bearing restrictions. Instruct on management of edema Problem:PT Orthopedic Condition Goal:Manage Orthopedic Condition Completed Instruct patient on management of edema including elevation of LLE above the level of the heart. Instruct on self-management of post surgical and/or non-surgical orthopedic intervention Problem:PT Orthopedic Condition Goal:Manage Orthopedic Condition Completed patient instructed on managagement of orthopedic condition, signs and symptoms of infection, signs and symptoms of DVT/PE, instructed on when to call provider and instructed on when to call 911. Instruct and educate on knowledge deficits Problem:PT Learning Assessment Goal:Demonstrate understanding of education Completed patient verbalize and/or demonstrate understanding of physical therapy education including orthopedic condition management, weight bearing precautions, surgical precautions, pain management, fall prevention strategies, functional activity, home exercise program and s/s of dvt and infection. Education methods include: verbal cues, tactile cues, written instructions and visual cues. Further education required to improve knowledge and compliance with orthopedic condition management and integumentary and incision/wound care management. [facility] Visit Details Visit Type -[employer] ROUTINE Discipline -Physical Therapy Problems Problem Description Start Date Status Goals Interve ntions Medication Education Disciplines: Skilled Services 02/04/2025 Active 1 goal linked to scheduled/document ed intervention 1 goal intervention scheduled/document ed in this visit Sepsis Disciplines: Skilled Services 02/04/2025 Active 1 goal linked to scheduled/document ed intervention 1 goal intervention scheduled/document ed in this visit Physician Specific Parameters Disciplines: Skilled Services 02/04/2025 Active 1 goal linked to scheduled/document ed intervention 1 goal intervention scheduled/document ed in this visit Risk for Falls Disciplines: Skilled Services 02/04/2025 Active 1 goal linked to scheduled/document ed intervention 1 goal intervention scheduled/document ed in this visit Pain Disciplines: Skilled Services 02/04/2025 Active 1 goal linked to scheduled/document ed intervention 1 goal intervention scheduled/document ed in this visit Discharge Disciplines: Skilled Services 02/04/2025 Active 1 goal linked to scheduled/document ed intervention 2 goal interventions scheduled/document ed in this visit PT Impaired muscle performance and/or ROM Disciplines: PT 02/04/2025 Active 1 goal linked to scheduled/document ed intervention 1 goal intervention scheduled/document ed in this visit PT Impaired gait Disciplines: PT 02/04/2025 Active 1 goal linked to scheduled/document ed intervention 1 goal intervention scheduled/document ed in this visit PT Orthopedic Condition Disciplines: PT 02/04/2025 Active 1 goal linked to scheduled/document ed intervention 4 goal interventions scheduled/document ed in this visit PT Learning Assessment Disciplines: PT 02/04/2025 Active 1 goal linked to scheduled/document ed intervention 1 goal intervention scheduled/document ed in this visit Goals Goal Associated Problem Outcome Goal Met? Visit Notes Patient/caregiver will demonstrate ability to obtain, store, identify and administer ordered medications, keep accurate medication list in home, and adhere to medication schedule Description: Patient/caregiver will demonstrate ability to obtain, store, identify and administer ordered medications, keep accurate medication list in home, and adhere to medication schedule by 02/27/25. Medication Education No Patient/caregiver will be able to identify and report symptoms of sepsis Description: Patient/caregiver will be able to identify signs/symptoms of sepsis infection and will verbalize actions to take if suspected by 02/27/25. Sepsis No Patient to maintain parameters within physician-specified ranges throughout certification period Physician Specific Parameters No Manage Risk for falls Description: Patient/caregiver will verbalize knowledge of individualized fall prevention strategies by 02/27/25. Risk for Falls No Manage Pain Description: Patient/caregiver will verbalize knowledge and understanding of appropriate techniques to control pain, including pain medication and non-pharmacological techniques. Patient will verbalize or demonstrate an acceptable level of pain as eviden dimple by a pain score of <2/10 and improvement in ability to perform activities of daily living to be achieved by 02/27/25. Pain No Manage discharge planning Description: Patient/caregiver will verbalize understanding of ongoing discharge plan provided related to disease management, arrangements for outpatient and/or community services, obtaining medications, supplies, and DME, as needed throu out certification period. Discharge No Improved Muscle Performance and/or ROM Description: LTG: Patient and/or caregiver will verbalize/demonstrate independence with home exercise program, to improve functional mobility, to be achieved by 02/27/25. LTG: Patient will demonstrate improved right knee active range of motion to 5-100 degrees, to meet functional goals, to be achieved by 02/27/25. PT Impaired muscle performance and/or ROM No Improved Gait Description: LTG: Patient will demonstrate improved gait ability as evidenced by ambulation 150 feet with front wheeled walker or single pt cane independently with AD, to return to safe community ambulation, in order to get to outpatient appointments, to be achieved by 02/27/25. PT Impaired gait No Manage Orthopedic Condition Description: Improve patient and/or caregiver understanding of post surgical and/or non-surgical orthopedic intervention management as evidenced by patient and/or caregiver able to verbalize, demonstrate, and teach back instruction, to be achieved by 02/27/25. PT Orthopedic Condition No Demonstrate understanding of education Description: Patient and/or caregiver will understand educational instruction to be achieved by 02/27/25. PT Learning Assessment No Interventions Intervention Associated Problem/Goal Status Variance Visit Notes Medication Education Description: Evaluate/instruct patient/caregiver on obtaining, storing, identifying and administering ordered medications as well as keeping accurate medication list in the home and adhereing to medication schedule Problem:Medication Education Goal:Patient/caregive r will demonstrate ability to obtain, store, identify and administer ordered medications, keep accurate medication list in home, and adhere to medication schedule Completed Patient and Caregiver instructed on importance of keeping accurate medication list in home. Risk of Sepsis Description: Patient is at risk for sepsis. Monitor closely for s/s of sepsis. Problem:Sepsis Goal:Patient/caregive r will be able to identify and report symptoms of sepsis Completed SPO2 Description: Notify Dr. Dudley if pulse ox is <92% at rest. Problem:Physician Specific Parameters Goal:Patient to maintain parameters within physician-specified ranges throughout certification period Completed Instruct on individual fall risk factors and strategies to prevent falls and injuries caused by falls. Problem:Risk for Falls Goal:Manage Risk for falls Completed PT: Patient and Caregiver instructed on Managing Impaired Functional Mobility: Use assistive device(s): single point cane Instruct on pain and instruct on strategies to control pain Problem:Pain Goal:Manage Pain Completed patient and caregiver instructed on techniques to control pain including Pharmacological measures and Non-Pharmacological measures; positioning/elevation and use of thermal modalities, apply ice to affected area for the following prescribed frequency: lle. Instruct on ongoing discharge plan Problem:Discharge Goal:Manage discharge planning Completed Ongoing Discharge plan: Discharge plan discussed with patient and caregiver including frequency and duration for home PT and plan for transition to: inpatient rehab. Instruct on importance of follow-up appts and continued monitoring with medical provider &/or chronic care clinic Problem:Discharge Goal:Manage discharge planning Completed Education provided on importance of compliance with follow-up appointment(s). Recommendations: appointment scheduled for left message to schedule OP PT Physical Therapy Therapeutic Exercises Problem:PT Impaired muscle performance and/or ROM Goal:Improved Muscle Performance and/or ROM Completed patient and caregiver instructed on strengthening and range of motion exercises including ap, qs w/ heel elevated, hip abd, saq and heel slides x's 10,supine ext hang x'5min. standing heel raises and hams curl x's 10 seated heel slides x's 10 with verbal, visual and written cues for form and progressions. patient and caregiver instructed to perform home exercise program twice a day which included above ex. Physical Therapy Gait Training Problem:PT Impaired gait Goal:Improved Gait Completed Gait training and instruction to patient and caregiver on safe ambulation with single point cane for 4x's40 feet with supervision, with verbal and visual cues for corrections of gait deviations including correct use and step pattern. Instruct on orthopedic precautions and weight bearing restrictions Description: Orthopedic precautions including right patellar resurfacing: no knee flexed over pillow at rest and no twisting. Weight bearing restrictions include: WBAT of involved extremity. Problem:PT Orthopedic Condition Goal:Manage Orthopedic Condition Completed patient instructed on orthopedic precautions. Instruct on management of edema Problem:PT Orthopedic Condition Goal:Manage Orthopedic Condition Completed Instruct patient and caregiver on management of edema including elevation of LLE above the level of the heart and ice. Physical therapy to perform surgical incision/wound management Description: Removal of post-op dressing on 02/09-02/12. If no drainage is present, leave open to air; if drainage is present, cover with clean dressing and contact provider and renal case manager Problem:PT Orthopedic Condition Goal:Manage Orthopedic Condition Completed Intervention completed this date. Instruct on self-management of post surgical and/or non-surgical orthopedic intervention Problem:PT Orthopedic Condition Goal:Manage Orthopedic Condition Completed patient and caregiver instructed on incision care: no lotions,creams or rubbing, signs and symptoms of infection, signs and symptoms of DVT/PE, follow provider guidance for showering , instructed on when to call provider and instructed on when to call 911. Instruct and educate on knowledge deficits Problem:PT Learning Assessment Goal:Demonstrate understanding of education Completed patient and caregiver verbalize and/or demonstrate understanding of physical therapy education including pain management, integumentary and incision/wound care management and home exercise program. Education methods include: verbal cues, written instructions and visual cues. Further education required to improve knowledge and compliance with home exercise program. [facility] Visit Details Visit Type -[employer] ROUTINE Discipline -Physical Therapy Problems Problem Description Start Date Status Goals Interve ntions Medication Education Disciplines: Skilled Services 02/04/2025 Active 1 goal linked to scheduled/document ed intervention 1 goal intervention scheduled/document ed in this visit Sepsis Disciplines: Skilled Services 02/04/2025 Active 1 goal linked to scheduled/document ed intervention 1 goal intervention scheduled/document ed in this visit Physician Specific Parameters Disciplines: Skilled Services 02/04/2025 Active 1 goal linked to scheduled/document ed intervention 1 goal intervention scheduled/document ed in this visit Risk for Falls Disciplines: Skilled Services 02/04/2025 Active 1 goal linked to scheduled/document ed intervention 1 goal intervention scheduled/document ed in this visit Pain Disciplines: Skilled Services 02/04/2025 Active 1 goal linked to scheduled/document ed intervention 1 goal intervention scheduled/document ed in this visit Discharge Disciplines: Skilled Services 02/04/2025 Active 1 goal linked to scheduled/document ed intervention 1 goal intervention scheduled/document ed in this visit PT Impaired muscle performance and/or ROM Disciplines: PT 02/04/2025 Active 1 goal linked to scheduled/document ed intervention 1 goal intervention scheduled/document ed in this visit PT Impaired gait Disciplines: PT 02/04/2025 Active 2 goals linked to scheduled/document ed interventions 2 goal interventions scheduled/document ed in this visit PT Impaired balance Disciplines: PT 02/04/2025 Active 1 goal linked to scheduled/document ed intervention 1 goal intervention scheduled/document ed in this visit PT Orthopedic Condition Disciplines: PT 02/04/2025 Active 1 goal linked to scheduled/document ed intervention 1 goal intervention scheduled/document ed in this visit PT Learning Assessment Disciplines: PT 02/04/2025 Active 1 goal linked to scheduled/document ed intervention 1 goal intervention scheduled/document ed in this visit Goals Goal Associated Problem Outcome Goal Met? Visit Notes Patient/caregiver will demonstrate ability to obtain, store, identify and administer ordered medications, keep accurate medication list in home, and adhere to medication schedule Description: Patient/caregiver will demonstrate ability to obtain, store, identify and administer ordered medications, keep accurate medication list in home, and adhere to medication schedule by 02/27/25. Medication Education No Patient/caregiver will be able to identify and report symptoms of sepsis Description: Patient/caregiver will be able to identify signs/symptoms of sepsis infection and will verbalize actions to take if suspected by 02/27/25. Sepsis No Patient to maintain parameters within physician-specified ranges throughout certification period Physician Specific Parameters No Manage Risk for falls Description: Patient/caregiver will verbalize knowledge of individualized fall prevention strategies by 02/27/25. Risk for Falls No Manage Pain Description: Patient/caregiver will verbalize knowledge and understanding of appropriate techniques to control pain, including pain medication and non-pharmacological techniques. Patient will verbalize or demonstrate an acceptable level of pain as eviden dimple by a pain score of <2/10 and improvement in ability to perform activities of daily living to be achieved by 02/27/25. Pain No Manage discharge planning Description: Patient/caregiver will verbalize understanding of ongoing discharge plan provided related to disease management, arrangements for outpatient and/or community services, obtaining medications, supplies, and D[facility]. Discharge No Improved Muscle Performance and/or ROM Description: LTG: Patient and/or caregiver will verbalize/demonstrate independence with home exercise program, to improve functional mobility, to be achieved by 02/27/25. LTG: Patient will demonstrate improved right knee active range of motion to 5-100 degrees, to meet functional goals, to be achieved by 02/27/25. PT Impaired muscle performance and/or ROM No Improved Stair Climbing Description: LTG: Patient will demonstrate improved stair negotiation as evidenced by ascend/descend 2 or more steps with railing independently, to safely exit home, to be achieved by 02/27/25. PT Impaired gait No Improved Gait Description: LTG: Patient will demonstrate improved gait ability as evidenced by ambulation 150 feet with front wheeled walker or single pt cane independently with AD, to return to safe community ambulation, in order to get to outpatient appointments, to be achieved by 02/27/25. PT Impaired gait No Improved Balance Description: LTG: Patient will demonstrate improved standing balance to meet functional goals as evidenced by TUG score of <18, to be achieved by 02/27/25. PT Impaired balance No Manage Orthopedic Condition Description: Improve patient and/or caregiver understanding of post surgical and/or non-surgical orthopedic intervention management as evidenced by patient and/or caregiver able to verbalize, demonstrate, and teach back instruction, to be achieved by 02/27/25. PT Orthopedic Condition No Demonstrate understanding of education Description: Patient and/or caregiver will understand educational instruction to be achieved by 02/27/25. PT Learning Assessment No Interventions Intervention Associated Problem/Goal Status Variance Visit Notes Medication Education Description: Evaluate/instruct patient/caregiver on obtaining, storing, identifying and administering ordered medications as well as keeping accurate medication list in the home and adhereing to medication schedule Problem:Medication Education Goal:Patient/caregive r will demonstrate ability to obtain, store, identify and administer ordered medications, keep accurate medication list in home, and adhere to medication schedule Completed Patient instructed on importance of keeping accurate medication list in home. Risk of Sepsis Description: Patient is at risk for sepsis. Monitor closely for s/s of sepsis. Problem:Sepsis Goal:Patient/caregive r will be able to identify and report symptoms of sepsis Completed SPO2 Description: Notify Dr. Dudley if pulse ox is <92% at rest. Problem:Physician Specific Parameters Goal:Patient to maintain parameters within physician-specified ranges throughout certification period Completed Instruct on individual fall risk factors and strategies to prevent falls and injuries caused by falls. Problem:Risk for Falls Goal:Manage Risk for falls Completed PT: Patient instructed on Managing Impaired Functional Mobility: Use assistive device(s): single point cane Instruct on pain and instruct on strategies to control pain Problem:Pain Goal:Manage Pain Completed patient instructed on techniques to control pain including Pharmacological measures and Non-Pharmacological measures; positioning/elevation and use of thermal modalities, apply ice to affected area for the following prescribed frequency: prn. Instruct on ongoing discharge plan Problem:Discharge Goal:Manage discharge planning Completed Ongoing Discharge plan: Discharge plan discussed with patient including frequency and duration for home PT and plan for transition to: outpatient therapy. Physical Therapy Therapeutic Exercises Problem:PT Impaired muscle performance and/or ROM Goal:Improved Muscle Performance and/or ROM Completed patient instructed on strengthening and range of motion exercises including standing heel raises, hip abd,hams curls x's 15 each. step flexion stretch x's 10, seated heel slides a's 10 with verbal, visual and written cues for progressions. patient instructed to perform home exercise program twice a day which included above ex. Physical Therapy Stair Training Problem:PT Impaired gait Goal:Improved Stair Climbing Completed Stair training and instruction to patient on safe stair climbing, ascend/descend 15 steps plus 3 steps , with railing and with cane training with supervision and verbal, visual and written cues for correct step pattern. Physical Therapy Gait Training Problem:PT Impaired gait Goal:Improved Gait Completed Gait training and instruction to patient on safe ambulation with single point cane for 100 and 2x's 50 feet with supervision, with verbal cues for corrections of gait deviations including safety. Physical Therapy Balance Training Problem:PT Impaired balance Goal:Improved Balance Completed Developed, implemented, and instructed patient on standing balance exercises including outdoor ambulation, and standing exercises. Instruct on management of edema Problem:PT Orthopedic Condition Goal:Manage Orthopedic Condition Completed Instruct patient on management of edema including elevation of LLE above the level of the heart and ice. Instruct and educate on knowledge deficits Problem:PT Learning Assessment Goal:Demonstrate understanding of education Completed patient verbalize and/or demonstrate understanding of physical therapy education including functional activity and home exercise program. Education methods include: verbal cues, written instructions and visual cues. Further education required to improve knowledge and compliance with home exercise program. [facility] Visit Details Visit Type -[employer] ROUTINE Discipline -Physical Therapy Problems Problem Description Start Date Status Goals Interve ntions Medication Education Disciplines: Skilled Services 02/04/2025 Active 1 goal linked to scheduled/document ed intervention 1 goal intervention scheduled/document ed in this visit Sepsis Disciplines: Skilled Services 02/04/2025 Active 1 goal linked to scheduled/document ed intervention 1 goal intervention scheduled/document ed in this visit Physician Specific Parameters Disciplines: Skilled Services 02/04/2025 Active 1 goal linked to scheduled/document ed intervention 1 goal intervention scheduled/document ed in this visit Risk for Falls Disciplines: Skilled Services 02/04/2025 Active 1 goal linked to scheduled/document ed intervention 1 goal intervention scheduled/document ed in this visit Pain Disciplines: Skilled Services 02/04/2025 Active 1 goal linked to scheduled/document ed intervention 1 goal intervention scheduled/document ed in this visit Discharge Disciplines: Skilled Services 02/04/2025 Active 1 goal linked to scheduled/document ed intervention 1 goal intervention scheduled/document ed in this visit PT Impaired muscle performance and/or ROM Disciplines: PT 02/04/2025 Active 1 goal linked to scheduled/document ed intervention 1 goal intervention scheduled/document ed in this visit PT Impaired gait Disciplines: PT 02/04/2025 Active 1 goal linked to scheduled/document ed intervention 1 goal intervention scheduled/document ed in this visit PT Impaired balance Disciplines: PT 02/04/2025 Active 1 goal linked to scheduled/document ed intervention 1 goal intervention scheduled/document ed in this visit PT Orthopedic Condition Disciplines: PT 02/04/2025 Active 1 goal linked to scheduled/document ed intervention 2 goal interventions scheduled/document ed in this visit PT Learning Assessment Disciplines: PT 02/04/2025 Active 1 goal linked to scheduled/document ed intervention 1 goal intervention scheduled/document ed in this visit Goals Goal Associated Problem Outcome Goal Met? Visit Notes Patient/caregiver will demonstrate ability to obtain, store, identify and administer ordered medications, keep accurate medication list in home, and adhere to medication schedule Description: Patient/caregiver will demonstrate ability to obtain, store, identify and administer ordered medications, keep accurate medication list in home, and adhere to medication schedule by 02/27/25. Medication Education No Patient/caregiver will be able to identify and report symptoms of sepsis Description: Patient/caregiver will be able to identify signs/symptoms of sepsis infection and will verbalize actions to take if suspected by 02/27/25. Sepsis No Patient to maintain parameters within physician-specified ranges throughout certification period Physician Specific Parameters No Manage Risk for falls Description: Patient/caregiver will verbalize knowledge of individualized fall prevention strategies by 02/27/25. Risk for Falls No Manage Pain Description: Patient/caregiver will verbalize knowledge and understanding of appropriate techniques to control pain, including pain medication and non-pharmacological techniques. Patient will verbalize or demonstrate an acceptable level of pain as eviden dimple by a pain score of <2/10 and improvement in ability to perform activities of daily living to be achieved by 02/27/25. Pain No Manage discharge planning Description: Patient/caregiver will verbalize understanding of ongoing discharge plan provided related to disease management, arrangements for outpatient and/or community services, obtaining medications, supplies, and DME, as needed [facility] certification period. Discharge No Improved Muscle Performance and/or ROM Description: LTG: Patient and/or caregiver will verbalize/demonstrate independence with home exercise program, to improve functional mobility, to be achieved by 02/27/25. LTG: Patient will demonstrate improved right knee active range of motion to 5-100 degrees, to meet functional goals, to be achieved by 02/27/25. PT Impaired muscle performance and/or ROM No Improved Gait Description: LTG: Patient will demonstrate improved gait ability as evidenced by ambulation 150 feet with front wheeled walker or single pt cane independently with AD, to return to safe community ambulation, in order to get to outpatient appointments, to be achieved by 02/27/25. PT Impaired gait No Improved Balance Description: LTG: Patient will demonstrate improved standing balance to meet functional goals as evidenced by TUG score of <18, to be achieved by 02/27/25. PT Impaired balance No Manage Orthopedic Condition Description: Improve patient and/or caregiver understanding of post surgical and/or non-surgical orthopedic intervention management as evidenced by patient and/or caregiver able to verbalize, demonstrate, and teach back instruction, to be achieved by 02/27/25. PT Orthopedic Condition No Demonstrate understanding of education Description: Patient and/or caregiver will understand educational instruction to be achieved by 02/27/25. PT Learning Assessment No Interventions Intervention Associated Problem/Goal Status Variance Visit Notes Medication Education Description: Evaluate/instruct patient/caregiver on obtaining, storing, identifying and administering ordered medications as well as keeping accurate medication list in the home and adhereing to medication schedule Problem:Medication Education Goal:Patient/caregive r will demonstrate ability to obtain, store, identify and administer ordered medications, keep accurate medication list in home, and adhere to medication schedule Completed Patient instructed on importance of keeping accurate medication list in home. Risk of Sepsis Description: Patient is at risk for sepsis. Monitor closely for s/s of sepsis. Problem:Sepsis Goal:Patient/caregive r will be able to identify and report symptoms of sepsis Completed SPO2 Description: Notify Dr. Sziraky if pulse ox is <92% at rest. Problem:Physician Specific Parameters Goal:Patient to maintain parameters within physician-specified ranges throughout certification period Completed Instruct on individual fall risk factors and strategies to prevent falls and injuries caused by falls. Problem:Risk for Falls Goal:Manage Risk for falls Completed PT: Patient instructed on Managing Impaired Functional Mobility: Use assistive device(s): single point cane for community distances Instruct on pain and instruct on strategies to control pain Problem:Pain Goal:Manage Pain Completed patient instructed on techniques to control pain including Non-Pharmacological measures; use of thermal modalities, apply ice to affected area for the following prescribed frequency: prn. Instruct on ongoing discharge plan Problem:Discharge Goal:Manage discharge planning Completed Ongoing Discharge plan: Discharge plan discussed with patient including frequency and duration for home PT and plan for transition to: outpatient therapy. Physical Therapy Therapeutic Exercises Problem:PT Impaired muscle performance and/or ROM Goal:Improved Muscle Performance and/or ROM Completed patient instructed on strengthening and range of motion exercises including toshia standing heel raises, hams curl, hip flexion, abd and ext, 1/4 squats x's 15 each. step ups x's 10 each on 5in step with verbal, visual and written cues for progressions. patient instructed to perform home exercise program twice a day which included above ex. Physical Therapy Gait Training Problem:PT Impaired gait Goal:Improved Gait Completed Gait training and instruction to patient on safe ambulation with no device for household distances with independent, Physical Therapy Balance Training Problem:PT Impaired balance Goal:Improved Balance Completed Developed, implemented, and instructed patient on standing balance exercises including toshai standing ex. Instruct on management of edema Problem:PT Orthopedic Condition Goal:Manage Orthopedic Condition Completed Instruct patient on management of edema including ice. Instruct on self-management of post surgical and/or non-surgical orthopedic intervention Problem:PT Orthopedic Condition Goal:Manage Orthopedic Condition Completed patient instructed on signs and symptoms of infection, signs and symptoms of DVT/PE, instructed on when to call provider and instructed on when to call 911. Instruct and educate on knowledge deficits Problem:PT Learning Assessment Goal:Demonstrate understanding of education Completed patient verbalize and/or demonstrate understanding of physical therapy education including pain management and home exercise program. Education methods include: verbal cues, written instructions and visual cues. Further education required to improve knowledge and compliance with home exercise program. [facility] Visit Details Visit Type -[employer]INE Discipline -Physical Therapy Problems Problem Description Start Date Status Goals Interve ntions Medication Education Disciplines: Skilled Services 02/04/2025 Active 1 goal linked to scheduled/document ed intervention 1 goal intervention scheduled/document ed in this visit Sepsis Disciplines: Skilled Services 02/04/2025 Active 1 goal linked to scheduled/document ed intervention 1 goal intervention scheduled/document ed in this visit Physician Specific Parameters Disciplines: Skilled Services 02/04/2025 Active 1 goal linked to scheduled/document ed intervention 1 goal intervention scheduled/document ed in this visit Risk for Falls Disciplines: Skilled Services 02/04/2025 Active 1 goal linked to scheduled/document ed intervention 1 goal intervention scheduled/document ed in this visit Pain Disciplines: Skilled Services 02/04/2025 Active 1 goal linked to scheduled/document ed intervention 1 goal intervention scheduled/document ed in this visit Discharge Disciplines: Skilled Services 02/04/2025 Active 1 goal linked to scheduled/document ed intervention 2 goal interventions scheduled/document ed in this visit PT Impaired muscle performance and/or ROM Disciplines: PT 02/04/2025 Active 1 goal linked to scheduled/document ed intervention 1 goal intervention scheduled/document ed in this visit PT Impaired gait Disciplines: PT 02/04/2025 Active 2 goals linked to scheduled/document ed interventions 2 goal interventions scheduled/document ed in this visit PT Impaired balance Disciplines: PT 02/04/2025 Active 1 goal linked to scheduled/document ed intervention 1 goal intervention scheduled/document ed in this visit PT Orthopedic Condition Disciplines: PT 02/04/2025 Active 1 goal linked to scheduled/document ed intervention 2 goal interventions scheduled/document ed in this visit PT Learning Assessment Disciplines: PT 02/04/2025 Active 1 goal linked to scheduled/document ed intervention 1 goal intervention scheduled/document ed in this visit Goals Goal Associated Problem Outcome Goal Met? Visit Notes Patient/caregiver will demonstrate ability to obtain, store, identify and administer ordered medications, keep accurate medication list in home, and adhere to medication schedule Description: Patient/caregiver will demonstrate ability to obtain, store, identify and administer ordered medications, keep accurate medication list in home, and adhere to medication schedule by 02/27/25. Medication Education No Patient/caregiver will be able to identify and report symptoms of sepsis Description: Patient/caregiver will be able to identify signs/symptoms of sepsis infection and will verbalize actions to take if suspected by 02/27/25. Sepsis No Patient to maintain parameters within physician-specified ranges throughout certification period Physician Specific Parameters No Manage Risk for falls Description: Patient/caregiver will verbalize knowledge of individualized fall prevention strategies by 02/27/25. Risk for Falls No Manage Pain Description: Patient/caregiver will verbalize knowledge and understanding of appropriate techniques to control pain, including pain medication and non-pharmacological techniques. Patient will verbalize or demonstrate an acceptable level of pain as eviden dimple by a pain score of <2/10 and improvement in ability to perform activities of daily living to be achieved by 02/27/25. Pain No Manage discharge planning Description: Patient/caregiver will verbalize understanding of ongoing discharge plan provided related to disease management, arrangements for outpatient and/or community services, obtaining medications, supplies, and DME, as needed fuller hospital certification period. Discharge No Improved Muscle Performance and/or ROM Description: LTG: Patient and/or caregiver will verbalize/demonstrate independence with home exercise program, to improve functional mobility, to be achieved by 02/27/25. LTG: Patient will demonstrate improved right knee active range of motion to 5-100 degrees, to meet functional goals, to be achieved by 02/27/25. PT Impaired muscle performance and/or ROM No Improved Stair Climbing Description: LTG: Patient will demonstrate improved stair negotiation as evidenced by ascend/descend 2 or more steps with railing independently, to safely exit home, to be achieved by 02/27/25. PT Impaired gait No Improved Gait Description: LTG: Patient will demonstrate improved gait ability as evidenced by ambulation 150 feet with front wheeled walker or single pt cane independently with AD, to return to safe community ambulation, in order to get to outpatient appointments, to be achieved by 02/27/25. PT Impaired gait No Improved Balance Description: LTG: Patient will demonstrate improved standing balance to meet functional goals as evidenced by TUG score of <18, to be achieved by 02/27/25. PT Impaired balance No Manage Orthopedic Condition Description: Improve patient and/or caregiver understanding of post surgical and/or non-surgical orthopedic intervention management as evidenced by patient and/or caregiver able to verbalize, demonstrate, and teach back instruction, to be achieved by 02/27/25. PT Orthopedic Condition No Demonstrate understanding of education Description: Patient and/or caregiver will understand educational instruction to be achieved by 02/27/25. PT Learning Assessment No Interventions Intervention Associated Problem/Goal Status Variance Visit Notes Medication Education Description: Evaluate/instruct patient/caregiver on obtaining, storing, identifying and administering ordered medications as well as keeping accurate medication list in the home and adhereing to medication schedule Problem:Medication Education Goal:Patient/caregive r will demonstrate ability to obtain, store, identify and administer ordered medications, keep accurate medication list in home, and adhere to medication schedule Completed Patient instructed on importance of keeping accurate medication list in home. Risk of Sepsis Description: Patient is at risk for sepsis. Monitor closely for s/s of sepsis. Problem:Sepsis Goal:Patient/caregive r will be able to identify and report symptoms of sepsis Completed SPO2 Description: Notify Dr. Dudley if pulse ox is <92% at rest. Problem:Physician Specific Parameters Goal:Patient to maintain parameters within physician-specified ranges throughout certification period Completed Instruct on individual fall risk factors and strategies to prevent falls and injuries caused by falls. Problem:Risk for Falls Goal:Manage Risk for falls Completed PT: Patient instructed on Managing Impaired Functional Mobility: Use assistive device(s): single point cane when outdoors Instruct on pain and instruct on strategies to control pain Problem:Pain Goal:Manage Pain Completed patient instructed on techniques to control pain including Non-Pharmacological measures; positioning/elevation and use of thermal modalities, apply ice to affected area for the following prescribed frequency: prn. Deliver [facility] Problem:Discharge Goal:Manage discharge planning Completed Delivered [facility] on 02/18/25 for discharge date of 02/23/25. Instruct on ongoing discharge plan Problem:Discharge Goal:Manage discharge planning Completed Ongoing Discharge plan: Discharge plan discussed with patient including frequency and duration for home PT and plan for transition to: outpatient therapy. Physical Therapy Therapeutic Exercises Problem:PT Impaired muscle performance and/or ROM Goal:Improved Muscle Performance and/or ROM Completed patient instructed on strengthening and range of motion exercises including toshia standing heel raises, hip flexion,abd and ext. hams curls and 1/4 squats x's 10-15 each. step ups on 7in step x's 10, step flexion stretch and seated heel slides x's 10 each with verbal, visual and written cues for technique. patient instructed to perform home exercise program twice a day which included above ex. Physical Therapy Stair Training Problem:PT Impaired gait Goal:Improved Stair Climbing Completed Stair training and instruction to patient on safe stair climbing, ascend/descend 2 steps, with railing with supervision and verbal cues for correct step pattern. Physical Therapy Gait Training Problem:PT Impaired gait Goal:Improved Gait Completed Gait training and instruction to patient on safe ambulation with no device for 3x'75 feet with independent, Physical Therapy Balance Training Problem:PT Impaired balance Goal:Improved Balance Completed Developed, implemented, and instructed patient on standing balance exercises including toshia standing ex and ambulation in home w/o AD. Instruct on management of edema Problem:PT Orthopedic Condition Goal:Manage Orthopedic Condition Completed Instruct patient on management of edema including elevation of LLE above the level of the heart and ice. Instruct on self-management of post surgical and/or non-surgical orthopedic intervention Problem:PT Orthopedic Condition Goal:Manage Orthopedic Condition Completed patient instructed on signs and symptoms of infection, signs and symptoms of DVT/PE, instructed on when to call provider and instructed on when to call 911. Instruct and educate on knowledge deficits Problem:PT Learning Assessment Goal:Demonstrate understanding of education Completed patient verbalize and/or demonstrate understanding of physical therapy education including functional activity and home exercise program. Education methods include: verbal cues and visual cues. Further education required to improve knowledge and compliance with home exercise program. documented in this encounter [facility] Plan of care note* Visit Details Visit Type -PT AGENCY DC W V ISIT Discipline -Physical Therapy Problems Problem Description Start Date Status Goals Interve ntions Medication Education Disciplines: Skilled Services 02/04/2025 Resolved on 02/23/2025 1 goal linked to scheduled/document ed intervention 1 goal intervention scheduled/document ed in this visit Sepsis Disciplines: Skilled Services 02/04/2025 Resolved on 02/23/2025 1 goal linked to scheduled/document ed intervention 1 goal intervention scheduled/document ed in this visit Physician Specific Parameters Disciplines: Skilled Services 02/04/2025 Resolved on 02/23/2025 1 goal linked to scheduled/document ed intervention 1 goal intervention scheduled/document ed in this visit Risk for Falls Disciplines: Skilled Services 02/04/2025 Resolved on 02/23/2025 1 goal linked to scheduled/document ed intervention 1 goal intervention scheduled/document ed in this visit Pain Disciplines: Skilled Services 02/04/2025 Resolved on 02/23/2025 1 goal linked to scheduled/document ed intervention 1 goal intervention scheduled/document ed in this visit Nutrition/Hydrat ion Disciplines: Skilled Services 02/04/2025 Resolved on 02/23/2025 1 goal linked to scheduled/document ed intervention 1 goal intervention scheduled/document ed in this visit High Risk Medications Disciplines: Skilled Services 02/04/2025 Resolved on 02/23/2025 1 goal linked to scheduled/document ed intervention 1 goal intervention scheduled/document ed in this visit Discharge Disciplines: Skilled Services 02/04/2025 Resolved on 02/23/2025 1 goal linked to scheduled/document ed intervention 2 goal interventions scheduled/document ed in this visit PT Impaired muscle performance and/or ROM Disciplines: PT 02/04/2025 Resolved on 02/23/2025 1 goal linked to scheduled/document ed intervention 1 goal intervention scheduled/document ed in this visit PT Impaired mobility Disciplines: PT 02/04/2025 Resolved on 02/23/2025 2 goals linked to scheduled/document ed interventions 2 goal interventions scheduled/document ed in this visit PT Impaired gait Disciplines: PT 02/04/2025 Resolved on 02/23/2025 2 goals linked to scheduled/document ed interventions 2 goal interventions scheduled/document ed in this visit PT Impaired balance Disciplines: PT 02/04/2025 Resolved on 02/23/2025 1 goal linked to scheduled/document ed intervention PT Orthopedic Condition Disciplines: PT 02/04/2025 Resolved on 02/23/2025 1 goal linked to scheduled/document ed intervention 3 goal interventions scheduled/document ed in this visit PT Learning Assessment Disciplines: PT 02/04/2025 Resolved on 02/23/2025 1 goal linked to scheduled/document ed intervention 1 goal intervention scheduled/document ed in this visit Goals Goal Associated Problem Outcome Goal Met? Visit Notes Patient/caregiver will demonstrate ability to obtain, store, identify and administer ordered medications, keep accurate medication list in home, and adhere to medication schedule Description: Patient/caregiver will demonstrate ability to obtain, store, identify and administer ordered medications, keep accurate medication list in home, and adhere to medication schedule by 02/27/25. Medication Education Completed Yes Patient/caregiver will be able to identify and report symptoms of sepsis Description: Patient/caregiver will be able to identify signs/symptoms of sepsis infection and will verbalize actions to take if suspected by 02/27/25. Sepsis Completed Yes Patient to maintain parameters within physician-specified ranges throughout certification period Physician Specific Parameters Completed Yes Manage Risk for falls Description: Patient/caregiver will verbalize knowledge of individualized fall prevention strategies by 02/27/25. Risk for Falls Completed Yes Manage Pain Description: Patient/caregiver will verbalize knowledge and understanding of appropriate techniques to control pain, including pain medication and non-pharmacological techniques. Patient will verbalize or demonstrate an acceptable level of pain as eviden dimple by a pain score of <2/10 and improvement in ability to perform activities of daily living to be achieved by 02/27/25. Pain Completed Yes Manage Nutrition/Hydration Description: Patient/caregiver will verbalize/demonstrate knowledge of prescribed diet and/or healthy nutrition to be achieved by 02/27/25. Nutrition/Hydration Completed Yes Patient/caregiver will teach back high risk medication side effect and precaution education Description: STG Patient/caregiver will verbalize understanding of high risk medication side effects and precautions to be achieved by 02/20/25. LTG Patient/caregiver will continue to verbalize understanding of high risk medication side effects and precautions throughout certification period. High Risk Medications Completed Yes Manage discharge planning Description: Patient/caregiver will verbalize understanding of ongoing discharge plan provided related to disease management, arrangements for outpatient and/or community services, obtaining medications, supplies, and DME, as needed throu [facility] certification period. Discharge Completed Yes Improved Muscle Performance and/or ROM Description: LTG: Patient and/or caregiver will verbalize/demonstrate independence with home exercise program, to improve functional mobility, to be achieved by 02/27/25. LTG: Patient will demonstrate improved right knee active range of motion to 5-100 degrees, to meet functional goals, to be achieved by 02/27/25. PT Impaired muscle performance and/or ROM Completed Yes Improved Transfers Description: STG: Patient will demonstrate safe transfers to/from bed, chair and toilet independently, to be achieved by 02/20/25. LTG: Patient will demonstrate safe transfers to/from shower/tub and car independently, to be achieved by 02/27/25. PT Impaired mobility Completed Yes Improved Bed Mobility Description: STG: Patient will demonstrate improved supine <> sit independently to be achieved by 02/20/25. PT Impaired mobility Completed Yes Improved Stair Climbing Description: LTG: Patient will demonstrate improved stair negotiation as evidenced by ascend/descend 2 or more steps with railing independently, to safely exit home, to be achieved by 02/27/25. PT Impaired gait Completed Yes Improved Gait Description: LTG: Patient will demonstrate improved gait ability as evidenced by ambulation 150 feet with front wheeled walker or single pt cane independently with AD, to return to safe community ambulation, in order to get to outpatient appointments, to be achieved by 02/27/25. PT Impaired gait Completed Yes Improved Balance Description: LTG: Patient will demonstrate improved standing balance to meet functional goals as evidenced by TUG score of <18, to be achieved by 02/27/25. PT Impaired balance Completed Yes Manage Orthopedic Condition Description: Improve patient and/or caregiver understanding of post surgical and/or non-surgical orthopedic intervention management as evidenced by patient and/or caregiver able to verbalize, demonstrate, and teach back instruction, to be achieved by 02/27/25. PT Orthopedic Condition Completed Yes Demonstrate understanding of education Description: Patient and/or caregiver will understand educational instruction to be achieved by 02/27/25. PT Learning Assessment Completed Yes Interventions Intervention Associated Problem/Goal Status Variance Visit Notes Medication Education Description: Evaluate/instruct patient/caregiver on obtaining, storing, identifying and administering ordered medications as well as keeping accurate medication list in the home and adhereing to medication schedule Problem:Medication Education Goal:Patient/caregive r will demonstrate ability to obtain, store, identify and administer ordered medications, keep accurate medication list in home, and adhere to medication schedule Completed Patient instructed on adhering to medication schedule. Risk of Sepsis Description: Patient is at risk for sepsis. Monitor closely for s/s of sepsis. Problem:Sepsis Goal:Patient/caregive r will be able to identify and report symptoms of sepsis Completed SPO2 Description: Notify Dr. Dudley if pulse ox is <92% at rest. Problem:Physician Specific Parameters Goal:Patient to maintain parameters within physician-specified ranges throughout certification period Completed Instruct on individual fall risk factors and strategies to prevent falls and injuries caused by falls. Problem:Risk for Falls Goal:Manage Risk for falls Completed PT: Patient instructed on Eliminating Environmental Hazards: Keep pathways clear and Wear supportive shoes or non-skid socks Managing Pain Instruct on pain and instruct on strategies to control pain Problem:Pain Goal:Manage Pain Completed patient instructed on techniques to control pain including Pharmacological measures and Non-Pharmacological measures; rest, positioning/elevation and use of thermal modalities, apply ice to affected area for the following prescribed frequency: PRN. Define patient s appetite/hydration status and implement strategies to improve compliance with prescribed diet and/or healthy nutrition. Problem:Nutrition/Hyd ration Goal:Manage Nutrition/Hydration Completed reinforced patient on implementing strategies to comply with healthy nutrition and adequate hydration Antiplatelet- educated on high risk medication Problem:High Risk Medications Goal:Patient/caregive r will teach back high risk medication side effect and precaution education Completed patient educated on taking medication(s) as prescribed by provider. Do not stop medication or alter doses without speaking with your provider. Discuss medication effectiveness or side effect concerns with your provider and home care team. Discuss all medications you are taking, even [id number] medicines, with your provider and pharmacist since many drugs can interact with antiplatelet medications. If you forget to take a dose, DO NOT take a double dose. Take the missed dose as soon as possible on the same day. DO NOT take a double dose the next day to make up for the missed dose. Watch for signs of abnormal or excessive bleeding and bruising (refer to Bleeding Precautions education). Call your health care provider right away if you suspect something is wrong. Instruct on final discharge plan and deliver discharge instructions Problem:Discharge Goal:Manage discharge planning Completed Delivered Discharge plan: Discharge plan discussed with patient for plan for transition to: outpatient therapy Instruct on importance of follow-up appts and continued monitoring with medical provider &/or chronic care clinic Problem:Discharge Goal:Manage discharge planning Completed Education provided on importance of compliance with follow-up appointment(s). Physical Therapy Therapeutic Exercises Problem:PT Impaired muscle performance and/or ROM Goal:Improved Muscle Performance and/or ROM Completed patient instructed on strengthening and range of motion exercises 2-3 x daily and walking program. Patient verbalized understanding of instructions and compliance. Instructed patient/caregiver on strengthening/range of motion, exercises with supine: ankle pumps, quad sets, glute sets, SAQ, heel slides, SLR, and hip abduction x10 reps LLE. Completed L knee stair stretch x10 reps. Verbal cues provided for proper technique and pacing exercises. Instructed patient to perform exercises slowly for maximum benefit. Instructed patient and caregiver to perform HEP 2-3 x daily in order to continue to improve ROM and strength for functional mobility. Physical Therapy Transfer Training Problem:PT Impaired mobility Goal:Improved Transfers Completed Transfer training and instruction to patient on safe transfers to and from bed and chair with independent. Physical Therapy Bed Mobility Training Problem:PT Impaired mobility Goal:Improved Bed Mobility Completed Bed mobility training and instruction to patient, including supine<>sit with independent. Physical Therapy Stair Training Problem:PT Impaired gait Goal:Improved Stair Climbing Completed Stair training and instruction to patient on safe stair climbing, ascend/descend 1 flight of steps, with railing with independent and reciprocal step pattern. Physical Therapy Gait Training Problem:PT Impaired gait Goal:Improved Gait Completed Gait training and instruction to patient on safe ambulation with no device for 150 feet with independent. Instruct on orthopedic precautions and weight bearing restrictions Description: Orthopedic precautions including right patellar resurfacing: no knee flexed over pillow at rest and no twisting. Weight bearing restrictions include: WBAT of involved extremity. Problem:PT Orthopedic Condition Goal:Manage Orthopedic Condition Completed patient instructed on orthopedic precautions and weight bearing restrictions. Instruct on management of edema Problem:PT Orthopedic Condition Goal:Manage Orthopedic Condition Completed Instruct patient on management of edema including elevation of LLE above the level of the heart and ice. Instruct on self-management of post surgical and/or non-surgical orthopedic intervention Problem:PT Orthopedic Condition Goal:Manage Orthopedic Condition Completed patient instructed on staying well hydrated, eating foods with high protein, signs and symptoms of infection, signs and symptoms of DVT/PE and instructed on when to call provider. Instruct and educate on knowledge deficits Problem:PT Learning Assessment Goal:Demonstrate understanding of education Completed patient verbalize and/or demonstrate understanding of physical therapy education including pain management, nutrition, fall prevention strategies, functional activity and home exercise program. Education methods include: verbal cues and teach back. [facility] Diagnostic Procedure Only (Routine) - Closed Specialty Diagnoses / Procedures Referred By Hossein yang Referred To Contact XR IMAGING Diagnoses Pain in both knees, unspecified chronicity Procedures XR KNEE POST OP 3V AP/LAT/MERCHANT BILATERAL RADIOLOGIC EXAMINATION KNEE 3 VIEWS aNel Reid PA-C [address] [place] [address] [place] [address] Referral ID Status Reason Start Date Expiration Date V isits Requested Visits Authorized [id number] Closed Auto-Generate d Referral 01/02/2023 02/01/2024 1 [facility] Diagnostic Procedure Only (Routine) - Authorized Specialty Diagnoses / Procedures Referred By Hossein yang Referred To Contact XR IMAGING Diagnoses Pain Procedures XR KNEE GENERAL 4V AP BOTH/PA BOTH/LAT/MERC BILATERAL RADIOLOGIC EXAM KNEE COMPLETE 4/MORE VIEWS Manny Dudley MD [address] [address] [place] [address] Referral ID Status Reason Start Date Expiration Date Visits Requested Visits Authorized [id number] Authorized Auto-Generat ed Referral 11/13/2025 1 1 [facility] ([facility] Diagnostic Procedure Only (Routine) - Closed Specialty Diagnoses / Procedures Referred By Contac t Referred To Contact XR IMAGING Diagnoses Pain Procedures XR HIP GENERAL 3V PELV/AP/LAT RIGHT RADEX HIP UNILATERAL WITH PELVIS 2-3 VIEWS Manny Dudley MD [address] [place] [address] [place] [address] Referral ID Status Reason Start Date Expiration Date V isits Requested Visits Authorized [id number] Closed Auto-Generate d Referral 12/11/2024 01/10/2026 1 1 [facility] for visit Narrative* Diagnostic Procedure Only (Routine) - Closed Specialty Diagnoses / Procedures Referred By Contac t Referred To Contact XR IMAGING Diagnoses Pain in both knees, unspecified chronicity Procedures XR KNEE POST OP 3V AP/LAT/MERCHANT BILATERAL RADIOLOGIC EXAMINATION KNEE 3 VIEWS Nael Reid PA-C [address] [place] [address] [place] [address] Referral ID Status Reason Start Date Expiration Date V isits Requested Visits Authorized [id number] Closed Auto-Generate d Referral 01/02/2023 02/01/2024 1 1 [facility] N[facility]ative* Diagnostic Procedure Only (Routine) - Closed Specialty Diagnoses / Procedures Referred By Contac t Referred To Contact XR IMAGING Diagnoses Chronic pain of both knees Procedures XR KNEE POST OP 3V AP/LAT/MERCHANT BILATERAL RADIOLOGIC EXAMINATION KNEE 3 VIEWS Daniel Patel PA-C [address] [place] [address] [place] [address] Referral ID Status Reason Start Date Expiration Date V isits Requested Visits Authorized [id number] Closed Auto-Generate d Referral 12/11/2024 01/10/2026 1 [facility] Diagnostic Procedure Only (Routine) - Closed Specialty Diagnoses / Procedures Referred By Contac t Referred To Contact XR IMAGING Diagnoses Left knee pain, unspecified chronicity Procedures XR KNEE POST OP 3V AP/LAT/MERCHANT LEFT RADIOLOGIC EXAMINATION KNEE 3 VIEWS Nael Reid PA-C [address] [place] [address] Phone: tel: fax: [place] [address] Referral ID Status Reason Start Date Expiration Date V isits Requested Visits Authorized [id number] Closed Auto-Generate d Referral 02/11/2025 03/12/2026 1 1 [facility] Summary Purpose Family History No Family History Records FoundNo Family History Records FoundNo Family History Records FoundNo Family History Records Found Advance Directives No Advanced Directives Records Found Date Activated Date Inactivated Comments 02/04/2025 4:52 PM Date Activated Date Inactivated Comments 02/04/2025 4:52 PM Additional Source Comments (unrecognized sect ion and content) No Status Records FoundNo Status Records FoundNo Status Records FoundNo Status Records Found INFORMATION SOURCE (unrecogn ized section and content) DATE CREATED AUTHOR 01/17/2022 [facility] DATE CREATED AUTHOR AUTHOR'S ORGANIZ ATION 10/08/2024 [facility] DATE CREATED AUTHOR AUTHOR'S ORGANIZ ATION 02/21/2025 [facility] DATE CREATED AUTHOR AUTHOR'S ORGANIZ ATION 06/24/2025 [facility] Source Comments (unrecognize d section and content) In the event this informatio n is protected by the Federal Confidentiality of Alcohol and Drug Abuse Patient Records regulations: The Federal rules restrict any use of the information to criminally investigate or prosecute any alcohol or drug abuse patient.[facility] the event this information is protected by the Federal Confidentiality of Alcohol and Drug Abuse Patient Records regulations: The Federal rules restrict any use of the information to criminally investigate or prosecute any alcohol or drug abuse patient.[facility] the event this information is protected by the Federal Confidentiality of Alcohol and Drug Abuse Patient Records regulations: The Federal rules restrict any use of the information to criminally investigate or prosecute any alcohol or drug abuse patient.[facility] Center[facility] the event this information is protected by the Federal Confidentiality of Alcohol and Drug Abuse Patient Records regulations: The Federal rules restrict any use of the information to criminally investigate or prosecute any alcohol or drug abuse patient.[facility] Center[facility] the event this information is protected by the Federal Confidentiality of Alcohol and Drug Abuse Patient Records regulations: The Federal rules restrict any use of the information to criminally investigate or prosecute any alcohol or drug abuse patient.[facility] Center[facility] the event this information is protected by the Federal Confidentiality of Alcohol and Drug Abuse Patient Records regulations: The Federal rules restrict any use of the information to criminally investigate or prosecute any alcohol or drug abuse patient.[facility] Center[facility] the event this information is protected by the Federal Confidentiality of Alcohol and Drug Abuse Patient Records regulations: The Federal rules restrict any use of the information to criminally investigate or prosecute any alcohol or drug abuse patient.[facility] Center[facility] the event this information is protected by the Federal Confidentiality of Alcohol and Drug Abuse Patient Records regulations: The Federal rules restrict any use of the information to criminally investigate or prosecute any alcohol or drug abuse patient.[facility] Center[facility] the event this information is protected by the Federal Confidentiality of Alcohol and Drug Abuse Patient Records regulations: The Federal rules restrict any use of the information to criminally investigate or prosecute any alcohol or drug abuse patient.[facility] Center[facility] the event this information is protected by the Federal Confidentiality of Alcohol and Drug Abuse Patient Records regulations: The Federal rules restrict any use of the information to criminally investigate or prosecute any alcohol or drug abuse patient.[facility] Center[facility] the event this information is protected by the Federal Confidentiality of Alcohol and Drug Abuse Patient Records regulations: The Federal rules restrict any use of the information to criminally investigate or prosecute any alcohol or drug abuse patient.[facility] Center[facility] the event this information is protected by the Federal Confidentiality of Alcohol and Drug Abuse Patient Records regulations: The Federal rules restrict any use of the information to criminally investigate or prosecute any alcohol or drug abuse patient.[facility] CenterIn the event this information is protected by the Federal Confidentiality of Alcohol and Drug Abuse Patient Records regulations: The Federal rules restrict any use of the information to criminally investigate or prosecute any alcohol or drug abuse patient.[facility] CenterIn the event this information is protected by the Federal Confidentiality of Alcohol and Drug Abuse Patient Records regulations: The Federal rules restrict any use of the information to criminally investigate or prosecute any alcohol or drug abuse patient.[facility] CenterIn the event this information is protected by the Federal Confidentiality of Alcohol and Drug Abuse Patient Records regulations: The Federal rules restrict any use of the information to criminally investigate or prosecute any alcohol or drug abuse patient.[facility] Center[facility] the event this information is protected by the Federal Confidentiality of Alcohol and Drug Abuse Patient Records regulations: The Federal rules restrict any use of the information to criminally investigate or prosecute any alcohol or drug abuse patient.[facility] CenterIn the event this information is protected by the Federal Confidentiality of Alcohol and Drug Abuse Patient Records regulations: The Federal rules restrict any use of the information to criminally investigate or prosecute any alcohol or drug abuse patient.[facility] CenterIn the event this information is protected by the Federal Confidentiality of Alcohol and Drug Abuse Patient Records regulations: The Federal rules restrict any use of the information to criminally investigate or prosecute any alcohol or drug abuse patient.[facility] CenterIn the event this information is protected by the Federal Confidentiality of Alcohol and Drug Abuse Patient Records regulations: The Federal rules restrict any use of the information to criminally investigate or prosecute any alcohol or drug abuse patient.[facility] CenterIn the event this information is protected by the Federal Confidentiality of Alcohol and Drug Abuse Patient Records regulations: The Federal rules restrict any use of the information to criminally investigate or prosecute any alcohol or drug abuse patient.[facility] CenterIn the event this information is protected by the Federal Confidentiality of Alcohol and Drug Abuse Patient Records regulations: The Federal rules restrict any use of the information to criminally investigate or prosecute any alcohol or drug abuse patient.[facility] CenterIn the event this information is protected by the Federal Confidentiality of Alcohol and Drug Abuse Patient Records regulations: The Federal rules restrict any use of the information to criminally investigate or prosecute any alcohol or drug abuse patient.[facility] CenterIn the event this information is protected by the Federal Confidentiality of Alcohol and Drug Abuse Patient Records regulations: The Federal rules restrict any use of the information to criminally investigate or prosecute any alcohol or drug abuse patient.[facility] CenterIn the event this information is protected by the Federal Confidentiality of Alcohol and Drug Abuse Patient Records regulations: The Federal rules restrict any use of the information to criminally investigate or prosecute any alcohol or drug abuse patient.[facility] CenterIn the event this information is protected by the Federal Confidentiality of Alcohol and Drug Abuse Patient Records regulations: The Federal rules restrict any use of the information to criminally investigate or prosecute any alcohol or drug abuse patient.[facility] CenterIn the event this information is protected by the Federal Confidentiality of Alcohol and Drug Abuse Patient Records regulations: The Federal rules restrict any use of the information to criminally investigate or prosecute any alcohol or drug abuse patient.[facility] CenterIn the event this information is protected by the Federal Confidentiality of Alcohol and Drug Abuse Patient Records regulations: The Federal rules restrict any use of the information to criminally investigate or prosecute any alcohol or drug abuse patient.[facility] CenterIn the event this information is protected by the Federal Confidentiality of Alcohol and Drug Abuse Patient Records regulations: The Federal rules restrict any use of the information to criminally investigate or prosecute any alcohol or drug abuse patient.[facility] CenterIn the event this information is protected by the Federal Confidentiality of Alcohol and Drug Abuse Patient Records regulations: The Federal rules restrict any use of the information to criminally investigate or prosecute any alcohol or drug abuse patient.[facility] CenterIn the event this information is protected by the Federal Confidentiality of Alcohol and Drug Abuse Patient Records regulations: The Federal rules restrict any use of the information to criminally investigate or prosecute any alcohol or drug abuse patient.[facility] CenterIn the event this information is protected by the Federal Confidentiality of Alcohol and Drug Abuse Patient Records regulations: The Federal rules restrict any use of the information to criminally investigate or prosecute any alcohol or drug abuse patient.[facility] CenterIn the event this information is protected by the Federal Confidentiality of Alcohol and Drug Abuse Patient Records regulations: The Federal rules restrict any use of the information to criminally investigate or prosecute any alcohol or drug abuse patient.[facility] Reason for Visit (unrecogniz ed section and content) Reason Comments Physical Therapy Specialty Diagnoses / Procedures Referred By Contgio t Referred To Contact [facility] Diagnoses Status post revision of total replacement of left knee Procedures CONSULT TO PHYSICAL THERAPY PHYSICAL THERAPY EVALUATION HIGH COMPLEX 45 MINS Nael Reid PA-C [address] [place] [address] Phone: tel: fax: [facility] [address] [place] [address] Referral ID Status Reason Start Date Expiration Date Visits Requested Visits Authorized [id number] Authorized PCP Requested Referral Auto-Generate d Referral 02/19/2025 02/19/2026 99 99 Reason Comments Follow Up Knee Replacement Reason Onset Date Comments Colonoscopy 12/19/2022 Reason Comments Refraction Reason Comments Medicare Annual Wellness Visit Subsequen t Pt denies any concerns. Reason Comments Comprehensive Health Assessment Reason Onset Date Comments Ear Drainage 08/24/2024 Reason Onset Date Comments Ear Drainage 10/07/2024 Reason Comments Ear Problem Est pt here today wi th complaints of Left Ear Otorrhea. Pt denies any of the following: Dizziness, Otalgia, Nausea/vomiting, fever/chills. Pt does admit to having Tinnitus many, many years. Pt normally wears hearing aids but since Sept with the ear drainage he only uses sparingly. Pt states right ear itches. Pt denies any ear/head trauma Sore Throat Sore throat x 6 days . Pt also experiencing a productive cough with yellow sputum. Pt states that he is experiencing sinus symptoms. Pt denies any frontal or maxillary sinus pain/pressure. Pt denies any Ear Pressure as well. Reason Onset Date Comments Refill Request 10/19/2024 Reason Comments Medicare Annual Wellness Visit Subsequen t No concerns , fasting , no refills needed per Pt Reason Comments Ear Drainage Pt states for the pa st 2 weeks has been experiencing bilateral clear ear drainage, feeling plugged, itching, hearing loss, and 2 nose bleeds. Denies ear pain, headache, runny nose or fever. Reason Comments Established Patient Follow Up Knee Pain Knee Replacement Specialty Diagnoses / Procedures Referred By Nanyac t Referred To Contact XR IMAGING Diagnoses Pain Procedures XR KNEE GENERAL 4V AP BOTH/PA BOTH/LAT/MERC BILATERAL RADIOLOGIC EXAM KNEE COMPLETE 4/MORE VIEWS Manny Dudley MD [address] [place] [address] Xr Imaging [id number] Referral ID Status Reason Start Date Expiration Date V isits Requested Visits Authorized [id number] Closed Auto-Generate d Referral 10/14/2024 11/13/2025 1 1 Reason Comments Consult surgery at [facility] Specialty Diagnoses / Procedures Referred By Nanyac t Referred To Contact [facility] Diagnoses Pre-operative examination Procedures ECG COMPLETE ECG ROUTINE ECG W/LEAST 12 LDS W/I&R Alayna Bojorquez, [employer] REGISTRATION SPECIALIST.YARDING ENGINEER [address] [place] [address] Phone: tel: fax: [facility] [address] [place] [address] Referral ID Status Reason Start Date Expiration Date V isits Requested Visits Authorized [id number] Closed Auto-Generate d Referral 01/19/2025 01/19/2026 1 1 Reason Comments Home Care CONFIRMATION CALL Reason Comments Home Care Bandage removal Reason Comments Knee Pain Post Op Reason Comments PT Eval Reason Comments Physical Therapy PT Discharge Specialty Diagnoses / Procedures Referred By Hossein t Referred To Contact [facility] Diagnoses Status post revision of total replacement of left knee Procedures CONSULT TO PHYSICAL THERAPY PHYSICAL THERAPY EVALUATION HIGH COMPLEX 45 MINS Nael Reid PA-C [address] [place] [address] Phone: tel: fax: [facility] [address] [place] [address] Referral ID Status Reason Start Date Expiration Date Visits Requested Visits Authorized [id number] Authorized PCP Requested Referral Auto-Generate d Referral 02/19/2025 02/19/2026 99 99 Reason Comments Knee Pain Post Op Knee Replacement Reason Onset Date Comments Refill Request 06/16/2025 Care Teams (unrecognized sec tion and content) Edm Operator Relationship Specialty Start Date End Date Trent Mckeon PCP - General Family Medicine 05/22/11 Edm Operator Relationship Specialty Start Date End Date Kamron Pate MD [address] [place] [address] PCP - General 08/02/19 Edm Operator Relationship Specialty Start Date End Date Trent Mckeon PCP - General Family Medicine 05/22/11 Edm Operator Relationship Specialty Start Date End Date Kamron Pate MD [facility] [place] [address] PCP - General 08/02/19 Edm Operator Relationship Specialty Start Date End Date Trnet Mckeon PCP - General Family Medicine 05/22/11 Edm Operator Relationship Specialty Start Date End Date Kamron Pate MD [address] [place] [address] PCP - General 08/02/19 Edm Operator Relationship Specialty Start Date End Date Trent Mckeon PCP - General Family Medicine 05/22/11 Edm Operator Relationship Specialty Start Date End Date Kamron Pate MD [address] [place] [address] PCP - General 08/02/19 Edm Operator Relationship Specialty Start Date End Date Kamron Pate MD [address] [place] [address] PCP - General 08/02/19 Edm Operator Relationship Specialty Start Date End Date Trent Mckeon PCP - General Family Medicine 05/22/11 Edm Operator Relationship Specialty Start Date End Date Trent Mckeon PCP - General Family Medicine 05/22/11 Edm Operator Relationship Specialty Start Date End Date Kamron Pate MD [facility]0 [facility] [address] [place] [address] PCP - General 08/02/19 Edm Operator Relationship Specialty Start Date End Date Kamron Pate MD [address] [place] [address] Road [facility] [address] [place] [address] PCP - General 08/02/19 Edm Operator Relationship Specialty Start Date End Date Trent Mckeon PCP - General Family Medicine 05/22/11 Edm Operator Relationship Specialty Start Date End Date Trent Mckeon PCP - General Family Medicine 05/22/11 Edm Operator Relationship Specialty Start Date End Date Trent Mckeon PCP - General Family Medicine 05/22/11 Edm Operator Relationship Specialty Start Date End Date Kamron Pate MD [facility] [place] [address] PCP - General Family Medicine 01/11/25 Edm Operator Relationship Specialty Start Date End Date Kamron Pate MD [address] [place] [address] [address] [place] [address] PCP - General Family Medicine 01/11/25 Manny Dudley MD [address] [place] [address] Home Care Provider Orthopedics 02/02/25 Manny Dudley MD [address] [place] [address] Referring Orthopedics 02/02/25 Mona Mata, PT [address] [id number] Content Assistant Post Acute Care 02/02/25 Edm Operator Relationship Specialty Start Date End Date Kamron Pate MD [address] [place] [address] [place] [address] PCP - General Family Medicine 01/11/25 Manny Dudley MD [address] [place] [address] Home Care Provider Orthopedics 02/02/25 Manny Dudley MD [address] [place] [address] Referring Orthopedics 02/02/25 Mona Mata, PT [address] [place] [address] Content Assistant Post Acute Care 02/02/25 Edm Operator Relationship Specialty Start Date End Date Kamron Pate MD [address] [place] [address] [place] [address] PCP - General Family Medicine 01/11/25 Manny Dudley MD [address] [address] Home Care Provider Orthopedics 02/02/25 Manny Dudley MD [address] [address] Referring Orthopedics 02/02/25 Mona Mata, PT [address] [place] [address] Content Assistant Post Acute Care 02/02/25 Edm Operator Relationship Specialty Start Date End Date Kamron Pate MD [facility]0 [facility] [address] [place] [address] PCP - General Family Medicine 01/11/25 Manny Dudley MD [address] [address] Home Care Provider Orthopedics 02/02/25 Manny Dudley MD [address] [address] Referring Orthopedics 02/02/25 Mona Mata, PT [address] [place] [address] Content Assistant Post Acute Care 02/02/25 Edm Operator Relationship Specialty Start Date End Date Kamron Pate MD [address] [place] [address] PCP - General Family Medicine 01/11/25 Manny Dudley MD [address] [address] Home Care Provider Orthopedics 02/02/25 Manny Dudley MD [address] [address] Referring Orthopedics 02/02/25 Mona Mata, PT [address] [place] [address] Content Assistant Post Acute Care 02/02/25 Edm Operator Relationship Specialty Start Date End Date Kamron Pate MD [address] [place] [address] [place] [id number] PCP - General Family Medicine 01/11/25 Manny Dudley MD [address] [address] Home Care Provider Orthopedics 02/02/25 Manny Dudley MD [address] [address] Referring Orthopedics 02/02/25 Mona Mata, PT [address] [place] [address] Content Assistant Post Acute Care 02/02/25 Edm Operator Relationship Specialty Start Date End Date Kamron Pate MD [address] [place] [address] [place] [address] PCP - General Family Medicine 01/11/25 Manny Dudley MD [address] [address] Home Care Provider Orthopedics 02/02/25 Manny Dudley MD [address] [address] Referring Orthopedics 02/02/25 Mona Mata, PT [address] [place] [address] Content Assistant Post Acute Care 02/02/25 Edm Operator Relationship Specialty Start Date End Date Kamron Pate MD [facility] Jasen. [address] [place] [id number] PCP - General Family Medicine 01/11/25 Manny Dudley MD [address] [address] Home Care Provider Orthopedics 02/02/25 Manny Dudley MD [address] [address] Referring Orthopedics 02/02/25 Mona Mata, PT [address] [place] [address] Content Assistant Post Acute Care 02/02/25 Edm Operator Relationship Specialty Start Date End Date Kamron Pate MD [facility] Jasen. [address] [place] [address] PCP - General Family Medicine 01/11/25 Manny Dudley MD [address] [address] Home Care Provider Orthopedics 02/02/25 Manny Dudley MD [address] [address] Referring Orthopedics 02/02/25 Mona Mata, PT [address] [place] [address] Content Assistant Post Acute Care 02/02/25 Edm Operator Relationship Specialty Start Date End Date Kamron Pate MD [facility] Jasen. [address] [place] [phone] PCP - General Family Medicine 01/11/25 Manny Dudley MD [address] [address] Home Care Provider Orthopedics 02/02/25 Manny Dudley MD [address] [address] Referring Orthopedics 02/02/25 Mona Mata, PT [address] [place] [address] Content Assistant Post Acute Care 02/02/25 Edm Operator Relationship Specialty Start Date End Date Kamron Pate MD [address] [place] [address] PCP - General Family Medicine 01/11/25 Manny Dudley MD [address] [address] Home Care Provider Orthopedics 02/02/25 Manny Dudley MD [address] [address] Referring Orthopedics 02/02/25 Mona Mata, PT [address] [place] [address] Content Assistant Post Acute Care 02/02/25 Edm Operator Relationship Specialty Start Date End Date Kamron Pate MD [address] [place] [address] [place] [address] PCP - General Family Medicine 01/11/25 Manny Dudley MD [address] [place] [address] Home Care Provider Orthopedics 02/02/25 Manny Dudley MD [address] [place] [address] Referring Orthopedics 02/02/25 Edm Operator Relationship Specialty Start Date End Date aKmron Pate MD [address] [place] [address] PCP - General Family Medicine 01/11/25 Manny Dudley MD [address] [place] [address] Home Care Provider Orthopedics 02/02/25 Manny Dudley MD [address] [place] [address] Referring Orthopedics 02/02/25 Edm Operator Relationship Specialty Start Date End Date Kamron Pate MD [address] [place] [address] PCP - General Family Medicine 01/11/25 Manny Dudlye MD [address] [place] [address] Home Care Provider Orthopedics 02/02/25 Manny Dudley MD [address] [place] [address] Referring Orthopedics 02/02/25 Edm Operator Relationship Specialty Start Date End Date Kamron Pate MD [address] [place] [address] [address] PCP - General Family Medicine 01/11/25 Manny Dudley MD [address] [place] [address] Home Care Provider Orthopedics 02/02/25 Manny Dudley MD [address] [place] [address] Referring Orthopedics 02/02/25 Edm Operator Relationship Specialty Start Date End Date Kamron Pate MD [address] [place] [address] PCP - General Family Medicine 01/11/25 Manny Dudley MD [address] [place] [address] Home Care Provider Orthopedics 02/02/25 Manny Dudley MD [address] [place] [address] Referring Orthopedics 02/02/25 Edm Operator Relationship Specialty Start Date End Date Kamron Pate MD [address] [place] [address] PCP - General Family Medicine 01/11/25 Manny Dudley MD [address] [place] [address] Home Care Provider Orthopedics 02/02/25 Manny Dudley MD [address] [place] [address] [phone] Referring Orthopedics 02/02/25 Edm Operator Relationship Specialty Start Date End Date Kamron Pate MD [address] [place] [address] [address] [place] [address] PCP - General Family Medicine 01/11/25 Manny Dudley MD [address] [place] [address] [phone] Home Care Provider Orthopedics 02/02/25 Manny Dudley MD [address] [place] [address] [phone] Referring Orthopedics 02/02/25 FOR RECORDS PERTAINING TO PATIENTS WHO ARE OR HAVE BEEN ENROLLED IN A CHEMICAL DEPENDENCY/SUBSTANCEABUSE PROGRAM, SOME INFORMATION MAY BE OMITTED. This clinical summary was aggregated from multiple sources. Caution should be exercised in using it in the provision of clinical care. This summary normalizes information from multiple sources, and as a consequence, information in this document may materially change the coding, format and clinical context of patient data. In addition, data may be omitted in some cases. CLINICAL DECISIONS SHOULD BE BASED ON THE PRIMARY CLINICAL RECORDS. [facility]. provides no warranty or guarantee of the accuracy or completeness of information in this document.
== END | disposition home or self-care (01) ==
LOC: MFPLAB 12:00
DX: Z12.5 Encounter for screening for malignant neoplasm of prostate (principal)
CPT/HCPCS: 36415; 84153; G0103